=== PATIENT | female | born 1945 | race Caucasian/White ===

== ENCOUNTER 2018-03-07 17:43 | Inpatient (IN) | payer MEDICARE, SELFPAY ==
[2018-03-07] VITALS (7 sets, daily range): BP systolic 126–151; BP diastolic 64–87; PULSE 74–91; RESP 16–18; TEMP 36.8; O2SAT 100; BMI 31.6; BMI 31.7
--- NOTE | 2018-03-07 18:02 | CT_ITS ---
STUDY: CT ABDOMEN AND PELVIS WITHOUT CONTRAST REASON FOR EXAM: Female, 72 years old. Hematuria. RADIATION DOSAGE (If Supplied By Facility): CTDIvol = ( 19.03 ) mGy, DLP = ( 960.47 ) mGycm TECHNIQUE: Transaxial images were obtained from the dome of the diaphragm to the symphysis pubis without oral contrast, and without intravenous contrast. Sagittal and coronal images were reconstructed. Individualized dose optimization techniques were used for this CT. COMPARISON: None. FINDINGS: The exam is limited by patient motion. The visualized lung bases are unremarkable. The visualized portions of the heart are within normal limits. Normal liver. There are multiple gallstones. Normal spleen. Normal pancreas. Normal bilateral adrenal glands. Right kidney has 2 or 3 mm nonobstructing stone of the upper pole. There is a 5.2 cm and posterior renal cyst. No hydronephrosis. Left kidney is within normal limits. No stones. No hydronephrosis. Evaluation of the GI tract is limited by absence of oral contrast. Cannot exclude stomach wall thickening. No dilated loops of bowel or evidence for obstruction. Cannot exclude segmental thickening of the hirsch of the small or large bowel. Cannot exclude enteritis or colitis. Moderate diffuse fecal retention. Diverticulosis without definite diverticulitis. Appendix is not definitely seen. There is diffuse atherosclerotic calcification of the abdominal aorta, without a demonstrated aneurysm. Normal inferior vena cava. Normal retroperitoneum. Normal urinary bladder. Lobular enlarged uterus with numerous calcifications consistent with marked fibrotic changes. Normal abdominal wall. There are diffuse degenerative changes of the visualized lumbar spine. CT/Abdomen/Pelvis without Cont IMPRESSION: Limited by patient motion. Cholelithiasis. Marked fibroid involvement of the uterus. No acute renal abnormalities. Tiny nonobstructing right renal stone. Electronically Signed: Joseph Hugo MD at 19:24 EDT , Service support ,
--- NOTE | 2018-03-07 18:09 | ED.VISSUMM ---
- ER Visit Summary Date of Service: 03/07/18 Chief Complaint: Blood in urine History of Present Illness: The patient is a 72 F who takes Eliquis for A. fib and history of embolic stroke. She presents today with hematuria. She says this is a new issue. She is denying any pain or history of kidney stones. Denies any recent instrumentation. Denies fevers or infectious symptoms. Physical Examination: Afebrile and vital signs unremarkable. Patient is sitting in no apparent distress. Heart regular. Lungs clear. Abdomen soft and nontender. Test Results: Blood work, urinalysis, culture, coags, and imaging pending. Emergency Department Course and Treatment: Patient was treated with IV fluids. Christy catheter was placed with a three-way stopcock. Bladder was irrigated. She was discussed with Dr. Kiran. He said he is available this weekend if the patient would need an inpatient consult. Workup showed a hemoglobin of 15.3, glucose 143, BUN 20, INR 1.7, total bilirubin 1.3. Urinalysis showed signs of blood and infection. Culture is pending. CT showed uterine fibroids and a tiny right renal stone as well as other incidental findings. Patient was reassessed. She does have pink tinged urine after irrigation. She was started on Rocephin. Patient has a lot of chronic medical issues and weakness after a remote stroke. She has difficulty caring for herself with a catheter. She is concerned about recurrent bleeding. I will speak to the hospitalist about admission. Treatment Plan: As above Disposition: Admission Impression: 1. UTI 2. Hematuria This note was generated with [employer] dictation software. It may contain incorrect words, spelling, and punctuation that were not noted in review of the chart prior to signing ED Disposition - Plan for ED Patient: Chief Complaint: Complaint Referrals: Care Physician,No Primary [Primary Care Provider] -
[2018-03-07] MEDS: 0.9% Normal Saline 1,000 ML 999 ML IV (18:18)
[2018-03-07 18:27] LABS: Mucous, Urine 0 SEEN /hpf (<or=2+); Squamous Epithelial Cells - UA 0 SEEN /hpf (5-10)
[2018-03-07 18:28] LABS: Absolute Lymphocyte Count 2.09 X10^3/ul (0.83-4.51); Absolute Neutrophil Count 5.6 X10^3/uL (2.0-7.7); Basophil# 0.04 X10^3/uL; Basophil% 0.5 % (0-1); Eosinophils% 4.7 % (0-5); Hemoglobin 15.1 g/dl (12.0-15.0); Lymphocyte # 2.09 X10^3/ul (4.0); Lymphocyte % 24.3 % (19-41); Mean Corp Hgb Conc 33.6 g/gl (32-36); Mean Corpuscular Hgb 31.2 pg (27.0-32.0); Mean Platelet Vol. 11.4 fl (6.2-12.0); Monocyte# 0.48 X10^3/uL; Monocyte% 5.6 % (0-10); Neutrophil # 5.58 X10^3/uL (2.7-7.7); Neutrophil % 64.8 % (47-70); Platelet Count 222 K/mm3 (150-450); RBC Distribution Width CV 13.1 % (11.6-14.6); RBC Distribution Width SD 44.7 fl (35.1-43.9); Red Blood Count 4.84 M/mm3 (4.2-5.4); White Blood Count 8.6 K/mm3 (4.4-11.0)
[2018-03-07 18:31] LABS: Color, Urine Brown (Yellow); Glucose, Dipstick Normal (Normal); Ketone-Dipstick 15 mg/dl (Negative); Leukocyte Esterase-Dipstick 500 /ul (Negative); Nitrite-Dipstick Positive (Negative); Occult Blood-Urine 250 /ul (Negative); Protein-Dipstick 500 mg/dl (Negative); Urine Clarity Turbid (Clear); Urine Urobilinogen 1 mg/dl (Normal); Urine pH 6.5 (5.0 - 8.0)
[2018-03-07 18:32] LABS: POSITIVE COUNT NO; POSITIVE DIFFERENTIAL NO; POSITIVE MORPHOLOGY NO
[2018-03-07 18:38] LABS: International Normalized Ratio 1.7; Prothrombin Time (Protime)PT. 19.9 SECONDS (11.7-14.9)
[2018-03-07 18:39] LABS: Partial Thromboplast Time 32.6 Seconds (24.1-36.2)
[2018-03-07 18:44] LABS: Urine Bilirubin Dipstick 1 mg/dL (Negative)
[2018-03-07 18:50] LABS: AST(SGOT) 19 U/L (15-37); Alanine Aminotransfer ALT/SGPT 18 U/L (13-56); Albumin, Serum 3.8 g/dL (3.2-5.0); Alkaline Phosphatase 79 U/L (45-117); Anion Gap 9 (5-15); BUN 20 mg/dL (7-18); BUN/Creat Ratio 24.9 RATIO (10-20); Calcium,Total 9.3 mg/dL (8.5-10.1); Chloride 106 mmol/L (98-107); EST Glomerular Filtration Rate 75 mL/min (>60); Est Glom Filt Rate - Afr Amer 90 mL/min (>60); Estimated Creatinine Clearance 45.66 ml/min; Globulin 3.9 g/dL (2.2-4.2); Glucose 143 mg/dL (74-106); Potassium 4.2 mmol/L (3.5-5.1); Protein, Total 7.7 g/dL (6.4-8.2); Sodium Level 141 mmol/L (136-145)
[2018-03-07 18:52] LABS: Bacteria 4+ /hpf (None Seen)
[2018-03-07 18:53] LABS: Red Blood Cells-Urine > 100 SEEN /hpf (0-5); White Blood Cells >100 SEEN /hpf (0-5)
[2018-03-07] MEDS: Ceftriaxone 1 GM/50 ML BAG IV (20:33)
--- NOTE | 2018-03-07 23:25 | HP.PCM_ITS ---
Problem List (1) Hematuria Status: Acute (2) Embolic cerebral infarction Status: Acute Comment: multiple embolic ischemic strokes involving both sides of the brain (3) Hypomagnesemia Status: Acute (4) UTI (lower urinary tract infection) Status: Acute (5) Acute ischemic right MCA stroke Status: Chronic Comment: Thromboembolic, related to atrial fibrillation With a dense right-sided hemiplegia (6) Afib Status: Chronic History of Present Illness Date of Admission: 03/07/18 Chief Complaint: Hematuria The patient is a 72 year old female w/ h/o MCA stroke, HTN, afib, lipidemia, and RA admitted for gross hematuria. She has a new episode of hematuria. She never had similar symptoms. Hematuria was gross. No pain. Nothing appeared to make the hematuria better or worse. Hematuria was not associated with any other symptoms. She went to the ED for further workup. 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 Psychiatric History: No pertinent psych hx [employer] History: No pertinent [employer] history Lives: With Family Smoking Status: Never smoker Tobacco Use: Non-smoker Alcohol: None Drugs: None - *Family History Maternal History Items: Unknown, No pertinent history Paternal History Items: Unknown, No pertinent history Review of Systems Constitutional: Denies: Chills, Fever, Weight Change HEENT: Denies: Head Aches, Sinus Congestion, Sinus Drainage Cardiovascular: Denies: Chest Pain, Palpitations Respiratory: Denies: Cough, Shortness of breath at rest, Sputum production Gastrointestinal: Denies: Abdominal Pain, Nausea, Vomiting Genitourinary: Reports: Hematuria. Denies: Dysuria Musculoskeletal: Denies: Joint Pain, Joint Tenderness Skin: Denies: Rash, Wounds Neurological: Denies: Numbness, Tingling, Focal weakness Psychiatric: Denies: Anxiety, Depression, Homicidal Ideations, Suicidal Ideations Hematologic/ Lymphatic: Denies: Easy Bruising, Easy Bleeding VTE Information - Inpt Only VTE Present on Admission: No VTE Mechan Device Prophylaxis: SCD's VTE Pharm Prophylaxis ordered?: Yes Patient Problems: Active and Suspected Problems Hematuria (Acute) - Physical Exam General: Alert, Oriented x3, Cooperative HEENT: Atraumatic, PERRLA, EOMI, Normocephalic Neck: Supple, No JVD, Negative Carotid Bruits Lungs: Clear to auscultation, Normal air movement Cardiovascular: Regular rate, No murmurs Abdomen: Bowel Sounds Present, Soft, Non Tender Extremities: No edema, Capillary Refill Less than 3 Seconds Skin: No rashes, No breakdown Musculoskeletal: No Tenderness to Palpation of Joints or Extremities Neurological: Cranial nerves II-XII grossly intact Psych/Mental Status: Normal Affect, Appropriate Vital Signs Temp Pulse Resp BP Pulse Ox 98.3 F 82 16 150/82 H 100 03/07/18 20:38 03/07/18 22:09 03/07/18 22:09 03/07/18 22:09 03/07/18 22:09 Assessment/Plan Active and Suspected Problems Hematuria (Acute) 72 year old female w/ h/o MCA stroke, HTN, afib, lipidemia, and RA admitted for gross hematuria. 1) Hematuria: Probably secondary to anticoagulation vs UTI. No e/o bladder mass on CT. Doubt this is GN given normal renal function. C/w bladder irrigation. 2) UTI: C/w ceftriaxone. Cultures pending. 3) Afib: Rate controlled. C/w anticoagulation. 4) Chronic issues: MCA stroke, HTN, lipidemia, and RA: Resume home meds. Supportive care.
[2018-03-07] MEDS: 0.9% Normal Saline 1,000 ML 100 ML IV (23:30)
[2018-03-08 00:55] VITALS: PULSE 85
[2018-03-08 05:04] VITALS: BP 113/46; PULSE 86; RESP 16; TEMP 36.7; O2SAT 100
[2018-03-08 07:17] LABS: Absolute Lymphocyte Count 1.64 X10^3/ul (0.83-4.51); Absolute Neutrophil Count 5.8 X10^3/uL (2.0-7.7); Basophil# 0.03 X10^3/uL; Basophil% 0.4 % (0-1); Eosinophil# 0.38 X10^3/uL; Eosinophils% 4.6 % (0-5); Hematocrit 38.1 % (37-47); Lymphocyte # 1.64 X10^3/ul (4.0); Lymphocyte % 19.7 % (19-41); Mean Corp Hgb Conc 34.1 g/gl (32-36); Mean Corpuscular Hgb 31.9 pg (27.0-32.0); Mean Corpuscular Volume 93.6 fL (81-99); Mean Platelet Vol. 11.8 fl (6.2-12.0); Monocyte# 0.49 X10^3/uL; Monocyte% 5.9 % (0-10); Neutrophil # 5.78 X10^3/uL (2.7-7.7); Neutrophil % 69.2 % (47-70); Platelet Count 185 K/mm3 (150-450); RBC Distribution Width CV 13.1 % (11.6-14.6); RBC Distribution Width SD 43.7 fl (35.1-43.9); Red Blood Count 4.07 M/mm3 (4.2-5.4); White Blood Count 8.3 K/mm3 (4.4-11.0)
[2018-03-08 07:22] LABS: POSITIVE COUNT NO; POSITIVE DIFFERENTIAL NO; POSITIVE MORPHOLOGY NO
[2018-03-08 07:58] VITALS: PULSE 77
[2018-03-08 09:12] LABS: Anion Gap 6 (5-15); BUN 13 mg/dL (7-18); BUN/Creat Ratio 25.6 RATIO (10-20); Calcium,Total 7.7 mg/dL (8.5-10.1); Chloride 116 mmol/L (98-107); Creatinine, Serum 0.51 mg/dL (0.55-1.02); EST Glomerular Filtration Rate 126 mL/min (>60); Est Glom Filt Rate - Afr Amer 153 mL/min (>60); Estimated Creatinine Clearance 36.53 ml/min; Glucose 105 mg/dL (74-106); Potassium 3.8 mmol/L (3.5-5.1); Sodium Level 143 mmol/L (136-145)
[2018-03-08 10:21] VITALS: BP 117/67; PULSE 70; RESP 16; TEMP 36.9; O2SAT 94
[2018-03-08] MEDS: Ceftriaxone 1 GM/50 ML BAG IV (10:24)
[2018-03-08] MEDS: APIXABAN 5 MG TABLET GT (10:25)
[2018-03-08] MEDS: Sertraline 50 MG Tablet 25 MG PO (10:26)
[2018-03-08] MEDS: Nystatin Powder 15gm Bottle 1 APPLIC TOPICAL ×2 (13:20→21:32)
--- NOTE | 2018-03-08 14:18 | CASEMGMT ---
RN MALISSA Face to Face with patient for initial transition planning/care coordination assessment. RN CM introduced self and role at [facility]. Patient lying in bed, alert and oriented, daughter at bedside. Patient willing to participate in assessment and is able to answer all questions appropriately. Care providers, pharmacy, and demographics verified. See link attached. Patient wishes to discharge home with resumption of Passport services. Patient has aide services through [facility], 8 hours per day, 5 days per week. Patient states she has no further needs or concerns at this time. CM to follow for discharge planning needs that may arise. Disposition Plan: Patient to discharge home with Passport services, family support, and follow-up plans in place.
--- NOTE | 2018-03-08 14:44 | PCM.PROGNOTE ---
Patient Problems: Active and Suspected Problems Hematuria (Acute) Subjective: Patient was seen and examined today, urine in her Christy does not appear to be bloody this morning, urine culture is positive for presumptive E. coli. I talked with the patient's daughter by phone today, I told her the plan would be to remove the catheter in the morning and if the patient had no further bleeding she would probably be discharged tomorrow on antibiotics with follow-up to a urologist. - Physical Exam General: Alert, Oriented x3, Cooperative, No apparent distress, Well developed, Well nourished HEENT: Atraumatic, PERRLA, EOMI, Normocephalic Oral: Moist Mucosa Neck: Supple, No JVD, No Nuchal Rigidity, Trachea Midline, Thyroid Normal Size and Texture Lungs: Clear to auscultation, Normal air movement, No rhonchi, No wheeze, No rales Cardiovascular: No murmurs, PMI Normal, Irregular Rate, No rub noted Abdomen: Bowel Sounds Present, Soft, Non Tender, Non-Distended Extremities: No clubbing, No cyanosis, No edema, Capillary Refill Less than 3 Seconds Skin: No rashes, No breakdown Musculoskeletal: No Tenderness to Palpation of Joints or Extremities Neurological: Cranial nerves II-XII grossly intact, Neuro grossly intact, Sensory exam intact to light touch and pain Psych/Mental Status: Normal Affect, Appropriate, Alert and oriented to time, place, person, mood and affect Vital Signs Temp Pulse Resp BP Pulse Ox 98.4 F 70 16 117/67 94 03/08/18 10:21 03/08/18 10:21 03/08/18 10:21 03/08/18 10:21 03/08/18 10:21 Oxygen Delivery Method Room Air Weight: 73.6 kg Body Mass Index (BMI) 31.6 Intake and Output for Last 24 Hours 03/06/18 03/07/18 03/08/18 23:59 23:59 23:59 Intake Total 1581 / 1581 Output Total 1350 / 1350 Balance 231 / 231 Laboratory Tests Past 24 Hrs 03/08/18 03/08/18 06:55 06:55 WBC 8.3 RBC 4.07 L Hgb 13.0 Hct 38.1 MCV 93.6 MCH 31.9 MCHC 34.1 RDW 13.1 RDW Differential 43.7 Plt Count 185 MPV 11.8 Immature Gran % (Auto) 0.200 Neut % (Auto) 69.2 Lymph % (Auto) 19.7 [place] % (Auto) 5.9 Eos % (Auto) 4.6 Baso % (Auto) 0.4 Absolute Neuts (auto) 5.8 Absolute Lymphs (auto) 1.64 Total Counted Not Reportable Sodium 143 Potassium 3.8 Chloride 116 H Carbon Dioxide 21.0 Anion Gap 6 BUN 13 Creatinine 0.51 L Estim Creat Clear Calc 36.53 Est GFR (MDRD) Af Amer 153 Est GFR (MDRD) Non-Af 126 BUN/Creatinine Ratio 25.6 H Glucose 105 Calcium 7.7 L Medical Necessity - Tobacco Use Smoking Status: Never smoker Tobacco Use: Non-smoker Assessment/Plan Active and Suspected Problems Hematuria (Acute) #1 acute hematuria-secondary to cystitis, continue to monitor urine output and watch for signs of recurrent hematuria, repeat H&H in the morning #2 acute cystitis-secondary to E. coli, continue IV Rocephin day #2 #3 hyperlipidemia #4 permanent atrial fibrillation #5 long-term anticoagulation secondary to atrial fibrillation #6 cerebrovascular disease with old stroke secondary to emboli #7 hypertension Code Visit Inpatient E&M: 52470 Subs Hosp L2
[2018-03-08 15:34] VITALS: BP 113/82; PULSE 71; RESP 16; TEMP 36.7; O2SAT 95
[2018-03-08] MEDS: 0.9% Normal Saline 1,000 ML 100 ML IV (18:12)
[2018-03-08 20:00] VITALS: BP 119/58; PULSE 73; RESP 16; TEMP 36.9; O2SAT 98
[2018-03-08] MEDS: Atorvastatin Calcium 20 MG Tablet PO (21:32)
[2018-03-08] MEDS: APIXABAN 5 MG TABLET PO (21:32)
[2018-03-09 02:00] VITALS: BP 131/67; PULSE 78; RESP 16; TEMP 36.6; O2SAT 99
[2018-03-09] MEDS: 0.9% Normal Saline 1,000 ML 100 ML IV (03:13)
[2018-03-09] MEDS: Nystatin Powder 15gm Bottle 1 APPLIC TOPICAL (06:04)
[2018-03-09 09:10] VITALS: BP 130/72; PULSE 78; RESP 18; TEMP 36.7; O2SAT 94
--- NOTE | 2018-03-09 10:06 | PCM.DC ---
- Discharge Diagnoses Current Active Problems: Current Active and Chronic Problems Hematuria (Acute) You will use the following diet at home:: No restrictions Your food should be the consistency of: Regular Your liquids should be the consistency of: Regular/Thin Discharge Activity: Return to Normal Activity Weight Bearing Status: - - resume previous activity level Allergies/Adverse Reactions: Allergies No Known Allergies Allergy (Verified 06/16/16 11:16) Medications to take at Discharge Sertraline HCl [Zoloft] 25 mg PO DAILY 03/07/18 Simvastatin [Zocor] 40 mg PO QHS 03/07/18 Apixaban [Eliquis] 5 mg PO BID 03/09/18 Cephalexin [Keflex] 500 mg PO TID #21 cap 03/09/18 Nystatin Powder [Mycostatin Powder] 1 applic TOPICAL TID bottle 03/09/18 The following prescriptions were given: Cephalexin [Keflex] 500 mg PO TID #21 cap Primary Care Physician: Care Physician,No Primary [Primary Care Provider] - Please follow up with your Primary Care Physician in: in 7-10 days, you will need a repeat urinalysis to check for blood
[2018-03-09 10:09] LABS: Hematocrit 38.2 % (37-47); Hemoglobin 12.6 g/dl (12.0-15.0)
[2018-03-09] MEDS: APIXABAN 5 MG TABLET PO (11:33)
[2018-03-09] MEDS: Sertraline 50 MG Tablet 25 MG PO (11:33)
--- NOTE | 2018-03-09 17:32 | PCM.DC.SUM ---
Discharge Date and Diagnosis Date of Admission: 03/07/18 Date of Discharge: 03/09/18 - Primary Discharge Diagnosis #1 hematuria-secondary to acute cystitis from E. coli #2 acute cystitis secondary to E. 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 The blood was gross, she denied any clots. Patient lives with her daughter and is nonambulatory due to a past history of the left cerebral stroke. Workup in the emergency room included labs which showed a hemoglobin of 15.3, bilirubin was 1.3, BUN was 20, CT of the abdomen and pelvis showed a uterine fibroid plus a tiny right renal stone. Urinalysis showed over 100 red blood cells and over 100 white cells with 4+ bacteria, nitrite was positive. Catheter was inserted in the emergency room and was used for bladder irrigation, patient continued to have pink tinged urine after bladder irrigation, patient was admitted to [place] [address], IV Rocephin was administered in the emergency room and this was continued on the floor during her hospitalization. Patient had bladder irrigation for short period of time while on the floor, her urine cleared rapidly of visible blood, urine culture came back positive for E. coli which was sensitive to wide variety of antibiotics. Patient's blood count dropped slightly during her hospitalization, she did not require blood transfusion. On 03/09/18, patient was seen and examined felt to be in stable condition for discharge home, it was recommended that the patient's urine be rechecked in 7-10 days to see if her hematuria had cleared. Discharge Activity: Return to Normal Activity Weight Bearing Status: - - resume previous activity level Home Medications: Medications to take at Discharge Sertraline HCl [Zoloft] 25 mg PO DAILY 03/07/18 Simvastatin [Zocor] 40 mg PO QHS 03/07/18 Apixaban [Eliquis] 5 mg PO BID 03/09/18 Cephalexin [Keflex] 500 mg PO TID #21 cap 03/09/18 Nystatin Powder [Mycostatin Powder] 1 applic TOPICAL TID bottle 03/09/18 Following Prescrptions Were Given to Patient: Cephalexin [Keflex] 500 mg PO TID #21 cap Primary Care Physician: Care Physician,No Primary [Primary Care Provider] - Please follow up with your Primary Care Physician in: in 7-10 days, you will need a repeat urinalysis to check for blood Disposition: Home Minutes spent on discharge:: 31 Patient Condition:: Stable Medical Necessity - Tobacco Use Smoking Status: Never smoker Tobacco Use: Non-smoker Meaningful Use Info Meaningful Use Diagnoses (Choose all that apply): None applicable Code Visit Inpatient E&M: 81918 Disch Hosp
--- NOTE | 2018-03-09 17:38 | DS.PCM_ITS ---
Discharge Date and Diagnosis Date of Admission: 03/07/18 Date of Discharge: 03/09/18 - Primary Discharge Diagnosis #1 hematuria-secondary to acute cystitis from E. coli #2 acute cystitis secondary to E. 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 The blood was gross, she denied any clots. Patient lives with her daughter and is nonambulatory due to a past history of the left cerebral stroke. Workup in the emergency room included labs which showed a hemoglobin of 15.3, bilirubin was 1.3, BUN was 20, CT of the abdomen and pelvis showed a uterine fibroid plus a tiny right renal stone. Urinalysis showed over 100 red blood cells and over 100 white cells with 4+ bacteria, nitrite was positive. Catheter was inserted in the emergency room and was used for bladder irrigation, patient continued to have pink tinged urine after bladder irrigation, patient was admitted to [place] [address], IV Rocephin was administered in the emergency room and this was continued on the floor during her hospitalization. Patient had bladder irrigation for short period of time while on the floor, her urine cleared rapidly of visible blood, urine culture came back positive for E. coli which was sensitive to wide variety of antibiotics. Patient's blood count dropped slightly during her hospitalization , she did not require blood transfusion. On 03/09/18, patient was seen and examined felt to be in stable condition for discharge home, it was recommended that the patient's urine be rechecked in 7-10 days to see if her hematuria had cleared. Discharge Activity: Return to Normal Activity Weight Bearing Status: - - resume previous activity level Home Medications: Medications to take at Discharge Sertraline HCl [Zoloft] 25 mg PO DAILY 03/07/18 Simvastatin [Zocor] 40 mg PO QHS 03/07/18 Apixaban [Eliquis] 5 mg PO BID 03/09/18 Cephalexin [Keflex] 500 mg PO TID #21 cap 03/09/18 Nystatin Powder [Mycostatin Powder] 1 applic TOPICAL TID bottle 03/09/18 Following Prescrptions Were Given to Patient: Cephalexin [Keflex] 500 mg PO TID #21 cap Primary Care Physician: Care Physician,No Primary [Primary Care Provider] - Please follow up with your Primary Care Physician in: in 7-10 days, you will need a repeat urinalysis to check for blood Disposition: Home Minutes spent on discharge:: 31 Patient Condition:: Stable Medical Necessity - Tobacco Use Smoking Status: Never smoker Tobacco Use: Non-smoker Meaningful Use Info Meaningful Use Diagnoses (Choose all that apply): None applicable Code Visit Inpatient E&M: 21998 Disch Hosp
--- NOTE | 2018-03-10 16:04 | CASEMGMT ---
MARLEN LEONARDO Discharge Follow-up Phone Call: LUANN: Tammie Strata: 3 Call Date: 03/10/18 Discharge Date: 03/09/18 Time of Call: 1600 Duration: 5 min Admitting Diagnosis: Hematuria MARLEN LEONARDO spoke with patient's daughter regarding how patient is doing since discharge from hospital. Daughter states that patient is doing well. They had no trouble filling prescription. NO questions regarding discharge instructions. Daughter to call visiting physician to schedule appt.
== END 2018-03-09 13:28 | disposition home or self-care (01) | DRG 690 ==
LOC: ED 18:45 → MS3 22:47
PROVIDERS: Admitting Provider Internal Medicine; Emergency Provider Emergency Medicine; Visit Provider Internal Medicine
DX: N30.00 Acute cystitis without hematuria (principal); D62 Acute posthemorrhagic anemia; I69.351 Hemiplegia and hemiparesis following cerebral infarction affecting right dominant side; B96.20 Unspecified Escherichia coli [E. coli] as the cause of diseases classified elsewhere; R31.9 Hematuria, unspecified; I10 Essential (primary) hypertension; M06.9 Rheumatoid arthritis, unspecified; I69.398 Other sequelae of cerebral infarction; G93.89 Other specified disorders of brain; I69.391 Dysphagia following cerebral infarction; R13.10 Dysphagia, unspecified; Z66 Do not resuscitate; E78.5 Hyperlipidemia, unspecified; I48.2 Chronic atrial fibrillation
CPT/HCPCS: 36415; 51702; 74176; 80048; 80053; 81001; 85014; 85018; 85025; 85610; 85730; 87040; 87086; 87088; 87186; 99285; J7030; A4216

== ENCOUNTER 2020-04-01 05:55 | Inpatient (IN) | payer MEDICARE, MEDICAID, SELFPAY ==
[2020-04-01] VITALS (10 sets, daily range): BP systolic 120–151; BP diastolic 40–99; PULSE 82–120; RESP 16–28; TEMP 36.9–37.2; O2SAT 95–98; BMI 35.3; BMI 32.0
--- NOTE | 2020-04-01 06:09 | RAD_ITS ---
STUDY: X-RAY CHEST REASON FOR EXAM: Female, 74 years old. COUGH, ABD PAIN TECHNIQUE: Single frontal view of the chest. COMPARISON: 02/01/2015 FINDINGS: The lungs are clear and expanded. There is no demonstrated pleural abnormality. Normal size heart. Normal mediastinum and marisol. Normal visualized pulmonary arteries. Normal visualized aortic arch and descending thoracic aorta. Normal visualized thoracic spine. Normal visualized ribs, clavicles, and shoulders. There is no demonstrated abnormality of the visualized soft tissue structures of the upper abdomen. RAD/Chest 1 View (Portable) IMPRESSION: Normal x-ray examination of the chest. Electronically Signed: Matthew Rivera MD at 7:34 EDT , Service support ,
--- NOTE | 2020-04-01 06:10 | ED.VIS.GEN ---
History of Present Illness Chief Complaint: Abd Pain Informant: Patient Narrative: Stated she had a mild dry cough yesterday. She had 6 episodes of emesis today. Denies any abdominal pain. History of G-tube in the past secondary to stroke. This was removed multiple years ago. No other abdominal surgeries. Her daughter stated that she felt warm but did not take her temperature. No coronavirus exposure. Patient denies any shortness of breath or chest pain. Denies any urinary symptoms. 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 She is on Eliquis for history of atrial fibrillation. No bowel movements. 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 Comment: Thromboembolic, related to atrial fibrillation With a dense right-sided hemiplegia (7) Afib Status: Chronic (8) DNR no code (do not resuscitate) Status: Chronic (9) Dyslipidemia Status: Chronic (10) Dysphagia as late effect of stroke Status: Chronic (11) Encephalomalacia with cerebral infarction Status: Chronic Comment: most of the Left brain due to a large L MCA ischemic infarct in March of 2014 (12) HTN (hypertension) Status: Chronic (13) Rheumatoid arthritis Status: Chronic Past Medical History - Allergies and Home Meds Allergies/Adverse Reactions: Allergies No Known Allergies Allergy (Verified 04/01/20 06:05) Primary Care Physician: Care Physician,No Primary [Primary Care Provider] - Prior records reviewed: Yes Past Medical History: - - See problem list Surgical History: - - PEG tube placement. Lives: With Family Smoking Status: Never smoker Alcohol: None Drugs: None - Family History Maternal Family History: Reports: Unknown, No pertinent history Paternal Family History: Reports: Unknown, No pertinent history Review of Systems General: Denies: Chills, Fever, Sweats Eyes: Denies: Visual changes - bilaterally, Diplopia ENT: Denies: Rhinorrhea, Sore throat Cardiovascular: Denies: Chest pain, Palpitations Respiratory: Reports: Cough. Denies: Dyspnea, Dyspnea on exertion Gastrointestinal: Reports: Nausea, Vomiting. Denies: Abdominal pain, Diarrhea, Melena, Hematochezia Genitourinary: Denies: Dysuria, Hematuria, Frequency Musculoskeletal: Denies: Back pain, Extremity Pain Skin: Denies: Rash, Wounds Neurological: Denies: Headache, Weakness, Numbness Physical Exam Vital Signs/Narrative: Vital Signs Temp Pulse Resp BP Pulse Ox 04/01/20 06:07 98.9 F 120 H 25 H 151/85 H 98 04/01/20 05:56 98.9 F 120 H 25 H 151/85 H 98 General: Well nourished, Well developed, No Acute Distress Head: Normocephalic, Atraumatic Eyes: Perrl, EOMI ENT: Moist mucous membranes, No rhinorrhea Neck: Supple, Nontender Cardiovascular: Regular rate, No murmurs, Irregular, Tachycardia Respiratory: No distress, Chest nontender, Rales Abdomen: Soft, Nontender, Nondistended, Normal bowel sounds Back: Nontender, Normal Inspection Extremities: Nontender, No edema Skin: Normal color, No rash Neurological: Alert, Oriented x3, Cranial nerves II-XII grossly intact, Normal Sensation, - - Spastic weakness right-sided with contracture Psychological: Normal affect, Normal Mood Diagnostic/Tx/Re-eval - Medical Decision Making IV established patient given IV fluids and Zofran. Lab work and chest x-ray obtained. Work shows a leukocytosis greater than 20,000 with left shift. Urinalysis shows positive leukocytes and nitrites consistent with UTI urine culture pending. Blood cultures pending. Patient given Unasyn which should cover aspiration pneumonitis and a urine infection. Chest x-ray shows no focal infiltrates however I feel she would likely blossom into a pneumonitis pneumonia from her aspiration. Patient has elevated BUN likely secondary to prerenal duration. Creatinine is normal. Patient discussed the hospitalist will be admitted - Critical Care Time Critical care time (excluding procedures): 30-74 minutes ED Disposition - Plan for ED Patient: Disposition: Acute Care Hospital [facility] Diagnosis: Aspiration pneumonitis, Nausea and vomiting, Chronic atrial fibrillation, Urinary tract infection
[2020-04-01 06:27] LABS: Absolute Lymphocyte Count 2.35 X10^3/uL (0.83-4.51); Absolute Neutrophil Count 18.5 X10^3/uL (2.0-7.7); Basophil# 0.09 X10^3/uL; Basophil% 0.4 % (0-1); Eosinophil# 0.37 X10^3/uL; Eosinophils% 1.6 % (0-5); Hematocrit 38.5 % (37-47); Hemoglobin 12.8 g/dL (12.0-15.0); Lymphocyte # 2.35 X10^3/ul (4.0); Lymphocyte % 10.4 % (19-41); Mean Corp Hgb Conc 33.2 g/dL (32-36); Mean Corpuscular Hgb 31.7 pg (27.0-32.0); Mean Corpuscular Volume 95.3 fL (81-99); Mean Platelet Vol. 12.6 fl (6.2-12.0); Monocyte% 5.3 % (0-10); NRBC Flagged by Analyzer 0 % (0-5); Neutrophil # 18.52 X10^3/uL (2.7-7.7); Neutrophil % 81.8 % (47-70); Platelet Count 273 K/mm3 (150-450); RBC Distribution Width CV 13.2 % (11.6-14.6); RBC Distribution Width SD 46.1 fl (35.1-43.9); Red Blood Count 4.04 M/mm3 (4.2-5.4); White Blood Count 22.7 K/mm3 (4.4-11.0)
[2020-04-01] MEDS: Ondansetron 4 MG/2 ML Vial IV (06:43)
[2020-04-01] MEDS: 0.9% Normal Saline 1,000 ML 1000 ML IV (06:43)
[2020-04-01 06:44] LABS: ALB/GLOB Ratio 0.9 RATIO (0.9-2.4); AST(SGOT) 13 U/L (15-37); Alanine Aminotransfer ALT/SGPT 13 U/L (13-56); Albumin, Serum 3.3 g/dL (3.2-5.0); Alkaline Phosphatase 59 U/L (45-117); Anion Gap 8 (5-15); BUN 38 mg/dL (7-18); BUN/Creat Ratio 54.9 RATIO (10-20); Calcium,Total 9.5 mg/dL (8.5-10.1); Chloride 111 mmol/L (98-107); Creatinine, Serum 0.69 mg/dL (0.55-1.02); EST Glomerular Filtration Rate 88 mL/min (>60); Est Glom Filt Rate - Afr Amer 107 mL/min (>60); Estimated Creatinine Clearance 39.04 ml/min; Globulin 3.7 g/dL (2.2-4.2); Glucose 168 mg/dL (74-106); Lipase 42 U/L (73-393); Potassium 4.3 mmol/L (3.5-5.1); Sodium Level 141 mmol/L (136-145)
[2020-04-01 06:46] LABS: Mucous, Urine 0 SEEN /hpf (<or=2+)
[2020-04-01 06:47] LABS: Color, Urine Yellow (Yellow); Glucose, Dipstick Normal (Normal); Ketone-Dipstick Negative (Negative); Leukocyte Esterase-Dipstick 100 /ul (Negative); Nitrite-Dipstick Positive (Negative); Occult Blood-Urine 10 /ul (Negative); Protein-Dipstick 15 mg/dl (Negative); Urine Bilirubin Dipstick Negative (Negative); Urine Clarity Clear (Clear); Urine Urobilinogen 1 mg/dl (Normal)
--- NOTE | 2020-04-01 07:14 | HP.PCM_ITS ---
Problem List (1) Aspiration pneumonitis Status: Acute (2) Nausea and vomiting Status: Acute Qualifiers: Vomiting type: unspecified Vomiting Intractability: unspecified Qualified Code(s): R11.2 - Nausea with vomiting, unspecified (3) Chronic atrial fibrillation Status: Chronic (4) Dysphagia as late effect of stroke Status: Chronic (5) HTN (hypertension) Status: Chronic Qualifiers: Hypertension type: essential hypertension Qualified Code(s): I10 - Essential (primary) hypertension (6) Afib Status: Chronic Qualifiers: Atrial fibrillation type: unspecified Qualified Code(s): I48.91 - Unspecified atrial fibrillation History of Present Illness Date of Admission: 04/01/20 Chief Complaint: Vomiting, aspiration - 1 day The patient is a 74 year old F with Pmhx of CVAs, with residual right hemiplegia, (ambulates with wheelchair), Hypertension who comes in with nausea, vomiting and aspiration noted today. Patient was said to be not feeling well, ate and drank a little yesterday. This morning after vomiting, she felt warm, and diaphoretic. Her daughter called the EMS. Vitals in the ED showed temperature 98.9 F, heart rate of 120, blood pressure 151/85, respiratory rate was 25, SPO2 was 98% on room air. BC count of 22.7, hemoglobin 12.8, platelet count 273, sodium 141, potassium 4.2, chloride 101, bicarbonate 22, BUN 38, creatinine 0.69, glucose 168, lactic acid 2.0, repeat lactic acid 2.1. UA was yellow, Nitrite is positive, Leucocyte esterase 100, WBC 10-25, Bacteria 2+ Chest x-ray was unremarkable. Past Medical History Past Medical History (Chronic Problems): Chronic Problems Chronic atrial fibrillation (Chronic) Dysphagia as late effect of stroke (Chronic) DNR no code (do not resuscitate) (Chronic) Acute ischemic right MCA stroke (Chronic) Thromboembolic, related to atrial fibrillation With a dense right-sided hemiplegia HTN (hypertension) (Chronic) Afib (Chronic) Encephalomalacia with cerebral infarction (Chronic) most of the Left brain due to a large L MCA ischemic infarct in March of 2014 Dyslipidemia (Chronic) Rheumatoid arthritis (Chronic) Allergies No Known Allergies Allergy (Verified 04/01/20 06:05) Home Medications: Ambulatory Orders Medication Instructions Recorded Sertraline HCl [Zoloft] 25 mg PO DAILY 03/07/18 Simvastatin [Zocor] 40 mg PO QHS 03/07/18 Apixaban [Eliquis] 5 mg PO BID 03/09/18 Meloxicam 7.5 mg PO DAILY 04/01/20 Surgical History: - - PEG tube placement, s/p removal Psychiatric History: No pertinent psych hx 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 Lives: With Family Smoking Status: Never smoker Alcohol: None Drugs: None - *Family History Maternal History Items: Unknown Paternal History Items: Unknown Review of Systems Unable to obtain accurate/complete ROS d/t: unable to get ROS unable to get dysarthria VTE Information - Inpt Only VTE Present on Admission: No VTE Pharm Prophylaxis ordered?: Yes Patient Problems: Active and Suspected Problems Aspiration pneumonitis (Acute) Nausea and vomiting (Acute) Urinary tract infection (Acute) - Physical Exam Vitals/I&O's: Vital Signs Temp Pulse Resp BP Pulse Ox 98.9 F 120 H 25 H 151/85 H 98 04/01/20 06:07 04/01/20 06:07 04/01/20 06:07 04/01/20 06:07 04/01/20 06:07 Oxygen Delivery Method Room Air Weight: 87.6 kg Body Mass Index (BMI) 35.3 Finger Stick Blood Glucose 99 General: Alert, Oriented x3, Cooperative, No apparent distress HEENT: Atraumatic, PERRLA, EOMI, Normocephalic Oral: Dry Mucosa Neck: Supple Lungs: Clear to auscultation, Normal air movement Cardiovascular: Regular rate, Regular Rhythm, Normal S1, Normal S2, No murmurs Abdomen: Bowel Sounds Present, Soft, Non Tender, Non-Distended, No Hepato- splenomegaly Extremities: No edema Skin: No rashes Musculoskeletal: No Tenderness to Palpation of Joints or Extremities Lymphatic: No Cervical, Supraclavicular, or Inguinal Adenopathy Neurological: Cranial nerves II-XII grossly intact, Neuro grossly intact Psych/Mental Status: Normal Affect, Appropriate Laboratory Results 04/01/20 06:16: WBC 22.7 H, RBC 4.04 L, Hgb 12.8, Hct 38.5, MCV 95.3, MCH 31.7, MCHC 33.2, RDW Std Deviation 46.1 H, RDW Coeff of [place] 13.2, Plt Count 273, MPV 12.6 H, Immature Gran % (Auto) 0.500, Neut % (Auto) 81.8 H, Lymph % (Auto) 10.4 L, [place] % (Auto) 5.3, Eos % (Auto) 1.6, Baso % (Auto) 0.4, Absolute Neuts (auto) 18.5 H, Absolute Lymphs (auto) 2.35, Nucleated RBC % 0 04/01/20 06:16: Sodium 141, Potassium 4.3, Chloride 111 H, Carbon Dioxide 22.0, Anion Gap 8, BUN 38 H, Creatinine 0.69, Estim Creat Clear Calc 39.04, Est GFR (MDRD) Af Amer 107, Est GFR (MDRD) Non-Af 88, BUN/Creatinine Ratio 54.9 H, Glucose 168 H, Calcium 9.5, Total Bilirubin 1.50 H, AST 13 L, ALT 13, Alkaline Phosphatase 59, Total Protein 7.0, Albumin 3.3, Globulin 3.7, Albumin/Globulin Ratio 0.9, Lipase 42 L 04/01/20 06:25: COVID-19 ([place]) Pending 04/01/20 06:35: Urine Color Yellow, Urine Clarity Clear, Urine pH 5.0, Ur Specific [place] 1.020, Urine Protein 15 H, Urine Glucose (UA) Normal, Urine Ketones Negative, Urine Occult Blood 10 H, Urine Nitrite Positive H, Urine Bilirubin Negative, Urine Urobilinogen 1 H, Ur Leukocyte Esterase 100 H, Urine RBC Pending, Urine WBC Pending, Ur Squamous Epith Cells Pending, Urine Bacteria Pending, Urine Mucus Pending Current Medications Ampicillin Sodium/Sulbactam (Sodium 3 gm/ Sodium Chloride) 112 mls @ 150 mls/hr IV X1 ONE Stop: 04/01/20 07:34 Assessment/Plan All Active Problems Hematuria (Acute) Aspiration pneumonitis (Acute) Nausea and vomiting (Acute) Urinary tract infection (Acute) UTI (lower urinary tract infection) (Acute) Embolic cerebral infarction (Acute) Dehydration (Acute) Hypomagnesemia (Acute) 1. Acute onset of nausea and vomiting likely secondary to UTI/constipation Abdominal KUB suggestive of constipation UA suggestive of UTI Started on IV Unasyn, continue same, Continue IV fluids, Dulcolax suppository, enema 2. Possible aspiration pneumonitis/pneumonia, started on Unasyn, continue same 3. Sepsis secondary to acute UTI, urine and blood cultures pending Continue on IV Unasyn, support with IV fluids 4. History of CVA residual right hemiplegia Continue on apixaban, atorvastatin 5. Depression, on Zoloft 6. DVT PPx- On apixaban Inpatient E&M: [id number] Init Hosp L3
[2020-04-01 07:40] LABS: Bacteria 2+ /hpf (None Seen); Red Blood Cells-Urine 0-5 SEEN /hpf (0-5); Squamous Epithelial Cells - UA 0-5 SEEN /hpf (5-10); White Blood Cells 10-25 SEEN /hpf (0-5)
--- NOTE | 2020-04-01 08:54 | ED.RN ---
fishing accessories maker called and will be here between 130 and 230
[2020-04-01] MEDS: 0.9% Normal Saline 1,000 ML 100 ML IV ×2 (10:18→22:16)
--- NOTE | 2020-04-01 12:46 | RAD_ITS ---
STUDY: X-RAY - ABDOMEN/PELVIS REASON FOR EXAM: Female, 74 years old. Emesis, UTI TECHNIQUE: 2 views, supine and left decubitus. COMPARISON: Prior abdomen and pelvic CT exam of March 07, 2018 FINDINGS: Normal visualized lung bases. Obese abdomen with nondistended stomach, small bowel and colon. Average amount of identified stool. There is no demonstrated free abdominal air. Negative for gross organomegaly. Fibroid calcification of the pelvis. Cholelithiasis. Normal soft tissue structures. Degenerative changes of the spine and hips. Demineralized osseous structures. RAD/Abd Decub and/or Erect(Portabl IMPRESSION: Obese abdomen without evidence of bowel obstruction or perforation. Nondistended stomach and small bowel. Average amount of stool. Fibroid calcification of the pelvis. Cholelithiasis. Electronically Signed: Rachael Andrade MD at 18:27 EDT , Service support ,
[2020-04-01 12:54] LABS: Reflex Lactate? Y
[2020-04-01] MEDS: Sertraline 50 MG Tablet 25 MG PO (13:04)
[2020-04-01] MEDS: APIXABAN 5 MG TABLET PO ×2 (13:04→22:08)
[2020-04-01 15:48] LABS: Lactic Acid 2.1 mmol/L (0.4-1.9)
--- NOTE | 2020-04-01 16:49 | NURSING ---
Soap suds enema administered. Pt tolerated well. She did not retain much of the fluid and very little stool was expelled during procedure.
[2020-04-01] MEDS: Menthol/Lanolin/Calamine/Znox 113 GM Tube 1 APPLIC TOPICAL (22:08)
[2020-04-01] MEDS: Atorvastatin Calcium 20 MG Tablet PO (22:08)
[2020-04-01] MEDS: Nystatin Ointment 1 APPLIC TOPICAL (22:09)
[2020-04-01] MEDS: Acetaminophen 325 MG Tablet 650 MG PO (23:12)
[2020-04-01] MEDS: 0.9% Saline Lock 10 ML Syringe IV (23:13)
[2020-04-02 03:00] VITALS: PULSE 76
[2020-04-02 03:35] VITALS: BP 107/59; PULSE 76; RESP 18; TEMP 36.7; O2SAT 95
[2020-04-02 06:49] VITALS: PULSE 82
[2020-04-02 08:08] LABS: Absolute Lymphocyte Count 2.14 X10^3/uL (0.83-4.51); Absolute Neutrophil Count 6.6 X10^3/uL (2.0-7.7); Basophil# 0.05 X10^3/uL; Basophil% 0.5 % (0-1); Eosinophil# 0.59 X10^3/uL; Eosinophils% 5.9 % (0-5); Hemoglobin 8.4 g/dL (12.0-15.0); Lymphocyte # 2.14 X10^3/ul (4.0); Lymphocyte % 21.3 % (19-41); Mean Corp Hgb Conc 32.3 g/dL (32-36); Mean Corpuscular Hgb 31.8 pg (27.0-32.0); Mean Corpuscular Volume 98.5 fL (81-99); Mean Platelet Vol. 11.9 fl (6.2-12.0); Monocyte# 0.58 X10^3/uL; Monocyte% 5.8 % (0-10); NRBC Flagged by Analyzer 0 % (0-5); Neutrophil # 6.64 X10^3/uL (2.7-7.7); Neutrophil % 66.2 % (47-70); Platelet Count 162 K/mm3 (150-450); RBC Distribution Width CV 13.6 % (11.6-14.6); RBC Distribution Width SD 48.9 fl (35.1-43.9); Red Blood Count 2.64 M/mm3 (4.2-5.4)
[2020-04-02 08:26] LABS: ALB/GLOB Ratio 0.8 RATIO (0.9-2.4); AST(SGOT) 8 U/L (15-37); Alanine Aminotransfer ALT/SGPT 10 U/L (13-56); Albumin, Serum 2.4 g/dL (3.2-5.0); Alkaline Phosphatase 40 U/L (45-117); Anion Gap 3 (5-15); BUN 21 mg/dL (7-18); BUN/Creat Ratio 35.1 RATIO (10-20); Calcium,Total 7.7 mg/dL (8.5-10.1); Chloride 117 mmol/L (98-107); EST Glomerular Filtration Rate 104 mL/min (>60); Est Glom Filt Rate - Afr Amer 126 mL/min (>60); Estimated Creatinine Clearance 39.04 ml/min; Glucose 125 mg/dL (74-106); Protein, Total 5.4 g/dL (6.4-8.2); Sodium Level 145 mmol/L (136-145)
[2020-04-02 09:14] VITALS: BP 100/52; PULSE 76; RESP 18; TEMP 37.1; O2SAT 95
[2020-04-02] MEDS: Bisacodyl 10 MG Suppository RECTAL (09:20)
[2020-04-02] MEDS: Menthol/Lanolin/Calamine/Znox 113 GM Tube 1 APPLIC TOPICAL (09:32)
[2020-04-02] MEDS: APIXABAN 5 MG TABLET PO (09:32)
[2020-04-02] MEDS: Sertraline 50 MG Tablet 25 MG PO (09:32)
[2020-04-02] MEDS: Nystatin Ointment 1 APPLIC TOPICAL (09:33)
--- NOTE | 2020-04-02 10:09 | NURSING ---
This RN updated pt's daughter over the phone.
[2020-04-02 10:50] VITALS: PULSE 77
--- NOTE | 2020-04-02 11:00 | CASEMGMT ---
MARLEN LEONARDO Face to Face with patient for initial transition planning/care coordination assessment. RN MALISSA introduced self and role at [facility]. Patient lying in bed, alert and oriented. Patient willing to participate in assessment and is able to answer some questions appropriately. Patient gave permission to called daughter to complete assessment. RN CM called daughter Delphine and completed assessment. Care providers, pharmacy, and demographics verified. Daughter wishes for patient to discharge home, denies need for home health at this time. Daughter states she has no further needs or concerns at this time. CM to follow for discharge planning needs that may arise. PCP: Denise Fisher, visiting physician Specialists: none [facility]erred [facility]acy[facility] Prescription Benefit: yes Living Will/HPOA: yes daughter Delphine Guadalupe LNOK: daughter, granddaughter Living Arrangements: Patient lives with daughter and granddaughter in single story home with ramp to enter the home. Patient goes to [place] when daughter works. Transportation: [place] DME/HHC: Patient has hospital bed, wheel chair, and thor at home. Daughter denies HHC. Patient is active with [facility] with MALISSA Cedeño Disposition Plan: Patient to discharge home with family support and follow-up plans in place. Jennifer COURTNEY, RN, CM
--- NOTE | 2020-04-02 11:15 | DCINST_ITS ---
- Discharge Diagnoses Current Active Problems: Current Active and Chronic Problems Aspiration pneumonitis (Acute) Nausea and vomiting (Acute) Chronic atrial fibrillation (Chronic) Urinary tract infection (Acute) You will use the following diet at home:: Cardiac Your food should be the consistency of: Puree Your liquids should be the consistency of: [place] Thick Discharge Activity: Return to Normal Activity Additional Instructions: You will need ongoing speech therapy as an outpatient. Allergies/Adverse Reactions: Allergies No Known Allergies Allergy (Verified 04/01/20 06:05) Medications to take at Discharge Sertraline HCl [Zoloft] 25 mg PO DAILY 03/07/18 Simvastatin [Zocor] 40 mg PO QHS 03/07/18 Apixaban [Eliquis] 5 mg PO BID 03/09/18 Acetaminophen [Tylenol Tablet] 650 mg PO Q6H PRN PRN tablet 04/02/20 Amoxicillin/Potassium Clav [Augmentin 875-125 Tablet] 1 ea PO BID #12 tab 04/02/20 The following prescriptions were given: Amoxicillin/Potassium Clav [Augmentin 875-125 Tablet] 1 ea PO BID #12 tab Transmission Status: Pending to [id number] Primary Care Physician: Care Physician,No Primary [Primary Care Provider] - Please follow up with your Primary Care Physician in: 1-2 weeks Test Results: Test results from this visit will be discussed in further detail at your follow- up appointment, if applicable. Proposed Discharge Date: 04/02/20
--- NOTE | 2020-04-02 12:47 | NURSING ---
This RN called and went over discharge instructions with pt's daughter, Delphine.
--- NOTE | 2020-04-02 13:01 | DS.PCM_ITS ---
<Karlos Paulson - Last Filed: 04/02/20 13:01> Discharge Date and Diagnosis - Problem List Patient Problems: Active and Suspected Problems Aspiration pneumonitis (Acute) Nausea and vomiting (Acute) Urinary tract infection (Acute) Date of Admission: 04/01/20 Date of Discharge: 04/02/20 - Primary Discharge Diagnosis Acute Problems: Active Problems Urinary tract infection (Acute) Aspiration pneumonitis 2/2 Nausea and vomiting Acute metabolic encephalopathy 2/2 UTI Dysphagia Hx CVAs with chronic R hemiplegia chronic afib HTN - Secondary Discharge Diagnosis Chronic Problems: Chronic Problems Chronic atrial fibrillation (Chronic) Dysphagia as late effect of stroke (Chronic) DNR no code (do not resuscitate) (Chronic) Acute ischemic right MCA stroke (Chronic) Thromboembolic, related to atrial fibrillation With a dense right-sided hemiplegia HTN (hypertension) (Chronic) Afib (Chronic) 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 RAD/Abd Decub and/or Erect(Portabl IMPRESSION: Obese abdomen without evidence of bowel obstruction or perforation. Nondistended stomach and small bowel. Average amount of stool. Fibroid calcification of the pelvis. Cholelithiasis. Operations: None Procedures: None Summary of Care Provided: Hospital Course: The patient is a 74 year old F with pmhx as above who presented to the ER after having nausea/vomiting at home with subsequent diaphoresis and evidence of aspiration. EMS was called. In the ER she had a + UA and no evidence of pna on CXR, confusion, and significant leukocytosis of 22k. Covid neg. The patient was placed on unasyn for UTI, which would also cover for aspiration tho she was felt to have pneumonitis as CXR did not show infiltrate and she was not hypoxic on room air. She did well overnight with good improvement of her symptoms. Speech therapy worked with her and did demonstrate significant dysphagia. I advised on going outpatient speech therapy however her family declined, altho they did agree to continue providing the modified diet - nectar thick liquids and pureed textures. She was transitioned to augmentin and will complete 7 day course. She is under total care at baseline with her daughter providing all her care at home. PTOT did not feel she was significantly different from baseline to warrant ongoing PTOT. She was discharged home in stable condition. She will need follow up with her PCP in 1-2 weeks. This patient was seen by Karlos Paulson PA-C under the supervision of Dr. Contreras. [] Patient Problems: Active and Suspected Problems Aspiration pneumonitis (Acute) Nausea and vomiting (Acute) Urinary tract infection (Acute) - Physical Exam Vitals/I&O's: Vital Signs Temp Pulse Resp BP Pulse Ox 98.7 F 77 18 100/52 L 95 04/02/20 09:14 04/02/20 10:50 04/02/20 09:14 04/02/20 09:14 04/02/20 09:14 Oxygen Delivery Method Room Air Weight: 181 lb 7.047 oz Body Mass Index (BMI) 32.0 Finger Stick Blood Glucose 99 Intake and Output for Last 24 Hours 03/31/20 04/01/20 04/02/20 23:59 23:59 23:59 Intake Total 2617.67 / 2857.67 917 / 917 Output Total 0 / 0 400 / 400 Balance 2617.67 / 2857.67 517 / 517 General: Alert, Oriented x3, Cooperative HEENT: Atraumatic, PERRLA, EOMI, Normocephalic Neck: Supple, No JVD, Negative Carotid Bruits Lungs: Clear to auscultation, Normal air movement Cardiovascular: Regular rate, No murmurs Abdomen: Bowel Sounds Present, Soft, Non Tender Extremities: No edema, Capillary Refill Less than 3 Seconds Skin: No rashes, No breakdown Musculoskeletal: No Tenderness to Palpation of Joints or Extremities Neurological: Cranial nerves II-XII grossly intact Psych/Mental Status: Normal Affect, Appropriate Microbiology Past 72 Hours 04/01/20 06:35 Urine, Clean Catch Urine Culture - Preliminary Presumptive E. coli Laboratory Results 04/01/20 14:55: Lactic Acid 2.1 H* 04/02/20 05:15: WBC Cancelled, Corrected WBC Cancelled, RBC Cancelled, Hgb Cancelled, Hct Cancelled, MCV Cancelled, MCH Cancelled, MCHC Cancelled, RDW Std Deviation Cancelled, RDW Coeff of Pelon Cancelled, Plt Count Cancelled, MPV Cancelled, Immature Gran % (Auto) Cancelled, Neut % (Auto) Cancelled, Lymph % (Auto) Cancelled, [place] % (Auto) Cancelled, Eos % (Auto) Cancelled, Baso % (Auto) Cancelled, Absolute Neuts (auto) Cancelled, Absolute Lymphs (auto) Cancelled, Total Counted Cancelled, Neutrophils % (Manual) Cancelled, Band Neutrophils % Cancelled, Lymphocytes % (Manual) Cancelled, Monocytes % (Manual) Cancelled, Eosinophils % (Manual) Cancelled, Basophils % (Manual) Cancelled, Metamyelocytes % Cancelled, Myelocytes % Cancelled, Promyelocytes % Cancelled, Blast Cells % Cancelled, Plasma Cell % (Manual) Cancelled, Other Cells % Cancelled, Nucleated RBC % Cancelled, Nucleated RBCs/100 WBC Cancelled, Differential Comment Cancelled, Diff Path Review Cancelled, Hypersegmented Neuts Cancelled, Atypical Lymphocytes Cancelled, Reactive Lymphocytes Cancelled, Smudge Cells Cancelled, Toxic Granulation Cancelled, Toxic Vacuolation Cancelled, Dohle Bodies Cancelled, Palma Rods Cancelled, Platelet Estimate Cancelled, Plt Morphology Comment Cancelled, RBC Morphology Cancelled, Polychromasia Cancelled, Hypochromasia Cancelled, Poikilocytosis Cancelled, Basophilic Stippling Cancelled, Anisocytosis Cancelled, Microcytosis Cancelled, Macrocytosis Cancelled, Spherocytes Cancelled, Sickle Cells Cancelled, Target Cells Cancelled, Tear Drop Cells Cancelled, Ovalocytes Cancelled, Stomatocytes Cancelled, Pack-Oliver Bodies Cancelled, Radha Cells Cancelled, Bite Cells Cancelled, Crenated Cell Cancelled, Acanthocytes (Spur) Cancelled, Rouleaux Cancelled, Schistocytes Cancelled 04/02/20 05:15: Sodium Cancelled, Potassium Cancelled, Chloride Cancelled, Carbon Dioxide Cancelled, Anion Gap Cancelled, BUN Cancelled, Creatinine Cancelled, Estim Creat Clear Calc Cancelled, Est GFR (MDRD) Af Amer Cancelled, Est GFR (MDRD) Non-Af Cancelled, BUN/Creatinine Ratio Cancelled, Glucose Cancelled, Calcium Cancelled, Total Bilirubin Cancelled, AST Cancelled, ALT Cancelled, Alkaline Phosphatase Cancelled, Total Protein Cancelled, Albumin Cancelled, Globulin Cancelled, Albumin/Globulin Ratio Cancelled 04/02/20 07:48: WBC 10.0, RBC 2.64 L, Hgb 8.4 L, Hct 26.0 L, MCV 98.5, MCH 31.8, MCHC 32.3, RDW Std Deviation 48.9 H, RDW Coeff of [place]on 13.6, Plt Count 162, MPV 11.9, Immature Gran % (Auto) 0.300, Neut % (Auto) 66.2, Lymph % (Auto) 21.3, [place] % (Auto) 5.8, Eos % (Auto) 5.9 H, Baso % (Auto) 0.5, Absolute Neuts (auto) 6.6, Absolute Lymphs (auto) 2.14, Nucleated RBC % 0 04/02/20 07:48: Sodium 145, Potassium 4.0, Chloride 117 H, Carbon Dioxide 25.0, Anion Gap 3 L, BUN 21 H, Creatinine 0.60, Estim Creat Clear Calc 39.04, Est GFR (MDRD) Af Amer 126, Est GFR (MDRD) Non-Af 104, BUN/Creatinine Ratio 35.1 H, Glucose 125 H, Calcium 7.7 L, Total Bilirubin 1.10 H, AST 8 L, ALT 10 L, Alkaline Phosphatase 40 L, Total Protein 5.4 L, Albumin 2.4 L, Globulin 3.0, Albumin/Globulin Ratio 0.8 L Current Medications Acetaminophen (Tylenol) 650 mg PO Q6H PRN PRN PRN Reason: Pain Score 1-10/Temp > 100.7 F Last Admin: 04/01/20 23:12 Dose: 650 mg Documented by: Apixaban (Eliquis) 5 mg PO BID [facility] Last Admin: 04/02/20 09:32 Dose: 5 mg Documented by: Atorvastatin Calcium (Lipitor) 20 mg PO QHS [facility] Last Admin: 04/01/20 22:08 Dose: 20 mg Documented by: Bisacodyl (Dulcolax) 10 mg RECTAL DAILY [facility] Last Admin: 04/02/20 09:20 Dose: 10 mg Documented by: Calamine/Phenol (Calmoseptine Ointment) 1 applic TOPICAL BID [facility]; Protocol Last Admin: 04/02/20 09:32 Dose: 1 applicatio Documented by: Ampicillin Sodium/Sulbactam (Sodium 3 gm/ Sodium Chloride) 112 mls @ 150 mls/hr IV Q8 [facility] Last Infusion: 04/02/20 06:25 Dose: Infused Documented by: Sodium Chloride () 250 mls @ 15 mls/hr IV .[id number] PRN PRN Reason: Saline Flush Sodium Chloride () 250 mls @ 15 mls/hr IV .[id number] PRN PRN Reason: Additional IVPB Infusion Nystatin (Mycostatin) 1 applic TOPICAL BID [facility]; Protocol Last Admin: 04/02/20 09:33 Dose: 1 applicatio Documented by: Ondansetron HCl (Zofran) 4 mg IV Q8H PRN PRN PRN Reason: NAUSEA/VOMITING Sertraline HCl (Zoloft) 25 mg PO DAILY [facility] Last Admin: 04/02/20 09:32 Dose: 25 mg Documented by: Sodium Chloride () 10 - 40 ml IV UD PRN PRN Reason: SALINE FLUSH Last Admin: 04/01/20 23:13 Dose: 10 ml Documented by: Discharge Diet: Low fat/ Low Cholesterol, 2000 mg Sodium Diet, - - pureed textures with nectar thickened liquids Discharge Activity: Return to Normal Activity Home Medications: Medications to take at Discharge Sertraline HCl [Zoloft] 25 mg PO DAILY 03/07/18 Simvastatin [Zocor] 40 mg PO QHS 03/07/18 Apixaban [Eliquis] 5 mg PO BID 03/09/18 Acetaminophen [Tylenol Tablet] 650 mg PO Q6H PRN PRN tab 04/02/20 Amoxicillin/Potassium Clav [Augmentin 875-125 Tablet] 1 ea PO BID #12 tab 04/02/20 Following Prescrptions Were Given to Patient: Amoxicillin/Potassium Clav [Augmentin 875-125 Tablet] 1 ea PO BID #12 tab Transmission Status: Received by [id number] Primary Care Physician: Care Physician,No Primary [Primary Care Provider] - Please follow up with your Primary Care Physician in: 1-2 weeks Disposition: Home Minutes spent on discharge:: 35 Patient Condition:: Stable Medical Necessity - Tobacco Use Smoking Status: Never smoker Meaningful Use Info Meaningful Use Diagnoses (Choose all that apply): None applicable <[place] - Last Filed: 04/02/20 13:46> Discharge Date and Diagnosis - Primary Discharge Diagnosis Acute Problems: Active Problems Aspiration pneumonitis (Acute) Nausea and vomiting (Acute) Urinary tract infection (Acute) - Secondary Discharge Diagnosis Chronic Problems: Chronic Problems Chronic atrial fibrillation (Chronic) Dysphagia as late effect of stroke (Chronic) DNR no code (do not resuscitate) (Chronic) Acute ischemic right MCA stroke (Chronic) Thromboembolic, related to atrial fibrillation With a dense right-sided hemiplegia HTN (hypertension) (Chronic) Afib (Chronic) 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 I have independently interviewed and examined the patient and reviewed pertinent historical, laboratory, and other data. Please refer to MORE Irving note for his patient's presentation, findings, and recommendations. I have reviewed and his note and concur with his documentation 74-year-old with past medical history of CVA, with residual right hemiplegia, chronic contractures, who comes in with complaints of nausea and vomiting as well as aspiration. Patient was found to have UTI. Chest x-ray was negative for infiltrates. She was also managed as aspiration pneumonitis. Started on IV Unasyn. Patient had an abdominal KUB that showed moderate amount of stool. Had a stool enema with some improvement in her bowel movement. Patient was able to tolerate a diet. She was discharged to complete 1 week of antibiotics. She was also seen by speech therapy and outpatient therapy was recommended by family refused. Patient was discharged on a modified diet with nectar thick liquids and pur?ed textures. Patient appeared to have improved much faster than anticipated. She was discharged after 1 day in the hospital. On the day of discharge, patient was seen and examined. Denied any new complaint. Physical Exam: General: Alert, Oriented x3, Cooperative, No apparent distress HEENT: Atraumatic, PERRLA, EOMI, Normocephalic Oral: Dry Mucosa Neck: Supple Lungs: Clear to auscultation, Normal air movement Cardiovascular: Regular rate, Regular Rhythm, Normal S1, Normal S2, No murmurs Abdomen: Bowel Sounds Present, Soft, Non Tender, Non-Distended, No Hepato- splenomegaly Extremities: No edema Skin: No rashes Musculoskeletal: No Tenderness to Palpation of Joints or Extremities Lymphatic: No Cervical, Supraclavicular, or Inguinal Adenopathy Neurological: Chronic contractures of extremities, atrophy of extremities, dysarthria, slight flattening of nasolabial fold on the right Psych/Mental Status: Normal Affect, Appropriate - Physical Exam Vitals/I&O's: Vital Signs Temp Pulse Resp BP Pulse Ox 98.7 F 77 18 100/52 L 95 04/02/20 09:14 04/02/20 10:50 04/02/20 09:14 04/02/20 09:14 04/02/20 09:14 Oxygen Delivery Method Room Air Weight: 82.3 kg Body Mass Index (BMI) 32.0 Finger Stick Blood Glucose 99 Intake and Output for Last 24 Hours 03/31/20 04/01/20 04/02/20 23:59 23:59 23:59 Intake Total 2617.67 / 2857.67 917 / 917 Output Total 0 / 0 400 / 400 Balance 2617.67 / 2857.67 517 / 517 Microbiology Past 72 Hours 04/01/20 08:45 Blood Culture (Wb) - Other Blood Culture - Preliminary 04/01/20 06:35 Urine, Clean Catch Urine Culture - Preliminary Presumptive E. coli Laboratory Results 04/01/20 14:55: Lactic Acid 2.1 H* 04/02/20 05:15: WBC Cancelled, Corrected WBC Cancelled, RBC Cancelled, Hgb Cancelled, Hct Cancelled, MCV Cancelled, MCH Cancelled, MCHC Cancelled, RDW Std Deviation Cancelled, RDW Coeff of Pelon Cancelled, Plt Count Cancelled, MPV Cancelled, Immature Gran % (Auto) Cancelled, Neut % (Auto) Cancelled, Lymph % (Auto) Cancelled, [place] % (Auto) Cancelled, Eos % (Auto) Cancelled, Baso % (Auto) Cancelled, Absolute Neuts (auto) Cancelled, Absolute Lymphs (auto) Cancelled, Total Counted Cancelled, Neutrophils % (Manual) Cancelled, Band Neutrophils % Cancelled, Lymphocytes % (Manual) Cancelled, Monocytes % (Manual) Cancelled, Eosinophils % (Manual) Cancelled, Basophils % (Manual) Cancelled, Metamyelocytes % Cancelled, Myelocytes % Cancelled, Promyelocytes % Cancelled, Blast Cells % Cancelled, Plasma Cell % (Manual) Cancelled, Other Cells % Cancelled, Nucleated RBC % Cancelled, Nucleated RBCs/100 WBC Cancelled, Differential Comment Cancelled, Diff Path Review Cancelled, Hypersegmented Neuts Cancelled, Atypical Lymphocytes Cancelled, Reactive Lymphocytes Cancelled, Smudge Cells Cancelled, Toxic Granulation Cancelled, Toxic Vacuolation Cancelled, Dohle Bodies Cancelled, Palma Rods Cancelled, Platelet Estimate Cancelled, Plt Morphology Comment Cancelled, RBC Morphology Cancelled, Polychromasia Cancelled, Hypochromasia Cancelled, Poikilocytosis Cancelled, Basophilic Stippling Cancelled, Anisocytosis Cancelled, Microcytosis Cancelled, Macrocytosis Cancelled, Spherocytes Cancelled, Sickle Cells Cancelled, Target Cells Cancelled, Tear Drop Cells Cancelled, Ovalocytes Cancelled, Stomatocytes Cancelled, Pack-Oliver Bodies Cancelled, Radha Cells Cancelled, Bite Cells Cancelled, Crenated Cell Cancelled, Acanthocytes (Spur) Cancelled, Rouleaux Cancelled, Schistocytes Cancelled 04/02/20 05:15: Sodium Cancelled, Potassium Cancelled, Chloride Cancelled, Carbon Dioxide Cancelled, Anion Gap Cancelled, BUN Cancelled, Creatinine Cancelled, Estim Creat Clear Calc Cancelled, Est GFR (MDRD) Af Amer Cancelled, Est GFR (MDRD) Non-Af Cancelled, BUN/Creatinine Ratio Cancelled, Glucose Cancelled, Calcium Cancelled, Total Bilirubin Cancelled, AST Cancelled, ALT Cancelled, Alkaline Phosphatase Cancelled, Total Protein Cancelled, Albumin Cancelled, Globulin Cancelled, Albumin/Globulin Ratio Cancelled 04/02/20 07:48: WBC 10.0, RBC 2.64 L, Hgb 8.4 L, Hct 26.0 L, MCV 98.5, MCH 31.8, MCHC 32.3, RDW Std Deviation 48.9 H, RDW Coeff of [place] 13.6, Plt Count 162, MPV 11.9, Immature Gran % (Auto) 0.300, Neut % (Auto) 66.2, Lymph % (Auto) 21.3, [place] % (Auto) 5.8, Eos % (Auto) 5.9 H, Baso % (Auto) 0.5, Absolute Neuts (auto) 6.6, Absolute Lymphs (auto) 2.14, Nucleated RBC % 0 04/02/20 07:48: Sodium 145, Potassium 4.0, Chloride 117 H, Carbon Dioxide 25.0, Anion Gap 3 L, BUN 21 H, Creatinine 0.60, Estim Creat Clear Calc 39.04, Est GFR (MDRD) Af Amer 126, Est GFR (MDRD) Non-Af 104, BUN/Creatinine Ratio 35.1 H, Glucose 125 H, Calcium 7.7 L, Total Bilirubin 1.10 H, AST 8 L, ALT 10 L, Alkaline Phosphatase 40 L, Total Protein 5.4 L, Albumin 2.4 L, Globulin 3.0, Albumin/Globulin Ratio 0.8 L Current Medications Acetaminophen (Tylenol) 650 mg PO Q6H PRN PRN PRN Reason: Pain Score 1-10/Temp > 100.7 F Last Admin: 04/01/20 23:12 Dose: 650 mg Documented by: Apixaban (Eliquis) 5 mg PO BID [facility] Last Admin: 04/02/20 09:32 Dose: 5 mg Documented by: Atorvastatin Calcium (Lipitor) 20 mg PO QHS [facility] Last Admin: 04/01/20 22:08 Dose: 20 mg Documented by: Bisacodyl (Dulcolax) 10 mg RECTAL DAILY [facility] Last Admin: 04/02/20 09:20 Dose: 10 mg Documented by: Calamine/Phenol (Calmoseptine Ointment) 1 applic TOPICAL BID [facility]; Protocol Last Admin: 04/02/20 09:32 Dose: 1 applicatio Documented by: Ampicillin Sodium/Sulbactam (Sodium 3 gm/ Sodium Chloride) 112 mls @ 150 mls/hr IV Q8 [facility] Last Infusion: 04/02/20 06:25 Dose: Infused Documented by: Sodium Chloride () 250 mls @ 15 mls/hr IV .[id number] PRN PRN Reason: Saline Flush Sodium Chloride () 250 mls @ 15 mls/hr IV .[id number] PRN PRN Reason: Additional IVPB Infusion Nystatin (Mycostatin) 1 applic TOPICAL BID [facility]; Protocol Last Admin: 04/02/20 09:33 Dose: 1 applicatio Documented by: Ondansetron HCl (Zofran) 4 mg IV Q8H PRN PRN PRN Reason: NAUSEA/VOMITING Sertraline HCl (Zoloft) 25 mg PO DAILY [facility] Last Admin: 04/02/20 09:32 Dose: 25 mg Documented by: Sodium Chloride () 10 - 40 ml IV UD PRN PRN Reason: SALINE FLUSH Last Admin: 04/01/20 23:13 Dose: 10 ml Documented by: Inpatient E&M: [id number] Disch Hosp
[2020-04-02] MEDS: 0.9% Saline Lock 10 ML Syringe IV (13:39)
--- NOTE | 2020-04-02 13:42 | CASEMGMT ---
MARLEN LEONARDO updated by MORE Paulson that patient will need ST at home. MARLEN LEONARDO called and updated daughter Delphine. Daughter is declining ST and HHC. MARLEN LEONARDO informed daughter that should she reconsider, to follow-up with PCP. MARLEN LEONARDO updated MORE Paulson.
[2020-04-02 14:36] VITALS: BP 105/55; PULSE 82; RESP 18; TEMP 37.1; O2SAT 95
== END 2020-04-02 15:23 | disposition home or self-care (01) | DRG 689 ==
LOC: ED 07:28 → PCU 08:06
PROVIDERS: Admitting Provider Internal Medicine; Emergency Provider Emergency Medicine; Visit Provider Internal Medicine
DX: N39.0 Urinary tract infection, site not specified (principal); J69.0 Pneumonitis due to inhalation of food and vomit; I48.20 Chronic atrial fibrillation, unspecified; I69.351 Hemiplegia and hemiparesis following cerebral infarction affecting right dominant side; R78.81 Bacteremia; E86.0 Dehydration; E83.42 Hypomagnesemia; R31.9 Hematuria, unspecified; K59.00 Constipation, unspecified; I10 Essential (primary) hypertension; E78.5 Hyperlipidemia, unspecified; M06.9 Rheumatoid arthritis, unspecified; F32.9 Major depressive disorder, single episode, unspecified; I69.391 Dysphagia following cerebral infarction; Z99.3 Dependence on wheelchair; Z79.899 Other long term (current) drug therapy; Z79.01 Long term (current) use of anticoagulants; Z79.1 Long term (current) use of non-steroidal anti-inflammatories (NSAID)
CPT/HCPCS: 36415; 71045; 74019; 80053; 81001; 83605; 83690; 85025; 87040; 87077; 87086; 87088; 87186; 87635; 92526; 92610; 97110; 97162; 97166; 99285; G2023; J7030; P9612; A4216; J0295; J2405; U0003

== ENCOUNTER → 2020-04-05 11:22 | Outpatient (CLI) | payer MEDICARE, MEDICAID, SELFPAY ==
[2020-04-01 09:53] VITALS: BMI 32.0
== END ==
PROVIDERS: Referring Provider Internal Medicine Infectious Disease; Visit Provider Internal Medicine Infectious Disease
DX: Z00.00 Encounter for general adult medical examination without abnormal findings (principal)

== ENCOUNTER 2020-06-23 17:35 | Emergency (ER) | payer MEDICARE, MEDICAID, SELFPAY ==
[2020-04-01 09:53] VITALS: BMI 32.0
[2020-06-23 17:38] VITALS: BP 124/95; PULSE 109; RESP 24; TEMP 36.7; BMI 35.5
[2020-06-23 18:40] LABS: Absolute Lymphocyte Count 1.41 X10^3/uL (0.83-4.51); Absolute Neutrophil Count 9.6 X10^3/uL (2.0-7.7); Basophil# 0.06 X10^3/uL; Basophil% 0.5 % (0-1); Eosinophil# 0.06 X10^3/uL; Eosinophils% 0.5 % (0-5); Hematocrit 37.6 % (37-47); Hemoglobin 11.7 g/dL (12.0-15.0); Lymphocyte # 1.41 X10^3/ul (4.0); Lymphocyte % 11.9 % (19-41); Mean Corp Hgb Conc 31.1 g/dL (32-36); Mean Corpuscular Hgb 26.7 pg (27.0-32.0); Mean Corpuscular Volume 85.8 fL (81-99); Mean Platelet Vol. 12.7 fl (6.2-12.0); Monocyte# 0.63 X10^3/uL; Monocyte% 5.3 % (0-10); NRBC Flagged by Analyzer 0 % (0-5); Neutrophil # 9.61 X10^3/uL (2.7-7.7); Neutrophil % 81.2 % (47-70); Platelet Count 267 K/mm3 (150-450); RBC Distribution Width CV 15.8 % (11.6-14.6); RBC Distribution Width SD 49.2 fl (35.1-43.9); Red Blood Count 4.38 M/mm3 (4.2-5.4); White Blood Count 11.8 K/mm3 (4.4-11.0)
[2020-06-23 18:46] LABS: International Normalized Ratio 2.1; Prothrombin Time (Protime)PT. 23.3 SECONDS (11.7-14.9)
[2020-06-23 18:52] LABS: Anion Gap 7 (5-15); BUN 32 mg/dL (7-18); BUN/Creat Ratio 43.6 RATIO (10-20); Calcium,Total 8.4 mg/dL (8.5-10.1); Chloride 113 mmol/L (98-107); Creatinine, Serum 0.73 mg/dL (0.55-1.02); EST Glomerular Filtration Rate 82 mL/min (>60); Est Glom Filt Rate - Afr Amer 99 mL/min (>60); Estimated Creatinine Clearance 39.04 ml/min; Glucose 181 mg/dL (74-106); Sodium Level 141 mmol/L (136-145)
[2020-06-23] MEDS: Ondansetron 4 MG/2 ML Vial IV (18:58)
[2020-06-23 19:00] VITALS: BP 120/51; PULSE 102; PULSE 103; RESP 18; O2SAT 96; O2SAT 99
--- NOTE | 2020-06-23 19:55 | ED.DCSUM_ITS ---
- ER Visit Summary Date of Service: 06/23/20 Chief Complaint: Vomiting blood History of Present Illness: The patient is a 74 F history of prior anemia, stroke, prediabetes on Eliquis secondary to a prior stroke. Patient had nausea vomiting today and the third time she threw up she threw up bright red blood. She does 2-3 times. I believe she is had an upper GI bleed before secondary to an ulcer. No melena. Physical Examination: Older female vital signs stable heart rate 109 blood pressure 124/95. Daughter present at the bedside. HEENT exam unremarkable. Neck nontender. Lungs clear to auscultation. Heart regular rhythm rate about 100 no murmur. M soft nontender normal bowel sounds no peritoneal signs. No signs obstruction. She has a flaccid right arm with significant arthritic changes in both hands. The weakness in the right arm is from prior stroke. Weak also in the right leg. Neurologically she is awake and alert with the findings of the prior stroke on her right side. She is able to answer questions and follow commands. Test Results: CBC shows a white count 1.7. Hemoglobin of 11. Typically she runs between 8.4 and 12. 267,000 platelets. Electrolytes show normal gap of 7 BUN 32 creatinine 0.73 PT/INR are 23 and 2.1. Patient's been typed and crossed for blood but nothing is been transfused as of this time. Emergency Department Course and Treatment: Treated with IV Protonix for an upper GI bleed. Patient did have an episode of vomiting here where she vomited bright red blood with a clot. Proximally 100 cc. Currently at 1948 she has had no further vomiting of blood. Her vital signs are stable. Treatment Plan: Spoke to her general surgeon on-call he felt the patient be most appropriately cared for by a parts sales manager at a larger facility. Family is requesting transfer to [facility] I have them on page. I also spoke to the daughter again the patient has no living will and at this time is a full go. Disposition: Transfer for gastroenterology. Impression: Acute upper GI bleed Anticoagulated on Eliquis History of prior stroke with right-sided weakness History of anemia This note was generated with [employer] dictation software. It may contain incorrect words, spelling, and punctuation that were not noted in review of the chart prior to signing ED Disposition - Plan for ED Patient: Referrals: Care Physician,No Primary [Primary Care Provider] -
[2020-06-23 21:15] VITALS: BP 114/74; PULSE 96; RESP 16; O2SAT 99
== END 2020-06-23 23:07 | disposition short-term general hospital (02) ==
LOC: ED 18:43
PROVIDERS: Emergency Provider Emergency Medicine
DX: K92.0 Hematemesis (principal); I69.351 Hemiplegia and hemiparesis following cerebral infarction affecting right dominant side; D64.9 Anemia, unspecified; R73.03 Prediabetes; Z87.19 Personal history of other diseases of the digestive system; Z79.01 Long term (current) use of anticoagulants; Z79.899 Other long term (current) drug therapy
CPT/HCPCS: 80048; 85025; 85610; 86850; 86900; 86901; 96365; 96375; 99285; A4216; J2405; J3490

== ENCOUNTER → 2021-02-13 09:44 | Outpatient (CLI) | payer MEDICARE, MEDICAID, SELFPAY ==
--- NOTE | 2021-02-13 09:50 | RAD_ITS ---
STUDY: X-RAY - ESOPHAGUS (BARIUM SWALLOW) WITH FLUOROSCOPY REASON FOR EXAM: Female, 75 years old. DYSPHAGIA/WEIGHT LOSS TECHNIQUE: 20 view(s) of the esophagus were obtained following swallowing of barium. Examination is limited due to the patient''s condition. FLUOROSCOPY TIME (if supplied): (36 seconds) minutes/seconds COMPARISON: None. FINDINGS: There is no demonstrated esophageal foreign body. Small hiatal hernia. Circumferential narrowing of the distal esophagus at the level of the hiatal hernia. The patient was unable to ingest a 12 mm tablet of barium. There is atherosclerotic calcification of the aortic arch with tortuosity of the descending aorta. Normal visualized pulmonary parenchyma. There are diffuse degenerative changes of the visualized thoracic spine. RAD/Esophagus Single Contrast IMPRESSION: Small hiatal hernia with narrowing at the gastroesophageal junction. Endoscopy is recommended for further evaluation. Electronically Signed: Giuseppe Young MD at 10:44 EDT , Service support ,
== END ==
PROVIDERS: Referring Provider Internal Medicine Gastroenterology; Visit Provider Internal Medicine Gastroenterology
DX: R13.10 Dysphagia, unspecified (principal); R63.4 Abnormal weight loss
CPT/HCPCS: 74220

== ENCOUNTER 2023-01-03 11:18 | Observation (INO) | payer MEDICARE, MEDICAID, SELFPAY ==
[2023-01-03] VITALS (8 sets, daily range): BP systolic 115–141; BP diastolic 52–83; PULSE 53–82; RESP 16–18; TEMP 36.4–36.9; O2SAT 94–98; BMI 22.4; BMI 26.6
--- NOTE | 2023-01-03 11:49 | EKG12_ITS ---
Test Reason : N/V Blood Pressure : / mmHG Vent. Rate : 102 BPM Atrial Rate : 000 BPM P-R Int : 000 ms QRS Dur : 090 ms QT Int : 384 ms P-R-T Axes : 000 039 014 degrees QTc Int : 500 ms Atrial fibrillation with rapid ventricular response with premature ventricular or aberrantly conducte d complexes Nonspecific T wave abnormality Abnormal ECG Confirmed by MALA ABREU, ALEX ([id number]), acquisitions editor CARA MOREL ([id number]) on 01/07/2023 12:16:05 P M Referred By: Confirmed By:KIRAN MEDEIROS MD
--- NOTE | 2023-01-03 11:50 | CT_ITS ---
EXAM: CT ABDOMEN AND PELVIS WITH INTRAVENOUS CONTRAST CLINICAL INDICATION: vomiting TECHNIQUE: Helically acquired images were obtained of the abdomen and pelvis with intravenous contrast. This CT exam was performed using one or more of the following dose reduction techniques: automated exposure control, adjustment of the mA and/or kV according to patient size, and/or use of iterative reconstruction technique. This report was created using [employer] report generation technology. CONTRAST: IV 100mL Isovue-370 COMPARISON: CT Abdomen Pelvis dated 03/07/2018 FINDINGS: LOWER THORAX: Normal. Lung bases are clear. No cardiomegaly. No pericardial effusion. ABDOMEN: LIVER: Normal. Homogeneous. No focal mass. GALLBLADDER AND BILE DUCTS: Increasing number of calcified stones within the gallbladder. No gallbladder distention or wall edema. No intra- or extrahepatic biliary ductal dilation. PANCREAS: Normal. No focal cystic or solid mass. SPLEEN: Normal. Normal size without focal cystic or solid mass. ADRENALS: Normal. No nodules. KIDNEYS AND URETERS: 3 cm right renal cyst. Bilateral renal cortical scarring again noted. No hydronephrosis. STOMACH AND BOWEL: Diverticulosis of the colon noted without evidence of acute diverticulitis. Wall thickening of the sigmoid colon and rectum suggestive of a proctocolitis. PELVIS: APPENDIX: Appendix is visualized and normal in appearance. BLADDER: Normal. REPRODUCTIVE: 2.8 and 1.2 cm left ovarian cystic lesions are seen. ACR White Paper guidelines (Gideon, et. al. JACR 2020;17(2):248-254) suggest no follow-up is necessary. 8.4 cm partially calcified pelvic mass suggestive of an exophytic uterine fibroid. ABDOMEN and PELVIS: INTRAPERITONEAL SPACE: Normal. No ascites or other fluid collection. No free air. BONES/JOINTS: No suspicious lytic or blastic abnormality. SOFT TISSUES: Normal. No discrete abdominal or pelvic wall hernia. VASCULATURE: Normal. Abdominal aorta is non-dilated. LYMPH NODES: Normal. No enlarged lymph nodes. CT/Abdomen/Pelvis W IV Cont ONLY IMPRESSION: 1. Proctocolitis. 2. Diverticulosis coli. 3. Cholelithiasis. 4. 8.4 cm partially calcified uterine fibroid. Electronically Signed: Javed Gray MD at 13:59 EDT ,
--- NOTE | 2023-01-03 11:52 | EX.ED.DYSGE1 ---
HPI History of Present Illness Chief Complaint: Nausea/Vomiting Informant: patient Narrative Narrative: Patient was sent in for nausea and vomiting. She states she has been getting vomiting mostly in the mornings. She states she gets some diarrhea mostly in the mornings. But she is not having any abdominal pain. She denies any blood seen. But the patient is not a good informant. She states she takes 1 medicine for an unknown problem. But I have at least 3 routine meds listed. She denies prior abdominal surgeries that she knows of. She has had prior strokes and atrial fibrillation. Other than the nausea and diarrhea, her review of systems is completely negative but I do question the complete accuracy of this. [facility] Medical History A-fib CVA (cerebral vascular accident) CVA (cerebral vascular accident) Hemiplegia HLD (hyperlipidemia) HTN (hypertension) Home Medications sertraline 25 mg tablet (Zoloft) 25 mg PO DAILY mental health 03/07/18 [History Last Taken Unknown] simvastatin 40 mg tablet 40 mg PO QHS cholesterol 03/07/18 [History Last Taken Unknown] apixaban 5 mg tablet (Eliquis) 5 mg PO BID blood thinner 03/09/18 [History Last Taken Unknown] Allergy/AdvReac Type Severity Reaction Status Date / Time No Known Allergies Allergy Verified 01/03/23 11:18 Social History Smoking Status: Never smoker ROS ROS ED ROS Narrative Limited as the patient is not real familiar with her medical history. I question the accuracy of her memory. Constitutional Constitutional ED: Denies fever(s) Respiratory/Chest Respiratory/Chest: Denies cough Gastrointestinal Gastrointestinal: Reports diarrhea, nausea and vomiting; Denies abdominal pain Genitourinary Genitourinary ED: Denies hematuria Musculoskeletal Musculoskeletal: Denies myalgias Integumentary Reports rash and other Details: Patient has chronic excoriation and rash this is not new nor does it look new. Neurologic Neurologic: Denies headache(s) Endocrine Endocrinology: Reports other Details: Patient admits to being thirsty at this time. Hematologic/Lymphatic Hematologic/Lymphatic: Reports easy bleeding, easy bruising and other Details: Patient is is listed as being on Eliquis. But there is no report of recent bleeding. Allergic/Immunologic Allergic/Immunologic ED: Denies urticaria EXAM Physical Exam Narrative Exam Narrative: Patient is awake alert looks calm and comfortable sitting in bed. She is in no acute distress. HEENT does show some mildly dry mucous membranes but no sign of trauma Lungs are clear bilaterally. Saturations are 98% on room air showing no hypoxia. Heart is regular. Rate is about 70-75. I do not hear a murmur on her. She reportedly has atrial fibrillation but it does sound regular at this time listening to her. Abdomen is soft. Bowel sounds sound normal to slightly increased. But there is no tenderness. Extremities show diffuse excoriations but no edema. Skin shows excoriations but no sign of secondary infection. Const Vital Signs: 01/03/23 11:18 01/03/23 13:28 01/03/23 15:18 Temperature 98.4 F Temperature Source Oral Pulse Rate 68 82 Respiratory Rate 18 18 Blood Pressure 135/83 H 141/69 H 123/74 H Blood Pressure Mean 100 93 90 Pulse Ox 98 95 Oxygen Delivery Method Room Air Room Air Room Air MDM MDM MDM Narrative Medical decision making narrative: Patient's blood work showed a high white count at 23,300. The last time she had this it appears as though she had a pneumonia so she had a true infection with it. She does have a high hemoglobin at 17.7 which would make 1 think she may be dehydrated but her electrolytes do not show significant signs of dehydration. Overall electrolytes look good. Glucose is mildly up. Total bilirubin is slightly up but the rest of her liver test look normal and her lipase is normal. Urine is positive for UTI with cloudy urine, leukocyte esterase, positive nitrites, white cells and 4+ bacteria. My independent interpretation of her CT of the abdomen shows no sign of obstruction or ileus. There is some mild stranding near the rectosigmoid area but I do not see any fluid. Final diagnosis is final reading does show proctocolitis and diverticula but no sign of diverticulitis. I did discuss the case with our senior control systems engineer, Dr. Barlow. We will treat her with Rocephin which will also cover UTI. With her white count nausea vomiting diarrhea and the proctocolitis she will be admitted. I also discussed the case with the hospitalist. Lab Data Labs: Laboratory Results - last 24 hr 01/03/23 01/03/23 01/03/23 12:10 12:10 13:25 WBC 23.3 H RBC 5.50 H Hgb 17.7 H Hct 53.1 H MCV 96.5 MCH 32.2 H MCHC 33.3 RDW Std Deviation 48.2 H RDW Coeff of [place] 13.7 Plt Count 273 MPV 11.8 Immature Gran % (Auto) 0.400 Neut % (Auto) 90.4 H Lymph % (Auto) 3.5 L [place] % (Auto) 5.4 Eos % (Auto) 0.0 Baso % (Auto) 0.3 Absolute Neuts (auto) 21.1 H Absolute Lymphs (auto) 0.82 L Nucleated RBC % 0 Differential Comment COMMENT Sodium 141 Potassium 4.5 Chloride 109 H Carbon Dioxide 24.0 Anion Gap 8 BUN 9 Creatinine 0.81 Estim Creat Clear Calc 46.00 Est GFR (MDRD) Af Amer 88 Est GFR (MDRD) Non-Af 73 BUN/Creatinine Ratio 11.1 Glucose 189 H Calcium 10.0 Total Bilirubin 1.70 H AST 22 ALT 18 Alkaline Phosphatase 92 Total Protein 7.9 Albumin 3.6 Globulin 4.3 H Albumin/Globulin Ratio 0.8 L Lipase 56 L Urine Color Brown Urine Clarity Sl. Cloudy Urine pH 5.0 Ur Specific [place] 1.020 Urine Protein 30 H Urine Glucose (UA) Normal Urine Ketones 5 H Urine Occult Blood 10 H Urine Nitrite Positive H Urine Bilirubin 3 H Urine Urobilinogen 8 H Ur Leukocyte Esterase 500 H Urine RBC 0 SEEN Urine WBC 10-25 SEEN Ur Squamous Epith Cells 0-5 SEEN Urine Bacteria 4+ Urine Mucus 0 SEEN Radiography Diagnostic Testing: Clinical Impression(s) from Imaging Studies Abdomen/Pelvis CT 01/03/23 11:50 IMPRESSION: 1. Proctocolitis. 2. Diverticulosis coli. 3. Cholelithiasis. 4. 8.4 cm partially calcified uterine fibroid. Electronically Signed: Javed Gray MD at 13:59 EDT , Discharge Plan Dx/Rx/DC Orders Clinical Impression: Nausea vomiting and diarrhea, Urinary tract infection, Proctocolitis, Leukocytosis Disposition Disposition: Acute Care [facility]
[2023-01-03] MEDS: Ondansetron 4 MG/2 ML Vial IV (12:16)
[2023-01-03 12:29] LABS: Absolute Lymphocyte Count 0.82 X10^3/uL (0.83-4.51); Absolute Neutrophil Count 21.1 X10^3/uL (2.0-7.7); Basophil# 0.06 X10^3/uL; Basophil% 0.3 % (0-1); Eosinophil# 0.01 X10^3/uL; Hematocrit 53.1 % (37-47); Hemoglobin 17.7 g/dL (12.0-15.0); Lymphocyte # 0.82 X10^3/ul (0.83-4.51); Lymphocyte % 3.5 % (19-41); Mean Corp Hgb Conc 33.3 g/dL (32-36); Mean Corpuscular Hgb 32.2 pg (27.0-32.0); Mean Corpuscular Volume 96.5 fL (81-99); Mean Platelet Vol. 11.8 fl (6.2-12.0); Monocyte# 1.27 X10^3/uL; Monocyte% 5.4 % (0-10); NRBC Flagged by Analyzer 0 % (0-5); Neutrophil # 21.07 X10^3/uL (2.7-7.7); Neutrophil % 90.4 % (47-70); POSITIVE DIFFERENTIAL YES; Platelet Count 273 K/mm3 (150-450); RBC Distribution Width CV 13.7 % (11.6-14.6); RBC Distribution Width SD 48.2 fl (35.1-43.9); White Blood Count 23.3 K/mm3 (4.4-11.0)
[2023-01-03 12:30] LABS: Differential Indicated SCAN CRITERIA MET
[2023-01-03 12:36] LABS: ALB/GLOB Ratio 0.8 RATIO (0.9-2.4); AST(SGOT) 22 U/L (15-37); Alanine Aminotransfer ALT/SGPT 18 U/L (13-56); Albumin, Serum 3.6 g/dL (3.2-5.0); Alkaline Phosphatase 92 U/L (45-117); Anion Gap 8 (5-15); BUN 9 mg/dL (7-18); BUN/Creat Ratio 11.1 RATIO (10-20); Chloride 109 mmol/L (98-107); Creatinine, Serum 0.81 mg/dL (0.55-1.02); EST Glomerular Filtration Rate 73 mL/min (>60); Est Glom Filt Rate - Afr Amer 88 mL/min (>60); Globulin 4.3 g/dL (2.2-4.2); Glucose 189 mg/dL (74-106); Lipase 56 U/L (73-393); Potassium 4.5 mmol/L (3.5-5.1); Protein, Total 7.9 g/dL (6.4-8.2); Sodium Level 141 mmol/L (136-145)
[2023-01-03 13:32] LABS: Mucous, Urine 0 SEEN /hpf (<or=2+); Red Blood Cells-Urine 0 SEEN /hpf (0-5)
[2023-01-03 13:33] LABS: Color, Urine Brown (Yellow); Glucose, Dipstick Normal (Normal); Ketone-Dipstick 5 mg/dl (Negative); Leukocyte Esterase-Dipstick 500 /ul (Negative); Nitrite-Dipstick Positive (Negative); Occult Blood-Urine 10 /ul (Negative); Protein-Dipstick 30 mg/dl (Negative); Urine Clarity Sl. Cloudy (Clear); Urine Urobilinogen 8 mg/dl (Normal)
[2023-01-03 13:35] LABS: Urine Bilirubin Dipstick 3 mg/dL (Negative)
[2023-01-03 13:37] LABS: White Blood Cells 10-25 SEEN /hpf (0-5)
[2023-01-03 13:38] LABS: Bacteria 4+ /hpf (None Seen); Squamous Epithelial Cells - UA 0-5 SEEN /hpf (5-10)
[2023-01-03] MEDS: Ceftriaxone 1 GM/50 ML BAG IV (15:16)
[2023-01-03 16:11] LABS: Lactic Acid 2.7 mmol/L (0.4-1.9)
[2023-01-03] MEDS: 0.9% Normal Saline 1,000 ML 999 ML IV (16:28)
--- NOTE | 2023-01-03 17:27 | PCM.HP.STD ---
HPI - General General Date of Admission: 01/03/23 Date of Service: 01/03/23 Chief Complaint: n/v/d HPI Narrative OSEAS PATHAK, is a 77 F with a history of right MCA stroke and atrial fibrillation who presented to [facility] 01/03/2023 with 1 day of nausea, vomiting, diarrhea. In the ED blood pressure 135/83 with a heart rate of 68 and pulse ox 98% on room air, white blood cell count 23.3, hemoglobin 17.7, chloride 109 with a creatinine of 0.81 and BUN of 9. Lactic acid 2.7 and bilirubin 1.7 with hepatic panel otherwise unremarkable. Lipase 56, UA suggestive of UTI and CT was obtained which demonstrated proctocolitis, diverticulosis coli, cholelithiasis, 8.4 cm partially calcified uterine fibroid. Patient given fluids and Rocephin and hospitalist consulted for admission. She was evaluated at bedside with family member and they report that 1 day of nausea and vomiting and diarrhea with poor p.o. intake, daughter reports she has had suboptimal p.o. intake however longer than that. She has had some burning on urination as well as some urinary retention and daughter reports she will be drinking all day and while use the restroom within the following day will urinate a significant amount. Does have some abdominal pain primarily in the lower quadrants. Denied other complaints today. [facility] Medical History A-fib CVA (cerebral vascular accident) CVA (cerebral vascular accident) Hemiplegia HLD (hyperlipidemia) HTN (hypertension) Home Medications sertraline 25 mg tablet (Zoloft) 25 mg PO DAILY mental health 03/07/18 [History Last Taken Unknown] simvastatin 40 mg tablet 40 mg PO QHS cholesterol 03/07/18 [History Last Taken Unknown] apixaban 5 mg tablet (Eliquis) 5 mg PO BID blood thinner 03/09/18 [History Last Taken Unknown] Allergy/AdvReac Type Severity Reaction Status Date / Time No Known Allergies Allergy Verified 01/03/23 11:18 Social History Smoking Status: Never smoker ROS ROS Narrative General: Denies fever/chills HENT: Denies headache, denies stuffy nose, denies sore throat EYES: Denies changes in vision Resp: Denies cough, denies shortness of breath Cardiac: Denies chest pain GI: Diarrhea, nausea, vomiting, poor p.o. intake, lower abdominal pain, denies hematochezia : Burning on urination and sometimes concern for retention Extremity: Denies swelling MSK: Denies weakness Neuro: Denies any numbness/tingling Heme: Denies any bleeding or bruising Skin: Arm rashes and chest Psychiatric: No complaints voiced Vital Signs Vital Signs Vital Signs: 01/03/23 11:18 01/03/23 13:28 01/03/23 15:18 Temperature 98.4 F Temperature Source Oral Pulse Rate 68 82 Respiratory Rate 18 18 Blood Pressure 135/83 H 141/69 H 123/74 H Blood Pressure Mean 100 93 90 Pulse Ox 98 95 Oxygen Delivery Method Room Air Room Air Room Air 01/03/23 16:25 01/03/23 17:04 Temperature 97.9 F Temperature Source Temporal Pulse Rate 53 L 74 Respiratory Rate 18 18 Blood Pressure 118/63 123/58 H Blood Pressure Mean 81 79 Pulse Ox 94 95 Oxygen Delivery Method Room Air Room Air Weight Weight: 55.5 kg Body Mass Index (BMI) 22.4 Physical Exam Narrative General: Alert, oriented, no apparent distress HEENT: Atraumatic, normocephalic Eyes: Anicteric, normal conjunctiva, extraocular movements grossly intact Neck: Supple Respiratory: Clear to auscultation bilaterally, normal respiratory effort Cardiovascular: Regular rate and rhythm GI: Mild tender to palpation in both lower quadrants more so on the right, soft, nondistended, no rebound, guarding, rigidity Extremities: No edema Musculoskeletal: Moving all extremities Neuro: No overt focal neurological deficits Skin: Has scaly rash on both arms and chest Psych: Cooperative Results Lab / Micro Data Result Diagrams: 01/03/23 12:10 01/03/23 12:10 Labs: Laboratory Results - last 24 hr 01/03/23 12:10: WBC 23.3 H, RBC 5.50 H, Hgb 17.7 H, Hct 53.1 H, MCV 96.5, MCH 32.2 H, MCHC 33.3, RDW Std Deviation 48.2 H, RDW Coeff of [place] 13.7, Plt Count 273, MPV 11.8, Immature Gran % (Auto) 0.400, Neut % (Auto) 90.4 H, Lymph % (Auto) 3.5 L, [place] % (Auto) 5.4, Eos % (Auto) 0.0, Baso % (Auto) 0.3, Absolute Neuts (auto) 21.1 H, Absolute Lymphs (auto) 0.82 L, Nucleated RBC % 0, Differential Comment COMMENT 01/03/23 12:10: Sodium 141, Potassium 4.5, Chloride 109 H, Carbon Dioxide 24.0, Anion Gap 8, BUN 9, Creatinine 0.81, Estim Creat Clear Calc 46.00, Est GFR (MDRD) Af Amer 88, Est GFR (MDRD) Non-Af 73, BUN/Creatinine Ratio 11.1, Glucose 189 H, Calcium 10.0, Total Bilirubin 1.70 H, AST 22, ALT 18, Alkaline Phosphatase 92, Total Protein 7.9, Albumin 3.6, Globulin 4.3 H, Albumin/Globulin Ratio 0.8 L, Lipase 56 L 01/03/23 13:25: Urine Color Brown, Urine Clarity Sl. Cloudy, Urine pH 5.0, Ur Specific [place] 1.020, Urine Protein 30 H, Urine Glucose (UA) Normal, Urine Ketones 5 H, Urine Occult Blood 10 H, Urine Nitrite Positive H, Urine Bilirubin 3 H, Urine Urobilinogen 8 H, Ur Leukocyte Esterase 500 H, Urine RBC 0 SEEN, Urine WBC 10-25 SEEN, Ur Squamous Epith Cells 0-5 SEEN, Urine Bacteria 4+, Urine Mucus 0 SEEN 01/03/23 15:15: Lactic Acid 2.7 H* Radiology Impression Abdomen/Pelvis CT 01/03/23 11:50 IMPRESSION: 1. Proctocolitis. 2. Diverticulosis coli. 3. Cholelithiasis. 4. 8.4 cm partially calcified uterine fibroid. Electronically Signed: Javed Gray MD at 13:59 EDT , Assessment & Plan Assessment/Plan (1) UTI (lower urinary tract infection): (2) Proctocolitis: (3) Nausea vomiting and diarrhea: PLAN: Plan #Nausea/vomiting/diarrhea -CT abdomen pelvis reports proctocolitis the patient additionally has signs and symptoms and UA suggestive of UTI -ED physician spoke with GI and endorsed that Rocephin would be fine for coverage for both the UTI and proctocolitis -Patient received fluids -Blood and urine cultures pending -C. difficile, stool lactoferrin, ova parasites ordered in ED, will add on enteric pathogen panel -Monitor I's and O's -Zofran as needed, additionally start with full liquid diet prior to advancing due to her nausea and abdominal pain and advance as tolerated #Urinary tract infection -Urine and blood cultures pending, do not think patient is septic but does have complicated UTI -Continue Rocephin -Additionally will obtain postvoid residual due to concerns for retaining urine #Proctocolitis -Seen on CT -Stool studies ordered and pending -On Rocephin #Atrial fibrillation -EKG demonstrates A-fib, continue Eliquis #History of CVA, right MCA -Secondary to A-fib, continue Eliquis #DVT ppx: On Eliquis Carly Cuenca MD Time spent in the patient's overall evaluation,decision-making process, review of diagnostic data, adjustment of management, discussion with other providers, nursing nursing and ancillary staff involved in patient's care documentation, 60 minutes Charges/Coding Visit Charges Inpatient E&M: 51238 Init Hosp L2
--- NOTE | 2023-01-03 17:58 | EX.PCM.CON.G ---
HPI Consult Data Date of Consult: 01/03/23 HPI Narrative Reason for Consultation: Abnormal CT scan HPI Narrative: OSEAS PATHAK, is a 77 F who presents with nausea vomiting and diarrhea. She has a past medical history of CVAs, with residual right hemiplegia, (ambulates with wheelchair), Hypertension who comes in with nausea, vomiting with diarrhea over the last 3 days. Patient was said to be not feeling well, ate and drank a little yesterday. This morning after vomiting, she felt warm, and diaphoretic.? Biochemical work-up was impressive for increased white blood cell count of 23,000. ? CT was obtained which demonstrated proctocolitis, diverticulosis coli, cholelithiasis, 8.4 cm partially calcified uterine fibroid.? Patient given fluids and Rocephin. I was consulted and regarding the patient's proctocolitis that was seen on the CT scan. I requested that stool culture, enteric pathogens and C. difficile to be sent for analysis. Due to the patient having acute proctocolitis and a possible urinary tract infection she was started on Rocephin. [facility] Medical History A-fib CVA (cerebral vascular accident) CVA (cerebral vascular accident) Hemiplegia HLD (hyperlipidemia) HTN (hypertension) Home Medications sertraline 25 mg tablet (Zoloft) 25 mg PO DAILY mental health 03/07/18 [History Last Taken Unknown] simvastatin 40 mg tablet 40 mg PO QHS cholesterol 03/07/18 [History Last Taken Unknown] apixaban 5 mg tablet (Eliquis) 5 mg PO BID blood thinner 03/09/18 [History Last Taken Unknown] Allergy/AdvReac Type Severity Reaction Status Date / Time No Known Allergies Allergy Verified 01/03/23 11:18 Social History Smoking Status: Never smoker ROS ROS Narrative General: Denies fever/chills HENT: Denies headache, denies stuffy nose, denies sore throat EYES: Denies changes in vision Resp: Denies cough, denies shortness of breath Cardiac: Denies chest pain GI: Diarrhea, nausea, vomiting, poor p.o. intake, lower abdominal pain, denies hematochezia : Burning on urination and sometimes concern for retention Extremity: Denies swelling MSK: Denies weakness Neuro: Denies any numbness/tingling Heme: Denies any bleeding or bruising Skin: Arm rashes and chest Psychiatric: No complaints voiced Physical Exam Narrative General: Alert, oriented, no apparent distress HEENT: Atraumatic, normocephalic Eyes: Anicteric, normal conjunctiva, extraocular movements grossly intact Neck: Supple Respiratory: Clear to auscultation bilaterally, normal respiratory effort Cardiovascular: Regular rate and rhythm GI: Mild tender to palpation in both lower quadrants more so on the right, soft, nondistended, no rebound, guarding, rigidity Extremities: No edema Musculoskeletal: Moving all extremities Neuro: No overt focal neurological deficits Skin: Has scaly rash on both arms and chest Psych: Cooperative Lab / Micro Data Result Diagrams: 01/03/23 12:10 01/03/23 12:10 Labs: Laboratory Results - last 24 hr 01/03/23 12:10: WBC 23.3 H, RBC 5.50 H, Hgb 17.7 H, Hct 53.1 H, MCV 96.5, MCH 32.2 H, MCHC 33.3, RDW Std Deviation 48.2 H, RDW Coeff of [place] 13.7, Plt Count 273, MPV 11.8, Immature Gran % (Auto) 0.400, Neut % (Auto) 90.4 H, Lymph % (Auto) 3.5 L, [place] % (Auto) 5.4, Eos % (Auto) 0.0, Baso % (Auto) 0.3, Absolute Neuts (auto) 21.1 H, Absolute Lymphs (auto) 0.82 L, Nucleated RBC % 0, Differential Comment COMMENT 01/03/23 12:10: Sodium 141, Potassium 4.5, Chloride 109 H, Carbon Dioxide 24.0, Anion Gap 8, BUN 9, Creatinine 0.81, Estim Creat Clear Calc 46.00, Est GFR (MDRD) Af Amer 88, Est GFR (MDRD) Non-Af 73, BUN/Creatinine Ratio 11.1, Glucose 189 H, Calcium 10.0, Total Bilirubin 1.70 H, AST 22, ALT 18, Alkaline Phosphatase 92, Total Protein 7.9, Albumin 3.6, Globulin 4.3 H, Albumin/Globulin Ratio 0.8 L, Lipase 56 L 01/03/23 13:25: Urine Color Brown, Urine Clarity Sl. Cloudy, Urine pH 5.0, Ur Specific [place] 1.020, Urine Protein 30 H, Urine Glucose (UA) Normal, Urine Ketones 5 H, Urine Occult Blood 10 H, Urine Nitrite Positive H, Urine Bilirubin 3 H, Urine Urobilinogen 8 H, Ur Leukocyte Esterase 500 H, Urine RBC 0 SEEN, Urine WBC 10-25 SEEN, Ur Squamous Epith Cells 0-5 SEEN, Urine Bacteria 4+, Urine Mucus 0 SEEN 01/03/23 15:15: Lactic Acid 2.7 H* Radiology Impression Abdomen/Pelvis CT 01/03/23 11:50 IMPRESSION: 1. Proctocolitis. 2. Diverticulosis coli. 3. Cholelithiasis. 4. 8.4 cm partially calcified uterine fibroid. Electronically Signed: Javed Gray MD at 13:59 EDT , Assessment & Plan Assessment/Plan (1) Proctocolitis: PLAN: The differential diagnosis for proctocolitis in this patient does include infectious, ischemic, ulcerative proctocolitis. 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 Clinical presentation of patients with ischemic proctitis may be non-specific and often misleading, since they often present with lower abdominal pain, diarrhea and proctalgia, also commonly seen in other colorectal diseases. however this is not always a presentation in elderly. ?In this context clinical index of suspicion for this disease is extremely low. Although CT scan can suggest the diagnosis and identify other causes of clinical deterioration, the findings of CT scan are often nonspecific and misleading and cannot determine the severity of the condition. Colonoscopy remains the cornerstone for diagnosis and to determine the extension of the ischemic lesion and should be performed within 48h of presentation in suspected cases. however she has a lot of comorbidities and it would be easier for her if we do not have to perform any procedures at this time.?The histological examination can confirm the diagnosis. ?Given the presentation, initial evaluation with serology and stool studies, including, stool culture, stool examination for ova and parasites and?C. difficile?toxin assay, are recommended at this time. She may still need a flexible sigmoidoscopy in the near future. Charges/Coding Visit Charges Inpatient E&M: 73725 Init Hosp L3
[2023-01-03] MEDS: 0.9% Normal Saline 1,000 ML 75 ML IV (18:06)
[2023-01-03 19:18] LABS: Reflex Lactate? Y
[2023-01-03 20:43] LABS: Lactic Acid 3.1 mmol/L (0.4-1.9)
[2023-01-03] MEDS: Menthol/Lanolin/Calamine/Znox 113 GM Tube 1 APPLIC TOPICAL (21:12)
[2023-01-03] MEDS: APIXABAN 5 MG TABLET PO (21:13)
[2023-01-03] MEDS: Atorvastatin Calcium 20 MG Tablet PO (21:13)
[2023-01-04 03:45] VITALS: BP 116/59; PULSE 68; RESP 16; TEMP 37.1; O2SAT 99
[2023-01-04 04:06] VITALS: PULSE 62
[2023-01-04] MEDS: Menthol/Lanolin/Calamine/Znox 113 GM Tube 1 APPLIC TOPICAL (06:13)
--- NOTE | 2023-01-04 07:04 | PCM.PN.HOSP ---
Reason for Visit Reason for Visit: Nausea/vomiting/diarrhea Subjective Subjective Mrs. Guadalupe is a 77-year-old white female who presented to the emergency department [facility] on 01/03/2023 with 1 day of nausea, vomiting, and diarrhea. She had poor and take orally since this initiated her daughter indicated that overall her oral intake is subpar. She also complained of some burning with urination as well as urinary retention. Her abdominal pain was predominantly in the bilateral lower quadrants. Vital signs on presentation were unremarkable. She did have an elevated white count at 23.3 as well as an elevated lactic acid of 2.7. Her bilirubin was up at 1.7. Lipase was normal and her UA was suggestive of UTI. A CT of the abdomen pelvis was performed and suggested proctocolitis diverticulosis and cholelithiasis without cholecystitis and also commented on an 8.4 cm partially calcified uterine fibroid. She was given IV fluids and antibiotics in the emergency department and admitted to the medical floor. Blood and urine cultures were obtained prior to antibiotics being administered. Given her diarrhea C. difficile, stool lactoferrin and, ova and parasites as well as an enteric panel are pending. She was placed on ceftriaxone and GI was consulted. Objective Data Objective Data Vital Signs: Vital Signs Temp Pulse Resp BP Pulse Ox O2 Del Method 98.8 F 62 16 116/59 L 99 Room Air 01/04/23 03:45 01/04/23 04:06 01/04/23 03:45 01/04/23 03:45 01/04/23 03:45 01/04/23 03:45 Oxygen Delivery Method Room Air Weight: 66 kg Body Mass Index (BMI) 26.6 Intake & Output: Intake and Output for Last 24 Hours 01/02/23 01/03/23 01/04/23 23:59 23:59 23:59 Intake Total 1949 300 / 300 Balance 1949 300 / 300 Lab / Micro Data Result Diagrams: 01/04/23 06:55 01/04/23 06:55 Labs: Laboratory Results - last 24 hr 01/03/23 12:10: WBC 23.3 H, RBC 5.50 H, Hgb 17.7 H, Hct 53.1 H, MCV 96.5, MCH 32.2 H, MCHC 33.3, RDW Std Deviation 48.2 H, RDW Coeff of [place] 13.7, Plt Count 273, MPV 11.8, Immature Gran % (Auto) 0.400, Neut % (Auto) 90.4 H, Lymph % (Auto) 3.5 L, [place] % (Auto) 5.4, Eos % (Auto) 0.0, Baso % (Auto) 0.3, Absolute Neuts (auto) 21.1 H, Absolute Lymphs (auto) 0.82 L, Nucleated RBC % 0, Differential Comment COMMENT 01/03/23 12:10: Sodium 141, Potassium 4.5, Chloride 109 H, Carbon Dioxide 24.0, Anion Gap 8, BUN 9, Creatinine 0.81, Estim Creat Clear Calc 46.00, Est GFR (MDRD) Af Amer 88, Est GFR (MDRD) Non-Af 73, BUN/Creatinine Ratio 11.1, Glucose 189 H, Calcium 10.0, Total Bilirubin 1.70 H, AST 22, ALT 18, Alkaline Phosphatase 92, Total Protein 7.9, Albumin 3.6, Globulin 4.3 H, Albumin/Globulin Ratio 0.8 L, Lipase 56 L 01/03/23 13:25: Urine Color Brown, Urine Clarity Sl. Cloudy, Urine pH 5.0, Ur Specific [place] 1.020, Urine Protein 30 H, Urine Glucose (UA) Normal, Urine Ketones 5 H, Urine Occult Blood 10 H, Urine Nitrite Positive H, Urine Bilirubin 3 H, Urine Urobilinogen 8 H, Ur Leukocyte Esterase 500 H, Urine RBC 0 SEEN, Urine WBC 10-25 SEEN, Ur Squamous Epith Cells 0-5 SEEN, Urine Bacteria 4+, Urine Mucus 0 SEEN 01/03/23 15:15: Lactic Acid 2.7 H* 01/03/23 20:01: Lactic Acid 3.1 H* Radiography Diagnostic Testing: Radiology Impression Abdomen/Pelvis CT 01/03/23 11:50 IMPRESSION: 1. Proctocolitis. 2. Diverticulosis coli. 3. Cholelithiasis. 4. 8.4 cm partially calcified uterine fibroid. Electronically Signed: Javed Gray MD at 13:59 EDT , Assessment & Plan Assessment/Plan (1) Proctocolitis: (2) Severe malnutrition: (3) Lactic acidosis: (4) Leukocytosis: (5) Urinary tract infection: (6) Nausea vomiting and diarrhea: PLAN: Plan Intractable nausea vomiting and diarrhea -Likely related to UTI and proctocolitis. -Work-up is in progress stool lactoferrin, enteric panel, C. difficile, and ova and parasites all pending -Continue IV fluids -Continue liquid diet for now and assess for tolerance we should be able to advance as tolerated -As needed antiemetics Urinary tract infection -Urine and blood cultures are pending -Continue ceftriaxone -Await culture and sensitivities Severe malnutrition -Add Ensure clear -Dietitian consulted Lactic acidosis -Suspect is related to her colitis/UTI and dehydration from decreased p.o. intake Leukocytosis -A.m. labs pending -Anticipate downtrend with above treatment -Await CBC results Proctocolitis -GI has been consulted and above studies are pending -May need colonoscopy versus sigmoidoscopy in the near future -Await results of above studies and GI input Persistent atrial fibrillation -Patient is not on anything for rate control -Continue Eliquis 5 mg twice daily -Monitor heart rates Hyperlipidemia -Continue statin History of right MCA stroke -No lasting neurological deficits -Occurred as a result of her atrial fibrillation -Continue Eliquis -PT/OT consultation to assess for any acute debility Depression -Continue Zoloft DVT prophylaxis -Continue full dose Eliquis CODE STATUS -Full code Charges/Coding Visit Charges Inpatient E&M: 86151 [facility] Hosp L2
[2023-01-04 07:31] LABS: Absolute Neutrophil Count 6.3 X10^3/uL (2.0-7.7); Basophil# 0.06 X10^3/uL; Basophil% 0.6 % (0-1); Eosinophil# 0.27 X10^3/uL; Eosinophils% 2.8 % (0-5); Hematocrit 42.4 % (37-47); Hemoglobin 13.3 g/dL (12.0-15.0); Lymphocyte % 21.9 % (19-41); Mean Corp Hgb Conc 31.4 g/dL (32-36); Mean Corpuscular Hgb 31.2 pg (27.0-32.0); Mean Corpuscular Volume 99.5 fL (81-99); Mean Platelet Vol. 12.3 fl (6.2-12.0); Monocyte# 0.82 X10^3/uL; Monocyte% 8.5 % (0-10); NRBC Flagged by Analyzer 0 % (0-5); Neutrophil # 6.31 X10^3/uL (2.7-7.7); Neutrophil % 65.8 % (47-70); Platelet Count 203 K/mm3 (150-450); RBC Distribution Width CV 13.7 % (11.6-14.6); Red Blood Count 4.26 M/mm3 (4.2-5.4); White Blood Count 9.6 K/mm3 (4.4-11.0)
[2023-01-04] MEDS: 0.9% Normal Saline 1,000 ML 75 ML IV (07:38)
[2023-01-04 08:08] LABS: ALB/GLOB Ratio 0.8 RATIO (0.9-2.4); AST(SGOT) 16 U/L (15-37); Alanine Aminotransfer ALT/SGPT 15 U/L (13-56); Albumin, Serum 2.5 g/dL (3.2-5.0); Alkaline Phosphatase 58 U/L (45-117); Anion Gap 6 (5-15); BUN 6 mg/dL (7-18); Calcium,Total 8.2 mg/dL (8.5-10.1); Chloride 116 mmol/L (98-107); Creatinine, Serum 0.46 mg/dL (0.55-1.02); EST Glomerular Filtration Rate 140 mL/min (>60); Est Glom Filt Rate - Afr Amer 169 mL/min (>60); Estimated Creatinine Clearance 37.26 ml/min; Glucose 111 mg/dL (74-106); Potassium 3.9 mmol/L (3.5-5.1); Protein, Total 5.5 g/dL (6.4-8.2); Sodium Level 144 mmol/L (136-145)
[2023-01-04 09:03] VITALS: BP 117/58; PULSE 72; RESP 16; TEMP 36.6; O2SAT 100
--- NOTE | 2023-01-04 09:58 | CASEMGMT ---
MARLEN CM in to discuss CARLIN form with patient. RN CM explained CARLIN form, patient voiced understanding. Pt signed form and filed in chart. Pt provided with a copy of signed CARLIN form. Patient had no further questions or concerns at this time.
[2023-01-04 10:00] VITALS: PULSE 54
--- NOTE | 2023-01-04 10:10 | CASEMGMT ---
Addendum entered by Sharmila Myers 01/04/23 15:07: TC to dtr again, no answer. VM left with return call back info. Addendum entered by Sharmila Myers 01/04/23 10:18: Spoke with therapy who states pt is a thor and reported she has this at home. Pt reported going to [employer] as well. Pt is at baseline, per therapy. Original Note: MARLEN LEONARDO Assessment: Face to Face with pt for initial transition planning/care coordination assessment. MARLEN LEONARDO introduced self and role at [facility], pt voices understanding and consents to assessment. Pt is A/O x2 and answers all questions appropriately at this time, slow to answer. Care providers, pharmacy, and demographics verified/updated. Admitting Dx: UTI/Colitis PCP:Pt denies. Specialists:Pt denies Preferred Pharmacy:[facility] Insurance: My Care [facility], [facility] Community Plan Prescription Benefit: yes LNOK: Shey Guadalupe, granddtr; Delphine Guadalupe, dtr Living Arrangements: Pt lives with dtr in a single story home with a ramp to enter. Pt reports she is dependent on her dtr for ADL's and IADL's. Pt denies concerns at home. Transportation: Pt states her dtr provides transportation. DME/HHC/SNF: Pt states the only DME she has is a w/c. States she does walk sometimes but not much since her stroke 9 years ago. Pt denies hx of HHC or SNF stays. Pt states her dtr is with her most of the time. States she sometimes is alone an hour or so. States no one else assists with her care and that she has not homecare coming into the home. Pt agreeable to MARLEN LEONARDO calling her dtr to discuss dc plan. TC to dtr, left message requesting returned call. Pt states no further concerns/needs. CM to follow. Advised pt to ask CM if any further question/concerns/needs arise, voices understanding. Pt Goal: To be able to walk Plan: TBD, pending therapy and conversation with dtr
[2023-01-04] MEDS: Ceftriaxone 1 GM/50 ML BAG IV (10:44)
[2023-01-04] MEDS: Calcium Carbonate 500 MG Tablet PO (10:45)
[2023-01-04] MEDS: APIXABAN 5 MG TABLET PO ×2 (10:48→21:39)
[2023-01-04] MEDS: Sertraline 50 MG Tablet 25 MG PO (10:48)
--- NOTE | 2023-01-04 11:02 | PCM.PN.HOSP ---
Reason for Visit Reason for Visit: Nausea/vomiting/diarrhea Subjective Subjective Mrs. Guadalupe is a 77-year-old white female who presented to the emergency department [facility] on 01/03/2023 with 1 day of nausea, vomiting, and diarrhea.? She had poor and take orally since this initiated her daughter indicated that overall her oral intake is subpar.? She also complained of some burning with urination as well as urinary retention.? Her abdominal pain was predominantly in the bilateral lower quadrants.? Vital signs on presentation were unremarkable.? She did have an elevated white count at 23.3 as well as an elevated lactic acid of 2.7.? Her bilirubin was up at 1.7.? Lipase was normal and her UA was suggestive of UTI.? A CT of the abdomen pelvis was performed and suggested proctocolitis diverticulosis and cholelithiasis without cholecystitis and also commented on an 8.4 cm partially calcified uterine fibroid.? She was given IV fluids and antibiotics in the emergency department and admitted to the medical floor.? Blood and urine cultures were obtained prior to antibiotics being administered.? Given her diarrhea C. difficile, stool lactoferrin and, ova and parasites as well as an enteric panel are pending.? She was placed on ceftriaxone and GI was consulted. Patient states overall she is feeling better. Dysuria has improved. Nausea and vomiting has not resolved. She still having considerable stool production. Did well with full liquid diet and would like to try regular diet. States she lives with family and has quite a bit of help at home. Objective Data Objective Data Vital Signs: Vital Signs Temp Pulse Resp BP Pulse Ox O2 Del Method 97.9 F 72 16 117/58 L 100 Room Air 01/04/23 09:03 01/04/23 09:03 01/04/23 09:03 01/04/23 09:03 01/04/23 09:03 01/04/23 09:03 Oxygen Delivery Method Room Air Weight: 66 kg Body Mass Index (BMI) 26.6 Intake & Output: Intake and Output for Last 24 Hours 01/02/23 01/03/23 01/04/23 23:59 23:59 23:59 Intake Total 1949 1300 / 1300 Balance 1949 1300 / 1300 Lab / Micro Data Result Diagrams: 01/04/23 06:55 01/04/23 06:55 Labs: Laboratory Results - last 24 hr 01/03/23 12:10: WBC 23.3 H, RBC 5.50 H, Hgb 17.7 H, Hct 53.1 H, MCV 96.5, MCH 32.2 H, MCHC 33.3, RDW Std Deviation 48.2 H, RDW Coeff of [place] 13.7, Plt Count 273, MPV 11.8, Immature Gran % (Auto) 0.400, Neut % (Auto) 90.4 H, Lymph % (Auto) 3.5 L, [place] % (Auto) 5.4, Eos % (Auto) 0.0, Baso % (Auto) 0.3, Absolute Neuts (auto) 21.1 H, Absolute Lymphs (auto) 0.82 L, Nucleated RBC % 0, Differential Comment COMMENT 01/03/23 12:10: Sodium 141, Potassium 4.5, Chloride 109 H, Carbon Dioxide 24.0, Anion Gap 8, BUN 9, Creatinine 0.81, Estim Creat Clear Calc 46.00, Est GFR (MDRD) Af Amer 88, Est GFR (MDRD) Non-Af 73, BUN/Creatinine Ratio 11.1, Glucose 189 H, Calcium 10.0, Total Bilirubin 1.70 H, AST 22, ALT 18, Alkaline Phosphatase 92, Total Protein 7.9, Albumin 3.6, Globulin 4.3 H, Albumin/Globulin Ratio 0.8 L, Lipase 56 L 01/03/23 13:25: Urine Color Brown, Urine Clarity Sl. Cloudy, Urine pH 5.0, Ur Specific [place] 1.020, Urine Protein 30 H, Urine Glucose (UA) Normal, Urine Ketones 5 H, Urine Occult Blood 10 H, Urine Nitrite Positive H, Urine Bilirubin 3 H, Urine Urobilinogen 8 H, Ur Leukocyte Esterase 500 H, Urine RBC 0 SEEN, Urine WBC 10-25 SEEN, Ur Squamous Epith Cells 0-5 SEEN, Urine Bacteria 4+, Urine Mucus 0 SEEN 01/03/23 15:15: Lactic Acid 2.7 H* 01/03/23 20:01: Lactic Acid 3.1 H* 01/04/23 06:55: WBC 9.6, RBC 4.26, Hgb 13.3, Hct 42.4, MCV 99.5 H, MCH 31.2, MCHC 31.4 L D, RDW Std Deviation 50.0 H, RDW Coeff of [place] 13.7, Plt Count 203, MPV 12.3 H, Immature Gran % (Auto) 0.400, Neut % (Auto) 65.8, Lymph % (Auto) 21.9, [place] % (Auto) 8.5, Eos % (Auto) 2.8, Baso % (Auto) 0.6, Absolute Neuts (auto) 6.3, Absolute Lymphs (auto) 2.10, Nucleated RBC % 0 01/04/23 06:55: Sodium 144, Potassium 3.9, Chloride 116 H, Carbon Dioxide 22.0, Anion Gap 6, BUN 6 L, Creatinine 0.46 L, Estim Creat Clear Calc 37.26, Est GFR (MDRD) Af Amer 169, Est GFR (MDRD) Non-Af 140, BUN/Creatinine Ratio 13.0, Glucose 111 H, Calcium 8.2 L, Total Bilirubin 1.00, AST 16, ALT 15, Alkaline Phosphatase 58, Total Protein 5.5 L, Albumin 2.5 L, Globulin 3.0, Albumin/Globulin Ratio 0.8 L Micro: Microbiology 01/03/23 13:25 Urine, Clean Catch Urine Culture - Preliminary 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 Proctocolitis. 2. Diverticulosis coli. 3. Cholelithiasis. 4. 8.4 cm partially calcified uterine fibroid. Electronically Signed: Javed Gray MD at 13:59 EDT , Physical Exam Const alert, oriented x3 and no apparent distress Constitutional Narrative: Elderly white female lying in bed, appears comfortable and nontoxic, supervisor public health nursing at bedside HEENT head/scalp atraumatic and moist oral mucous membranes HEENT Narrative: Edentulous, Mallampati is 2, no thrush Head and Scalp: normocephalic Resp normal respiratory effort, no retractions, no use of accessory muscles and clear to auscultation bilaterally Auscultation: Negative for rales, rhonchi or wheezes Cardio regular rate, regular rhythm, S1 normal heart sound, S2 normal heart sound, no rub, no gallops and no clicks Cardio Narrative: 2 out of 6 systolic murmur loudest at left upper sternal border GI normal to inspection, nondistended, normoactive bowel sounds, soft to palpation and non-tender Extremity no clubbing, cyanosis or edema Extremity Narrative: Multiple excoriations noted on upper and lower extremities, decreased lean muscle mass, hands with significant deformity related to rheumatoid arthritis with chronic flexion contracture of digits and ulnar deviation Skin Skin Narrative: Multiple excoriations noted on upper and lower extremities as noted above-no significant drainage or acute bleeding, no signs of infection, Neuro oriented x3, moves all extremities and no focal motor deficits Speech: speech normal Psych affect normal Psych Narrative: Pleasant and appropriate Assessment & Plan Assessment/Plan (1) Proctocolitis: (2) Severe malnutrition: (3) Lactic acidosis: (4) Leukocytosis: (5) Urinary tract infection: (6) Nausea vomiting and diarrhea: PLAN: Plan Intractable nausea vomiting and diarrhea -Likely related to UTI and proctocolitis. -Work-up is in progress stool lactoferrin, enteric panel, C. difficile, and ova and parasites all pending -Continue IV fluids for 1 more liter then stop -Advance diet -As needed antiemetics Urinary tract infection -Urine and blood cultures are pending -Continue ceftriaxone -Await culture and sensitivities Severe malnutrition -Add Ensure -Dietitian consulted Lactic acidosis -Suspect is related to her colitis/UTI and dehydration from decreased p.o. intake Leukocytosis -Resolved Proctocolitis -GI has been consulted and above studies are pending -May need colonoscopy versus sigmoidoscopy in the near future -Await results of above studies and GI input Persistent atrial fibrillation -Patient is not on anything for rate control -Continue Eliquis 5 mg twice daily -Monitor heart rates Hyperlipidemia -Continue statin History of right MCA stroke -Patient is chronically debilitated and unable to ambulate since her stroke 9 years ago -Is Mala lift and wheelchair dependent for mobility at home -Occurred as a result of her atrial fibrillation -Continue Eliquis -PT/OT consultation to assess for any acute debility Depression -Continue Zoloft DVT prophylaxis -Continue full dose Eliquis CODE STATUS -Full code Disposition: -As long as patient continues to clinically do well anticipate discharge in the next 24 hours to home Charges/Coding Visit Charges Inpatient E&M: 27337 Subs Hosp L2
[2023-01-04 14:00] VITALS: BP 115/63; PULSE 65; RESP 16; TEMP 36.7; O2SAT 100
--- NOTE | 2023-01-04 15:46 | CASEMGMT ---
Social Work Phone call to [facility] and spoke with [employer] in coverage. Pt's school childcare attendant is Madeleine Hughes. Pt goes to [facility] 5x week. She is approved for 20 hours of aids per week but [facility] has not been able to find coverage at this time. RNCM maryuri. LUIS Campbell
--- NOTE | 2023-01-04 18:36 | PN_ITS ---
Subjective Subjective Patient does not have any abdominal pain. She is tolerating a diet. She is not having any more bleeding per rectum. She only had a couple episodes of dark stools. She has not had any bowel movements today. Objective Data Objective Data Vital Signs: Vital Signs Temp Pulse Resp BP Pulse Ox O2 Del Method 98.0 F 65 16 115/63 100 Room Air 01/04/23 14:00 01/04/23 14:00 01/04/23 14:00 01/04/23 14:00 01/04/23 14:00 01/04/23 14:00 Oxygen Delivery Method Room Air Weight: 145 lb 8.081 oz Body Mass Index (BMI) 26.6 Intake & Output: Intake and Output for Last 24 Hours 01/02/23 01/03/23 01/04/23 23:59 23:59 23:59 Intake Total 1949 1600 / 1600 Balance 1949 1600 / 1600 Medical Nutrition Assessment Dietitian: Malnutrition Criteria Met Start: 01/04/23 11:14 Freq: Status: Active Protocol: Document 01/04/23 11:14 (Rec: 01/04/23 11:14 [id number]) Nutrition Malnutrition Evidence of Malnutrition Exists Yes Malnutrition (moderate): Chronic Evidenced By Suboptimal Energy Intake ( Moderate),Physical Changes ( Moderate) Clinical Problem Chronic Disease or Condition Related Malnutrition Etiology moderate, chronic malnutrition related to decreased appetite Signs/Symptoms as evidenced by estimated PO intake meeting < 75% of estimated energy needs > 3 months; Moderate muscle wasting/fat loss evident per physical exam in clavicle, temporal, and orbital areas. Status Active Problem Recommendation Dietitian Recommendations/Changes recommend regular/no added salt diet given chronic malnutrition; will add ensure w/ meals for additional calories/nutrition if consumed . 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 Lab / Micro Data Result Diagrams: 01/04/23 06:55 01/04/23 06:55 Labs: Laboratory Results - last 24 hr 01/03/23 20:01: Lactic Acid 3.1 H* 01/04/23 06:55: WBC 9.6, RBC 4.26, Hgb 13.3, Hct 42.4, MCV 99.5 H, MCH 31.2, MCHC 31.4 L D, RDW Std Deviation 50.0 H, RDW Coeff of [place] 13.7, Plt Count 203, MPV 12.3 H, Immature Gran % (Auto) 0.400, Neut % (Auto) 65.8, Lymph % (Auto) 21.9, [place] % (Auto) 8.5, Eos % (Auto) 2.8, Baso % (Auto) 0.6, Absolute Neuts (auto) 6.3, Absolute Lymphs (auto) 2.10, Nucleated RBC % 0 01/04/23 06:55: Sodium 144, Potassium 3.9, Chloride 116 H, Carbon Dioxide 22.0, Anion Gap 6, BUN 6 L, Creatinine 0.46 L, Estim Creat Clear Calc 37.26, Est GFR (MDRD) Af Amer 169, Est GFR (MDRD) Non-Af 140, BUN/Creatinine Ratio 13.0, Glucose 111 H, Calcium 8.2 L, Total Bilirubin 1.00, AST 16, ALT 15, Alkaline Phosphatase 58, Total Protein 5.5 L, Albumin 2.5 L, Globulin 3.0, Albumin/Globulin Ratio 0.8 L Micro: Microbiology 01/04/23 01:10 Stool Stool Lactoferrin - Final 01/04/23 01:10 Stool C. 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 Gram negative ledy Physical Exam Const alert, oriented x3 and no apparent distress HEENT head/scalp atraumatic and moist oral mucous membranes HEENT Narrative: Edentulous, Mallampati is 2, no thrush Head and Scalp: normocephalic Resp normal respiratory effort, no retractions, no use of accessory muscles and clear to auscultation bilaterally Auscultation: Negative for rales, rhonchi or wheezes Cardio regular rate, regular rhythm, S1 normal heart sound, S2 normal heart sound, no rub, no gallops and no clicks Cardio Narrative: 2 out of 6 systolic murmur loudest at left upper sternal border GI normal to inspection, nondistended, normoactive bowel sounds, soft to palpation and non-tender Extremity no clubbing, cyanosis or edema Extremity Narrative: Multiple excoriations noted on upper and lower extremities, decreased lean muscle mass, hands with significant deformity related to rheumatoid arthritis with chronic flexion contracture of digits and ulnar deviation Skin Skin Narrative: Multiple excoriations noted on upper and lower extremities as noted above-no significant drainage or acute bleeding, no signs of infection, Neuro oriented x3, moves all extremities and no focal motor deficits Speech: speech normal Psych affect normal Psych Narrative: Pleasant and appropriate Assessment & Plan Assessment/Plan (1) Proctocolitis: PLAN: The differential diagnosis for proctocolitis in this patient does include infectious, ischemic, ulcerative proctocolitis. 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 Clinical presentation of patients with ischemic proctitis may be non-specific and often misleading, since they often present with lower abdominal pain, diarr hea and proctalgia, also commonly seen in other colorectal diseases. however this is not always a presentation in elderly. ?In this context clinical index of suspicion for this disease is extremely low. Although CT scan can suggest the diagnosis and identify other causes of clinical deterioration, the findings of CT scan are often nonspecific and misleading and cannot determine the severity of the condition. Colonoscopy remains the cornerstone for diagnosis and to determine the extension of the ischemic lesion and should be performed within 48h of presentation in suspected cases. however she has a lot of comorbidities and it would be easier for her if we do not have to perform any procedures at this time. ?The histological examination can confirm the diagnosis. ?Given the presentation, initial evaluation with serology and stool studies, including, stool culture, stool examination for ova and parasites and?C. difficile?toxin assay, are recommended at this time. 01/04-stool studies are negative for C. difficile, enteric pathogen's. Ova and parasites are pending. She does have white blood cells in her stool. That could be secondary to ischemic colitis, lymphocytic colitis, collagenous colitis or microscopic colitis. She is not having any diarrhea at this time. Her hemoglobin is lower but is still within normal range. Laboratory analysis was consistent with dehydration. No indication for flexible sigmoidoscopy or colonoscopy at this time. I will continue to follow her. Charges/Coding Visit Charges Inpatient E&M: 64751 Subs Hosp L3
[2023-01-04] MEDS: Nystatin Powder 15gm Bottle 1 APPLIC TOPICAL (21:35)
[2023-01-04] MEDS: Atorvastatin Calcium 20 MG Tablet PO (21:39)
[2023-01-04 21:43] VITALS: BP 133/57; PULSE 73; RESP 16; TEMP 37; O2SAT 95
[2023-01-05 03:43] VITALS: BP 157/75; PULSE 68; RESP 16; TEMP 37.1; O2SAT 98
[2023-01-05 08:40] LABS: Absolute Neutrophil Count 5.2 X10^3/uL (2.0-7.7); Basophil# 0.07 X10^3/uL; Basophil% 0.9 % (0-1); Eosinophil# 0.39 X10^3/uL; Hematocrit 39.3 % (37-47); Hemoglobin 12.8 g/dL (12.0-15.0); Lymphocyte % 19.3 % (19-41); Mean Corp Hgb Conc 32.6 g/dL (32-36); Mean Corpuscular Hgb 31.8 pg (27.0-32.0); Mean Corpuscular Volume 97.8 fL (81-99); Mean Platelet Vol. 12.8 fl (6.2-12.0); Monocyte# 0.57 X10^3/uL; Monocyte% 7.3 % (0-10); NRBC Flagged by Analyzer 0 % (0-5); Neutrophil # 5.21 X10^3/uL (2.7-7.7); Neutrophil % 67.2 % (47-70); Platelet Count 172 K/mm3 (150-450); RBC Distribution Width CV 13.8 % (11.6-14.6); RBC Distribution Width SD 49.9 fl (35.1-43.9); Red Blood Count 4.02 M/mm3 (4.2-5.4); White Blood Count 7.8 K/mm3 (4.4-11.0)
[2023-01-05 08:59] LABS: Anion Gap 10 (5-15); BUN 8 mg/dL (7-18); BUN/Creat Ratio 18.6 RATIO (10-20); Chloride 114 mmol/L (98-107); Creatinine, Serum 0.43 mg/dL (0.55-1.02); EST Glomerular Filtration Rate 151 mL/min (>60); Est Glom Filt Rate - Afr Amer 183 mL/min (>60); Estimated Creatinine Clearance 37.26 ml/min; Glucose 123 mg/dL (74-106); Potassium 3.8 mmol/L (3.5-5.1); Sodium Level 146 mmol/L (136-145)
[2023-01-05 09:43] VITALS: BP 119/69; PULSE 56; RESP 16; TEMP 36.2; O2SAT 97
[2023-01-05] MEDS: Nystatin Powder 15gm Bottle 1 APPLIC TOPICAL (09:49)
[2023-01-05] MEDS: APIXABAN 5 MG TABLET PO (09:49)
[2023-01-05] MEDS: Sertraline 50 MG Tablet 25 MG PO (09:49)
[2023-01-05] MEDS: Ceftriaxone 1 GM/50 ML BAG IV (09:51)
[2023-01-05] MEDS: 0.9% Saline Lock 10 ML Syringe IV (09:51)
--- NOTE | 2023-01-05 10:00 | PCM.PROGNOTE ---
Subjective Subjective She had a normal bowel movement without any signs or symptoms of bleeding. She is tolerating a diet. Objective Data Objective Data Vital Signs: Vital Signs Temp Pulse Resp BP Pulse Ox O2 Del Method 97.2 F L 56 L 16 119/69 97 Room Air 01/05/23 09:43 01/05/23 09:43 01/05/23 09:43 01/05/23 09:43 01/05/23 09:43 01/05/23 09:43 Oxygen Delivery Method Room Air Weight: 145 lb 8.081 oz Body Mass Index (BMI) 26.6 Intake & Output: Intake and Output for Last 24 Hours 01/03/23 01/04/23 01/05/23 23:59 23:59 23:59 Intake Total 1949 2900 / 2900 250 / 250 Balance 1949 2900 / 2900 250 / 250 Medical Nutrition Assessment Dietitian: Malnutrition Criteria Met Start: 01/04/23 11:14 Freq: Status: Active Protocol: Document 01/04/23 11:14 AG (Rec: 01/04/23 11:14 [id number]) Nutrition Malnutrition Evidence of Malnutrition Exists Yes Malnutrition (moderate): Chronic Evidenced By Suboptimal Energy Intake ( Moderate),Physical Changes ( Moderate) Clinical Problem Chronic Disease or Condition Related Malnutrition Etiology moderate, chronic malnutrition related to decreased appetite Signs/Symptoms as evidenced by estimated PO intake meeting < 75% of estimated energy needs > 3 months; Moderate muscle wasting/fat loss evident per physical exam in clavicle, temporal, and orbital areas. Status Active Problem Recommendation Dietitian Recommendations/Changes recommend regular/no added salt diet given chronic malnutrition; will add ensure w/ meals for additional calories/nutrition if consumed . Consider WINE SALES REPRESENTATIVE consult if issues w/ chewing swallowing persist. Lab / Micro Data Result Diagrams: 01/05/23 06:13 01/05/23 06:13 Labs: Laboratory Results - last 24 hr 01/05/23 06:13: WBC 7.8, RBC 4.02 L, Hgb 12.8, Hct 39.3, MCV 97.8, MCH 31.8, MCHC 32.6, RDW Std Deviation 49.9 H, RDW Coeff of [place] 13.8, Plt Count 172, MPV 12.8 H, Immature Gran % (Auto) 0.300, Neut % (Auto) 67.2, Lymph % (Auto) 19.3, [place] % (Auto) 7.3, Eos % (Auto) 5.0, Baso % (Auto) 0.9, Absolute Neuts (auto) 5.2, Absolute Lymphs (auto) 1.50, Nucleated RBC % 0 01/05/23 06:13: Sodium 146 H, Potassium 3.8, Chloride 114 H, Carbon Dioxide 22.0, Anion Gap 10, BUN 8, Creatinine 0.43 L, Estim Creat Clear Calc 37.26, Est GFR (MDRD) Af Amer 183, Est GFR (MDRD) Non-Af 151, BUN/Creatinine Ratio 18.6, Glucose 123 H, Calcium 8.0 L Micro: Microbiology 01/03/23 15:15 Blood Culture (Wb) - Anticubital Left Blood Culture - Preliminary No growth in 48 hours. 01/03/23 14:50 Blood Culture (Wb) - Anticubital Left Blood Culture - Preliminary No growth in 48 hours. 01/03/23 13:25 Urine, Clean Catch Urine Culture - Preliminary GNR lactose gas line repairer 01/04/23 01:10 Stool Stool Lactoferrin - Final 01/04/23 01:10 Stool C. difficile DNA Amplification - Final Physical Exam Const alert, oriented x3 and no apparent distress Constitutional Narrative: Elderly white female lying in bed General Appearance: cooperative, comfortable and well kempt Nutritional Appearance: overweight HEENT normocephalic, head/scalp atraumatic and moist oral mucous membranes HEENT Narrative: Mild to moderate hearing loss, edentulous, Mallampati 2, no thrush Eyes PERRL, EOMs intact bilaterally and conjunctivae normal Eyes Narrative: No scleral icterus Neck no lymphadenopathy, supple and no JVD Neck Narrative: Trachea midline, no thyroid enlargement Resp normal respiratory effort, no retractions, no use of accessory muscles and clear to auscultation bilaterally Auscultation: Negative for rales, rhonchi or wheezes Cardio regular rate, regular rhythm, S1 normal heart sound, S2 normal heart sound, no rub, no gallops and no clicks; Negative for no murmurs Cardio Narrative: 2 out of 6 systolic murmur loudest at left upper sternal border GI normal to inspection, nondistended, normoactive bowel sounds, soft to palpation and non-tender Extremity no clubbing, cyanosis or edema Extremity Narrative: Multiple excoriations noted on upper and lower extremities, decreased lean muscle mass, hands with significant deformity related to rheumatoid arthritis with chronic flexion contracture of digits and ulnar deviation Skin No no rashes or lesions noted, No no wounds, skin turgor normal and no jaundice Skin Narrative: Multiple excoriations noted on upper and lower extremities as noted above-no significant drainage or acute bleeding, no signs of infection, Neuro oriented x3, CN's II-XII intact bilaterally and no focal motor deficits Neuro Narrative: Patient with significant contractures in hands and feet due to severe rheumatoid arthritis but able to move arms symmetrically, no significant movement in hands, lower extremities with marked contractures in the feet and some noted at the knees and ankles Speech: speech normal Psych affect normal Psych Narrative: Pleasant and appropriate Assessment & Plan Assessment/Plan (1) Proctocolitis: PLAN: The differential diagnosis for proctocolitis in this patient does include infectious, ischemic, ulcerative proctocolitis. 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 Clinical presentation of patients with ischemic proctitis may be non-specific and often misleading, since they often present with lower abdominal pain, diarrhea and proctalgia, also commonly seen in other colorectal diseases. however this is not always a presentation in elderly. ?In this context clinical index of suspicion for this disease is extremely low. Although CT scan can suggest the diagnosis and identify other causes of clinical deterioration, the findings of CT scan are often nonspecific and misleading and cannot determine the severity of the condition. Colonoscopy remains the cornerstone for diagnosis and to determine the extension of the ischemic lesion and should be performed within 48h of presentation in suspected cases. however she has a lot of comorbidities and it would be easier for her if we do not have to perform any procedures at this time.?The histological examination can confirm the diagnosis. ?Given the presentation, initial evaluation with serology and stool studies, including, stool culture, stool examination for ova and parasites and?C. difficile?toxin assay, are recommended at this time. 01/04-stool studies are negative for C. difficile, enteric pathogen's. Ova and parasites are pending. She does have white blood cells in her stool. That could be secondary to ischemic colitis, lymphocytic colitis, collagenous colitis or microscopic colitis. She is not having any diarrhea at this time. Her hemoglobin is lower but is still within normal range. Laboratory analysis was consistent with dehydration. No indication for flexible sigmoidoscopy or colonoscopy at this time. I will continue to follow her. 01/05-patient's hemoglobin continues to be the same. Her stool studies do not show any sign of infection. I do not think she needs to continue antibiotics as it puts her at increased risk of C. difficile. I am okay with her being discharged back on anticoagulation. Follow-up in the clinic as needed. Charges/Coding Visit Charges Inpatient E&M: 69145 Subs Hosp L3
--- NOTE | 2023-01-05 12:06 | PCM.DC.SUM ---
Providers Date of Admission: 01/03/23 Date of Discharge: 01/05/23 Primary Care Physician: No Primary Care Phys Reason For Visit: UTI +/- COLITIS Diagnosis Discharge Diagnosis (1) Proctocolitis: Status: Acute Code(s): K52.9 - Noninfective gastroenteritis and colitis, unspecified Medications at Discharge Home Medications sertraline 25 mg tablet (Zoloft) 25 mg PO DAILY mental health 03/07/18 simvastatin 40 mg tablet 40 mg PO QHS cholesterol 03/07/18 apixaban 5 mg tablet (Eliquis) 5 mg PO BID blood thinner 03/09/18 cephalexin 500 mg capsule 500 mg PO .4x per day #16 caps 01/05/23 Hospital Course Procedures - (CT of the abdomen and pelvis) Summary of Care Provided Minutes Spent on Discharge: 37 Hospital Course: Mrs. Guadalupe is a 77-year-old white female who presented to the emergency department [facility] on 01/03/2023 with 1 day of nausea, vomiting, and diarrhea.? She had poor and take orally since this initiated and her daughter indicated that overall her oral intake is subpar.? She also complained of some burning with urination as well as urinary retention.? Her abdominal pain was predominantly in the bilateral lower quadrants.? Vital signs on presentation were unremarkable.? She did have an elevated white count at 23.3 as well as an elevated lactic acid of 2.7.? Her bilirubin was up at 1.7.? Lipase was normal and her UA was suggestive of UTI.? A CT of the abdomen pelvis was performed and suggested proctocolitis diverticulosis and cholelithiasis without cholecystitis and also commented on an 8.4 cm partially calcified uterine fibroid.? She was given IV fluids and antibiotics in the emergency department and admitted to the medical floor.? Blood and urine cultures were obtained prior to antibiotics being administered.? With her diarrhea, enteric panel, C. difficile, and fecal WBC lactoferrin was obtained. Enteric panel and C. difficile were negative however lactoferrin was positive. 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 She was maintained on IV antibiotics with ceftriaxone throughout her hospital course. GI did evaluate the patient and felt most likely this was related to ischemic colitis secondary to dehydration with the nausea, vomiting, and diarrhea that she presented with. Her diarrhea did improve and she was able to eat a regular diet without any difficulty. No direct imaging of the colon was required at this time per discussion with GI. Recommendations were to maintain hydration as much as possible and treat her urinary tract infection. She was at her baseline functionally and no further therapy services were recommended. For urinary tract infection she did well with ceftriaxone and was discharged to complete a total of 7-day course of antibiotics with Keflex for 4 more days. Prescription was sent to her local pharmacy and she was discharged home in stable condition on 01/05/2023. No other medication changes were made. We have asked her to establish with a primary care physician and follow-up within the next 2 weeks if possible. Discharge diagnoses: Intractable nausea, vomiting, diarrhea-resolved Proctocolitis secondary to dehydration Leukocytosis-resolved Lactic acidosis-resolved UTI Severe malnutrition Persistent atrial fibrillation Hyperlipidemia History of right MCA stroke Depression Physical Exam Const alert, oriented x3 and no apparent distress Constitutional Narrative: Elderly white female lying in bed, appears comfortable and nontoxic, sleeping at the time my arrival but appears comfortable General Appearance: cooperative, comfortable and well kempt Nutritional Appearance: overweight HEENT normocephalic, head/scalp atraumatic and moist oral mucous membranes HEENT Narrative: Mild to moderate hearing loss, edentulous, Mallampati 2, no thrush Eyes PERRL, EOMs intact bilaterally and conjunctivae normal Eyes Narrative: No scleral icterus Neck no lymphadenopathy, supple and no JVD Neck Narrative: Trachea midline, no thyroid enlargement Resp normal respiratory effort, no retractions, no use of accessory muscles and clear to auscultation bilaterally Auscultation: Negative for rales, rhonchi or wheezes Cardio regular rate, regular rhythm, S1 normal heart sound, S2 normal heart sound, no rub, no gallops and no clicks; Negative for no murmurs Cardio Narrative: 2 out of 6 systolic murmur loudest at left upper sternal border GI normal to inspection, nondistended, normoactive bowel sounds, soft to palpation and non-tender Extremity no clubbing, cyanosis or edema Extremity Narrative: Multiple excoriations noted on upper and lower extremities, decreased lean muscle mass, hands with significant deformity related to rheumatoid arthritis with chronic flexion contracture of digits and ulnar deviation Skin No no rashes or lesions noted, No no wounds, skin turgor normal and no jaundice Skin Narrative: Multiple excoriations noted on upper and lower extremities as noted above-no significant drainage or acute bleeding, no signs of infection, Neuro oriented x3, CN's II-XII intact bilaterally and no focal motor deficits Neuro Narrative: Patient with significant contractures in hands and feet due to severe rheumatoid arthritis but able to move arms symmetrically, no significant movement in hands, lower extremities with marked contractures in the feet and some noted at the knees and ankles Speech: speech normal Psych affect normal Psych Narrative: Pleasant and appropriate Medical Records Data Medical Nutrition Assessment Dietitian: Malnutrition Criteria Met Start: 01/04/23 11:14 Freq: Status: Active Protocol: Document 01/04/23 11:14 AG (Rec: 01/04/23 11:14 AG [id number]) Nutrition Malnutrition Evidence of Malnutrition Exists Yes Malnutrition (moderate): Chronic Evidenced By Suboptimal Energy Intake ( Moderate),Physical Changes ( Moderate) Clinical Problem Chronic Disease or Condition Related Malnutrition Etiology moderate, chronic malnutrition related to decreased appetite Signs/Symptoms as evidenced by estimated PO intake meeting < 75% of estimated energy needs > 3 months; Moderate muscle wasting/fat loss evident per physical exam in clavicle, temporal, and orbital areas. Status Active Problem Recommendation Dietitian Recommendations/Changes recommend regular/no added salt diet given chronic malnutrition; will add ensure w/ meals for additional calories/nutrition if consumed . Consider EXPERIMENTAL MECHANIC ELECTRICAL consult if issues w/ chewing swallowing persist. Weight / BMI Weight Weight: 66 kg Body Mass Index (BMI) 26.6 ABG / Lab / Microbiology Data Result Diagrams: 01/05/23 06:13 01/05/23 06:13 Laboratory: Laboratory Results - last 24 hr 01/05/23 06:13: WBC 7.8, RBC 4.02 L, Hgb 12.8, Hct 39.3, MCV 97.8, MCH 31.8, MCHC 32.6, RDW Std Deviation 49.9 H, RDW Coeff of [place] 13.8, Plt Count 172, MPV 12.8 H, Immature Gran % (Auto) 0.300, Neut % (Auto) 67.2, Lymph % (Auto) 19.3, [place] % (Auto) 7.3, Eos % (Auto) 5.0, Baso % (Auto) 0.9, Absolute Neuts (auto) 5.2, Absolute Lymphs (auto) 1.50, Nucleated RBC % 0 01/05/23 06:13: Sodium 146 H, Potassium 3.8, Chloride 114 H, Carbon Dioxide 22.0, Anion Gap 10, BUN 8, Creatinine 0.43 L, Estim Creat Clear Calc 37.26, Est GFR (MDRD) Af Amer 183, Est GFR (MDRD) Non-Af 151, BUN/Creatinine Ratio 18.6, Glucose 123 H, Calcium 8.0 L Microbiology: Microbiology 01/03/23 15:15 Blood Culture (Wb) - Anticubital Left Blood Culture - Preliminary No growth in 48 hours. 01/03/23 14:50 Blood Culture (Wb) - Anticubital Left Blood Culture - Preliminary No growth in 48 hours. 01/03/23 13:25 Urine, Clean Catch Urine Culture - Preliminary GNR lactose industrial property appraiser 01/04/23 01:10 Stool Stool Lactoferrin - Final 01/04/23 01:10 Stool C. difficile DNA Amplification - Final D/C Instructions Discharge Diet: Low fat / Low cholesterol Discharge Activity: Return to Normal Activity Meaningful Use Info Meaningful Use Diagnoses (Choose all that apply): None applicable Discharge Plan Admission Admit Date/Time: 01/03/23 17:04 Primary Reason for Your Visit: Nausea/vomiting/diarrhea Attending Provider: Sona Olivier Primary Care Provider: Care Physician,April Primary Consulting Providers: Carly Cuenca Instructions Additional Instructions / Restrictions: 1. Please try to find to find primary care physician and follow-up within the next 2 weeks Discharge Orders/Prescriptions Prescriptions: New cephalexin 500 mg capsule 500 mg PO .4x per day Qty: 16 0RF Continued simvastatin 40 MG tablet 40 mg PO QHS Label Comments: sertraline [Zoloft] 25 MG tablet 25 mg PO DAILY Eliquis 5 MG tablet 5 mg PO BID Referrals / Follow Up: Care Physician,No Primary [Primary Care Provider] - Disposition Disposition (needs filled in before D/C Order can be placed): Home Health Service Charges/Coding Visit Charges Inpatient E&M: 44197 Disch Hosp >30min
--- NOTE | 2023-01-05 15:01 | NURSING ---
01/05/23@ 1500. TRIED TO CALL PT DAUGHTER LUIS ANTONIO X2 AND BOTH TIMES A WOMAN NAMED LISSETH ANSWERED AND STATED I HAD THE WRONG NUMBER. THIS RN CHECKED THE DAUGHTERS NUMBER WITH THE NUMBER ON THE EMR AND PAPER CHART. THEN THE GRANDDAUGHTER CYNTHIA WAS CALLED AND A MESSAGE WAS LEFT FOR HER TO CALL [facility] AT #[phone].
[2023-01-05 15:43] VITALS: BP 150/45; PULSE 67; RESP 16; RESP 18; TEMP 36.9; O2SAT 98
--- NOTE | 2023-01-05 19:33 | NURSING ---
[facility]ician[facility] ambulance called this RN stating that they are running on a 3 hour delay. Delphine, pt's daughter called with update and voiced understanding. Will update Delphine when pt leaves.
[2023-01-05 20:55] VITALS: BP 152/81; PULSE 82; RESP 16; TEMP 35.9; O2SAT 100
== END 2023-01-05 21:00 | disposition home health service (06) ==
LOC: ED 15:48 → MS3 01-04 06:57
PROVIDERS: Admitting Provider Internal Medicine; Emergency Provider Emergency Medicine; Visit Provider Internal Medicine
DX: K52.9 Noninfective gastroenteritis and colitis, unspecified (principal); E43 Unspecified severe protein-calorie malnutrition; I69.351 Hemiplegia and hemiparesis following cerebral infarction affecting right dominant side; I48.19 Other persistent atrial fibrillation; N39.0 Urinary tract infection, site not specified; R33.9 Retention of urine, unspecified; E78.5 Hyperlipidemia, unspecified; E86.0 Dehydration; I10 Essential (primary) hypertension; D72.829 Elevated white blood cell count, unspecified; Z79.899 Other long term (current) drug therapy; Z79.01 Long term (current) use of anticoagulants; Z68.26 Body mass index [BMI] 26.0-26.9, adult; F32.A Depression, unspecified
CPT/HCPCS: 99285; 36415; 74177; 80048; 80053; 81001; 83605; 83630; 83690; 85025; 87040; 87077; 87086; 87088; 87177; 87186; 87209; 87493; 87506; 93005; 96361; 96365; 96366; 96375; 97161; 97165; 97802; 99221; 99252; J7030; J7040; Q9967; A4216; G0378; G0463; J2405

== ENCOUNTER → 2023-01-09 | Outpatient (REF) | payer MEDICARE, MEDICAID, SELFPAY ==
[2023-01-09 09:00] LABS: Hematocrit 42.2 % (37-47); Hemoglobin 13.7 g/dL (12.0-15.0); Mean Corp Hgb Conc 32.5 g/dL (32-36); Mean Corpuscular Hgb 31.3 pg (27.0-32.0); Mean Corpuscular Volume 96.3 fL (81-99); Mean Platelet Vol. 12.5 fl (6.2-12.0); Platelet Count 220 K/mm3 (150-450); RBC Distribution Width CV 13.7 % (11.6-14.6); RBC Distribution Width SD 48.2 fl (35.1-43.9); Red Blood Count 4.38 M/mm3 (4.2-5.4); White Blood Count 7.6 K/mm3 (4.4-11.0)
[2023-01-09 09:25] LABS: Hemoglobin A1c 6.3 % (3.8-5.6)
[2023-01-09 09:39] LABS: Vitamin B12 260 pg/mL (211-911); Vitamin D,25 Hydroxy 17.4 ng/mL
[2023-01-09 09:46] LABS: Anion Gap 6 (5-15); BUN 6 mg/dL (7-18); BUN/Creat Ratio 11.9 RATIO (10-20); Calcium,Total 8.6 mg/dL (8.5-10.1); Chloride 113 mmol/L (98-107); Cholesterol 89 mg/dL (200); EST Glomerular Filtration Rate 126 mL/min (>60); Est Glom Filt Rate - Afr Amer 152 mL/min (>60); Glucose 123 mg/dL (74-106); High Density Lipoprotein 29 mg/dL; Potassium 3.9 mmol/L (3.5-5.1); Sodium Level 144 mmol/L (136-145); Thyroid Stim Hormone (TSH) 0.93 uIU/mL (0.358-3.74); Triglycerides 105 mg/dL; Very Low Density Lipoprotein 21 mg/dL (5-40)
== END ==
LOC: OLS.SW 06:35
PROVIDERS: Visit Provider Internal Medicine
DX: I10 Essential (primary) hypertension (principal); E55.9 Vitamin D deficiency, unspecified; Z79.899 Other long term (current) drug therapy
CPT/HCPCS: 36415; 80048; 80061; 82306; 82607; 83036; 84443; 85027; 86140

== ENCOUNTER → 2023-01-15 | Outpatient (REF) | payer MEDICARE, MEDICAID, SELFPAY ==
[2023-01-15 08:38] LABS: Absolute Lymphocyte Count 1.46 X10^3/uL (0.83-4.51); Absolute Neutrophil Count 4.4 X10^3/uL (2.0-7.7); Basophil# 0.07 X10^3/uL; Eosinophil# 0.48 X10^3/uL; Eosinophils% 6.9 % (0-5); Hematocrit 41.9 % (37-47); Hemoglobin 13.3 g/dL (12.0-15.0); Lymphocyte # 1.46 X10^3/ul (0.83-4.51); Mean Corp Hgb Conc 31.7 g/dL (32-36); Mean Corpuscular Hgb 30.6 pg (27.0-32.0); Mean Corpuscular Volume 96.5 fL (81-99); Mean Platelet Vol. 12.7 fl (6.2-12.0); Monocyte# 0.52 X10^3/uL; Monocyte% 7.5 % (0-10); NRBC Flagged by Analyzer 0 % (0-5); Neutrophil % 63.3 % (47-70); Platelet Count 226 K/mm3 (150-450); RBC Distribution Width CV 13.7 % (11.6-14.6); RBC Distribution Width SD 48.5 fl (35.1-43.9); Red Blood Count 4.34 M/mm3 (4.2-5.4)
[2023-01-15 08:59] LABS: Anion Gap 7 (5-15); BUN 9 mg/dL (7-18); BUN/Creat Ratio 17.7 RATIO (10-20); Calcium,Total 8.2 mg/dL (8.5-10.1); Chloride 114 mmol/L (98-107); Creatinine, Serum 0.51 mg/dL (0.55-1.02); EST Glomerular Filtration Rate 125 mL/min (>60); Est Glom Filt Rate - Afr Amer 151 mL/min (>60); Glucose 114 mg/dL (74-106); Potassium 4.1 mmol/L (3.5-5.1); Sodium Level 144 mmol/L (136-145)
== END ==
LOC: OLS.SW 05:00
PROVIDERS: Visit Provider Internal Medicine
DX: E78.5 Hyperlipidemia, unspecified (principal); M62.81 Muscle weakness (generalized); M05.70 Rheumatoid arthritis with rheumatoid factor of unspecified site without organ or systems involvement
CPT/HCPCS: 36415; 80048; 85025

== ENCOUNTER → 2023-01-22 | Outpatient (REF) | payer MEDICARE, MEDICAID, SELFPAY ==
[2023-01-22 08:31] LABS: Absolute Lymphocyte Count 1.65 X10^3/uL (0.83-4.51); Absolute Neutrophil Count 3.6 X10^3/uL (2.0-7.7); Basophil# 0.05 X10^3/uL; Basophil% 0.8 % (0-1); Eosinophil# 0.51 X10^3/uL; Eosinophils% 8.1 % (0-5); Hemoglobin 13.4 g/dL (12.0-15.0); Lymphocyte # 1.65 X10^3/ul (0.83-4.51); Lymphocyte % 26.3 % (19-41); Mean Corp Hgb Conc 31.9 g/dL (32-36); Mean Corpuscular Hgb 31.2 pg (27.0-32.0); Mean Corpuscular Volume 97.7 fL (81-99); Mean Platelet Vol. 12.3 fl (6.2-12.0); Monocyte# 0.44 X10^3/uL; NRBC Flagged by Analyzer 0 % (0-5); Neutrophil # 3.59 X10^3/uL (2.7-7.7); Neutrophil % 57.3 % (47-70); Platelet Count 232 K/mm3 (150-450); RBC Distribution Width CV 13.7 % (11.6-14.6); RBC Distribution Width SD 49.3 fl (35.1-43.9); White Blood Count 6.3 K/mm3 (4.4-11.0)
[2023-01-22 08:36] LABS: Anion Gap 4 (5-15); BUN 12 mg/dL (7-18); BUN/Creat Ratio 21.5 RATIO (10-20); Calcium,Total 8.7 mg/dL (8.5-10.1); Chloride 111 mmol/L (98-107); Creatinine, Serum 0.56 mg/dL (0.55-1.02); EST Glomerular Filtration Rate 112 mL/min (>60); Est Glom Filt Rate - Afr Amer 135 mL/min (>60); Glucose 121 mg/dL (74-106); Potassium 4.1 mmol/L (3.5-5.1); Sodium Level 140 mmol/L (136-145)
== END ==
LOC: OLS.SW 05:00
PROVIDERS: Visit Provider Internal Medicine
DX: E11.9 Type 2 diabetes mellitus without complications (principal); I69.351 Hemiplegia and hemiparesis following cerebral infarction affecting right dominant side; E46 Unspecified protein-calorie malnutrition; I10 Essential (primary) hypertension
CPT/HCPCS: 36415; 80048; 85025

== ENCOUNTER → 2023-01-31 | Outpatient (REF) | payer MEDICARE, MEDICAID, SELFPAY ==
[2023-01-31 08:23] LABS: Absolute Lymphocyte Count 1.52 X10^3/uL (0.83-4.51); Absolute Neutrophil Count 3.5 X10^3/uL (2.0-7.7); Basophil# 0.05 X10^3/uL; Basophil% 0.8 % (0-1); Eosinophil# 0.55 X10^3/uL; Hematocrit 41.1 % (37-47); Hemoglobin 12.9 g/dL (12.0-15.0); Lymphocyte # 1.52 X10^3/ul (0.83-4.51); Mean Corp Hgb Conc 31.4 g/dL (32-36); Mean Corpuscular Hgb 31.2 pg (27.0-32.0); Mean Corpuscular Volume 99.5 fL (81-99); Mean Platelet Vol. 12.6 fl (6.2-12.0); Monocyte# 0.45 X10^3/uL; Monocyte% 7.4 % (0-10); NRBC Flagged by Analyzer 0 % (0-5); Neutrophil # 3.49 X10^3/uL (2.7-7.7); Neutrophil % 57.5 % (47-70); Platelet Count 193 K/mm3 (150-450); RBC Distribution Width CV 14.4 % (11.6-14.6); Red Blood Count 4.13 M/mm3 (4.2-5.4); White Blood Count 6.1 K/mm3 (4.4-11.0)
[2023-01-31 08:35] LABS: Anion Gap 4 (5-15); BUN 11 mg/dL (7-18); BUN/Creat Ratio 20.9 RATIO (10-20); Calcium,Total 8.9 mg/dL (8.5-10.1); Chloride 109 mmol/L (98-107); Creatinine, Serum 0.53 mg/dL (0.55-1.02); EST Glomerular Filtration Rate 120 mL/min (>60); Est Glom Filt Rate - Afr Amer 145 mL/min (>60); Glucose 113 mg/dL (74-106); Potassium 4.4 mmol/L (3.5-5.1); Sodium Level 138 mmol/L (136-145)
== END ==
LOC: OLS.SW 06:05
PROVIDERS: Visit Provider Internal Medicine
DX: I10 Essential (primary) hypertension (principal)
CPT/HCPCS: 36415; 80048; 85025

== ENCOUNTER 2023-03-10 14:59 | Observation (INO) | payer MEDICARE, MEDICAID, SELFPAY ==
[2023-03-10 15:00] VITALS: BP 144/116; PULSE 89; RESP 18; TEMP 36.9; O2SAT 100; BMI 27.8
--- NOTE | 2023-03-10 15:17 | EX.ED.DYSGE1 ---
HPI History of Present Illness Chief Complaint: Lower Extremity Injury Informant: patient and SNF Narrative Narrative: Patient sent in from [facility] [place] for evaluation. Reported fall out of her wheelchair 6 days ago still has pain. Patient has pain on the right side. Right lower extremity. Wheelchair-bound due to stroke in the past. Because history of chronic A-fib on Eliquis. She had images done as an outpatient with report sent in from the 15th and 6 days ago, for right knee x-ray 4 views along with the rest of noted bilateral hip with pelvis that was negative. There was osteoarthritic findings. From paperwork she was started on [place]. There is been no new injuries. [facility] Medical History A-fib Anxiety disorder, unspecified CVA (cerebral vascular accident) CVA (cerebral vascular accident) Hemiplegia HLD (hyperlipidemia) HTN (hypertension) Major depressive disorder, recurrent, mild Sarcopenia Home Medications sertraline 25 mg tablet (Zoloft) 25 mg PO DAILY mental health 03/07/18 [History Last Taken Unknown] simvastatin 40 mg tablet 40 mg PO QHS cholesterol 03/07/18 [History Last Taken Unknown] apixaban 5 mg tablet (Eliquis) 5 mg PO BID blood thinner 03/09/18 [History Last Taken Unknown] acetaminophen 650 mg tablet 650 mg PO Q4H PRN Pain 03/10/23 [History Last Taken Unknown] cholecalciferol (vitamin D3) 1,250 mcg (50,000 unit) capsule 1,250 mcg PO QWEEK 03/10/23 [History Last Taken Unknown] clobetasol 0.05 % topical cream 1 applic topical QHS PRN PRN Itching 03/10/23 [History Last Taken Unknown] cyanocobalamin (vitamin B-12) 500 mcg tablet 500 mcg PO DAILY 03/10/23 [History Last Taken Unknown] donepezil 5 mg tablet 2.5 mg PO QHS 03/10/23 [History Last Taken Unknown] guaifenesin 100 mg/5 mL oral liquid 200 mg PO Q4H PRN Cough 03/10/23 [History Last Taken Unknown] hydrocodone-acetaminophen 5-325mg 5mg-325mg 1 tab PO Q8H PRN PRN Pain 03/10/23 [History Last Taken Unknown] mirtazapine 7.5 mg tablet 7.5 mg PO QHS 03/10/23 [History Last Taken Unknown] nystatin 1 billion unit oral powder 1 unit PO TID 03/10/23 [History Last Taken Unknown] pantoprazole 20 mg tablet,delayed release 20 mg PO DAILY 03/10/23 [History Last Taken Unknown] polyethylene glycol 3350 17 gram oral powder packet 17 g PO BID PRN Constipation 03/10/23 [History Last Taken Unknown] sucralfate 1 gram tablet 1 g PO ACHS 03/10/23 [History Last Taken Unknown] Allergy/AdvReac Type Severity Reaction Status Date / Time No Known Allergies Allergy Verified 01/03/23 11:18 Social History Smoking Status: Never smoker ROS ROS ED Constitutional Constitutional ED: Denies chills, fever(s) or sweats Eyes Eyes: Denies change in vision ENT ENT ED: Denies dysphagia or sore throat Cardiovascular Cardiovascular: Denies chest pain, leg edema, palpitations or racing heartbeat Respiratory/Chest Respiratory/Chest: Denies cough, dyspnea or dyspnea on exertion Gastrointestinal Gastrointestinal: Denies abdominal pain, diarrhea, nausea or vomiting Genitourinary Genitourinary ED: Denies dysuria, hematuria or urinary frequency Musculoskeletal Musculoskeletal: Reports extremity pain; Denies back pain or neck pain Integumentary Denies rash or wounds Neurologic Neurologic: Denies headache(s), paresthesias or weakness EXAM Physical Exam Const Vital Signs: 03/10/23 15:00 03/10/23 17:05 Temperature 98.4 F 97.1 F L Temperature Source Temporal Temporal Pulse Rate 89 79 Respiratory Rate 18 16 Blood Pressure 144/116 H 104/77 Blood Pressure Mean 125 86 Pulse Ox 100 94 Oxygen Delivery Method Room Air Room Air Constitutional Narrative: Able to answer questions. General Appearance ED: NAD HEENT HEENT Narrative: Mild dry mucosal membranes normocephalic and atraumatic Eyes PERRL, EOMs intact bilaterally and conjunctivae normal General Eye ED: Yes normal appearance of both eyes Neck no lymphadenopathy and supple General: Negative for tenderness Chest Wall Chest: Negative for tenderness Resp normal respiratory effort and normal air movement Effort and Inspection: symmetric chest movement; Negative for respiratory distress Cardio regular rate and no murmurs Rhythm: abnormal rhythm Peripheral Pulses: pulses 2+ throughout GI normal to inspection, nondistended, normoactive bowel sounds and non-tender Palpation: Negative for guarding or rebound tenderness present Back/Spine no CVA tenderness and no thoracic nor lumbar tenderness Extremity Extremity Narrative: Right lower extremity, pain with movement, knee in a slight bent position difficult to evaluate shortening or rotation. Tender along the femur. There was improving bruising medial aspect the knee that is now yellow in color, anterior tib-fib had ecchymosis with blistering on the mid leg that is clear. No indurations no drainage. Neuro vas intact distally. General Extremety ED: Negative for edema or tenderness General Extremity: Negative for edema Neuro oriented x3 Neuro Narrative: Contracture right upper extremity, decreased movement bilateral lower extremities. Sensorium / Orientation: awake and alert Skin Skin Narrative: See above MDM MDM MDM Narrative Medical decision making narrative: Interventions / MDM: Differential diagnosis: Fractures, contusion Diagnosis considered but do not suspect: N/A My EKG interpretation: N/A Imaging independently reviewed and interpreted by myself: 1 view pelvis, 2 views femur, 2 views tib-fib: Pelvis x-ray negative, 2 view femurs negative, 2 views tib-fib has a concerning proximal tibia fracture nondisplaced. Right shoulder 2 views, nondisplaced proximal humerus fracture. External documents reviewed: N/A Test considered but not ordered:N/A ED course: Patient declines medications, due to pain down her right leg with bruising, we imagings of her right pelvis femur and tib-fib was obtained. 1545: Review images has concerning proximal tibia fracture, pending final read. Will order for knee immobilizer as she does not walk. 1550: Daughter Delphine present bedside updated on her findings and concerns with currently knee immobilizer to be ordered. She reports she seems to have more shoulder pain since the fall on the right side she did have pain in that area confirms her contracture from stroke 9 years ago. We will add a shoulder x-ray for further evaluation. 1650: Shoulder x-ray positive for nondisplaced proximal humerus fracture. Sling and swath was placed. Radiology does confirm these 2 fractures with me. I reached out and spoke with Dr. Juan Oro, with her nonweightbearing agrees this is a nonsurgical fracture healing. Agrees with the knee immobilizer sling and swath. Also with discussing with daughter, she does not want her back at [facility] [place] due to the patient falling 6 days ago she has been there since December for respite care. She would like her placed to a different nursing facility. Today is Saturday there is no social work available to assist with this. Therefore I will speak with hospitalist service for admission to help with placement tomorrow. Per Dr. Oro he does not need to be consulted, he states she can follow-up as an outpatient. I spoke with hospitalist, updated on findings and discussion with Dr. Oro and family requests. Patient admitted to medical floor for further management. Re-evaluation: stable Disposition discussed with patient/family/significant other: Patient and daughter Case discussed with consulting clinician: Radiologist Dr. Ravi Butts, orthopedist Dr. Juan Oro, hospitalist, Dr. Mcneal Radiography Diagnostic Testing: Clinical Impression(s) from Imaging Studies Femur X-Ray 03/10/23 15:25 IMPRESSION: No acute abnormality. Electronically Signed: Ravi Butts MD at 16:07 EDT Reading Location ID and State: [email or web address] Tel , Service support , Pelvis X-Ray 03/10/23 15:25 IMPRESSION: 1. Coarse calcifications in the pelvis likely calcified leiomyomas. 2. Bilateral hip joint space narrowing. 3. No acute abnormality. Electronically Signed: Ravi Butts MD at 16:05 EDT Reading Location ID and State: [id number] / [email or web address] Tel , Service support , Tibia/Fibula X-Ray 03/10/23 15:25 IMPRESSION: 1. Moderate medial and lateral compartment knee joint space narrowing. 2. Extensive dermal calcifications likely due to venous stasis disease. 3. No acute abnormality. Electronically Signed: Ravi Butts MD at 16:18 EDT Reading Location ID and State: [id number] / [id number] Tel , Service support , ADDENDUM: 03/10/23 1639 IMPRESSION: undefined Shoulder X-Ray 05/21/23 16:00 IMPRESSION: Comminuted right humeral head fracture without significant displacement or angulation of the fragments. Electronically Signed: Ravi Butts MD at 16:35 EDT , Discharge Plan Dx/Rx/DC Orders Clinical Impression: Atrial fibrillation, chronic, Closed fracture of right lower extremity, Fall, Closed fracture of right proximal humerus Disposition Disposition: Acute Care Hospital [facility] Discharge Date/Time: 03/10/23 18:05
--- NOTE | 2023-03-10 15:25 | RAD_ITS ---
EXAM: XR RIGHT FEMUR, 2 VIEWS CLINICAL INDICATION: injury TECHNIQUE: Frontal and lateral views of the right femur. COMPARISON: No relevant prior studies available. FINDINGS: BONES/JOINTS: Right hip joint space narrowing. No acute fracture. No subluxation. Normal alignment. No sclerotic or destructive changes observed. SOFT TISSUES: Unremarkable. No soft tissue swelling or gas. No radiopaque foreign body. RAD/Femur Min 2 Views IMPRESSION: No acute abnormality. Electronically Signed: Ravi Butts MD at 16:07 EDT ,
--- NOTE | 2023-03-10 15:25 | RAD_ITS ---
EXAM: XR PELVIS, 1 OR 2 VIEWS CLINICAL INDICATION: injury TECHNIQUE: Frontal view of the pelvis. COMPARISON: No relevant prior studies available. FINDINGS: BONES/JOINTS: Coarse calcifications in the pelvis likely calcified leiomyomas. Bilateral hip joint space narrowing. No displaced fracture. No destructive or sclerotic lesions. Note that overlapping bowel shadows may however obscure fine detail. Sacroiliac joints are unremarkable. No widening of the pubic symphysis. SOFT TISSUES: Unremarkable. No soft tissue swelling or gas. RAD/Pelvis 1 or 2 Views IMPRESSION: 1. Coarse calcifications in the pelvis likely calcified leiomyomas. 2. Bilateral hip joint space narrowing. 3. No acute abnormality. Electronically Signed: Ravi Butts MD at 16:05 EDT ,
--- NOTE | 2023-03-10 15:25 | RAD_ITS ---
EXAM: XR RIGHT TIBIA AND FIBULA, 2 VIEWS CLINICAL INDICATION: injury TECHNIQUE: Frontal and lateral views of the right tibia and fibula. COMPARISON: No relevant prior studies available. FINDINGS: BONES/JOINTS: Moderate medial and lateral compartment knee joint space narrowing. No acute fracture. No subluxation. Normal alignment. No sclerotic or destructive changes observed. SOFT TISSUES: Extensive dermal calcifications likely due to venous stasis disease. No soft tissue swelling or gas. No radiopaque foreign body. RAD/Tibia & Fibula 2 Views IMPRESSION: 1. Moderate medial and lateral compartment knee joint space narrowing. 2. Extensive dermal calcifications likely due to venous stasis disease. 3. No acute abnormality. Electronically Signed: Ravi Butts MD at 16:18 EDT ,
--- NOTE | 2023-03-10 16:00 | RAD_ITS ---
EXAM: XR RIGHT SHOULDER COMPLETE, 2 OR MORE VIEWS CLINICAL INDICATION: injury TECHNIQUE: Two or more views of the right shoulder. COMPARISON: No relevant prior studies available. FINDINGS: BONES/JOINTS: Comminuted right humeral head fracture without significant displacement or angulation of the fragments. The bones are diffusely osteopenic. Preservation of the joint space. No sclerotic or destructive changes observed. SOFT TISSUES: Unremarkable. No soft tissue swelling or gas. No radiopaque foreign body. RAD/Shoulder min 2 Views IMPRESSION: Comminuted right humeral head fracture without significant displacement or angulation of the fragments. Electronically Signed: Ravi Butts MD at 16:35 EDT ,
[2023-03-10 17:05] VITALS: BP 104/77; PULSE 79; RESP 16; TEMP 36.2; O2SAT 94
--- NOTE | 2023-03-10 17:27 | ED.RN ---
SWCC UPDATED ON ADMISSION TO HOSPITAL.
[2023-03-10 18:27] VITALS: BMI 26.6
[2023-03-10 18:30] VITALS: BP 92/78; PULSE 80; RESP 18; TEMP 37.2; O2SAT 100
--- NOTE | 2023-03-10 18:51 | PCM.HP.STD ---
HPI - General General Date of Admission: 03/10/23 Date of Service: 03/10/23 Chief Complaint: Right lower leg pain HPI Narrative OSEAS PATHAK, is a 77 F who presents to the emergency room at [facility] after being brought in by squad from a local [facility] care facility at which the patient was receiving respite care, her chief complaint was right lower leg pain, she did not have any complaints of right shoulder pain however. Patient sustained a fall out of her wheelchair on March 04 according to the [place] [facility], she had some x-rays performed at that time which did not show any evidence of fracture, today the patient was going to be placed in a [place] lift to move her from her bed to a chair when she had severe right leg pain and the patient's daughter requested that she be brought into the ER here for evaluation. Past medical history is positive for a CVA approximately 9 years ago, she also has a history of chronic A-fib and is on Eliquis chronically. Work-up in the emergency room included x-rays of her right tib-fib areas, there was noted to be a fracture of the proximal metadiaphysis of the tibia and a probable nondisplaced fibular neck fracture. Patient also had an x-ray of her right shoulder which showed a comminuted right humeral head fracture without significant displacement or angulation of the fragments. According to the patient's daughter who I talked with at the time of my examination today in her room, patient has never had a history of a right shoulder fracture. Orthopedic surgery was contacted initially and they reviewed the films and felt that the patient did not need any surgery, I have decided at this time not to write for a orthopedic consultation, patient is nonambulatory at the [place] [facility]. Patient's daughter requested the patient be admitted here and the patient go to another facility rather than to return to [facility] where she was staying for respite care. Patient will be admitted to [place] [address], she will be seen by PT and OT, discharge planning will have to work on another facility for the patient to be admitted to for continuing respite care. [facility] Medical History A-fib Anxiety disorder, unspecified CVA (cerebral vascular accident) CVA (cerebral vascular accident) Hemiplegia HLD (hyperlipidemia) HTN (hypertension) Major depressive disorder, recurrent, mild Sarcopenia Home Medications sertraline 25 mg tablet (Zoloft) 25 mg PO DAILY mental health 03/07/18 [History Last Taken Unknown] simvastatin 40 mg tablet 40 mg PO QHS cholesterol 03/07/18 [History Last Taken Unknown] apixaban 5 mg tablet (Eliquis) 5 mg PO BID blood thinner 03/09/18 [History Last Taken Unknown] acetaminophen 650 mg tablet 650 mg PO Q4H PRN Pain 03/10/23 [History Last Taken Unknown] cholecalciferol (vitamin D3) 1,250 mcg (50,000 unit) capsule 1,250 mcg PO QWEEK 03/10/23 [History Last Taken Unknown] clobetasol 0.05 % topical cream 1 applic topical QHS PRN PRN Itching 03/10/23 [History Last Taken Unknown] cyanocobalamin (vitamin B-12) 500 mcg tablet 500 mcg PO DAILY 03/10/23 [History Last Taken Unknown] donepezil 5 mg tablet 2.5 mg PO QHS 03/10/23 [History Last Taken Unknown] guaifenesin 100 mg/5 mL oral liquid 200 mg PO Q4H PRN Cough 03/10/23 [History Last Taken Unknown] hydrocodone-acetaminophen 5-325mg 5mg-325mg 1 tab PO Q8H PRN PRN Pain 03/10/23 [History Last Taken Unknown] mirtazapine 7.5 mg tablet 7.5 mg PO QHS 03/10/23 [History Last Taken Unknown] nystatin 1 billion unit oral powder 1 unit PO TID 03/10/23 [History Last Taken Unknown] pantoprazole 20 mg tablet,delayed release 20 mg PO DAILY 03/10/23 [History Last Taken Unknown] polyethylene glycol 3350 17 gram oral powder packet 17 g PO BID PRN Constipation 03/10/23 [History Last Taken Unknown] sucralfate 1 gram tablet 1 g PO ACHS 03/10/23 [History Last Taken Unknown] Allergy/AdvReac Type Severity Reaction Status Date / Time No Known Allergies Allergy Verified 01/03/23 11:18 Social History Smoking Status: Never smoker ROS Constitutional Constitutional: Denies anorexia, change in weight, chills, fatigue, fever(s), malaise, night sweats or weakness Eyes Eyes: Denies blurry vision, change in vision, discharge from eye(s) or eye pain Cardiovascular Cardiovascular: Denies chest pain, claudication, dyspnea on exertion or edema Respiratory/Chest Respiratory/Chest: Denies cough, dyspnea, hemoptysis, productive cough, shortness of breath at rest or shortness of breath with exertion Gastrointestinal Gastrointestinal: Denies abdominal pain, constipation, diarrhea, hematemesis, hematochezia, melena, nausea or vomiting Genitourinary Genitourinary: Denies dysuria, hematuria, urinary frequency, urinary hesitancy, urinary incontinence or urinary urgency Musculoskeletal Musculoskeletal: Reports arthralgias, joint pain and other Details: Right lower leg pain, generalized arthritic pain due to rheumatoid arthritis ; Denies back pain, joint stiffness, joint swelling, myalgias or neck pain Neurologic Neurologic: Reports focal weakness and other Details: Patient is unable to ambulate due to her prior stroke, she is a transfer via [place] lift from bed to chair ; Denies abnormal gait, abnormal speech, dizziness, headache(s), loss of vision, numbness, other visual disturbances, paresthesias, syncope or tingling Psychiatric Psychiatric: Denies anxiety, cognitive impairment, depression, irritability, mood swings or suicidal ideation Endocrine Endocrinology: Denies change in body appearance, cold intolerance, excessive sweating, heat intolerance, polydipsia or polyuria Hematologic/Lymphatic Hematologic/Lymphatic: Denies none, anemia, easy bleeding, easy bruising or lymphadenopathy Allergic/Immunologic Allergic/Immunologic: Denies rhinitis, urticaria, eczemia or asthma Vital Signs Vital Signs Vital Signs: 03/10/23 15:00 03/10/23 17:05 03/10/23 18:30 Temperature 98.4 F 97.1 F L 98.9 F Temperature Source Temporal Temporal Temporal Pulse Rate 89 79 80 Respiratory Rate 18 16 18 Blood Pressure 144/116 H 104/77 92/78 Blood Pressure Mean 125 86 82 Blood Pressure Source Monitor Blood Pressure Position Semi-Fowlers Blood Pressure Location Left Arm Pulse Ox 100 94 100 Oxygen Delivery Method Room Air Room Air Room Air Weight Weight: 63.9 kg Body Mass Index (BMI) 26.6 Physical Exam Const alert and no apparent distress Constitutional Narrative: Patient appears older than her stated age, she answers simple questions appropriately General Appearance: cooperative and well developed Orientation / Consciousness: awake, oriented to person and oriented to place HEENT normocephalic, head/scalp atraumatic, hearing grossly normal bilaterally and moist oral mucous membranes Eyes PERRL, EOMs intact bilaterally and conjunctivae normal Neck supple, no JVD, thyroid normal and no carotid bruits General: trachea midline Resp normal respiratory effort, no retractions, no use of accessory muscles and clear to auscultation bilaterally Auscultation: Negative for rales, rhonchi or wheezes Cardio S1 normal heart sound, S2 normal heart sound, no murmurs, no rub and no gallops Cardio Narrative: Heart rate and rhythm is irregular GI normal to inspection, nondistended, normoactive bowel sounds, soft to palpation, non-tender and non-distended Extremity Extremity Narrative: Patient has generalized pain in her right lower leg, no obvious deformity is noted over the right lower leg, patient has deformities of her fingers and hands in keeping with rheumatoid arthritis Skin no rashes or lesions noted General Skin Exam: no breakdown Neuro CN's II-XII intact bilaterally and no sensory deficits noted Neuro Narrative: Patient has weakness on her right side Sensorium / Orientation: awake, alert, oriented to person and oriented to place Speech: speech normal Psych affect normal Results Radiology Impression Femur X-Ray 03/10/23 15:25 IMPRESSION: No acute abnormality. Electronically Signed: Ravi Butts MD at 16:07 EDT Reading Location ID and State: [id number] Tel , Service support , Pelvis X-Ray 03/10/23 15:25 IMPRESSION: 1. Coarse calcifications in the pelvis likely calcified leiomyomas. 2. Bilateral hip joint space narrowing. 3. No acute abnormality. Electronically Signed: Ravi Butts MD at 16:05 EDT , Tibia/Fibula X-Ray 03/10/23 15:25 IMPRESSION: 1. Moderate medial and lateral compartment knee joint space narrowing. 2. Extensive dermal calcifications likely due to venous stasis disease. 3. No acute abnormality. Electronically Signed: Ravi Butts MD at 16:18 EDT , ADDENDUM: 03/10/23 1639 IMPRESSION: undefined Shoulder X-Ray 03/10/23 16:00 IMPRESSION: Comminuted right humeral head fracture without significant displacement or angulation of the fragments. Electronically Signed: Ravi Butts MD at 16:35 EDT , Assessment & Plan Assessment/Plan (1) Rheumatoid arthritis: PLAN: Plan 1. Acute fracture of the right tibia and fibula-patient will be admitted to [place] [address], she will be seen by PT and OT, a knee immobilizer was placed on the patient, there is going to be no surgical intervention at this time. #2 acute fracture of the right humeral head-sling and swath will be used for comfort measure, there is no surgery planned for this fracture either #3 chronic atrial fibrillation-patient is on rate control medications and Eliquis #4 hypercoagulable state secondary to #3-patient is on Eliquis #5 cerebrovascular disease with remote stroke approximately 9 years ago with residual right-sided weakness-PT and OT will be seeing the patient, complicates care, medical course, recovery, and prognosis #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 Her daughter does not know why the patient is taking these medications. Total clinical time spent by myself addressing the patient's medical issues, reviewing all of her data, and collaborating with patient's care team: 75 minutes Charges/Coding Visit Charges Inpatient E&M: 58928 Init Hosp L3
[2023-03-10 19:51] VITALS: BP 144/66; PULSE 89; RESP 18; TEMP 36.7; O2SAT 99
[2023-03-10] MEDS: Ergocalciferol 1.25 MG (50, 000 UNIT) Capsule PO (21:20)
[2023-03-10] MEDS: APIXABAN 5 MG TABLET PO (21:21)
[2023-03-10] MEDS: Mirtazapine 15 MG Tablet 7.5 MG PO (21:22)
[2023-03-10] MEDS: Atorvastatin Calcium 20 MG Tablet PO (21:22)
[2023-03-10] MEDS: HYDROcodone Bitartrate/Apap 5/325 Tablet PO (21:26)
[2023-03-11 02:51] LABS: Mucous, Urine 0 SEEN /hpf (<or=2+); Red Blood Cells-Urine 0 SEEN /hpf (0-5)
[2023-03-11 03:03] LABS: Color, Urine Yellow (Yellow); Glucose, Dipstick Normal (Normal); Ketone-Dipstick Negative (Negative); Leukocyte Esterase-Dipstick 100 /ul (Negative); Nitrite-Dipstick Positive (Negative); Occult Blood-Urine 10 /ul (Negative); Protein-Dipstick 15 mg/dl (Negative); Urine Clarity Sl. Cloudy (Clear); Urine Urobilinogen 4 mg/dl (Normal)
[2023-03-11 03:23] VITALS: BP 107/62; PULSE 76; RESP 18; TEMP 36.6; O2SAT 97
[2023-03-11 03:23] LABS: Urine Bilirubin Dipstick 1 mg/dL (Negative)
[2023-03-11 03:25] LABS: Squamous Epithelial Cells - UA 10-25 SEEN /hpf (5-10); White Blood Cells 0-5 SEEN /hpf (0-5)
[2023-03-11 03:26] LABS: Bacteria 4+ /hpf (None Seen); Calcium Oxalate Crystals Ur 1+ /hpf (<or=2+)
[2023-03-11] MEDS: HYDROcodone Bitartrate/Apap 5/325 Tablet PO ×2 (06:10→18:10)
--- NOTE | 2023-03-11 06:27 | PCM.HOSP.N ---
Hospitalist Note Staff noted turbid foul appearing urine. UA and UCx sent. UA notable. IV Rocephin initiated.
[2023-03-11] MEDS: APIXABAN 5 MG TABLET PO ×2 (08:43→21:45)
[2023-03-11] MEDS: Sertraline 50 MG Tablet 25 MG PO (08:43)
[2023-03-11] MEDS: Pantoprazole Sodium 20 MG Tablet PO (08:43)
[2023-03-11] MEDS: Cyanocobalamin 500 MCG Tablet PO (08:43)
[2023-03-11 08:59] VITALS: BP 118/68; PULSE 84; RESP 16; TEMP 36.8; O2SAT 98
--- NOTE | 2023-03-11 09:38 | CASEMGMT ---
Sw met with patient at bedside, introduced self and explained sw role. Therapy recommending SNF when ready for discharge. Sw provided patient with a list of SNF providers, including quality and resources use data and consistent with the patient's preferred geographical region, medical needs and insurance network from the [facility] Guide. Patient reviewed list and asked sw to talk to pt daughter, Delphine. Sw attempted to reach pt daughterDelphine, at number provided. Sw left brief vm requesting returned phone call. Pt states daughter will be in to visit this afternoon. Ping Shepard, BODY AND FRAME TECHNICIAN, PROFESSIONAL [employer]
[2023-03-11] MEDS: Ceftriaxone 1 GM/50 ML BAG IV (09:50)
--- NOTE | 2023-03-11 11:27 | CASEMGMT ---
Sw met with patient and patient daughter, Delphine, at bedside. Patient is admitted from [facility]- was paying via Medicaid. Patient does not wish to return to [facility] at this time. Patient and Delphine report they looked at SNF list sw provided, and they would like sw to make referral to [facility] as first choice and [facility] as second choice. Sw sent referral to [facility] via [facility]. Awaiting response as to whether they are able to accept patient when she is medically ready for discharge.
--- NOTE | 2023-03-11 13:53 | CASEMGMT ---
RN CM in to discuss CARLIN form with patient and daughter. RN CM explained CARLIN form, patient voiced understanding. Pt dtr signed form and filed in chart. Pt provided with a copy of signed CARLIN form. Patient/ daughter had no further questions or concerns at this time.
[2023-03-11 14:36] VITALS: BP 120/63; PULSE 80; RESP 16; TEMP 36.5; O2SAT 96
--- NOTE | 2023-03-11 15:24 | CASEMGMT ---
[facility] able to accept patient. Basil met with patient at bedside and informed her that [facility] has accepted her. [facility] reports they will send authorization to insurance before end of day. Ping Shepard, [employer] ADMINISTRATOR, MS SQL DBA
--- NOTE | 2023-03-11 19:04 | PCM.PN.HOSP ---
Reason for Visit Reason for Visit: Diagnoses Rheumatoid arthritis, unspecified (03/10/23) Subjective Subjective Patient was seen and examined today, she does not complain of any right shoulder pain, she does not complain of any fevers or chills. We are currently awaiting a decision on which senior care the patient will go to for for respite care. Objective Data Objective Data Vital Signs: Vital Signs Temp Pulse Resp BP Pulse Ox O2 Del Method 97.7 F L 80 16 120/63 96 Room Air 03/11/23 14:36 03/11/23 14:36 03/11/23 14:36 03/11/23 14:36 03/11/23 14:36 03/11/23 14:38 Oxygen Delivery Method Room Air Weight: 63.9 kg Body Mass Index (BMI) 26.6 Intake & Output: Intake and Output for Last 24 Hours 03/09/23 03/10/23 03/11/23 23:59 23:59 23:59 Intake Total 975 / 975 Output Total 650 / 650 Balance 325 / 325 Lab / Micro Data Labs: Laboratory Results - last 24 hr 03/11/23 02:30: Urine Color Yellow, Urine Clarity Sl. Cloudy, Urine pH 5.0, Ur Specific [place] 1.020, Urine Protein 15 H, Urine Glucose (UA) Normal, Urine Ketones Negative, Urine Occult Blood 10 H, Urine Nitrite Positive H, Urine Bilirubin 1 H, Urine Urobilinogen 4 H, Ur Leukocyte Esterase 100 H, Urine RBC 0 SEEN, Urine WBC 0-5 SEEN, Ur Squamous Epith Cells 10-25 SEEN, Calcium Oxalate Crystal 1+, Urine Bacteria 4+, Urine Mucus 0 SEEN Physical Exam Narrative alert and no apparent distress Constitutional Narrative: Patient appears older than her stated age, she answers simple questions appropriately General Appearance: cooperative and well developed Orientation / Consciousness: awake, oriented to person and oriented to place HEENT normocephalic, head/scalp atraumatic, hearing grossly normal bilaterally and moist oral mucous membranes Eyes PERRL, EOMs intact bilaterally and conjunctivae normal Neck supple, no JVD, thyroid normal and no carotid bruits General: trachea midline Resp normal respiratory effort, no retractions, no use of accessory muscles and clear to auscultation bilaterally Auscultation: Negative for rales, rhonchi or wheezes Cardio S1 normal heart sound, S2 normal heart sound, no murmurs, no rub and no gallops Cardio Narrative: Heart rate and rhythm is irregular GI normal to inspection, nondistended, normoactive bowel sounds, soft to palpation, non-tender and non-distended Extremity Extremity Narrative: Patient has generalized pain in her right lower leg, no obvious deformity is noted over the right lower leg, patient has deformities of her fingers and hands in keeping with rheumatoid arthritis Skin no rashes or lesions noted General Skin Exam: no breakdown Neuro CN's II-XII intact bilaterally and no sensory deficits noted Neuro Narrative: Patient has weakness on her right side Sensorium / Orientation: awake, alert, oriented to person and oriented to place Speech: speech normal Psych affect normal Assessment & Plan Assessment/Plan (1) Rheumatoid arthritis: PLAN: Plan 1. 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 Her daughter does not know why the patient is taking these medications. Total clinical time spent by myself addressing the patient's medical issues, reviewing all of her data, and collaborating with patient's care team: 35 minutes Charges/Coding Visit Charges Inpatient E&M: 60929 Subs Hosp L2
[2023-03-11 20:00] VITALS: BP 126/64; PULSE 78; RESP 15; TEMP 36.7; O2SAT 95
[2023-03-11] MEDS: Acetaminophen 325 MG Tablet 650 MG PO (20:04)
[2023-03-11] MEDS: Atorvastatin Calcium 20 MG Tablet PO (21:45)
[2023-03-11] MEDS: Mirtazapine 15 MG Tablet 7.5 MG PO (21:45)
[2023-03-12 05:00] VITALS: BP 170/74; PULSE 70; RESP 14; TEMP 36.7; O2SAT 99
--- NOTE | 2023-03-12 08:15 | CASEMGMT ---
Discharge Planning Updates sent [facility] via [facility]. Gemma Mas
[2023-03-12] MEDS: Cyanocobalamin 500 MCG Tablet PO (08:54)
[2023-03-12] MEDS: APIXABAN 5 MG TABLET PO (08:54)
[2023-03-12] MEDS: Pantoprazole Sodium 20 MG Tablet PO (08:54)
[2023-03-12] MEDS: Sertraline 50 MG Tablet 25 MG PO (08:54)
[2023-03-12 09:23] VITALS: BP 144/86; PULSE 71; RESP 16; TEMP 37; O2SAT 96
[2023-03-12] MEDS: Ceftriaxone 1 GM/50 ML BAG IV (10:33)
--- NOTE | 2023-03-12 13:40 | CASEMGMT ---
Discharge Planning [facility] received auth. [facility] notified. Gemma Mas
--- NOTE | 2023-03-12 14:08 | PCM.TXEXTCAR ---
Diet Diet Order/Speech Therapy: 03/10/23 18:27 Diet: Regular - General Food consistency:: Regular Liquid Consistency:: Regular/Thin Routine Orders/Code Status Code Status: Full Code Wound(s) R. proximal knee: Wound Type: Blisters R. distal knee: Wound Type: Abrasion Problem/Diagnosis (1) Rheumatoid arthritis: Status: Chronic Code(s): M06.9 - Rheumatoid arthritis, unspecified Plan 1. 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 Her daughter does not know why the patient is taking these medications. Total clinical time spent by myself addressing the patient's medical issues, reviewing all of her data, and collaborating with patient's care team: 35 minutes Allergies/Procedures Done in Hospital Allergies No Known Allergies Allergy (Verified 01/03/23 11:18) Discharge Plan Admission Admit Date/Time: 03/10/23 17:17 Attending Provider: Ishan Mcneal Primary Care Provider: Chelsi Marks Discharge Orders/Prescriptions Prescriptions: No Action simvastatin 40 MG tablet 40 mg PO QHS Label Comments: sertraline [Zoloft] 25 MG tablet 25 mg PO DAILY Eliquis 5 MG tablet 5 mg PO BID donepezil 5 mg tablet 2.5 mg PO QHS hydrocodone-acetaminophen 5-325 mg tablet 1 tab PO Q8H PRN PRN (Reason: Pain) sucralfate 1 gram tablet 1 g PO ACHS pantoprazole 20 mg tablet,delayed release (DR/EC) 20 mg PO DAILY cyanocobalamin (vitamin B-12) 500 mcg Tablet 500 mcg PO DAILY nystatin 1 billion unit Powder 1 unit PO TID mirtazapine 7.5 mg tablet 7.5 mg PO QHS cholecalciferol (vitamin D3) 1,250 mcg (50,000 unit) Capsule 1,250 mcg PO QWEEK Rx Instructions: Saturday polyethylene glycol 3350 17 gram Powder In Packet 17 g PO BID PRN (Reason: Constipation) clobetasol 0.05 % cream 1 applic TOPICAL QHS PRN PRN (Reason: Itching) acetaminophen 650 mg Tablet 650 mg PO Q4H PRN (Reason: Pain) guaifenesin 100 mg/5 mL Liquid 200 mg PO Q4H PRN (Reason: Cough) Referrals / Follow Up: Care Physician,No Primary [Non-Staff] - Chelsi Marks MD [Primary Care Provider] -
[2023-03-12 14:17] VITALS: BP 134/86; PULSE 73; RESP 16; TEMP 36.7; O2SAT 97
--- NOTE | 2023-03-12 14:38 | PCM.TXEXTCAR ---
Diet Diet Order/Speech Therapy: 03/10/23 18:27 Diet: Regular - General Food consistency:: Regular Liquid Consistency:: Regular/Thin Routine Orders/Code Status Code Status: Full Code Wound(s) R. proximal knee: Wound Type: Blisters R. distal knee: Wound Type: Abrasion Therapies Weight Bearing: Non weight bearing (Nonweightbearing right lower extremity, patient is normally nonambulatory) Extremity Affected:: Right Lower (tib fib fracture) Physical Therapy: Eval and Treat Occupational Therapy: Eval and Treat Problem/Diagnosis (1) Rheumatoid arthritis: Status: Chronic Code(s): M06.9 - Rheumatoid arthritis, unspecified Plan 1. 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 Her daughter does not know why the patient is taking these medications. Total clinical time spent by myself addressing the patient's medical issues, reviewing all of her data, and collaborating with patient's care team: 35 minutes Allergies/Procedures Done in Hospital Allergies No Known Allergies Allergy (Verified 01/03/23 11:18) Procedures: None Type of Care/Length of Stay Estimated LOS: More Than 30 Days Type of Care Needed: Skilled Rehab Potential: Fair Prognosis: Fair Additional Orders/Day of Discharge H&P will serve as current which was dated: 03/10/23 Day of Discharge: 03/12/23 Discharge Plan Admission Admit Date/Time: 03/10/23 17:17 Primary Reason for Your Visit: Right humerus fracture, right tib-fib fracture Attending Provider: Ishan Mcneal Primary Care Provider: Chelsi Marks Instructions Additional Instructions / Restrictions: Patient is to wear a right knee immobilizer for 6 to 12 weeks, it can be removed daily for skin check, patient is to wear right shoulder sling/swath as needed for comfort Discharge Orders/Prescriptions Prescriptions: New hydrocodone-acetaminophen 5-325 mg Tablet 1 tab PO Q6H PRN PRN (Reason: Pain Score 1-10) 5 Days Qty: 20 0RF cephalexin 500 mg capsule 500 mg PO BID Qty: 10 0RF Rx Instructions: one twice daily for ten doses-start 03/13/23 Continued simvastatin 40 MG tablet 40 mg PO QHS Label Comments: sertraline [Zoloft] 25 MG tablet 25 mg PO DAILY Eliquis 5 MG tablet 5 mg PO BID pantoprazole 20 mg tablet,delayed release (DR/EC) 20 mg PO DAILY cyanocobalamin (vitamin B-12) 500 mcg Tablet 500 mcg PO DAILY mirtazapine 7.5 mg tablet 7.5 mg PO QHS cholecalciferol (vitamin D3) 1,250 mcg (50,000 unit) Capsule 1,250 mcg PO QWEEK Rx Instructions: Saturday polyethylene glycol 3350 17 gram Powder In Packet 17 g PO BID PRN (Reason: Constipation) acetaminophen 650 mg Tablet 650 mg PO Q4H PRN (Reason: Pain) Discontinued donepezil 5 mg tablet 2.5 mg PO QHS hydrocodone-acetaminophen 5-325 mg tablet 1 tab PO Q8H PRN PRN (Reason: Pain) sucralfate 1 gram tablet 1 g PO ACHS nystatin 1 billion unit Powder 1 unit PO TID clobetasol 0.05 % cream 1 applic TOPICAL QHS PRN PRN (Reason: Itching) guaifenesin 100 mg/5 mL Liquid 200 mg PO Q4H PRN (Reason: Cough) Referrals / Follow Up: Chelsi Marks MD [Primary Care Provider] - Juan Oro MD [Med Staff - Active Staff] - Within 1 Month (Patient is to follow-up with Juan Oro in 1 month.) Care Physician,No Primary [Non-Staff] - Disposition Disposition (needs filled in before D/C Order can be placed): Senior Living Facility
--- NOTE | 2023-03-12 15:35 | PCM.DC.SUM ---
Providers Date of Admission: 03/10/23 Date of Discharge: 03/12/23 Primary Care Physician: Dr. Chelsi Marks MD Reason For Visit: RIGHT HUMERUS FRACTURE, RIGHT TIB-FIB FRACTURE Diagnosis Discharge Diagnosis (1) Rheumatoid arthritis: Status: Chronic Code(s): M06.9 - Rheumatoid arthritis, unspecified Plan 1. 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 Her daughter does not know why the patient is taking these medications. Total clinical time spent by myself addressing the patient's medical issues, reviewing all of her data, and collaborating with patient's care team: 35 minutes Medications at Discharge Home Medications sertraline 25 mg tablet (Zoloft) 25 mg PO DAILY mental health 03/07/18 simvastatin 40 mg tablet 40 mg PO QHS cholesterol 03/07/18 apixaban 5 mg tablet (Eliquis) 5 mg PO BID blood thinner 03/09/18 acetaminophen 650 mg tablet 650 mg PO Q4H PRN Pain 03/10/23 cholecalciferol (vitamin D3) 1,250 mcg (50,000 unit) capsule 1,250 mcg PO QWEEK 03/10/23 cyanocobalamin (vitamin B-12) 500 mcg tablet 500 mcg PO DAILY 03/10/23 mirtazapine 7.5 mg tablet 7.5 mg PO QHS 03/10/23 pantoprazole 20 mg tablet,delayed release 20 mg PO DAILY 03/10/23 polyethylene glycol 3350 17 gram oral powder packet 17 g PO BID PRN Constipation 03/10/23 cephalexin 500 mg capsule 500 mg PO BID #10 caps 03/12/23 hydrocodone-acetaminophen 5-325mg 5mg-325mg 1 tab PO Q6H PRN PRN Pain Score 1-10 5 days #20 tabs 03/12/23 Hospital Course Operations None Procedures None Summary of Care Provided Minutes Spent on Discharge: 32 Hospital Course: This 77-year-old white female was seen in the emergency room at [facility] after being transported from an extended care facility where she was undergoing respite care. Patient had fallen out of her wheelchair several days prior and had x-rays done at the group home which were negative is relayed to me. Patient was being moved with a Mala lift at the group home and complained of severe right lower leg pain and she was brought in for evaluation to the ER at [facility]. X-rays at [facility] revealed a fracture of the proximal right humerus (patient was not complaining of any overt pain however) and a fracture of the right tibia and fibula. A stabilizing knee brace was placed on her right lower extremity, a sling and swath was placed on her right arm, orthopedic surgery reviewed her films and felt that the patient did not require surgery-patient was nonambulatory at the group home. Patient was admitted to [place] [id number], she was seen by PT and OT, and a request was sent to her insurance carrier for transfer to another facility as a skilled patient which the insurance approved. On 03/12/2023, patient was seen and examined: alert and no apparent distress Constitutional Narrative: Patient appears older than her stated age, she answers simple questions appropriately General Appearance: cooperative and well developed Orientation / Consciousness: awake, oriented to person and oriented to place HEENT normocephalic, head/scalp atraumatic, hearing grossly normal bilaterally and moist oral mucous membranes Eyes PERRL, EOMs intact bilaterally and conjunctivae normal Neck supple, no JVD, thyroid normal and no carotid bruits General: trachea midline Resp normal respiratory effort, no retractions, no use of accessory muscles and clear to auscultation bilaterally Auscultation: Negative for rales, rhonchi or wheezes Cardio S1 normal heart sound, S2 normal heart sound, no murmurs, no rub and no gallops Cardio Narrative: Heart rate and rhythm is irregular GI normal to inspection, nondistended, normoactive bowel sounds, soft to palpation, non-tender and non-distended Extremity Extremity Narrative: Patient has generalized pain in her right lower leg, no obvious deformity is noted over the right lower leg, patient has deformities of her fingers and hands in keeping with rheumatoid arthritis Skin no rashes or lesions noted General Skin Exam: no breakdown Neuro CN's II-XII intact bilaterally and no sensory deficits noted Neuro Narrative: Patient has weakness on her right side Sensorium / Orientation: awake, alert, oriented to person and oriented to place Speech: speech normal Psych affect normal Patient was transferred on 03/12/2023 to [facility] in [facility], she was in stable condition when she was transferred. 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 Meaningful Use Info Meaningful Use Diagnoses (Choose all that apply): None applicable Discharge Plan Admission Admit Date/Time: 03/10/23 17:17 Primary Reason for Your Visit: Right humerus fracture, right tib-fib fracture Attending Provider: Ishan Mcneal Primary Care Provider: Chelsi Marks Instructions Additional Instructions / Restrictions: Patient is to wear a right knee immobilizer for 6 to 12 weeks, it can be removed daily for skin check, patient is to wear right shoulder sling/swath as needed for comfort Discharge Orders/Prescriptions Prescriptions: New hydrocodone-acetaminophen 5-325 mg Tablet 1 tab PO Q6H PRN PRN (Reason: Pain Score 1-10) 5 Days Qty: 20 0RF cephalexin 500 mg capsule 500 mg PO BID Qty: 10 0RF Rx Instructions: one twice daily for ten doses-start 03/13/23 Continued simvastatin 40 MG tablet 40 mg PO QHS Label Comments: sertraline [Zoloft] 25 MG tablet 25 mg PO DAILY Eliquis 5 MG tablet 5 mg PO BID pantoprazole 20 mg tablet,delayed release (DR/EC) 20 mg PO DAILY cyanocobalamin (vitamin B-12) 500 mcg Tablet 500 mcg PO DAILY mirtazapine 7.5 mg tablet 7.5 mg PO QHS cholecalciferol (vitamin D3) 1,250 mcg (50,000 unit) Capsule 1,250 mcg PO QWEEK Rx Instructions: Saturday polyethylene glycol 3350 17 gram Powder In Packet 17 g PO BID PRN (Reason: Constipation) acetaminophen 650 mg Tablet 650 mg PO Q4H PRN (Reason: Pain) Discontinued donepezil 5 mg tablet 2.5 mg PO QHS hydrocodone-acetaminophen 5-325 mg tablet 1 tab PO Q8H PRN PRN (Reason: Pain) sucralfate 1 gram tablet 1 g PO ACHS nystatin 1 billion unit Powder 1 unit PO TID clobetasol 0.05 % cream 1 applic TOPICAL QHS PRN PRN (Reason: Itching) guaifenesin 100 mg/5 mL Liquid 200 mg PO Q4H PRN (Reason: Cough) Referrals / Follow Up: Chelsi Marks MD [Primary Care Provider] - Juan Oro MD [Med Staff - Active Staff] - Within 1 Month (Patient is to follow-up with Juan Oro in 1 month.) Care Physician,No Primary [Non-Staff] - Disposition Disposition (needs filled in before D/C Order can be placed): [facility] Charges/Coding Visit Charges Inpatient E&M: 53346 Disch Hosp >30min
[2023-03-12] MEDS: Acetaminophen 325 MG Tablet 650 MG PO (15:40)
--- NOTE | 2023-03-12 15:52 | CASEMGMT ---
Patient medically ready for discharge. Authorization received for patient to be transferred to [facility]. Patient and her daughter, Delphine informed that patient will be transferred to [facility] today. Discharge orders, PASSR and medication list sent to [facility]. Ping Shepard, CONSTRUCTION PROJECT ASSISTANT, RETURNED MATERIALS INSPECTOR
--- NOTE | 2023-03-12 15:59 | PHA.DC.MR ---
Pharmacy Service has performed discharge medication reconciliation for this patient. The patient's discharge medication list was reviewed for discrepancies and discrepancies were resolved. Home Medications sertraline 25 mg tablet (Zoloft) 25 mg PO DAILY mental health 03/07/18 simvastatin 40 mg tablet 40 mg PO QHS cholesterol 03/07/18 apixaban 5 mg tablet (Eliquis) 5 mg PO BID blood thinner 03/09/18 acetaminophen 650 mg tablet 650 mg PO Q4H PRN Pain 03/10/23 cholecalciferol (vitamin D3) 1,250 mcg (50,000 unit) capsule 1,250 mcg PO QWEEK 03/10/23 cyanocobalamin (vitamin B-12) 500 mcg tablet 500 mcg PO DAILY 03/10/23 mirtazapine 7.5 mg tablet 7.5 mg PO QHS 03/10/23 pantoprazole 20 mg tablet,delayed release 20 mg PO DAILY 03/10/23 polyethylene glycol 3350 17 gram oral powder packet 17 g PO BID PRN Constipation 03/10/23 cephalexin 500 mg capsule 500 mg PO BID #10 caps 03/12/23 hydrocodone-acetaminophen 5-325mg 5mg-325mg 1 tab PO Q6H PRN PRN Pain Score 1-10 5 days #20 tabs 03/12/23
--- NOTE | 2023-03-12 16:16 | CASEMGMT ---
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 Pt, pt dgt, bedside nurse notified and VM left with admission coordinator at [facility]. Disposition: [facility], skilled level of care LUIS Mirza
--- NOTE | 2023-03-12 16:49 | NURSING ---
report called by this RN and given to Jennifer at [facility], pt to be picked up by physcians at 1800
[2023-03-12] MEDS: HYDROcodone Bitartrate/Apap 5/325 Tablet PO (17:56)
== END 2023-03-12 19:30 | disposition skilled nursing facility (03) ==
LOC: ED 16:59 → MS3 17:44
PROVIDERS: Family Medicine; Admitting Provider Internal Medicine; Emergency Provider Emergency Medicine; PCP Internal Medicine; Visit Provider Internal Medicine
DX: S82.191A Other fracture of upper end of right tibia, initial encounter for closed fracture (principal); I69.351 Hemiplegia and hemiparesis following cerebral infarction affecting right dominant side; M06.9 Rheumatoid arthritis, unspecified; I48.20 Chronic atrial fibrillation, unspecified; D68.69 Other thrombophilia; M19.90 Unspecified osteoarthritis, unspecified site; I10 Essential (primary) hypertension; E78.5 Hyperlipidemia, unspecified; S42.291A Other displaced fracture of upper end of right humerus, initial encounter for closed fracture; Z79.899 Other long term (current) drug therapy; Z79.01 Long term (current) use of anticoagulants; Z99.3 Dependence on wheelchair; W07.XXXA Fall from chair, initial encounter; S82.401A Unspecified fracture of shaft of right fibula, initial encounter for closed fracture; Y92.129 Unspecified place in nursing home as the place of occurrence of the external cause; R82.998 Other abnormal findings in urine
CPT/HCPCS: 72170; 73030; 73552; 73590; 81001; 87077; 87086; 87088; 87186; 87426; 96365; 96366; 97166; 99221; 99285; G0378

== ENCOUNTER 2023-11-15 12:28 | Emergency (ER) | payer MEDICARE, MEDICAID, SELFPAY ==
[2023-11-15 12:29] VITALS: PULSE 79; RESP 18; TEMP 36.6; O2SAT 98; BMI 27.5
[2023-11-15 12:37] VITALS: BP 149/84
--- NOTE | 2023-11-15 13:27 | EX.ED.DYSGE1 ---
HPI History of Present Illness Chief Complaint: Nausea/Vomiting/Diarrhea Informant: patient, legal guardian and family Narrative Narrative: 78-year-old female nonambulatory due to prior stroke and history of atrial fibrillation on Eliquis presenting to the emergency room with vomiting diarrhea. Patient seemed fine this morning per the daughter. She has had a cough which is not uncommon due to her allergies. Patient ate breakfast of [employer] and went to [facility]. When she got there she had vomiting x 2 and diarrhea. Was reported the patient had abdominal pain but currently she states she does not have any abdominal pain or cramping. No reported fevers. [facility] Medical History A-fib Anxiety disorder, unspecified CVA (cerebral vascular accident) CVA (cerebral vascular accident) Fall Hemiplegia HLD (hyperlipidemia) HTN (hypertension) Major depressive disorder, recurrent, mild Sarcopenia Home Medications sertraline 25 mg tablet (Zoloft) 25 mg PO DAILY mental health 03/07/18 [History Last Taken Unknown] simvastatin 40 mg tablet 40 mg PO QHS cholesterol 03/07/18 [History Last Taken Unknown] apixaban 5 mg tablet (Eliquis) 5 mg PO BID blood thinner 03/09/18 [History Last Taken Unknown] acetaminophen 650 mg tablet 650 mg PO Q4H PRN Pain 03/10/23 [History Last Taken Unknown] cholecalciferol (vitamin D3) 1,250 mcg (50,000 unit) capsule 1,250 mcg PO QWEEK 03/10/23 [History Last Taken Unknown] cyanocobalamin (vitamin B-12) 500 mcg tablet 500 mcg PO DAILY 03/10/23 [History Last Taken Unknown] mirtazapine 7.5 mg tablet 7.5 mg PO QHS 03/10/23 [History Last Taken Unknown] pantoprazole 20 mg tablet,delayed release 20 mg PO DAILY 03/10/23 [History Last Taken Unknown] polyethylene glycol 3350 17 gram oral powder packet 17 g PO BID PRN Constipation 03/10/23 [History Last Taken Unknown] cephalexin 500 mg capsule 500 mg PO BID #10 caps 03/12/23 [Rx Last Taken Unknown] hydrocodone-acetaminophen 5-325mg 5mg-325mg 1 tab PO Q6H PRN PRN Pain Score 1-10 5 days #20 tabs 05/23/23 [Rx Last Taken Unknown] Allergy/AdvReac Type Severity Reaction Status Date / Time No Known Allergies Allergy Verified 01/03/23 11:18 Social History Smoking Status: Never smoker ROS ROS ED Constitutional Constitutional ED: Denies chills, fever(s) or weight loss Eyes Eyes: Denies change in vision or diplopia ENT ENT ED: Denies ear pain, rhinorrhea or sore throat Cardiovascular Cardiovascular: Denies chest pain, orthopnea, palpitations or racing heartbeat Respiratory/Chest Respiratory/Chest: Denies cough, dyspnea or orthopnea Gastrointestinal Gastrointestinal: Reports diarrhea, nausea and vomiting; Denies abdominal pain Genitourinary Genitourinary ED: Denies dysuria, hematuria or urinary frequency Musculoskeletal Musculoskeletal: Denies arthralgias or myalgias Integumentary Denies abscess or rash Neurologic Neurologic: Denies headache(s) or weakness Psychiatric Psychiatric: Denies anxiety, depression, suicidal ideation or suicidal thoughts Endocrine Endocrinology: Denies polydipsia, polyphagia or polyuria Allergic/Immunologic Allergic/Immunologic ED: Denies mouth swelling, tongue swelling or urticaria EXAM Physical Exam Const Vital Signs: 11/15/23 12:29 11/15/23 12:37 Temperature 97.8 F Temperature Source Temporal Pulse Rate 79 Respiratory Rate 18 Blood Pressure 149/84 H Blood Pressure Mean 105 Pulse Ox 98 Oxygen Delivery Method Room Air Positive well nourished and well developed General Appearance ED: well developed HEENT Reports normocephalic, head/scalp atraumatic and moist mucous membranes Eyes PERRL and EOMs intact bilaterally Neck no lymphadenopathy, supple and no JVD Resp normal respiratory effort and clear to auscultation bilaterally Cardio regular rate, regular rhythm and no murmurs GI normal to inspection, nondistended, normoactive bowel sounds and non-tender GI Narrative: Patient does allow deep palpation of the abdomen. Auscultation: normoactive bowel sounds Palpation: soft; Negative for tender, guarding or rebound tenderness present Back/Spine no CVA tenderness and normal ROM Extremity Extremity Narrative: Chronic changes of the extremities associated with contractures from prior stroke General Extremety ED: Negative for edema General Extremity: Negative for edema Neuro oriented x3 and CN's II-XII intact bilaterally Sensorium / Orientation: alert Psych mental status grossly normal Mood & Affect: Negative for depressed or tearful Skin no rashes or lesions noted and no wounds MDM MDM MDM Narrative Medical decision making narrative: Basic blood work showed a white count of 15.1 hemoglobin of 15.6. CMP showed a glucose of 124 total bilirubin of 1.7 but normal transaminases and alkaline phosphatase. Lipase 24. Patient received IV fluids. Because of the patient's symptoms are chronic medical issues and a leukocytosis of [address] of the abdomen pelvis was ordered. This demonstrated gallstones. I do not believe that this is the cause of the patient's symptoms. She has no pain over the gallbladder no pericholecystic fluid or inflammatory changes noted. Her symptoms otherwise have abated. Other chronic changes were noted on the CT please see the radiologist read. At this point I think the patient can be discharged home. Family is actually looking for some respite care I can have social work talk to them about that but otherwise I would anticipate discharge home. I can write for some Zofran. Lab Data Attestation: I reviewed the patient's lab results. Labs: Laboratory Results - last 24 hr 11/15/23 13:35 WBC 15.1 H RBC 5.16 Hgb 15.6 H Hct 48.0 H MCV 93.0 MCH 30.2 MCHC 32.5 RDW Std Deviation 47.1 H RDW Coeff of [place] 13.7 Plt Count 195 MPV 12.7 H Immature Gran % (Auto) 0.300 Neut % (Auto) 84.6 H Lymph % (Auto) 7.9 L [place] % (Auto) 5.9 Eos % (Auto) 0.8 Baso % (Auto) 0.5 Absolute Neuts (auto) 12.8 H Absolute Lymphs (auto) 1.19 Nucleated RBC % 0 Sodium 138 Potassium 4.4 Chloride 108 H Carbon Dioxide 26.0 Anion Gap 4 L BUN 9 Creatinine 0.70 Estim Creat Clear Calc 50.43 Est GFR (MDRD) Af Amer 104 Est GFR (MDRD) Non-Af 86 BUN/Creatinine Ratio 12.9 Glucose 124 H Calcium 9.8 Total Bilirubin 1.70 H AST 25 ALT 20 Alkaline Phosphatase 94 Total Protein 7.4 Albumin 3.5 Globulin 3.9 Albumin/Globulin Ratio 0.9 Lipase 24 Radiography Diagnostic Testing: Clinical Impression(s) from Imaging Studies Abdomen/Pelvis CT 11/15/23 14:11 IMPRESSION: Mild scarring and/or atelectasis at the lung bases. Multiple gallstones. Diffuse pancreatic atrophy with multiple small cystic changes suggestive of either multiple small cysts versus dilated pancreatic duct. Calcified fibroid uterus. Stable right renal cyst. Electronically Signed: Giuseppe Young MD at 14:53 EST , Discharge Plan Triage Chief Complaint: Nausea/Vomiting/Diarrhea ED Provider: Luís Skelton Dx/Rx/DC Orders Prescriptions: No Action simvastatin 40 MG tablet 40 mg PO QHS Patient Comments: sertraline [Zoloft] 25 MG tablet 25 mg PO DAILY Eliquis 5 MG tablet 5 mg PO BID pantoprazole 20 mg tablet,delayed release (DR/EC) 20 mg PO DAILY cyanocobalamin (vitamin B-12) 500 mcg Tablet 500 mcg PO DAILY mirtazapine 7.5 mg tablet 7.5 mg PO QHS cholecalciferol (vitamin D3) 1,250 mcg (50,000 unit) Capsule 1,250 mcg PO QWEEK Rx Instructions: Saturday polyethylene glycol 3350 17 gram Powder In Packet 17 g PO BID PRN (Reason: Constipation) acetaminophen 650 mg Tablet 650 mg PO Q4H PRN (Reason: Pain) hydrocodone-acetaminophen 5-325 mg Tablet 1 tab PO Q6H PRN PRN (Reason: Pain Score 1-10) 5 Days Qty: 20 0RF cephalexin 500 mg capsule 500 mg PO BID Qty: 10 0RF Rx Instructions: one twice daily for ten doses-start 03/13/23 Primary Care Provider: Chelsi Marks Referrals: Chelsi Marks MD [Primary Care Provider] -
[2023-11-15] MEDS: 0.9% Normal Saline (1000mL) 1,000 ML 1000 ML IV (13:38)
[2023-11-15] MEDS: Ondansetron 4 MG/2 ML Vial IV (13:38)
[2023-11-15 13:57] LABS: Absolute Lymphocyte Count 1.19 X10^3/uL (0.83-4.51); Absolute Neutrophil Count 12.8 X10^3/uL (2.0-7.7); Basophil# 0.07 X10^3/uL; Basophil% 0.5 % (0-1); Eosinophil# 0.12 X10^3/uL; Eosinophils% 0.8 % (0-5); Hemoglobin 15.6 g/dL (12.0-15.0); Lymphocyte # 1.19 X10^3/ul (0.83-4.51); Lymphocyte % 7.9 % (19-41); Mean Corp Hgb Conc 32.5 g/dL (32-36); Mean Corpuscular Hgb 30.2 pg (27.0-32.0); Mean Platelet Vol. 12.7 fl (6.2-12.0); Monocyte# 0.89 X10^3/uL; Monocyte% 5.9 % (0-10); NRBC Flagged by Analyzer 0 % (0-5); Neutrophil # 12.82 X10^3/uL (2.7-7.7); Neutrophil % 84.6 % (47-70); Platelet Count 195 K/mm3 (150-450); RBC Distribution Width CV 13.7 % (11.6-14.6); RBC Distribution Width SD 47.1 fl (35.1-43.9); Red Blood Count 5.16 M/mm3 (4.2-5.4); White Blood Count 15.1 K/mm3 (4.4-11.0)
[2023-11-15 14:03] LABS: ALB/GLOB Ratio 0.9 RATIO (0.9-2.4); AST(SGOT) 25 U/L (15-37); Alanine Aminotransfer ALT/SGPT 20 U/L (13-56); Albumin, Serum 3.5 g/dL (3.2-5.0); Alkaline Phosphatase 94 U/L (45-117); Anion Gap 4 (5-15); BUN 9 mg/dL (7-18); BUN/Creat Ratio 12.9 RATIO (10-20); Calcium,Total 9.8 mg/dL (8.5-10.1); Chloride 108 mmol/L (98-107); EST Glomerular Filtration Rate 86 mL/min (>60); Est Glom Filt Rate - Afr Amer 104 mL/min (>60); Estimated Creatinine Clearance 50.43 ml/min; Globulin 3.9 g/dL (2.2-4.2); Glucose 124 mg/dL (74-106); Lipase 24 U/L (13-75); Potassium 4.4 mmol/L (3.5-5.1); Protein, Total 7.4 g/dL (6.4-8.2); Sodium Level 138 mmol/L (136-145)
--- NOTE | 2023-11-15 14:11 | CT_ITS ---
STUDY: CT ABDOMEN AND PELVIS WITH CONTRAST REASON FOR EXAM: Female, 78 years old. Abdominal pain RADIATION DOSAGE (If Supplied By Facility): CTDIvol = ( 25.78 ) mGy, DLP = ( 1067.02 ) mGycm TECHNIQUE: Transaxial images were obtained from the dome of the diaphragm to the symphysis pubis without oral contrast. IV 75mL Isovue-[id number] was administered. Sagittal and coronal images were reconstructed. Individualized dose optimization techniques were used for this CT. COMPARISON: Comparison is made with prior examination dated January 03, 2023. FINDINGS: Minimal increased linear markings at the lung bases suggestive of a atelectasis. Coronary artery calcification. Normal liver. There are multiple gallstones. Normal spleen. There is diffuse atrophy of the pancreas. Multiple cystic changes are seen in the pancreas suggestive of either multiple small cysts or dilated duct. Normal bilateral adrenal glands. There is a 2.7 cm cyst in the inferior medial portion of the right kidney. Bilateral cortical renal atrophy. Normal visualized stomach. Normal small intestine. There are multiple colonic diverticula consistent with diverticulosis. The appendix is visualized and appears normal. There is diffuse atherosclerotic calcification of the abdominal aorta, without a demonstrated aneurysm. Normal inferior vena cava. Normal retroperitoneum. Normal urinary bladder. Enlarged diffusely calcified fibroid uterus. Stable 2.5 cm cyst in the left ovary. Normal abdominal wall. Normal osseous structures. CT/Abdomen/Pelvis W IV Cont ONLY IMPRESSION: Mild scarring and/or atelectasis at the lung bases. Multiple gallstones. Diffuse pancreatic atrophy with multiple small cystic changes suggestive of either multiple small cysts versus dilated pancreatic duct. Calcified fibroid uterus. Stable right renal cyst. Electronically Signed: Giuseppe Young MD at 14:53 EST ,
--- OUTSIDE RECORDS SUMMARY | 2023-11-15 14:22 | XMS RPT_ITS | CCD ---
Author Name Unknown Address [address] [facility] [id number] [place] [address] Organization [facility] Care Team Providers Care Log Deck Tender Name Role Phone Unavailable Primary Care Provider Unavailabl e Medications Current Medications Medication Drug Class(es) Dates Sig (Normalized) Sig (Original) Acetaminophen (1 source) Start: 06-24-2020 acetaminophen (TYLENOL) tablet 650 mg albuterol 0.833 mg/ml / ipratropium bromide 0.167 mg/ml inhalant solution (1 source) Anticholinergic, beta2-Adrenergic Agonist Start: 06-24-2020 ipratropium-albutero l (DUONEB) nebulizer solution 1 ampule apixaban 5 mg oral tablet (3 sources) Factor Xa Inhibitor Start: 03-09-2021 Eliquis 5 mg oral tablet Dose : 5 mg = 1 tab(s), Oral, BID, 0 Refill(s) Start Date: 03/09/21 Status: Ordered Completed/Discontinued Medications Medication Drug Class(es) Dates Sig (Normalized) Sig (Original) calcium chloride 0.0014 meq/ml / potassium chloride 0.004 meq/ml / sodium chloride 0.103 meq/ml / sodium lactate 0.028 meq/ml injectable solution (1 source) Start: 06-24-2020 End: 06-25-2020 lactated ringers infusion calcium gluconate 2 g in dextrose 5 % 100 mL IVPB (2 sources) Start: 06-27-2020 End: 06-27-2020 calcium gluconate 2 g in dextrose 5 % 100 mL IVPB Problems Problem Classification Problem Date Documented Da te Episodic/Chronic Cardiac dysrhythmias (2 sources) Atrial fibrillation; Translations: [Atrial fibrillation] Onset: 06-27-2020 06-27-2020 Chronic Gastroduodenal ulcer (except hemorrhage) (2 sources) H/O: peptic ulcer; Translations: [History of peptic ulcer] 06-27-2020 Episodic Gastrointestinal hemorrhage (4 sources) Hematemesis; Translations: [Gastrointestinal hemorrhage] Onset: 06-27-2020 Resolved: 06-27-2020 06-27-2020 Episodic Other aftercare (2 sources) Long-term current use of anticoagulant; Translations: [Chronic anticoagulation] 06-27-2020 Episodic Other circulatory disease (2 sources) History of cerebrovascular accident; Translations: [History of CVA (cerebrovascular accident)] 06-27-2020 Episodic Other lower respiratory disease (1 source) Hypoxia; Translations: [Hypoxia] Episodic Unclassified (2 sources) Patient encounter status; Translations: [NSAID long-term use] Resolved: 06-27-2020 06-27-2020 Results Test Name Value Interpretation Reference Range Facil ity Vital Signs Date Time Vital Sign Value Performing Clinician Urban deleon 06-27-2020 07:23-0400 Pulse (Heart Rate) 79 /min Ravi Sumner [place] [employer] [facility], [place] 06-27-2020 07:23-0400 Pulse Oximetry 98 % Ravi Sumner [facility] [place] 06-27-2020 07:23-0400 Respiratory Rate 20 /min [facility] [place] 06-27-2020 07:23-0400 Body Temperature 96.91 [degF] Ravi Sumner [place] [employer] [facility], [place] 06-27-2020 07:23-0400 BP Diastolic 86 mm[Hg] Ravi Sumner [facility] [place] [employer], [place] 06-27-2020 07:23-0400 BP Systolic 140 mm[Hg] Ravi Sumner [facility], [place] 06-27-2020 03:27-0400 BMI (Body Mass Index) 36.56 kg/m2 Ravi Nicolas [facility], [place] 06-27-2020 03:27-0400 Body weight 90.67 kg Ravi Sumner [place] [employer] [place] , [place] 06-24-2020 12:32-0400 Height 157.5 cm [facility]avi [facility] [place] Encounters Encounter Date Encounter Type Care Provider Facility Start: 03-27-2023 End: 03-27-2023 AMB External Visit JOSIANE ABDI MD [facility] Stephanie Start: 06-24-2020 End: 06-27-2020 Evaluation and management of inpatient Ravi Sumner Work Phone: [facility] Procedures Date Procedure Procedure Detail Performing Clinician Start: 06-27-2020 Gluc bld gluc mntr d ev cleared fda spec home use Caterina Nolasco Work Phone: Start: 06-27-2020 Assay of magnesium Randee ey [employer] Work Phone: Start: 06-27-2020 Assay of phosphorus inorganic Jhoana [employer] Work Phone: Start: 06-27-2020 BASIC METABOLIC PANE L W/ REFLEX TO MG FOR LOW K Jhoana [employer] Work Phone: Start: 06-27-2020 Blood count complete auto&auto difrntl wbc Herson Shauna Meneses Work Phone: Start: 06-27-2020 Calcium ionized Jhoana [employer] Work Phone: Start: 06-27-2020 Hepatic function panel Boby Perea Work Phone: Start: 06-26-2020 Gluc bld gluc mntr d ev cleared fda spec home use Caterina Nolasco Work Phone: Start: 06-26-2020 Gluc bld gluc mntr d ev cleared fda spec home use Ravi Sumner Work Phone: Start: 06-26-2020 Blood count complete auto&auto difrntl wbc Boby Perea Work Phone: Start: 06-26-2020 Gluc bld gluc mntr d ev cleared fda spec home use Ravi Sumner Work Phone: Start: 06-26-2020 ADD ON LAB TEST Michelle Bonds Work Phone: Start: 06-26-2020 ADD ON LAB TEST Boby Perea Work Phone: Start: 06-26-2020 Assay of magnesium Randee ey [employer] Work Phone: Start: 06-26-2020 Assay of phosphorus inorganic Jhoana [employer] Work Phone: Start: 06-26-2020 BASIC METABOLIC PANE L W/ REFLEX TO MG FOR LOW K Jhoana [employer] Work Phone: Start: 06-26-2020 Blood count complete auto&auto difrntl wbc Herson D Gideon Work Phone: Start: 06-26-2020 Calcium ionized Jhoana [employer] Work Phone: Start: 06-26-2020 Hemoglobin glycosylated a1c Jhoana Smatr [employer] Work Phone: Start: 06-26-2020 Hepatic function panel Herson D Meneses Work Phone: Start: 06-25-2020 Gluc bld gluc mntr d ev cleared fda spec home use Caterina Nolasco Work Phone: Start: 06-25-2020 Gluc bld gluc mntr d ev cleared fda spec home use Caterina Nolasco Work Phone: Start: 06-25-2020 HM ENDOSCOPY REPORT 3m Scanning Start: 06-25-2020 Gluc bld gluc mntr d ev cleared fda spec home use Ravi Sumner Work Phone: Start: 06-25-2020 Assay of lactate Herson Villatoro Meneses Work Phone: Start: 06-25-2020 Blood count hemoglobin Herson D Meneses Work Phone: Start: 06-25-2020 PROTIME/INR & PTT Farzana [employer] Work Phone: Start: 06-25-2020 BLOOD GAS, ARTERIAL José ale [employer] Work Phone: Start: 06-25-2020 Radiologic exam ches t single view Jhoana [employer] Work Phone: Start: 06-25-2020 End: 06-25-2020 ADD ON LAB TEST Jhoana [employer] Work Phone: Start: 06-25-2020 Ecg routine ecg w/le ast 12 lds w/i&r Herson D Meneses Work Phone: Start: 06-25-2020 Gluc bld gluc mntr d ev cleared fda spec home use Ravi Sumner Work Phone: Start: 06-25-2020 Assay of haptoglobin quantitative Ravi Sumner Work Phone: Start: 06-25-2020 Assay of lactate Herson D Meneses Work Phone: Start: 06-25-2020 Assay of magnesium Raza ael Burak Work Phone: Start: 06-25-2020 Assay of phosphorus inorganic Ravi Sumner Work Phone: Start: 06-25-2020 BASIC METABOLIC PANE L W/ REFLEX TO MG FOR LOW K Ravi Sumner Work Phone: Start: 06-25-2020 Blood count complete auto&auto difrntl wbc Herson D Meneses Work Phone: Start: 06-25-2020 Calcium ionized Herson D Meneses Work Phone: Start: 06-25-2020 Hepatic function panel Ravi Sumner Work Phone: Start: 06-25-2020 Lactate dehydrogenase ldh Ravi Sumner Work Phone: Start: 06-25-2020 Transfuse erythrocyt es [Volume] Ravi Sumner Work Phone: Start: 06-25-2020 Transfuse erythrocyt es [Volume] Ravi Sumner Work Phone: Start: 06-24-2020 Assay of lactate Herson D Meneses Work Phone: Start: 06-24-2020 Blood count hemoglobin Herson D Meneses Work Phone: Start: 06-24-2020 Gluc bld gluc mntr d ev cleared fda spec home use Ravi Sumner Work Phone: Start: 06-24-2020 Assay of magnesium Raza aereji Sumner Work Phone: Start: 06-24-2020 Assay of phosphorus inorganic Ravi Sumner Work Phone: Start: 06-24-2020 BASIC METABOLIC PANE L W/ REFLEX TO MG FOR LOW K Ravi Sumner Work Phone: Start: 06-24-2020 Assay of lactate Herson D Meneses Work Phone: Start: 06-24-2020 Blood count hemoglobin Herson D Meneses Work Phone: Start: 06-24-2020 Calcium ionized Herson D Meneses Work Phone: Start: 06-24-2020 Gluc bld gluc mntr d ev cleared fda spec home use Ravi Sumner Work Phone: Start: 06-24-2020 Gluc bld gluc mntr d ev cleared fda spec home use Ravi uSmner Work Phone: Start: 06-24-2020 Assay of lactate Herson D Meneses Work Phone: Start: 06-24-2020 Blood count hemoglobin Herson D Meneses Work Phone: Start: 06-24-2020 Prothrombin time Herson D Meneses Work Phone: Start: 06-24-2020 Radiologic exam ches t single view Herson D Meneses Work Phone: Start: 06-24-2020 Ecg routine ecg w/le ast 12 lds w/i&r Kristen Gyenge Work Phone: Start: 06-24-2020 Gluc bld gluc mntr d ev cleared fda spec home use Ravi Sumner Work Phone: Start: 06-24-2020 Assay of lipase Herson D Meneses Work Phone: Start: 06-24-2020 Assay of magnesium Vale y D Meneses Work Phone: Start: 06-24-2020 Assay of phosphorus inorganic Herson D Meneses Work Phone: Start: 06-24-2020 Basic metabolic pane l calcium total Herson D Meneses Work Phone: Start: 06-24-2020 Blood typing serologic abo Herson D Meneses Work Phone: Start: 06-24-2020 Creatine kinase total A bhay D Meneses Work Phone: Start: 06-24-2020 Hepatic function panel Herson D Meneses Work Phone: Start: 06-24-2020 Lipid panel Herson Villatoro Pa tel Work Phone: Start: 06-24-2020 Assay of lactate Herson Villatoro Meneses Work Phone: Start: 06-24-2020 Blood count complete auto&auto difrntl wbc Herson Villatoro Meneses Work Phone: Start: 06-24-2020 Procalcitonin (pct) Alf Villatoro Meneses Work Phone: Start: 06-24-2020 PROTIME/INR & PTT Herson Villatoro Meneses Work Phone: Feeding tube, device (physical object) JOSIANE ABDI MD Plan of Treatment Date Care Activity Detail Author Start: 06-21-2020 Influenza vaccination Flu vaccine (#1) [place], [place] Start: 2010 Pneumococcal 65+ years Vaccine (1 of 1 - PPSV23) Pneumococcal 65+ years Vaccine (1 of 1 - PPSV23) [place], [place] Start: 2000 Screening for osteoporosis DEXA (modify frequency per FRAX score) [place] Start: 1995 Screening for malignant neoplasm of breast Breast cancer screen [place], [place] Start: 1995 Screening for malignant neoplasm of colon Colon cancer screen colonoscopy [place], [place] Start: 1995 Shingles Vaccine (1 of 2) Shingles Vaccine (1 of 2) [place], [place] Start: 1964 DTaP/Tdap/Td vaccine (1 - Tdap) DTaP/Tdap/Td vaccine (1 - Tdap) [place] Start: 1963 Diabetic microalbuminuria test Diabetic microalbuminuria test [place] Start: 1955 Diabetic foot examination Diabetic foot exam [place] Start: 1955 Diabetic retinal exam Diabetic retinal exam [place] Start: 1955 HbA1c (Bld) [Mass fraction] A1C test (Diabetic or Prediabetic) [place] Start: 1955 Lipid panel Lipid screen [place] Start: 1945 Hepatitis C screening Hepatitis C screen [place] Basic Metabolic Pane l w/ Reflex to MG Basic Metabolic Panel w/ Reflex to MG Lab Routine Daily until discontinued starting 06/26/2020, 2 completed [place] Social History Date Type Detail Facility Start: 06-27-2020 End: 03-13-2021 Tobacco smoking status [facility] Never smoker [facility] Start: 06-27-2020 Tobacco use and exposure Never used [place] Sex Assigned At Not on file [place] Exposure to SARS-CoV-2 (event) Not sure [place] Sex Assigned At Female [facility] Evaluation + Plan note Note Date & Type Note Facility Evaluation + Plan note No data available for this section [facility] Hospital Discharge instructions Note Date & Type Note Facility Hospital Discharge instructions No data available for this section [facility] Progress note Note Date & Type Note Facility Progress note No data available for this section [facility] Reason for Referral Status Reason Specialty Diagnoses / Procedures Referred By Contact Referred To Contact [facility] Required Sleep Medicine / Pulmonology Diagnoses Hypoxia Shanda Bonds DO [address] [place] [address] Moiz Bernardo MD [address] [place] [address] Scheduling Instructions [facility] Sleep - Moiz Bernardo MD [address] [place] [address] Discharge Instructions * Instructions* Shanda Bonds DO - 06/27/2020 Please do not resume the apixaban (Eliquis) for two weeks from the endoscopy procedure (06/25/20 - 07/09/20). Please restart at prior dose (5 mg twice daily) on 07/10/20. Continue sertraline and simvastatin as before. Please avoid NSAID use (meloxicam/Mobic, naproxen/Aleve, ibuprofen/Advil, etc.). You may use acetaminophen/Tylenol 500-1,000 mg up to three times a day. Do not exceed more than 3,000 mg of acetaminophen in 24 hours. Please start taking pantoprazole/Protonix twice daily and sucralfate four times daily for one monthfrom the endoscopy procedure (06/25/20 - 07/25/20). Starting after 07/25/20, please take pantoprazole/Protonix once daily indefinitely for ulcer protection. Please make an appointment with [facility] for a home visit as soon as possible within the next week or two for a hospital follow up appointment and a lab draw to include at least a CBC. A referral has been placed for patient to have an outpatient sleep study, as we believe Deneen sandovalve sleep apnea. documented in this encounter History of Present Illness * Louis Whitaker RN - 06/27/2020 11:[address] perea says pt set up for dc to home at 2pm. Spoke with dtr karla who verified this and home address at [address] [place] [address]. * Boby Perea DO - 06/27/2020 7:31 AM EDT Med Team Progress Note Deneen Pathak : 1945(74 y.o.) Date: June 27, 2020 Med Team: [place] Attending: Dr. Caterina Nolasco Chief Complaint: hematemesis Subjective: - No acute events overnight. - Currently, endorsing no new acute symptoms. Much more conversant today. Having no pain or dyspnea, no new nausea/emesis, following commands readily and oriented x3. Review of Systems Constitutional: Negative for chills and fever. Respiratory: Negative for cough and shortness of breath. Cardiovascular: Negative for chest pain and palpitations. Gastrointestinal: Negative for abdominal pain, constipation, diarrhea, nausea and vomiting. Musculoskeletal: Negative for arthralgias and myalgias. Neurological: Negative for dizziness, weakness and light-headedness. Psychiatric/Behavioral: Negative for agitation and confusion. Scheduled Meds: calcium gluconate IVPB 2 g Intravenous Once atorvastatin 40 mg Oral Daily pantoprazole 40 mg Intravenous BID And sodium chloride (PF) 10 mL Intravenous BID sucralfate 1 g Oral 4 times per day insulin lispro 0-6 Units Subcutaneous TID WC insulin lispro 0-3 Units Subcutaneous Nightly sertraline 25 mg Oral Daily sodium chloride flush 10 mL Intravenous 2 times per day miconazole Topical BID stomahesive in petrolatum Topical 3 times per day Continuous Infusions: dextrose Objective: BP (!) 140/86 Pulse 79 Temp 96.9 F (36.1 C) (Temporal) Resp 20 Ht 5' 2 (1.575 m) Wt 199 lb 14.4 oz (90.7 kg) SpO2 98% BMI 36.56 kg/m Physical Exam Constitutional: General: She is not in acute distress. Appearance: She is obese. She is ill-appearing (appears chronically ill). She is not toxic-appearing. HENT: Head: Comments: Edentulous Mouth/Throat: Mouth: Mucous membranes are moist. Pharynx: Oropharynx is clear. Eyes: Extraocular Movements: Extraocular movements intact. Conjunctiva/sclera: Conjunctivae normal. Cardiovascular: Rate and Rhythm: Regular rhythm. Tachycardia present. Heart sounds: Murmur (2/6 systolic) present. Comments: Borderline tachy Pulmonary: Effort: No respiratory distress. Breath sounds: Normal breath sounds. Abdominal: General: Bowel sounds are normal. Palpations: Abdomen is soft. There is no mass. Tenderness: There is no guarding. Musculoskeletal: General: Deformity (hands and feet small with moderate to severe deformity, hx RA) present. No swelling. Skin: General: Skin is warm and dry. Coloration: Skin is not pale. Neurological: General: No focal deficit present. Mental Status: She is alert and oriented to person, place, and time. Mental status is at baseline. Cranial Nerves: No cranial nerve deficit. Motor: Weakness (RUE/RLE, chronic) present. Gait: Gait abnormal (wheelchair bound at baseline). Comments: Dysarthria, uncommon expressive aphasia Psychiatric: Mood and Affect: Mood normal. Behavior: Behavior normal. [facility] within last 24 hours Lab Results Component Value Date/Time WBC 7.1 06/27/2020 04:46 AM Hemoglobin 9.5 (L) 06/27/2020 04:46 AM Hemoglobin 9.3 (L) 06/26/2020 12:03 PM Hematocrit 29.3 (L) 06/27/2020 04:46 AM Platelets 146 06/27/2020 04:46 AM MCV 83.7 06/27/2020 04:46 AM Lab Results Component Value Date/Time Sodium 138 06/27/2020 04:46 AM Potassium 3.4 (L) 06/27/2020 04:46 AM Chloride 110 (H) 06/27/2020 04:46 AM CO2 23 06/27/2020 04:46 AM BUN 15 06/27/2020 04:46 AM CREATININE 0.55 06/27/2020 04:46 AM Glucose 101 (H) 06/27/2020 04:46 AM Calcium 8.2 (L) 06/27/2020 04:46 AM Magnesium 2.0 06/27/2020 04:46 AM Phosphorus 3.5 06/27/2020 04:46 AM Lab Results Component Value Date/Time AST 24 06/27/2020 04:46 AM ALT 10 06/27/2020 04:46 AM Total Protein 5.5 (L) 06/27/2020 04:46 AM Albumin,Serum 2.8 (L) 06/27/2020 04:46 AM Total Bilirubin 2.0 (H) 06/27/2020 04:46 AM Alkaline Phosphatase 45 06/27/2020 04:46 AM Assessment and Plan: Hematemesis Acute blood loss anemia Hx of PUD, hx gastrostomy - EGD with multiple small to medium nonbleeding ulcers in prepyloric and antral regions of stomach,normal duodenum - Per GI recommendations hold apixaban for two weeks, sucralfate q6h and pantoprazole bid for 1 month, then PPI indefinitely - Received 2u PRBC, Hb chay 6.0 now 9.5 - Stable for d/c Debility Rheumatoid arthritis Hx CVA - Called daughter as pt with low functional baseline - Daughter states she is able to take care of patient at home and has been doing so for the last six years, but she states she will need help with pt transport - Discussed with RN, TCC - TCC will reach out to daughter, appreciate assistance with transport options back to [place] Paroxysmal atrial fibrillation Hypocalcemia HTN/HLD - holding apixaban as above - iCa low, will replete and daily labs - Not in a.fib on exam - CK normal, restart statin - Not on any antihypertensives, BP controlled DM2 - low dose SSI inpatient - BG reasonably controlled here - A1c 6.5, ok for age Depression - Home sertraline Obesity, 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 I have personally taken a history, examined the patient, and performed the associated medical decision making activities. I have reviewed & verified the attested documentation. Unless otherwise noted below, this documentation reflects the history, physical exam, and medical decision making that I performed myself. Please see below for my personal highlights or additions to the note. Patient seen and examined by myself at 9am on 06/27/20 Agree with resident's HPI and exam. A/P: full A/P documented in attested note, see below for perez highlights or additions to A/P. Acute blood loss anemia and hematemesis 2/2 UGIB/PUD- s/p 2u RBC's while in ICU, Hgb has since remained stable over past few days with no recurrence of hematemesis and no melena/hematochezia, PUD likely 2/2 NSAID use on top of her eliquis, on PPI BID for 1mo (then daily thereafter) and 1mo of carafate, plan per GI is to restart eliquis in 2 weeks Debility/suspected dementia- resident spoke with dtr Karla who cares for patient at home and has been doing so for past 6years, patient medically stable for d/c, will reach out to Karla to discuss if she would be okay for placement (if PT/OT feels needed), or if she insists on taking patient home then will ensure she has assistance (homecare, patient lives in [place]) and that appt is set up for pat ient to follow-up with PCP in the next few weeks to reassess and check Hgb level Suspected CINDA- needs outpatient PSG -possible d/c home today Pager: [phone] * Zbigniew, Boby Giron, DO - 06/26/2020 8:09 AM EDT Med Team Progress Note Deneen Pathak : 1945(74 y.o.) Date: June 26, 2020 Med Team: B Attending: Dr. Caterina Nolasco Chief Complaint: hematemesis Subjective: - No acute events overnight. - Currently, endorsing no new acute symptoms. Able to nod and speak in short sentences, but is not able to tell me why she is in the hospital or what her symptoms were when she came in. Eating breakfast on exam, relatively disinterested in interview but denies any GI symptoms or dizziness/lightheade dness. Review of Systems Constitutional: Negative for chills and fever. Respiratory: Negative for cough and shortness of breath. Cardiovascular: Negative for chest pain and palpitations. Gastrointestinal: Negative for abdominal pain, constipation, diarrhea, nausea and vomiting. Musculoskeletal: Negative for arthralgias and myalgias. Neurological: Negative for dizziness, weakness and light-headedness. Psychiatric/Behavioral: Negative for agitation and confusion. Scheduled Meds: calcium gluconate IVPB 2 g Intravenous Once atorvastatin 40 mg Oral Daily pantoprazole 40 mg Intravenous BID And sodium chloride (PF) 10 mL Intravenous BID sucralfate 1 g Oral 4 times per day insulin lispro 0-6 Units Subcutaneous TID WC insulin lispro 0-3 Units Subcutaneous Nightly sertraline 25 mg Oral Daily sodium chloride flush 10 mL Intravenous 2 times per day miconazole Topical BID stomahesive in petrolatum Topical 3 times per day Continuous Infusions: dextrose Objective: BP 133/68 Pulse 84 Temp 96.5 F (35.8 C) (Temporal) Resp 20 Ht 5' 2 (1.575 m) Wt 202 lb 3.2 oz (91.7 kg) SpO2 97% BMI 36.98 kg/m Physical Exam Constitutional: General: She is not in acute distress. Appearance: She is obese. She is ill-appearing. HENT: Head: Comments: Edentulous Mouth/Throat: Mouth: Mucous membranes are moist. Pharynx: Oropharynx is clear. Eyes: Extraocular Movements: Extraocular movements intact. Conjunctiva/sclera: Conjunctivae normal. Cardiovascular: Rate and Rhythm: Regular rhythm. Tachycardia present. Heart sounds: Murmur (2/6 systolic) present. Comments: Borderline tachy Pulmonary: Effort: No respiratory distress. Breath sounds: Normal breath sounds. Comments: Poor effort Abdominal: General: Bowel sounds are normal. Palpations: Abdomen is soft. There is no mass. Tenderness: There is no guarding. Skin: General: Skin is warm and dry. Comments: Mild mottling Neurological: General: No focal deficit present. Mental Status: She is alert and oriented to person, place, and time. Psychiatric: Mood and Affect: Mood normal. Behavior: Behavior normal. [facility] within last 24 hours Lab Results Component Value Date/Time WBC 9.9 06/26/2020 06:36 AM Hemoglobin 9.1 (L) 06/26/2020 06:36 AM Hematocrit 27.5 (L) 06/26/2020 06:36 AM Platelets 159 06/26/2020 06:36 AM MCV 82.8 06/26/2020 06:36 AM Lab Results Component Value Date/Time Sodium 138 06/26/2020 06:36 AM Potassium 4.0 06/26/2020 06:36 AM Chloride 112 (H) 06/26/2020 06:36 AM CO2 23 06/26/2020 06:36 AM BUN 18 06/26/2020 06:36 AM CREATININE 0.63 06/26/2020 06:36 AM Glucose 118 (H) 06/26/2020 06:36 AM Calcium 7.6 (L) 06/26/2020 06:36 AM Magnesium 2.2 06/26/2020 06:36 AM Phosphorus 2.8 06/26/2020 06:36 AM Lab Results Component Value Date/Time AST 22 06/26/2020 06:36 AM ALT 9 06/26/2020 06:36 AM Total Protein 5.1 (L) 06/26/2020 06:36 AM Albumin,Serum 2.6 (L) 06/26/2020 06:36 AM Total Bilirubin 1.7 (H) 06/26/2020 06:36 AM Alkaline Phosphatase 42 06/26/2020 06:36 AM Assessment and Plan: Hematemesis Acute blood loss anemia Hx of PUD, hx gastrostomy - EGD with multiple small to medium nonbleeding ulcers in prepyloric and antral regions of stomach,normal duodenum - Per GI recommendations hold apixaban for two weeks, sucralfate q6h and pantoprazole bid for 1 month, then PPI indefinitely - Received 2u PRBC, Hb 6.0 -> 10.3 -> 9.1 - Will recheck CBC this PM given drop although may be simply dilutional Debility Rheumatoid arthritis - Called daughter as pt seems to have poor understanding of medical condition, is oriented but slowto respond and speaks in incomplete sentences (also difficult to understand, edentulous) - Daughter Karla lives with pt and notes pt is entirely wheelchair bound, daughter says this is because of her RA that she has had since she was 28 years old. Daughter admits to memory slightly slipping , and that she is repetitive and requires help with medications/transfers/etc. Daughter does feel as though she is capable of taking care of pt and does not feel overwhelmed as she is able to haverespite care sometimes. - Consider geriatrics consult for recent memory loss, poor functional status Paroxysmal atrial fibrillation Hypocalcemia HTN/HLD - holding apixaban as above - iCa low, will replete and daily labs - Regular rhythm today, can repeat EKG as necessary - CK normal, restart statin - HTN controlled here without medication DM2 - low dose SSI - BG reasonably controlled here - A1c pending Depression - Home sertraline Obesity, likely underlying CINDA - outpatient sleep study - Goals of Care: FULL CODE - DVT Prophylaxis: SCDs - GI Prophylaxis: Protonix BID - Diet: Cardiac Associated attestation - Caterina Nolasco MD - 06/26/2020 11:18 AM EDT I have discussed the care of Deneen Pathak with the medical student and/or resident. I have personally taken a history, examined the patient, and performed the associated medical decision making activities. I have reviewed & verified the attested documentation. Unless otherwise noted below, this documentation reflects the history, physical exam, and medical decision making that I performed myself. Please see below for my personal highlights or additions to the note. Patient seen and examined by myself at 8:10am on 06/26/20 S: Patient drowsy upon entering this AM. Txfr out of ICU yesterday after being admitted for acute blood loss anemia 2/2 UGIB. Reports no acute issues overnight. States she has not had any N/V/abd pain today but did have some nausea yesterday around dinner time that improved with medication. Initially told me she ate breakfast this AM but then breakfast arrived during my eval. Denies any light-headedness/dizziness/melena/hematochezia. O: Agree with resident's exam. Patient edentulous with dysarthria and some expressive aphasia. Bandage on R shoulder. Drowsy but awakened to voice and answered questions with brief responses. Oriented to place/month/year. No abd TTP. Oral mucosa dry but normal skin turgor and cap refill. 2/6 systolic murmur appreciated. +RUE/RLE spasticity with minimal movement, LUE/LLE with spontaneous movement.+Deformities of hands/feet. A/P: full A/P documented in attested note, see below for perez highlights or additions to A/P. Acute blood loss anemia and hematemesis 2/2 UGIB with PUD seen on EGD- s/p 2u RBC's with improved Hgb (slightly down-trended today so will repeat this afternoon), on PPI/carafate, hold eliquis for 2 weeks per GI Debility/suspected dementia- PT/OT eval pending Afib/HTN/HLD- restart eliquis in 2 weeks Suspected CINDA- needs outpatient PSG -dispo pending stabilization of Hgb and PT/OT evals Pager: [phone] * Susan Finley RCP - 06/25/2020 10:45 PM EDT Nocturnal desaturation study done on RA. SpO2 96% at start of study with brief desaturations noted.Completed study placed in chart. * Jhoana Bartholomew PA-C - 06/25/2020 1:35 PM EDT ICU TRANSFER CHECKLIST Transfer Med Reconciliation (resume home meds if able, convert to PO if able) Complete Antibiotics (name, indication, duration, convert to PO if able) None Steroid (indication, duration, convert to PO if able) None Anticipated [place] Medications (ICU initiated) or Dose Changes and Indication Yes - PPI (indefinitely), sucralfate Permanently Discontinued Home Medications and Reason for medication contraindication Yes - NSAIDs. Holding eliquis for 2 weeks Christy Catheter (please remove if able) Yes- will remove prior to transfer Central Line (please remove if able) No Transfer Discussed with: Dr. Bonds - transferring to Dr. Zamarripa's service (Med Team B) If additional questions for ICU team within 24 hours of ICU transfer, page [phone] for clarifications. * Jhoana Bartholomew PA-C - 06/25/2020 7:40 AM EDT CRITICAL CARE DAILYPROGRESS NOTE Admit Date: 06/24/2020 PCP: No primary care provider on file. Subjective HPI: 74yoF w/ PMH significant for HTN, HLD, Afib on Eliquis (last dose 06/23 AM), stroke (w/ residualL-sided deficits and dysarthria), dysphagia s/p PEG 2013 removed 02/2016, RA on NSAIDs, DM2, PUD, and depression and anxiety admitted to [facility] ICU from [facility] early AM 06/24/20 for massive hematemesis which started ~1700 the day prior. At [facility] BP 114/74, HR 96-109, afebrile, no hypoxia. Labs w/ Hgb 11.7, WBC 11.8, Plt 267, INR 2.1, HCO3 21. On arrival to ICU BP 90s/60s, HR 90s, Hgb 10.9, INR 1.2, HCO3 18, LA 3. Tx w/ 1L IVF bolus and placed IV PPI gtt. GI consulted. EVENTS OF LAST 24HOURS: Overnight transfused 2uPRBC for Hgb 6.0, f/u Hgb 10.1. No acute overnight events otherwise. This AM while sleeping pt having mild desaturations into the high 80s on RA, current SpO2 100% on 2L NC. Sleeping in bed this AM, awakens easily to voice, follows commands, responds appropriately to questions. Asking for water and sprite. Denies CP, SOB, N/V, abdominal pain. Planning for EGD today w/ Dr. Ayala. INVASIVE LINES: PIV Christy Diet: Diet NPO Effective Now Exceptions are: Ice Chips IV: pantoprozole (PROTONIX) infusion 8 mg/hr (06/25/20 0505) lactated ringers 100 mL/hr at 06/25/20 0015 dextrose MEDICATIONS Scheduled Meds: sodium chloride flush 10 mL Intravenous 2 times per day miconazole Topical BID insulin regular 0-6 Units Subcutaneous 4x Daily AC & HS stomahesive in petrolatum Topical 3 times per day PRN meds: sodium chloride flush, acetaminophen OR acetaminophen, polyethylene glycol, ipratropium-albuterol, promethazine OR ondansetron, glucose, dextrose, glucagon (rDNA), dextrose Objective EXAM: VITALS: BP 122/71 Pulse 72 Temp 97 F (36.1 C) (Temporal) Resp 19 Ht 5' 2 (1.575 m) Wt 191 lb 12.8 oz (87 kg) SpO2 97% BMI 35.08 kg/m Temp (24hrs), Av F (36.1 C), Min:96.7 F (35.9 C), Max:97.2 F (36.2 C) I/O: 06/24 0701 - 06/25 0700 In: 4070.5 [I.V.:3233] Out: 910 [Urine:910] CVP: Physical Exam Vitals signs reviewed. Constitutional: General: She is sleeping. She is not in acute distress. Appearance: She is morbidly obese. She is not ill-appearing. Interventions: Nasal cannula in place. HENT: Head: Normocephalic and atraumatic. Mouth/Throat: Mouth: Mucous membranes are moist. Pharynx: Oropharynx is clear. No oropharyngeal exudate or posterior oropharyngeal erythema. Eyes: General: No scleral icterus. Right eye: No discharge. Left eye: No discharge. Conjunctiva/sclera: Conjunctivae normal. Pupils: Pupils are equal, round, and reactive to light. Neck: Musculoskeletal: Neck supple. Cardiovascular: Rate and Rhythm: Normal rate. Rhythm irregular. Pulses: Radial pulses are 1+ on the right side and 1+ on the left side. Dorsalis pedis pulses are 1+ on the right side and 1+ on the left side. Heart sounds: Murmur present. No friction rub. No gallop. Pulmonary: Effort: No tachypnea, accessory muscle usage or respiratory distress. Breath sounds: No stridor. Decreased breath sounds present. No wheezing, rhonchi or rales. Comments: Shallow inspiration Abdominal: General: Abdomen is protuberant. Bowel sounds are decreased. There is no distension. Palpations: Abdomen is soft. There is no mass. Tenderness: There is no abdominal tenderness. There is no guarding. Genitourinary: Comments: Christy in place w/ moderate amount clear yellow/orange urine chamber Musculoskeletal: General: Deformity (microdactyly) present. Right lower leg: No edema. Left lower leg: No edema. Skin: General: Skin is dry. Capillary Refill: Capillary refill takes less than 2 seconds. Findings: No erythema or rash. Comments: slin cool over distal extremities Neurological: Mental Status: She is oriented to person, place, and time and easily aroused. She is confused. GCS: GCS eye subscore is 3. GCS verbal subscore is 5. GCS motor subscore is 6. Cranial Nerves: Dysarthria present. Psychiatric: Mood and Affect: Mood and affect normal. Behavior: Behavior is cooperative. LABS: BMP: Recent Labs 06/24/20 0046 06/24/20 1627 06/25/20 0357 NA 139 138 139 K 4.9 5.0 4.4 CL 110* 112* 114* CO2 18* 22 21* BUN 30* 27* 25* CREATININE 0.58 0.52 0.60 GLUCOSE 165* 127* 109* . CBC: Recent Labs 06/24/20 0041 06/24/20 2108 06/25/20 0357 WBC 13.3* -- -- 10.2 HGB 10.9* < > 6.0* 10.1* PLT 286 -- -- 137* < > = values in this interval not displayed. Ionized Calcium: Lab Results Component Value Date IONCA 4.30 06/25/2020 IONCA 4.00 06/24/2020 Hepatic: Recent Labs 06/24/20 0046 AST 25 ALT 12 BILITOT 1.2 ALKPHOS 60 Lactate: Lab Results Component Value Date LACTA 1.2 06/25/2020 LACTA 1.3 06/24/2020 LACTA 2.0 06/24/2020 CK: Recent Labs 06/24/2045 CKTOTAL 38 INR: Recent Labs 06/24/204006/24/2046 INR 1.2* 1.2* PT/INR: Recent Labs 06/24/204006/24/20 0546 PROTIME 12.9* 13.0* INR 1.2* 1.2* APTT: Recent Labs 06/24/2040 APTT 21.9 PROCALCITONIN: Recent Labs 06/24/2040 PROCAL <0.10 LIPIDS: Recent Labs 06/24/206 CHOL 109 HDL 21* Cultures: No results for input(s): LABURIN in the last 72 hours. No results for input(s): BC in the last 72 hours. No results for input(s): BLOODCULT2 in the last 72 hours. No results for input(s): CULTRESP in the last 72 hours. No results for input(s): CXCATHTIP in the last 72 hours. No results for input(s): LEGUR in the last 72 hours. Invalid input(s): STREPPNEUMAGU No results for input(s): LABGRAM in the last 72 hours. RADIOLOGY: CXR Portable: Results for orders placed during the hospital encounter of 06/24/20 XR CHEST PORTABLE Narrative Patient Name: DENEEN PATHAK ---Diagnostic Radiology--- Exam Date/Time 06/24/2020 05:42:14 EDT Exam CR Chest Portable Ordering Physician Suzan MENESES [facility] Accession Number [id number] CPT4 Codes 03786 () Reason For Exam hematemesis, evaluate for possible aspiration Report PORTABLE CHEST Clinical indication: hematemesis, evaluate for possible aspiration Comparison: None. The cardiac silhouette is enlarged. The aorta is atherosclerotic. No edema or focal infiltrate is noted in the lungs. There are no pleural effusions. IMPRESSION: Cardiomegaly Report Dictated on --- Final --- Dictated: 06/24/2020 4:01 am Dictating Physician: MD MAXWELL DIANE Signed Date and Time: 06/24/2020 4:01 am Signed by: MD MAXWELL DIANE Transcribed Date and Time: 06/24/2020 4:01 Assessment & Plan: 1. Anemia 2/2 hematemesis 2/2 acute GIB in the setting of Afib on Eliquis, recent NSAID use, and hxPUD: - Transfused 2uPRBC overnight for Hgb 6.0, f/u Hgb 10.1 - No hematemesis since admission to [facility], likely also component of dilution (+4.4L since admit) - GI following -- s/p EGD this afternoon which showed non-bleeding ulcer s/p cautery & epi injection - D/c protonix gtt switch to IV BID PPI, ok for diet, add sucralfate - Ok to resume home eliquis in 2 weeks, continue holding home NSAIDs - Will need to continue PPI indefinitely - Monitor daily CBC, repeat H&H PRN - Repeat transfusion for Hgb<7.0 or s/s acute bleed 2. Thrombocytopenia: - Likely 2/2 consumption + dilution - Plt 138 from 286 - Check LFTs and repeat coags - Monitor daily/PRN CBC 3. Mild hypoxia likely 2/2 volume overload vs underlying CINDA + acidosis possibly 2/2 underlying OHS: - Early AM desaturating in to the high 80s/low 90s on RA while sleeping, not previously requiring O2 - Currently awake and on 2L NC w/ SpO2 100% - Did receive 2uPRBC overnight & net +4.4L -- hold MIVF and check CXR - Wean supplemental O2 as tolerated w/ goal SpO2>92% - Encourage IS/C&DB, OOB, increase activity as able - Monitor strict I/O and daily weights, repeat CXR and ABG PRN - Check nocturnal pulse oximetry study to further evaluate for possible ICNDA 4. Mild acidosis: - Venous pH 7.26, HCO3 21, AG 4 - Suspect pH too low for pure metabolic -- possibly respiratory component 2/2 underlying OHS - Check ABG 5. Afib on eliquis: - Remains in afib, rate controlled w/ out meds - Continue holding home eliquis - ok to resume in 2 weeks per GI - Monitor on tele 6. Stroke w/ residual dysarthria & L sided deficits: - Continue holding home eliquis - ok to resume in 2 weeks per GI - Resume home statin 7. HTN: - No home meds listed - Mildly hypotensive overnight, improved w/ PRBC transfusion, currently 111/62 - Continue to monitor 8. HPL: - Resume home statin once ok for PO 9. DM: - No home meds listed - Currently controlled (109) -- continue low dose SSI, switch to TID AC&HS once diet advanced - Continue to monitor BGTs w/ goal <180 - Check Hgb A1c in AM 10. RA: - No home meds listed - Continue holding NSAIDs 11. Anxiety, depression: - Resume home zoloft 12. Obesity: - Body mass index is 35.08 kg/m . 13. Debility: - PT/OT 14. Code status: - Currently full code 15. FEN + hx dysphagia: - NPO -- ok to advance diet per GI - D/c MIVF - Continue to monitor daily lytes and replace PRN Prophylaxis: Stress ulcer: [x] PPI Agent [] H2RA [] Sucralfate [x] Other: VTE: [] Enoxaparin [] SC Heparin [x] SCD Dispo: Plan for transfer to floor today Critical care time spent reviewing labs/films, examining patient, collaboratingwith other physicians but excluding procedures for life threatening organ failure is 40 minutes. Plan of care discussed with and reviewed by Dr. Ronald Sumner. Associated attestation - Demetri Sumner MD - 06/25/2020 3:34 PM EDT I have personally performed a face to face diagnostic evaluation on this patient. Labs, imaging studies and electronic medical record have been reviewed by me. This note documented by the DARREN reflects my history, exam and medical decision making as discussed with the DARREN . I have reviewed and agreewith the care plan. Changes were made in the orders as necessary My history, exam, assessment and plan are as follows. Agree with nocturnal oximetry, some desats last night suspicious for sleep apnea. May benefit from nocturnal O2 and PSG as output. * Niru Arreaga RD, LD - 06/24/2020 12:38 PM EDT Comprehensive Nutrition Assessment Type and Reason for Visit: Initial (Poor appetite) Nutrition Recommendations/Plan: 1.Pt. NPO and should not remain without nutrition >72 hours. 2. Monitor bowel function to determine appropriate route of nutrition intervention. 3. Pt. With history of dysphagia and PEG. 4. If with improvement of bowel function and po diet is contraindicated, and EN deemed appropriate,suggest: Semi-Elemental/Vital 1.5@ goal rate 35ml/hour = 1260cal/56gPro/641ml free water = 25cal/1.1gPro/kg IBW (50kg). 5. If unable to advance po diet and EN not indicated, question need of bowel rest and PN ; 90gPro (360cal)/550 Dextrose Calories/ 390 Lipid Calories: Total 1300cal/90gPro = 26cal/1.8gPro/kg IBW (50kg). 6. Continue to monitor and follow weekly. Nutrition Assessment: At time of visit, pt. sleeping; Per chart,with significant past medical history of HTN, HLD, Afib on Eliquis, prior stroke, rheumatoid arthritis, PEG tube insertion for dysphagia 2013 - 02/2016, type 2 DM, PUD, depression, and anxiety who presents with hematemesis. Patient arrived to [facility] ED on 06/23 as a direct transfer from [facility] after experiencing multiple bouts of hematemesis. Per transport services, patient had 2 additional bouts of massive hematemesis containing blood clots prior to arrival. No further reports of hematemesis. Malnutrition Assessment: Malnutrition Status: Insufficient data Context: Acute Illness Estimated Daily Nutrient Needs: Energy (kcal): 25 - 30cal/kg IBW = 1250 - 1500cal/day; Weight Used for Energy Requirements: [place](IBW 50kg) Protein (g): 1.1 - 1.3g/kg IBw = 55 - 65g/day; Weight Used for Protein Requirements: [place](50kg) Fluid (ml/day): per MD order; Weight Used for Fluid Requirements: Nutrition Related Findings: + bowel sounds with generalized/trace edema; Noted: BUN 30, Glu 152^, Ca 8.3, HDL 21, LDL 52, TG 182 ; Pt. Edentulous. Wounds: Pressure Injury Current Nutrition Therapies: Diet NPO Effective Now Exceptions are: Ice Chips Anthropometric Measures: Height: 5' 2 (157.5 cm) Current Body Weight: 191 lb 12.8 oz (87 kg) [place] Body Weight: 110 lbs; % [place] Body Weight 174.4 % BMI: 35.1 BMI Categories: Obese Class 2 (BMI 35.0 -39.9) Nutrition Diagnosis: Inadequate oral intake related to altered GI structure as evidenced by NPO or clear liquid status due to medical condition Nutrition Interventions: Food and/or Nutrient Delivery: Continue NPO Nutrition Education/Counseling: No recommendation at this time Coordination of Nutrition Care: Continued Inpatient Monitoring Goals: Pt. to receive nutrition within the next 72 hours. Nutrition Monitoring and Evaluation: Food/Nutrient Intake Outcomes: Diet Advancement/Tolerance Physical Signs/Symptoms Outcomes: Hemodynamic Status, Nausea or Vomiting, GI Status, Biochemical Data, Nutrition Focused Physical Findings, Skin, Weight Discharge Planning: Too soon to determine Contact: pager [phone] documented in this encounter Assessments Diagnosis Hypoxia Hypoxemia Hematemesis Chronic anticoagulation Encounter for long-term (current) use of anticoagulants NSAID long-term use Encounter for long-term (current) use of non-steroidal anti-inflammatories History of peptic ulcer Personal history of peptic ulcer disease History of CVA (cerebrovascular accident) Transient ischemic attack (TIA), and cerebral infarction without residual deficits Gastrointestinal hemorrhage associated with gastric ulcer Atrial fibrillation (HCC) Atrial fibrillation Advance Directives Latest Code Status on File Code Status Date Activated Date Inactivated Comments Full Code 06/24/2020 12:36 AM Summary Purpose Family History No Family History Records Found Hospital Course Note Attestation signed by Caterina Nolasco MD at 06/28/2020 8:42 AM Patient seen & examined on day of discharge. Please refer to note dated on the day of discharge (06/27/2020) for associated attestation, exam, and plan. Internal Medicine: Med Team Discharge Summary Deneen Pathak : 1945 ADMIT DATE: 06/24/2020 DISCHARGE DATE: 06/27/20 PCP: No primary care provider on file. Visit Status: Admission Code Status: FULL CODE Primary Discharge Diagnosis: Massive hematemesis secondary to gastric ulcers in the setting of recent NSAID use Secondary Discharge Diagnoses: Paroxysmal atrial fibrillation Peptic ulcer disease DM2 HTN HLD Depression Rheumatoid arthritis Dysphagia with history of PEG CVA with residual deficits and hemiparesis R posterior thigh abr (more content not included)... Additional Source Comments Reason for Visit (unrecogniz ed section and content) INFORMATION SOURCE (unrecogn ized section and content) Patient Care team informatio n (unrecognized section and content) Care Team Related Persons Name: KARLA HARRISON Address: Home [address] [place], [place] [id number] FOR RECORDS PERTAINING TO PATIENTS WHO ARE OR HAVE BEEN ENROLLED IN A CHEMICAL DEPENDENCY/SUBSTANCEABUSE PROGRAM, SOME INFORMATION MAY BE OMITTED. This clinical summary was aggregated from multiple sources. Caution should be exercised in using it in the provision of clinical care. This summary normalizes information from multiple sources, and as a consequence, information in this document may materially change the coding, format and clinical context of patient data. In addition, data may be omitted in some cases. CLINICAL DECISIONS SHOULD BE BASED ON THE PRIMARY CLINICAL RECORDS. [employer] [facility]. provides no warranty or guarantee of the accuracy or completeness of information in this document.
[2023-11-15 16:29] VITALS: BP 132/78; PULSE 64; RESP 16; TEMP 36.7; O2SAT 99
--- NOTE | 2023-11-15 16:31 | ED.RN ---
HAROL[facility] CALLED, ETA 30 MIN. (1700)
== END 2023-11-15 17:17 | disposition home or self-care (01) ==
PROVIDERS: Emergency Provider Emergency Medicine; PCP Internal Medicine; Visit Provider Emergency Medicine
DX: R11.2 Nausea with vomiting, unspecified (principal); I48.91 Unspecified atrial fibrillation; I69.398 Other sequelae of cerebral infarction; Z79.01 Long term (current) use of anticoagulants; E78.5 Hyperlipidemia, unspecified; I10 Essential (primary) hypertension; Z79.899 Other long term (current) drug therapy; F41.9 Anxiety disorder, unspecified; R19.7 Diarrhea, unspecified
CPT/HCPCS: 74177; 80053; 83690; 85025; 96361; 96374; 99283; J7030; Q9967; J2405

== ENCOUNTER 2024-02-26 09:11 | Emergency (ER) | payer MEDICARE, MEDICAID, SELFPAY ==
[2024-02-26 09:14] VITALS: BP 138/96; PULSE 85; RESP 16; TEMP 36; O2SAT 100; BMI 26.6
--- NOTE | 2024-02-26 09:31 | ED.VIS.GI ---
HPI HPI - GI History of Present Illness Chief Complaint: Nausea/Vomiting Informant: patient and other (Antonio at the adult daycare center via phone.) Nausea/Vomiting/Emesis GI Symptom: Positive for Nausea and Vomiting Severity: Mild Diarrhea/Melena/Hematochezia GI Symptom: Negative for Diarrhea, Melena or Hematochezia Associated Symptoms Associated Symptoms: Negative for Dysuria, Frequency or Hematuria Narrative Narrative: 78-year-old female limited informant. History of multiple prior strokes with right-sided hemiplegia and history of A-fib and gallstones. Patient goes to an adult daycare center. I spoke to Antonio one of the workers there today. She states the patient had 1 episode emesis at home prior to going to daycare and then 3 episodes there. No gross blood. No coffee-ground. They just wanted her evaluated. Prior similar symptoms: Yes Recent Illness/Hospitalization: No PFSH PFSH Medical History A-fib Anxiety disorder, unspecified CVA (cerebral vascular accident) CVA (cerebral vascular accident) Fall Hemiplegia HLD (hyperlipidemia) HTN (hypertension) Major depressive disorder, recurrent, mild Sarcopenia Home Medications sertraline 25 mg tablet (Zoloft) 25 mg PO DAILY mental health 03/07/18 [History Last Taken Unknown] simvastatin 40 mg tablet 40 mg PO QHS cholesterol 03/07/18 [History Last Taken Unknown] apixaban 5 mg tablet (Eliquis) 5 mg PO BID blood thinner 03/09/18 [History Last Taken Unknown] acetaminophen 650 mg tablet 650 mg PO Q4H PRN Pain 03/10/23 [History Last Taken Unknown] cholecalciferol (vitamin D3) 1,250 mcg (50,000 unit) capsule 1,250 mcg PO QWEEK 03/10/23 [History Last Taken Unknown] cyanocobalamin (vitamin B-12) 500 mcg tablet 500 mcg PO DAILY 03/10/23 [History Last Taken Unknown] mirtazapine 7.5 mg tablet 7.5 mg PO QHS 03/10/23 [History Last Taken Unknown] pantoprazole 20 mg tablet,delayed release 20 mg PO DAILY 03/10/23 [History Last Taken Unknown] polyethylene glycol 3350 17 gram oral powder packet 17 g PO BID PRN Constipation 03/10/23 [History Last Taken Unknown] ondansetron 4 mg disintegrating tablet 4 mg PO Q6H PRN PRN Nausea #15 tabs 11/15/23 [Rx Last Taken Unknown] ondansetron 4 mg disintegrating tablet 4 mg PO Q6H PRN nausea and vomiting #7 tabs 02/26/24 [Rx Last Taken Unknown] Allergy/AdvReac Type Severity Reaction Status Date / Time No Known Allergies Allergy Verified 02/26/24 09:16 Social History Smoking Status: Never smoker ROS ROS ED ROS Narrative Nausea and vomiting.Patient is a very limited informant. There is no family here with her. I did speak to the adult daycare center. Review of Systems ROS Unobtainable: Denies due to encephalopathy Constitutional Constitutional ED: Denies chills or fever(s) ENT ENT ED: Denies ear pain Cardiovascular Cardiovascular: Denies chest pain Respiratory/Chest Respiratory/Chest: Denies cough or dyspnea Gastrointestinal Gastrointestinal: Reports nausea and vomiting; Denies abdominal pain, constipation, diarrhea or melena Genitourinary Genitourinary ED: Denies dysuria or hematuria Musculoskeletal Musculoskeletal: Denies arthralgias or back pain Integumentary Denies abscess or Abrasions Neurologic Neurologic: Denies headache(s) Psychiatric Psychiatric: Denies anxiety or depression Endocrine Endocrinology: Denies polydipsia Hematologic/Lymphatic Hematologic/Lymphatic: Denies easy bleeding Allergic/Immunologic Allergic/Immunologic ED: Denies mouth swelling, tongue swelling or urticaria EXAM Physical Exam Narrative Exam Narrative: 78-year-old female sitting upright in bed. Vital signs are stable afebrile. Pulse ox 100% on room air no hypoxia. No distress. H EENT exam mildly dry mucous membranes. Pupils round reactive light. Neck nontender. No lymphadenopathy. Lungs clear to auscultation bilateral. Heart regular rhythm rate about 85 no murmur. Chest wall and ribs nontender. Abdomen soft, nontender, nondistended, normal bowel sounds without peritoneal signs. No obstruction. No mass. No localizing tenderness. Both the right upper and right lower quadrant unremarkable. No hernia or mass. She is paralyzed on the right upper and lower extremity. Both hands are in contractures. She can lift the left arm and the left leg. Patient is awake. Her eyes are open. She is a very limited informant. Const Vital Signs: 02/26/24 09:14 Temperature 96.8 F L Temperature Source Temporal Pulse Rate 85 Respiratory Rate 16 Blood Pressure 138/96 H Blood Pressure Mean 110 Pulse Ox 100 Oxygen Delivery Method Room Air Positive well nourished and well developed; Negative for obese, cachectic, contractures or unkempt General Appearance ED: well developed and NAD; Negative for unkempt, cachectic, contractures or pallor Nutritional Appearance: Negative for cachectic or obese HEENT Reports dry mucous membranes; Denies moist mucous membranes normocephalic and atraumatic; Negative for trauma or tenderness Mouth ED: Yes dry mucous membranes Mouth: dry mucous membranes Eyes PERRL and EOMs intact bilaterally General Eye ED: Negative for pale conjunctiva or scleral icterus Neck no lymphadenopathy, supple and no JVD General: Negative for tenderness Lymph Lymphatic: Negative for other Resp normal respiratory effort and clear to auscultation bilaterally Effort and Inspection: Negative for respiratory distress Auscultation: Negative for rales, rhonchi, wheezes or diminished lung sounds Cardio regular rate, regular rhythm, S1 normal heart sound, S2 normal heart sound and no murmurs Rate: Negative for bradycardia or tachycardic Rhythm: Negative for abnormal rhythm GI non-tender, non-distended and no masses Inspection: Negative for abdominal distention Auscultation: normoactive bowel sounds Palpation: soft; Negative for tender, guarding, hernia, mass, pulsatile mass or rebound tenderness present Back/Spine no CVA tenderness General Back: Negative for CVA tenderness Cervical Spine: Negative for cervical spine tenderness Lumbar Spine / Lower Back: Negative for lumbar spinal tenderness Coccyx: Negative for other Extremity Negative for full ROM Extremity Narrative: Right-sided hemiplegia. General Extremety ED: Negative for edema General Extremity: Negative for edema Neuro CN's II-XII intact bilaterally and No moves all extremities Neuro Narrative: Right-sided paralysis upper and lower extremity. Sensorium / Orientation: alert and oriented to person Motor Exam: Negative for strength 5/5 throughout, general weakness or strength abnormal Psych mental status grossly normal and thought process normal Appearance: Negative for unkempt Attitude: No agitated Mood & Affect: Negative for depressed, anxious or tearful Skin no wounds General Skin Exam: Negative for jaundice or pallor Lesions: no lesions Rashes: no rashes Trauma: Negative for abrasion Nails: Negative for discolored MDM MDM MDM Narrative Medical decision making narrative: 78-year-old female from [facility] with nausea and vomiting. Exam is completely benign. She has had prior strokes and right-sided paralysis. Is not new. Her abdomen is completely nontender and not distended. I will treat her with IV fluids and Zofran for nausea. Check screening labs. I do not think she needs any imaging. Repeat exam patient is resting comfortably in bed. Abdomen is nontender nondistended. Labs are unremarkable. She will be discharged back to the [facility]. History & Record Review Discussion w/independent historian: Patient and Other (I called the [facility].) Additional record(s) reviewed:: Prior inpatient record, Prior outpatient record, Prior ED visit and Prior labs Lab Data Attestation: I reviewed the patient's lab results. Lab results narrative: CBC shows a white count of 12. H&H 14.2 and 44. Platelets 231. Electrolytes show gap 5. BUN of 37 creatinine 1.64 consistent with dehydration. She was treated with IV fluids. Glucose 131. Liver enzymes normal. Labs: Laboratory Results - last 24 hr 02/26/24 09:50 WBC 12.0 H RBC 4.66 Hgb 14.2 Hct 44.3 MCV 95.1 MCH 30.5 MCHC 32.1 RDW Std Deviation 50.2 H RDW Coeff of Pelon 14.6 Plt Count 231 MPV 12.2 H Immature Gran % (Auto) 0.300 Neut % (Auto) 79.1 H Lymph % (Auto) 12.1 L [place] % (Auto) 4.3 Eos % (Auto) 3.7 Baso % (Auto) 0.5 Absolute Neuts (auto) 9.5 H Absolute Lymphs (auto) 1.45 Nucleated RBC % 0 Sodium 140 Potassium 4.4 Chloride 107 Carbon Dioxide 28.0 Anion Gap 5 BUN 37 H Creatinine 0.64 Estim Creat Clear Calc 49.59 Est GFR (MDRD) Af Amer 116 Est GFR (MDRD) Non-Af 96 BUN/Creatinine Ratio 57.9 H Glucose 131 H Calcium 9.7 Total Bilirubin 1.40 H AST 24 ALT 18 Alkaline Phosphatase 83 Total Protein 7.5 Albumin 3.4 Globulin 4.1 Albumin/Globulin Ratio 0.8 L Discharge Plan Triage Chief Complaint: Nausea/Vomiting ED Provider: Oren Vasquez Dx/Rx/DC Orders Clinical Impression: History of paralysis, History of atrial fibrillation, History of stroke, Nausea & vomiting Instructions: ED Vomiting (Adult) Prescriptions: New ondansetron 4 mg tablet,disintegrating 4 mg PO Q6H PRN (Reason: nausea and vomiting) Qty: 7 0RF No Action simvastatin 40 MG tablet 40 mg PO QHS Patient Comments: sertraline [Zoloft] 25 MG tablet 25 mg PO DAILY Eliquis 5 MG tablet 5 mg PO BID pantoprazole 20 mg tablet,delayed release (DR/EC) 20 mg PO DAILY cyanocobalamin (vitamin B-12) 500 mcg Tablet 500 mcg PO DAILY mirtazapine 7.5 mg tablet 7.5 mg PO QHS cholecalciferol (vitamin D3) 1,250 mcg (50,000 unit) Capsule 1,250 mcg PO QWEEK Rx Instructions: Saturday polyethylene glycol 3350 17 gram Powder In Packet 17 g PO BID PRN (Reason: Constipation) acetaminophen 650 mg Tablet 650 mg PO Q4H PRN (Reason: Pain) ondansetron [ondansetron] 4 mg tablet,disintegrating 4 mg PO Q6H PRN PRN (Reason: Nausea) Qty: 15 0RF Primary Care Provider: Chelsi Marks Referrals: Chelsi Marks MD [Primary Care Provider] - 3-5 Days if not improving Activity Restrictions/Additional Instructions: Plenty of fluids and rest. Anderson diet and increase slowly as tolerated. Zofran as needed for vomiting and nausea. Follow-up with primary care physician not improving or return if worse. Disposition Disposition: Home, Self Care
[2024-02-26] MEDS: 0.9% Normal Saline (500mL Bag) 500 ML 1000 ML IV (09:48)
[2024-02-26] MEDS: Ondansetron 4 MG/2 ML Vial IV (09:49)
[2024-02-26 10:04] LABS: Absolute Lymphocyte Count 1.45 X10^3/uL (0.83-4.51); Absolute Neutrophil Count 9.5 X10^3/uL (2.0-7.7); Basophil# 0.06 X10^3/uL; Basophil% 0.5 % (0-1); Eosinophil# 0.45 X10^3/uL; Eosinophils% 3.7 % (0-5); Hematocrit 44.3 % (37-47); Hemoglobin 14.2 g/dL (12.0-15.0); Lymphocyte # 1.45 X10^3/ul (0.83-4.51); Lymphocyte % 12.1 % (19-41); Mean Corp Hgb Conc 32.1 g/dL (32-36); Mean Corpuscular Hgb 30.5 pg (27.0-32.0); Mean Corpuscular Volume 95.1 fL (81-99); Mean Platelet Vol. 12.2 fl (6.2-12.0); Monocyte# 0.52 X10^3/uL; Monocyte% 4.3 % (0-10); NRBC Flagged by Analyzer 0 % (0-5); Neutrophil % 79.1 % (47-70); Platelet Count 231 K/mm3 (150-450); RBC Distribution Width CV 14.6 % (11.6-14.6); RBC Distribution Width SD 50.2 fl (35.1-43.9); Red Blood Count 4.66 M/mm3 (4.2-5.4)
[2024-02-26 10:20] LABS: ALB/GLOB Ratio 0.8 RATIO (0.9-2.4); AST(SGOT) 24 U/L (15-37); Alanine Aminotransfer ALT/SGPT 18 U/L (13-56); Albumin, Serum 3.4 g/dL (3.2-5.0); Alkaline Phosphatase 83 U/L (45-117); Anion Gap 5 (5-15); BUN 37 mg/dL (7-18); BUN/Creat Ratio 57.9 RATIO (10-20); Calcium,Total 9.7 mg/dL (8.5-10.1); Chloride 107 mmol/L (98-107); Creatinine, Serum 0.64 mg/dL (0.55-1.02); EST Glomerular Filtration Rate 96 mL/min (>60); Est Glom Filt Rate - Afr Amer 116 mL/min (>60); Estimated Creatinine Clearance 49.59 ml/min; Globulin 4.1 g/dL (2.2-4.2); Glucose 131 mg/dL (74-106); Potassium 4.4 mmol/L (3.5-5.1); Protein, Total 7.5 g/dL (6.4-8.2); Sodium Level 140 mmol/L (136-145)
--- NOTE | 2024-02-26 10:38 | ED.RN ---
Attempted to call both emergency contacts on file. No answer.
--- NOTE | 2024-02-26 10:39 | ED.RN ---
Andrei coming to pick patient up.
[2024-02-26 10:43] VITALS: BP 128/72; PULSE 84; RESP 22; TEMP 36.1; O2SAT 94
== END 2024-02-26 11:02 | disposition home or self-care (01) ==
PROVIDERS: Emergency Provider Emergency Medicine; PCP Internal Medicine; Visit Provider Emergency Medicine
DX: R11.2 Nausea with vomiting, unspecified (principal); I69.351 Hemiplegia and hemiparesis following cerebral infarction affecting right dominant side; I48.91 Unspecified atrial fibrillation; E78.5 Hyperlipidemia, unspecified; I10 Essential (primary) hypertension; F41.9 Anxiety disorder, unspecified; Z79.899 Other long term (current) drug therapy; Z79.01 Long term (current) use of anticoagulants; F33.0 Major depressive disorder, recurrent, mild
CPT/HCPCS: 80053; 85025; 96361; 96374; 99283; J7040; A4216; J2405

== ENCOUNTER 2024-05-08 08:54 | Inpatient (IN) | payer MEDICARE, MEDICAID, SELFPAY ==
[2024-05-08] VITALS (14 sets, daily range): BP systolic 74–152; BP diastolic 50–91; PULSE 68–99; RESP 16–19; TEMP 35.8–36.7; O2SAT 98–100; BMI 23.8
--- NOTE | 2024-05-08 09:09 | ED.RN ---
Daughter is very upset that patient is here. She said that she was not with the patient the last time, but she came here and we did nothing and sent her back. Daughter took her to [facility] and she was admitted for 5 days. Daughter asked if we could transfer the patient to [facility]. I told her that we couldn't just call transport to take her there, but I would let the Dr know and would also let the Patient Advocate know. Tyrell has been called and Dr Hill is aware.
--- NOTE | 2024-05-08 09:16 | EKG12_ITS ---
Test Reason : GI BLEED Blood Pressure : / mmHG Vent. Rate : 074 BPM Atrial Rate : 296 BPM P-R Int : 000 ms QRS Dur : 082 ms QT Int : 432 ms P-R-T Axes : 070 032 038 degrees QTc Int : 479 ms Atrial flutter with 4:1 A-V conduction Abnormal ECG Confirmed by JOMAR ABREU, VALDO ([id number]), development editor GLENROY JERNIGAN ([id number]) on 05/11/2024 11:01:04 AM Referred By: Confirmed By:VALDO HADLEY MD
[2024-05-08] MEDS: 0.9% Normal Saline (1000mL) 1,000 ML 150 ML IV ×3 (09:33→20:04)
[2024-05-08] MEDS: Ondansetron 4 MG/2 ML Vial IV (09:33)
[2024-05-08 09:38] LABS: Absolute Lymphocyte Count 1.29 X10^3/uL (0.83-4.51); Absolute Neutrophil Count 6.1 X10^3/uL (2.0-7.7); Basophil# 0.06 X10^3/uL; Basophil% 0.7 % (0-1); Eosinophil# 0.34 X10^3/uL; Eosinophils% 4.1 % (0-5); Hemoglobin 10.4 g/dL (12.0-15.0); Lymphocyte # 1.29 X10^3/ul (0.83-4.51); Lymphocyte % 15.5 % (19-41); Mean Corp Hgb Conc 29.7 g/dL (32-36); Mean Corpuscular Hgb 25.1 pg (27.0-32.0); Mean Corpuscular Volume 84.3 fL (81-99); Mean Platelet Vol. 12.9 fl (6.2-12.0); Monocyte# 0.52 X10^3/uL; Monocyte% 6.2 % (0-10); NRBC Flagged by Analyzer 0 % (0-5); Neutrophil # 6.08 X10^3/uL (2.7-7.7); Platelet Count 211 K/mm3 (150-450); RBC Distribution Width CV 17.2 % (11.6-14.6); Red Blood Count 4.15 M/mm3 (4.2-5.4); White Blood Count 8.3 K/mm3 (4.4-11.0)
[2024-05-08 09:50] LABS: AST(SGOT) 16 U/L (15-37); Alanine Aminotransfer ALT/SGPT 17 U/L (13-56); Albumin, Serum 2.9 g/dL (3.2-5.0); Alkaline Phosphatase 84 U/L (45-117); Anion Gap 5 (5-15); BUN 13 mg/dL (7-18); BUN/Creat Ratio 22.5 RATIO (10-20); Bilirubin, Direct 0.22 mg/dL (0.00-0.30); Calcium,Total 8.4 mg/dL (8.5-10.1); Chloride 109 mmol/L (98-107); Creatinine, Serum 0.58 mg/dL (0.55-1.02); EST Glomerular Filtration Rate 107 mL/min (>60); Est Glom Filt Rate - Afr Amer 130 mL/min (>60); Globulin 3.5 g/dL (2.2-4.2); Glucose 135 mg/dL (74-106); Lipase 19 U/L (13-75); Potassium 4.5 mmol/L (3.5-5.1); Protein, Total 6.4 g/dL (6.4-8.2); Sodium Level 143 mmol/L (136-145)
[2024-05-08 09:53] LABS: International Normalized Ratio 1.8; Partial Thromboplast Time 32.5 Seconds (24.1-36.2); Prothrombin Time (Protime)PT. 20.8 SECONDS (11.7-14.9)
[2024-05-08] MEDS: Pantoprazole Sodium 80 MG in 0.9% Normal Saline (100mL Bag) 80 ML 10 MG CONT INF ×2 (10:01→22:07)
--- NOTE | 2024-05-08 10:06 | EDS_ITS ---
HPI History of Present Illness Chief Complaint: GI Bleed Informant: patient and family Onset/Context/Timing Onset: Today Narrative Narrative: Patient presents secondary to upper G.I. bleed. She was in the F van for transport today when she started vomiting large amounts of blood. She was transported via EMS. EMS notes that the staff member was washing out the back of the van with a hose because of the large amount of blood. Patient denies abdominal pain or nausea at this time. Patient was admitted to [facility] approximately two months ago with an upper G.I. bleed. She had an EGD that showed a esophagitis and gastritis with evidence of ulcers, but no active bleeding at that time. Patient is currently on Eliquis secondary to a history of A-fib. [facility] Medical History (Updated 05/08/24 @ 16:[address] Karon Hill MD) Fall Major depressive disorder, recurrent, mild Anxiety disorder, unspecified Sarcopenia Hemiplegia CVA (cerebral vascular accident) HTN (hypertension) HLD (hyperlipidemia) A-fib Home Medications ?Medication ?Instructions ?Recorded ?Last Taken ?Type sertraline 25 mg tablet (Zoloft) 50 mg PO DAILY mental health 03/07/18 05/08/24 History apixaban 5 mg tablet (Eliquis) 5 mg PO BID blood thinner 03/09/18 05/08/24 History pantoprazole 20 mg tablet,delayed 20 mg PO DAILY 03/10/23 Unknown History release atorvastatin 20 mg tablet 20 mg PO DAILY 05/08/24 05/08/24 History meloxicam 15 mg tablet 15 mg PO DAILY 05/08/24 05/08/24 History metformin 500 mg tablet 500 mg PO DAILY 05/08/24 05/08/24 History Allergy/AdvReac Type Severity Reaction Status Date / Time No Known Allergies Allergy Verified 05/08/24 09:01 Surgical History (Updated 05/08/24 @ 11:[address] Melvin Celaya MD) Percutaneous endoscopic gastrostomy status Social History Smoking Status: Never smoker ROS ROS ED Constitutional Constitutional ED: Denies chills or fever(s) ENT ENT ED: Denies rhinorrhea or sore throat Cardiovascular Cardiovascular: Denies chest pain or palpitations Respiratory/Chest Respiratory/Chest: Denies cough or dyspnea Gastrointestinal Gastrointestinal: Reports nausea, vomiting and other Details: hematemesis ; Denies abdominal pain or diarrhea Musculoskeletal Musculoskeletal: Denies back pain or extremity pain Integumentary Denies Abrasions or rash Neurologic Neurologic: Denies headache(s) Allergic/Immunologic Allergic/Immunologic ED: Denies lip swelling or urticaria EXAM Physical Exam Const Vital Signs: 05/08/24 08:57 05/08/24 09:55 05/08/24 10:00 Temperature 98.0 F Temperature Source Oral Pulse Rate 74 74 73 Respiratory Rate 18 18 18 Blood Pressure 152/77 H 118/76 118/62 Blood Pressure Mean 102 90 80 Pulse Ox 100 98 99 Oxygen Delivery Method Room Air Room Air Room Air 05/08/24 10:32 Temperature 97.7 F L Temperature Source Pulse Rate 78 Respiratory Rate 19 H Blood Pressure 140/50 H Blood Pressure Mean 80 Pulse Ox 98 Oxygen Delivery Method Positive cachectic General Appearance ED: cachectic Nutritional Appearance: cachectic HEENT HEENT Narrative: Dried blood noted around nares. Eyes EOMs intact bilaterally Chest Wall inspection of chest normal and palpation of chest normal Resp normal respiratory effort and clear to auscultation bilaterally Cardio regular rate and regular rhythm GI non-tender Auscultation: hypoactive bowel sounds Palpation: soft Extremity Extremity Narrative: right sided contractures Neuro Neuro Narrative: Patient alert. Chronic right sided weakness and contractures from prior stroke. Skin no rashes or lesions noted MDM MDM MDM Narrative Medical decision making narrative: Patient placed on hand or machine paster. IV line initiated. EKG obtained to evaluate for underlying cardiac rhythm. Lab work, including CBC, chemistry studies, and coags obtained to a evaluate for anemia and coagulopathy. Patient given IV protonix drip. Zofran given for nausea. History & Record Review Discussion w/independent historian: Patient and Family Additional record(s) reviewed:: Prior inpatient record, Prior ED visit and Prior labs Lab Data Attestation: I reviewed the patient's lab results. Labs: Laboratory Results - last 24 hr 05/08/24 09:25 WBC 8.3 RBC 4.15 L Hgb 10.4 L Hct 35.0 L MCV 84.3 MCH 25.1 L MCHC 29.7 L RDW Std Deviation 53.0 H RDW Coeff of Pelon 17.2 H Plt Count 211 MPV 12.9 H Immature Gran % (Auto) 0.500 Neut % (Auto) 73.0 H Lymph % (Auto) 15.5 L [place] % (Auto) 6.2 Eos % (Auto) 4.1 Baso % (Auto) 0.7 Absolute Neuts (auto) 6.1 Absolute Lymphs (auto) 1.29 Nucleated RBC % 0 PT 20.8 H INR 1.8 APTT 32.5 Sodium 143 Potassium 4.5 Chloride 109 H Carbon Dioxide 29.0 Anion Gap 5 BUN 13 Creatinine 0.58 Est GFR (MDRD) Af Amer 130 Est GFR (MDRD) Non-Af 107 BUN/Creatinine Ratio 22.5 H Glucose 135 H Calcium 8.4 L Total Bilirubin 0.70 Direct Bilirubin 0.22 AST 16 ALT 17 Alkaline Phosphatase 84 Total Protein 6.4 Albumin 2.9 L Globulin 3.5 Lipase 19 Blood Type A POSITIVE Antibody Screen NEGATIVE Crossmatch See Detail EKG Initial EKG: Attestation: I personally reviewed and interpreted this EKG as follows: Interpretation: Atrial Flutter (A flutter with 4:1 conduction.) Treatment and Re-Evaluation :: CBC reveals normal White count at 8.3 with a hemoglobin of 10.4. Hemoglobin at the time of discharge from [facility] on March 01 was 8.1. Chemistry studies are unremarkable with a normal BUN. INR is elevated at 1.8. On repeat evaluation patient is sleeping comfortably and has had no further vomiting here. Test results are discussed with daughter at bedside. I spoke with , Friend, search engine optimization strategist for [employer]. Patient is to remain on Protonix drip. Patient is to be kept NPO with plan for scope later today. I will speak with hospitalist for admission. Discharge Plan Dx/Rx/DC Orders Clinical Impression: Acute upper GI bleed Disposition Disposition: [facility] Discharge Date/Time: 05/08/24 11:36
--- NOTE | 2024-05-08 10:41 | NURSING ---
1130 SURGERY FOR SCOPE
--- NOTE | 2024-05-08 10:44 | ED.RN ---
Report given to nurse prior to patient leaving for EGD
--- NOTE | 2024-05-08 10:44 | NURSING ---
DR SHIRLEY FOR DR KHAN
--- NOTE | 2024-05-08 10:57 | HP.PCM.HOS_ITS ---
HPI - General General Date of Admission: 05/08/24 Date of Service: 05/08/24 Chief Complaint: Vomiting blood HPI Narrative OSEAS PATHAK, is a 78-year-old female with a history of rheumatoid arthritis, CVA with residual right sided deficits, G.I. bleed, if it on Eliquis, he presented to or [facility], ED 05/08/24 with vomiting, bright red blood. In the ED hemoglobin was 10.4 however, given the witnessed a large volume hematemesis G.I. contacted and recommended protonic strip, and that she would go for endoscopy. Hospitals contact information. Valuated patient with daughter at bedside and they reported no blood in the stool however, just today started having a significant volume hematemesis to the point that the inside of the van she was in had to be rinsed out with a hose. She denies any abdominal pain, has had some difficulty with urination and daughter is concerned she has a UTI, but otherwise denies any complaints. of note, she did have G.I. bleed in February and was an omen for five days that was discharged in stable condition and has not had trouble since that time. [facility] Medical History (Updated 05/08/24 @ 11:[address] Carly Cuenca MD) A-fib Anxiety disorder, unspecified CVA (cerebral vascular accident) CVA (cerebral vascular accident) Fall Hemiplegia HLD (hyperlipidemia) HTN (hypertension) Major depressive disorder, recurrent, mild Sarcopenia Home Medications ?Medication ?Instructions ?Recorded ?Last Taken ?Type sertraline 25 mg tablet (Zoloft) 50 mg PO DAILY mental health 03/07/18 05/08/24 History apixaban 5 mg tablet (Eliquis) 5 mg PO BID blood thinner 03/09/18 05/08/24 History pantoprazole 20 mg tablet,delayed 20 mg PO DAILY 03/10/23 Unknown History release atorvastatin 20 mg tablet 20 mg PO DAILY 05/08/24 05/08/24 History meloxicam 15 mg tablet 15 mg PO DAILY 05/08/24 05/08/24 History metformin 500 mg tablet 500 mg PO DAILY 05/08/24 05/08/24 History Allergy/AdvReac Type Severity Reaction Status Date / Time No Known Allergies Allergy Verified 05/08/24 09:01 Social History Smoking Status: Never smoker ROS Constitutional Constitutional: Denies chills, fever(s) or night sweats Eyes Eyes: Denies change in vision ENT HEENT: Denies headache(s), nasal congestion or sore throat Cardiovascular Cardiovascular: Denies chest pain or palpitations Respiratory/Chest Respiratory/Chest: Denies cough or productive cough Gastrointestinal Gastrointestinal: Reports other Details: +hematemasis, no changes in bowel ; Denies abdominal pain Genitourinary Genitourinary: Reports other Details: some difficulty with urination and also urinary frequency Musculoskeletal Musculoskeletal: Denies joint pain Neurologic Neurologic: Reports other Details: has R sided residual deficits ; Denies headache(s) Psychiatric Psychiatric: Denies anxiety Hematologic/Lymphatic Hematologic/Lymphatic: Denies easy bleeding Allergic/Immunologic Allergic/Immunologic: Reports other Details: denies rashes Vital Signs Vital Signs Vital Signs: 05/08/24 08:57 05/08/24 09:55 05/08/24 10:00 Temperature 98.0 F Temperature Source Oral Pulse Rate 74 74 73 Respiratory Rate 18 18 18 Blood Pressure 152/77 H 118/76 118/62 Blood Pressure Mean 102 90 80 Pulse Ox 100 98 99 Oxygen Delivery Method Room Air Room Air Room Air 05/08/24 10:32 Temperature 97.7 F L Temperature Source Pulse Rate 78 Respiratory Rate 19 H Blood Pressure 140/50 H Blood Pressure Mean 80 Pulse Ox 98 Oxygen Delivery Method Physical Exam Const alert and no apparent distress Constitutional Narrative: Oriented HEENT head/scalp atraumatic Eyes Eyes Narrative: EOM grossly intact, anicteric Neck supple Resp normal respiratory effort and clear to auscultation bilaterally Cardio regular rate and regular rhythm GI soft to palpation, non-tender and non-distended Extremity Extremity Narrative: No edema appreciated Neuro Neuro Narrative: chronic R sided contractures and deficits noted Psych Psych Narrative: Cooperative Results Lab / Micro Data 05/08/24 09:25 05/08/24 09:25 Labs: Laboratory Results - last 24 hr 05/08/24 09:25: WBC 8.3, RBC 4.15 L, Hgb 10.4 L, Hct 35.0 L, MCV 84.3, MCH 25.1 L, MCHC 29.7 L, RDW Std Deviation 53.0 H, RDW Coeff of Pelon 17.2 H, Plt Count 211, MPV 12.9 H, Immature Gran % (Auto) 0.500, Neut % (Auto) 73.0 H, Lymph % (Auto) 15.5 L, [place] % (Auto) 6.2, Eos % (Auto) 4.1, Baso % (Auto) 0.7, Absolute Neuts (auto) 6.1, Absolute Lymphs (auto) 1.29, Nucleated RBC % 0, PT 20.8 H, INR 1.8, APTT 32.5, Sodium 143, Potassium 4.5, Chloride 109 H, Carbon Dioxide 29.0, Anion Gap 5, BUN 13, Creatinine 0.58, Est GFR (MDRD) Af Amer 130, Est GFR (MDRD) Non-Af 107, BUN/Creatinine Ratio 22.5 H, Glucose 135 H, Calcium 8.4 L, Total Bilirubin 0.70, Direct Bilirubin 0.22, AST 16, ALT 17, Alkaline Phosphatase 84, Total Protein 6.4, Albumin 2.9 L, Globulin 3.5, Lipase 19, Blood Type A POSITIVE, Antibody Screen NEGATIVE Assessment & Plan Assessment/Plan (1) Acute upper GI bleed: (2) Afib: QUALIFIERS: Atrial fibrillation type: unspecified Qualified Code(s): I48.91 - Unspecified atrial fibrillation (3) Acute ischemic right MCA stroke: (4) Anxiety disorder, unspecified: PLAN: Plan #Hematemasis, concern for UGIB -Recent UGIB seen at [place] for 5 days in February -Presented with large volume hematemasis -Hgb 10.5 but given extent of bleeding pt taken to EGD urgently -Type and screened -PPI gtt -GI c/s -Holding eliquis -Also appears pt was taking meloxicam at home, will d/c #Hx CVA w/ residual deficits -Holding eliquis -Cont statin #Hx afib/flutter -Holding eliquis -No rate controlled medications, pt not tachycardic #Anx -Continue sertraline DVT: SCDS Charges/Coding Visit Charges Inpatient E&M: 57387 Init Hosp L1
--- NOTE | 2024-05-08 10:58 | NURSING ---
ENDO FRIEND UPPER GI BLEED
--- NOTE | 2024-05-08 11:23 | PCM.PRE.AN2 ---
ASA Classification* ASA Classification ASA Classification: 3 and E Assessment & Plan Anesthesia* Anesthesia Assessment Anesthesia Assessment: Discussed sedation and/or anesthesia options, risks, benefits, and alternatives with patient/parents/legal guardian/POA. Questions invited. The patient/parents/legal guardian/POA seems to understand and agrees to proceed with anesthesia plan. Reviewed the physical assessment, medical history, allergy history and patient home medications list prior to surgery/procedure/anesthetic and documented any changes. Performed airway and anesthesia risk assessments. Anesthesia Type Anesthesia Type: MAC History Source History Obtained from:: Patient and Chart Anesthesia Focused Assessment* Temperature: 97.7 F Pulse Rate: 78 Blood Pressure: 140/50 Respiratory Rate: 19 Pulse Ox: 98 Oxygen Delivery Method: Room Air Airway Assessment Mouth opens: 2 cm Mallampati Score: IV Teeth Condition: Missing (Patient is missing most of her teeth. one small remnant remaining. No dentures) Neck Range of motion (ROM): Limited ROM Pertinent Findings EKG Pertinent Findings:: 05/08/2024. Atrial Flutter with a 4:1 AV conduction Focused Labs Anesthesia Preop lab: CBC WBC 8.3 K/mm3 (4.4-11.0) 05/08/24 09:25 RBC 4.15 M/mm3 (4.2-5.4) L 05/08/24 09:25 Hgb 10.4 g/dL (12.0-15.0) L 05/08/24 09:25 Hct 35.0 % (37-47) L 05/08/24 09:25 Plt Count 211 K/mm3 (150-450) 05/08/24 09:25 CHEMISTRY Potassium 4.5 mmol/L (3.5-5.1) 05/08/24 09:25 Sodium 143 mmol/L (136-145) 05/08/24 09:25 Magnesium 1.7 mg/dL (1.8-2.4) L 02/03/15 05:16 Phosphorus 3.3 mg/dL (2.5-4.9) 02/03/15 05:16 BUN 13 mg/dL (7-18) 05/08/24 09:25 Creatinine 0.58 mg/dL (0.55-1.02) 05/08/24 09:25 Glucose 135 mg/dL (74-106) H 05/08/24 09:25 POC Glucose 87 mg/dL (70-110) 04/06/14 12:42 TSH 0.93 uIU/mL (0.358-3.74) 01/09/23 06:35 COAG PT 20.8 SECONDS (11.7-14.9) H 05/08/24 09:25 Pre-Assessment Diagnosis/Proposed Procedure Planned Operative Procedure(s): Esophagogastroduodenoscopy with possible biopsy. 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 When Was Last Pacemaker Check QUESTION #4 FULL TEXT: You/Your Family Experience fever (hyperthermia) with Anesthesia Last Oral Intake Last Oral intake: Last Oral Intake NPO since Meds taken in AM with sips of water? Meds patient instructed to take am of surgery Any additional information?: Yes NPO since: 06:45 (Pt had breakfast at 6:45. Had emesis and hematemesis which brought her into hospital.) PONV PONV - customer solutions coordinator: PONV - customer solutions coordinator Female HX of Motion Sickness HX of N/V After Surgery Non-Smoker Duration of Surgery greater than 60 minutes Number of Risk Factors PONV Score Height & Weight Height & Weight: Anesthesia: Height & Weight Height 5 ft 1 in 05/08/24 08:57 Respiratory Assessment Respiratory Assessment - customer solutions coordinator: Respiratory Tract Infection Hx - customer solutions coordinator Hx Respiratory Tract Infection No 03/31/14 18:57 STOP Sleep Apnea STOP Sleep Apnea - customer solutions coordinator: STOP Sleep Apnea - customer solutions coordinator Hx Hypertension No 03/11/23 18:58 Hx Sleep Apnea No 03/10/23 18:31 CPAP No 03/10/23 18:31 BIPAP No 03/10/23 18:31 Do you snore loudly (louder than talking or can be heard Do you often feel tired/ fatigued/ sleepy during daytime? Has anyone observed you stop breathing during sleep? STOP Results QUESTION #5 FULL TEXT : Do you snore loudly (louder than talking or can be heard through closed doors)? 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 Specify any problems Hx of Preganancy in last 3 Months Nurse Filling Out Transfusion & Questions: Date: Time: Patient unable to answer at this time (ie. confused, unrespo /Reproduction History /Reproductive History - customer solutions coordinator: /Reproductive Hx- customer solutions coordinator Hx Now Gestational Age (in weeks): EDC: Hx Hx Para Hx Section SAB Active Medications Active Medications: Current Medications Generic Name Dose Route Start Last Admin Trade Name Freq PRN Reason Stop Dose Admin Sodium Chloride 1,000 mls @ 150 mls/hr 05/08/24 09:20 05/08/24 09:33 IV 150 mls/hr .[id number] JOSE Administration Pantoprazole Sodium 80 mg/ 100 mls @ 10 mls/hr 05/08/24 09:20 05/08/24 10:01 Sodium Chloride CONT INF 10 mls/hr Q10H JOSE Administration PFSH Medical History (Updated 05/08/24 @ 11:[address] Carly Cuenca MD) Fall Major depressive disorder, recurrent, mild Anxiety disorder, unspecified Sarcopenia Hemiplegia CVA (cerebral vascular accident) CVA (cerebral vascular accident) HTN (hypertension) HLD (hyperlipidemia) A-fib Home Medications ?Medication ?Instructions ?Recorded ?Last Taken ?Type sertraline 25 mg tablet (Zoloft) 50 mg PO DAILY mental health 03/07/18 05/08/24 History apixaban 5 mg tablet (Eliquis) 5 mg PO BID blood thinner 03/09/18 05/08/24 History pantoprazole 20 mg tablet,delayed 20 mg PO DAILY 03/10/23 Unknown History release atorvastatin 20 mg tablet 20 mg PO DAILY 05/08/24 05/08/24 History meloxicam 15 mg tablet 15 mg PO DAILY 05/08/24 05/08/24 History metformin 500 mg tablet 500 mg PO DAILY 05/08/24 05/08/24 History Allergy/AdvReac Type Severity Reaction Status Date / Time No Known Allergies Allergy Verified 05/08/24 09:01 Surgical History (Updated 05/08/24 @ 11:[address] Melvin Celaya MD) Percutaneous endoscopic gastrostomy status Social History Smoking Status: Never smoker Review of Systems (Anesthesia) ROS Narrative System reviewed and no additional complaints, except as documented.
--- NOTE | 2024-05-08 11:54 | EX.PCM.CON.G ---
HPI Consult Data Date of Consult: 05/08/24 HPI Narrative Reason for Consultation: GI bleed HPI Narrative: OSEAS PATHAK, is a 78 F who presents secondary to upper G.I. bleed. She was in the F van for transport today when she started vomiting, large amounts of blood. She was transported via EMS. EMS notes that the staff member was washing out the back of the van with a hose because of the large amount of blood. Patient denies abdominal pain or nausea at this time. Patient was admitted to hospital and approximately two months ago with an upper G.I. bleed. She had an EGD that showed a esophagitis and gastritis with evidence of ulcers, but no active bleeding at that time. In the ED hemoglobin was 10.4 however, given the witnessed a large volume hematemesis G.I. contacted and recommended protonic strip, and that she would go for endoscopy. Hospitals contact information. Valuated patient with daughter at bedside and they reported no blood in the stool however, just today started having a significant volume hematemesis to the point that the inside of the van she was in had to be rinsed out with a hose. [facility] Medical History (Updated 05/08/24 @ 11:[address] Carly Cuenca MD) Fall Major depressive disorder, recurrent, mild Anxiety disorder, unspecified Sarcopenia Hemiplegia CVA (cerebral vascular accident) CVA (cerebral vascular accident) HTN (hypertension) HLD (hyperlipidemia) A-fib Home Medications ?Medication ?Instructions ?Recorded ?Last Taken ?Type sertraline 25 mg tablet (Zoloft) 50 mg PO DAILY mental health 03/07/18 05/08/24 History apixaban 5 mg tablet (Eliquis) 5 mg PO BID blood thinner 03/09/18 05/08/24 History pantoprazole 20 mg tablet,delayed 20 mg PO DAILY 03/10/23 Unknown History release atorvastatin 20 mg tablet 20 mg PO DAILY 05/08/24 05/08/24 History meloxicam 15 mg tablet 15 mg PO DAILY 05/08/24 05/08/24 History metformin 500 mg tablet 500 mg PO DAILY 05/08/24 05/08/24 History Allergy/AdvReac Type Severity Reaction Status Date / Time No Known Allergies Allergy Verified 05/08/24 09:01 Surgical History (Updated 05/08/24 @ 11:[address] Melvin Celaya MD) Percutaneous endoscopic gastrostomy status Social History Smoking Status: Never smoker ROS Constitutional Constitutional: Denies chills, fever(s) or night sweats Eyes Eyes: Denies change in vision ENT HEENT: Denies headache(s), nasal congestion or sore throat Cardiovascular Cardiovascular: Denies chest pain or palpitations Respiratory/Chest Respiratory/Chest: Denies cough or productive cough Gastrointestinal Gastrointestinal: Reports other Details: +hematemasis, no changes in bowel ; Denies abdominal pain Genitourinary Genitourinary: Reports other Details: some difficulty with urination and also urinary frequency Musculoskeletal Musculoskeletal: Denies joint pain Neurologic Neurologic: Reports other Details: has R sided residual deficits ; Denies headache(s) Psychiatric Psychiatric: Denies anxiety Hematologic/Lymphatic Hematologic/Lymphatic: Denies easy bleeding Allergic/Immunologic Allergic/Immunologic: Reports other Details: denies rashes Physical Exam Const alert and no apparent distress Constitutional Narrative: Oriented HEENT head/scalp atraumatic Eyes Eyes Narrative: EOM grossly intact, anicteric Neck supple Resp normal respiratory effort and clear to auscultation bilaterally Cardio regular rate and regular rhythm GI soft to palpation, non-tender and non-distended Extremity Extremity Narrative: No edema appreciated Neuro Neuro Narrative: chronic R sided contractures and deficits noted Psych Psych Narrative: Cooperative Lab / Micro Data 05/08/24 09:25 05/08/24 09:25 Labs: Laboratory Results - last 24 hr 05/08/24 09:25: WBC 8.3, RBC 4.15 L, Hgb 10.4 L, Hct 35.0 L, MCV 84.3, MCH 25.1 L, MCHC 29.7 L, RDW Std Deviation 53.0 H, RDW Coeff of Pelon 17.2 H, Plt Count 211, MPV 12.9 H, Immature Gran % (Auto) 0.500, Neut % (Auto) 73.0 H, Lymph % (Auto) 15.5 L, [place] % (Auto) 6.2, Eos % (Auto) 4.1, Baso % (Auto) 0.7, Absolute Neuts (auto) 6.1, Absolute Lymphs (auto) 1.29, Nucleated RBC % 0, PT 20.8 H, INR 1.8, APTT 32.5, Sodium 143, Potassium 4.5, Chloride 109 H, Carbon Dioxide 29.0, Anion Gap 5, BUN 13, Creatinine 0.58, Est GFR (MDRD) Af Amer 130, Est GFR (MDRD) Non-Af 107, BUN/Creatinine Ratio 22.5 H, Glucose 135 H, Calcium 8.4 L, Total Bilirubin 0.70, Direct Bilirubin 0.22, AST 16, ALT 17, Alkaline Phosphatase 84, Total Protein 6.4, Albumin 2.9 L, Globulin 3.5, Lipase 19, Blood Type A POSITIVE, Antibody Screen NEGATIVE Assessment & Plan Assessment/Plan (1) Acute upper GI bleed: (2) Afib: QUALIFIERS: Atrial fibrillation type: unspecified Qualified Code(s): I48.91 - Unspecified atrial fibrillation (3) Acute ischemic right MCA stroke: (4) Anxiety disorder, unspecified: PLAN: Plan 78 yo with h/o afib and acute right MCA CVA on Eliquis with concern for UGIB. She was recently seen at [facility] for 5 days in February for UGIB. Recommended urgent upper endoscopy. Risk and benefits were explained to the patient and her daughter. -Hgb 10.5 but given extent of bleeding pt taken to EGD urgently -PPI gtt -Hold eliquis Charges/Coding Visit Charges Inpatient E&M: 83498 Init Hosp L3
[2024-05-08] MEDS: Epinephrine (1 mg/ml) 1 MG/ML VIAL (12:23)
[2024-05-08] MEDS: 0.9% Normal Saline (Pres. free 10 ML Vial (12:23)
--- NOTE | 2024-05-08 12:34 | OP.EGD_ITS ---
Patient Name: Deneen Guadalupe Procedure Date: 05/08/2024 10:40 AM Date of : 1945 Age: 78 Procedure: Upper GI endoscopy Indications: Active gastrointestinal bleeding Providers: Navdeep Barlow DO Medicines: Monitored Anesthesia Care Patient Profile: This is a 78 year old female. Refer to note in patient chart for documentation of history and physical. Patient has symptoms of acute vomiting. Complications: No immediate complications. Procedure: Pre-Anesthesia Assessment: - Prior to the procedure, a History and Physical was performed, and patient medications and allergies were reviewed. The patient is competent. The risks and benefits of the procedure and the sedation options and risks were discussed with the patient. All questions were answered and informed consent was obtained. Patient identification and proposed procedure were verified by the physician in the pre-procedure area. Mental Status Examination: alert and oriented. Airway Examination: normal oropharyngeal airway and neck mobility. Respiratory Examination: clear to auscultation. CV Examination: normal. Prophylactic Antibiotics: The patient does not require prophylactic antibiotics. Prior Anticoagulants: The patient has taken no anticoagulant or antiplatelet agents except for NSAID medication. ASA Grade Assessment: II - A patient with mild systemic disease. After reviewing the risks and benefits, the patient was deemed in satisfactory condition to undergo the procedure. The anesthesia plan was to use monitored anesthesia care (MAC). Immediately prior to administration of medications, the patient was re-assessed for adequacy to receive sedatives. The heart rate, respiratory rate, oxygen saturations, blood pressure, adequacy of pulmonary ventilation, and response to care were monitored throughout the procedure. The physical status of the patient was re-assessed after the procedure. After obtaining informed consent, the endoscope was passed under direct vision. Throughout the procedure, the patient's blood pressure, pulse, and oxygen saturations were monitored continuously. The Endoscope was introduced through the mouth, and advanced to the second part of duodenum. The upper GI endoscopy was accomplished without difficulty. The patient tolerated the procedure well. Scope In: 12:04:38 PM Scope Out: 12:26:03 PM Total Procedure Duration Time 0 hours 21 minutes 25 seconds Findings: The examined esophagus was normal. Two oozing cratered gastric ulcers with a visible vessel were found at the pylorus. The largest lesion was 6 mm in largest dimension. Area was successfully injected with 10 mL of a 0.1 mg/mL solution of epinephrine for hemostasis. Coagulation for hemostasis using heater probe was successful. Estimated blood loss was minimal. To prevent bleeding post-intervention, two hemostatic clips were successfully placed. Clip events administrative assistant: Giiv. There was no bleeding at the end of the procedure. A benign-appearing, intrinsic severe stenosis was found at the pylorus. This was traversed. Few non-bleeding cratered duodenal ulcers with no stigmata of bleeding were found in the duodenal bulb. The largest lesion was 6 mm in largest dimension. An acquired benign-appearing, intrinsic severe stenosis was found in the duodenal bulb and was traversed. Impression: - Normal esophagus. - Oozing gastric ulcers with a visible vessel. Injected. Treated with a heater probe. 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 - Non-bleeding duodenal ulcers with no stigmata of bleeding. - Acquired duodenal stenosis. - No specimens collected. Recommendation: - Return patient to hospital edge for ongoing care. - Clear liquid diet. - Continue present medications. Procedure Code(s): --- Professional --- 06546, Esophagogastroduodenoscopy, flexible, transoral; with control of bleeding, any method CPT copyright 2021 [employer]. All rights reserved. The codes documented in this report are preliminary and upon superintendent circus review may be revised to meet current compliance requirements. Navdeep Barlow DO 05/08/2024 12:34:13 PM This report has been signed electronically. Number of Addenda: 0 Note Initiated On: 05/08/2024 10:40 AM
--- NOTE | 2024-05-08 12:35 | OP.CCLET_ITS ---
05/08/2024 Wolfgang Re : Upper GI endoscopy procedure for Deneen Goss This procedure was performed on Wednesday, May 08, 2024. My impressions and recommendations are as follows: Impressions : - Normal esophagus. - Oozing gastric ulcers with a visible vessel. Injected. Treated with a heater probe. 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 - Non-bleeding duodenal ulcers with no stigmata of bleeding. - Acquired duodenal stenosis. - No specimens collected. Recommendations : - Return patient to hospital edge for ongoing care. - Clear liquid diet. - Continue present medications. My findings are described in the full procedure note, which is enclosed. If I can be of further assistance, please feel free to contact me at . Sincerely, Navdeep Barlow, 05/08/2024 12:34:13 PM This report has been signed electronically.
--- NOTE | 2024-05-08 12:55 | PCM.POST.ANE ---
Anesthesia: Postop Eval I Current Vital Signs Temperature: 97.7 F Pulse Rate: 92 Blood Pressure: 74/59 Respiratory Rate: 16 Pulse Ox: 100 Oxygen Delivery Method: Room Air Assessment Airway patent: Yes Spontaneous unlabored respirations: Yes Mental status: Awake nausea: No Vomiting: No Anesthesia Complication: No Fluid Hydration Crystalloid volume administer (ml): 200 Total IV fluid infused: 200 Progress Note Anesthesia document: Postop Eval 1 completed: Yes
--- NOTE | 2024-05-08 13:55 | PCM.POSTANE2 ---
Anesthesia Postop Eval I Sum Postop Eval Completion status Anesthesia document: Postop Eval 1 completed: Yes Anesthesia Postop Eval I Summary Anesthesia Postop Eval I Summary: Anesthesia Postop Eval I: Assessment Summary Airway patent Yes 05/08/24 12:56 [email or web address] Spontaneous unlabored Yes 05/08/24 12:56 [email or web address] respirations Mental status Awake 05/08/24 12:56 [email or web address] nausea No 05/08/24 12:56 [email or web address] Vomiting No 05/08/24 12:56 [email or web address] Anesthesia Postop Eval I: Fluid Summary Crystalloid volume administer 200 05/08/24 12:56 [email or web address] (ml) Colloids volume administered ( ml) Blood Product volume administered (ml) Total IV fluid infused 200 05/08/24 12:56 [email or web address] Anesthesia Postop Eval I: Summary Notes Anesthesia Complication No 05/08/24 12:56 [email or web address] Anesthesia Complication Comment: Post-operative progress note Anesthesia: Postop Eval II Evaluation Mental status: Awake and Calm Pain Level: 0 nausea: No Vomiting: No Complications Anesthesia Complication: No
[2024-05-09] MEDS: 0.9% Normal Saline (1000mL) 1,000 ML 150 ML IV ×2 (01:49→06:44)
[2024-05-09 02:39] VITALS: BP 143/60; PULSE 68; RESP 18; TEMP 36.6; O2SAT 97
[2024-05-09 06:30] LABS: Absolute Lymphocyte Count 1.69 X10^3/uL (0.83-4.51); Basophil# 0.04 X10^3/uL; Basophil% 0.5 % (0-1); Eosinophil# 0.25 X10^3/uL; Eosinophils% 2.9 % (0-5); Hematocrit 31.7 % (37-47); Hemoglobin 9.9 g/dL (12.0-15.0); Lymphocyte # 1.69 X10^3/ul (0.83-4.51); Lymphocyte % 19.7 % (19-41); Mean Corp Hgb Conc 31.2 g/dL (32-36); Mean Corpuscular Hgb 26.5 pg (27.0-32.0); Mean Platelet Vol. 12.6 fl (6.2-12.0); Monocyte# 0.59 X10^3/uL; Monocyte% 6.9 % (0-10); NRBC Flagged by Analyzer 0 % (0-5); Neutrophil # 5.99 X10^3/uL (2.7-7.7); Neutrophil % 69.9 % (47-70); Platelet Count 178 K/mm3 (150-450); RBC Distribution Width CV 16.9 % (11.6-14.6); RBC Distribution Width SD 52.1 fl (35.1-43.9); Red Blood Count 3.73 M/mm3 (4.2-5.4); White Blood Count 8.6 K/mm3 (4.4-11.0)
[2024-05-09 07:18] LABS: ALB/GLOB Ratio 0.8 RATIO (0.9-2.4); AST(SGOT) 19 U/L (15-37); Alanine Aminotransfer ALT/SGPT 13 U/L (13-56); Albumin, Serum 2.5 g/dL (3.2-5.0); Alkaline Phosphatase 69 U/L (45-117); Anion Gap 5 (5-15); BUN 14 mg/dL (7-18); BUN/Creat Ratio 27.5 RATIO (10-20); Chloride 115 mmol/L (98-107); Creatinine, Serum 0.51 mg/dL (0.55-1.02); EST Glomerular Filtration Rate 124 mL/min (>60); Est Glom Filt Rate - Afr Amer 150 mL/min (>60); Estimated Creatinine Clearance 43.73 ml/min; Glucose 89 mg/dL (74-106); Magnesium 1.8 mg/dL (1.6-2.6); Potassium 4.1 mmol/L (3.5-5.1); Protein, Total 5.5 g/dL (6.4-8.2); Sodium Level 144 mmol/L (136-145); Thyroid Stim Hormone (TSH) 0.57 uIU/mL (0.358-3.74)
[2024-05-09] MEDS: Pantoprazole Sodium 80 MG in 0.9% Normal Saline (100mL Bag) 80 ML 10 MG CONT INF ×2 (08:35→19:27)
[2024-05-09 08:40] VITALS: BP 147/59; PULSE 69; RESP 18; TEMP 36.7; O2SAT 98
[2024-05-09 08:43] VITALS: BMI 25.4
--- NOTE | 2024-05-09 09:28 | CASEMGMT ---
Addendum entered by Fawn Wei 05/09/24 14:03: Social Work Referrals sent via [facility] to [facility] and [facility]. PT/OT still pending however. SW will follow up on Saturday. DEVONTE Herr Original Note: Social Work SW spoke w/pt's daughter Delphine on the phone in regard to prior level of function and anticipated discharge plan. PCP: Josiane Buck NP and Apurva Dalton MD Specialists: None Pharmacy: [facility] in [place] Insurance/Prescription Coverage: [employer] [facility] Community Plan LW/POA: Daughter states she is pt's healthcare POA, she is pt's only child and pt is . SW did let daughter know LW/POA papers are not on the chart. Without the papers, daughter would still be pt's decision maker. Daughter states pt would have a difficult time making decisions for herself. LNOK: Daughter Delphine, granddaughter Shey Living arrangements/Prior level of function: Pt lives in an apartment w/daughter Delphine. Pt's daughter assists pt w/all ADLS including cooking, cleaning, bathing, dressing, setting up medication. Pt is nonambulatory, uses a wheelchair and Mala at baseline. Transportation: [place] provides transportation for pt DME: Wheelchair, Mala lift, hospital bed HHC/SNF: Pt has had HHC in the past, Daughter states she had HHC from [id number]. Since then pt goes to [facility]. Pt has been to [facility] in the past Plan: SNF SW spoke w/daughter about discharge plan. Daughter would like pt to go to SNF for respite, but she is thinking pt may stay equipment [employer]. SW explained has a list of facilities can provide to her, if she can let SW know some options. SW [facility] for daughter a list [facility] in network w/insurance, in preferred geographic area, and complete w/quality and resource use data. SW explained will leave the list in the room, SW did review it with daughter on the phone however. Daughter states would like referrals sent to [facility] and [facility]. Daughter states if these facilities cannot take pt, will make additional choices. SW will start the initial referral process, and did leave SNF list in the room. SW will continue to follow. Precert will be needed so it is anticipated pt will be here through the weekend. DEVONTE Herr
[2024-05-09] MEDS: Menthol/Lanolin/Calamine/Znox 113 GM Tube 1 APPLIC TOPICAL ×2 (09:54→21:31)
[2024-05-09] MEDS: Nystatin Powder 15gm Bottle 1 APPLIC TOPICAL ×2 (09:55→21:31)
[2024-05-09] MEDS: Magnesium Sulfate 4gm/100mL 4 GM/100 ML IV.SOLN. IV (09:55)
[2024-05-09] MEDS: Sertraline 50 MG Tablet PO (10:02)
--- NOTE | 2024-05-09 11:00 | PN.GI_ITS ---
Subjective Subjective Patient underwent emergent endoscopy yesterday for very large recurrent GI bleed Objective Data Objective Data Vital Signs: Vital Signs Temp Pulse Resp BP Pulse Ox O2 Del Method 98.0 F 69 18 147/59 H 98 Room Air 05/09/24 08:40 05/09/24 08:40 05/09/24 08:40 05/09/24 08:40 05/09/24 08:40 05/09/24 08:40 Oxygen Delivery Method Room Air Weight: 134 lb 15.86 oz Body Mass Index (BMI) 25.4 Intake & Output: Intake and Output for Last 24 Hours 05/07/24 05/08/24 05/09/24 23:59 23:59 23:59 Intake Total 1678.5 / 1678.5 1700.0 / 1700.0 Balance 1678.5 / 1678.5 1700.0 / 1700.0 Lab / Micro Data 05/09/24 06:03 05/09/24 06:03 Labs: Laboratory Results - last 24 hr 05/08/24 09:25: Crossmatch See Detail 05/09/24 06:03: WBC 8.6, RBC 3.73 L, Hgb 9.9 L, Hct 31.7 L, MCV 85.0, MCH 26.5 L , MCHC 31.2 L D, RDW Std Deviation 52.1 H, RDW Coeff of Pelon 16.9 H, Plt Count 178, MPV 12.6 H, Immature Gran % (Auto) 0.100, Neut % (Auto) 69.9, Lymph % (Auto) 19.7, [place] % (Auto) 6.9, Eos % (Auto) 2.9, Baso % (Auto) 0.5, Absolute Neuts (auto) 6.0, Absolute Lymphs (auto) 1.69, Nucleated RBC % 0, Sodium 144, Potassium 4.1, Chloride 115 H, Carbon Dioxide 24.0, Anion Gap 5, BUN 14, C reatinine 0.51 L, Estim Creat Clear Calc 43.73, Est GFR (MDRD) Af Amer 150, Est GFR (MDRD) Non-Af 124, BUN/Creatinine Ratio 27.5 H, Glucose 89, Calcium 8.0 L, Magnesium 1.8, Total Bilirubin 1.30 H, AST 19, ALT 13, Alkaline Phosphatase 69, Total Protein 5.5 L, Albumin 2.5 L, Globulin 3.0, Albumin/Globulin Ratio 0.8 L, TSH 0.57 Physical Exam Const alert and no apparent distress Constitutional Narrative: Oriented HEENT head/scalp atraumatic Eyes Eyes Narrative: EOM grossly intact, anicteric Neck supple Resp normal respiratory effort and clear to auscultation bilaterally Cardio regular rate and regular rhythm GI soft to palpation, non-tender and non-distended Extremity Extremity Narrative: No edema appreciated Neuro Neuro Narrative: chronic R sided contractures and deficits noted Psych Psych Narrative: Cooperative Assessment & Plan Assessment/Plan (1) Acute upper GI bleed: PLAN: Acute upper GI bleed in the setting of recent acute right MCA stroke, rheumatoid arthritis on Eliquis, meloxicam and sertraline all which can result in upper GI bleed. Hemoglobin is slightly down at 9.9. I had a long talk with her daughter yesterday explained to her that she has essentially a mild gastric outlet because she has severe pyloric stenosis and duodenal stenosis which lead to her pills sitting at the base of her stomach. She would likely need at least a temporary duodenal stent to open up the pyloric sphincter and duodenal bulb. Continue to monitor hemoglobin. Patient can be on full liquid diet today. Charges/Coding Visit Charges Inpatient E&M: 27556 Subs Hosp L3
[2024-05-09] MEDS: 0.9% Saline Lock 10 ML Syringe IV ×2 (11:20→21:31)
--- NOTE | 2024-05-09 12:49 | PN.HOSP_ITS ---
Reason for Visit Reason for Visit: Diagnoses Anxiety disorder, unspecified (05/08/24) Unspecified atrial fibrillation (05/08/24) Cerebral infarction due to unspecified occlusion or stenosis of right middle cerebral artery (05/08/24) Gastrointestinal hemorrhage, unspecified (05/08/24) Subjective Subjective Patient resting comfortably in bed, no acute complaints Objective Data Objective Data Vital Signs: Vital Signs Temp Pulse Resp BP Pulse Ox O2 Del Method 98.0 F 69 18 147/59 H 98 Room Air 05/09/24 08:40 05/09/24 08:40 05/09/24 08:40 05/09/24 08:40 05/09/24 08:40 05/09/24 08:40 Oxygen Delivery Method Room Air Weight: 61.231 kg Body Mass Index (BMI) 25.4 Intake & Output: Intake and Output for Last 24 Hours 05/07/24 05/08/24 05/09/24 23:59 23:59 23:59 Intake Total 1678.5 / 1678.5 1700.0 / 1700.0 Balance 1678.5 / 1678.5 1700.0 / 1700.0 Lab / Micro Data 05/09/24 06:03 05/09/24 06:03 Labs: Laboratory Results - last 24 hr 05/08/24 09:25: Crossmatch See Detail 05/09/24 06:03: WBC 8.6, RBC 3.73 L, Hgb 9.9 L, Hct 31.7 L, MCV 85.0, MCH 26.5 L , MCHC 31.2 L D, RDW Std Deviation 52.1 H, RDW Coeff of Pelon 16.9 H, Plt Count 178, MPV 12.6 H, Immature Gran % (Auto) 0.100, Neut % (Auto) 69.9, Lymph % (Auto) 19.7, Phelps % (Auto) 6.9, Eos % (Auto) 2.9, Baso % (Auto) 0.5, Absolute Neuts (auto) 6.0, Absolute Lymphs (auto) 1.69, Nucleated RBC % 0, Sodium 144, Potassium 4.1, Chloride 115 H, Carbon Dioxide 24.0, Anion Gap 5, BUN 14, C reatinine 0.51 L, Estim Creat Clear Calc 43.73, Est GFR (MDRD) Af Amer 150, Est GFR (MDRD) Non-Af 124, BUN/Creatinine Ratio 27.5 H, Glucose 89, Calcium 8.0 L, Magnesium 1.8, Total Bilirubin 1.30 H, AST 19, ALT 13, Alkaline Phosphatase 69, Total Protein 5.5 L, Albumin 2.5 L, Globulin 3.0, Albumin/Globulin Ratio 0.8 L, TSH 0.57 Physical Exam Const alert and no apparent distress HEENT head/scalp atraumatic Eyes Eyes Narrative: EOM grossly intact, anicteric Neck supple Resp normal respiratory effort and clear to auscultation bilaterally Cardio regular rate and regular rhythm GI soft to palpation, non-tender and non-distended Extremity Extremity Narrative: No edema appreciated Neuro Neuro Narrative: chronic R sided contractures and deficits noted Psych Psych Narrative: Cooperative Assessment & Plan Assessment/Plan (1) Acute upper GI bleed: (2) Afib: QUALIFIERS: Atrial fibrillation type: unspecified Qualified Code(s): I48.91 - Unspecified atrial fibrillation (3) Acute ischemic right MCA stroke: (4) Anxiety disorder, unspecified: PLAN: Plan #Hematemasis with proper GI bleed due to gastric ulcers/acquired duodenal stenosis -Recent UGIB seen at [facility] for 5 days in February -Presented with large volume hematemasis -Hgb 10.5 but given extent of bleeding pt taken to EGD urgently -Type and screened -PPI gtt -GI c/s -Holding eliquis -Also appears pt was taking meloxicam at home, will d/c -05/09: Patient may need duodenal stent given her acquired stenosis as she will continue to have problems with GI bleeds if she has to take meloxicam and anticoagulation, advised to keep patient on full liquid diet. Hemoglobin 9.9 today with no further evidence of bleeding at this time, remains on Protonix drip at this time #Concern for UTI -Daughter reported patient had been having more urinary frequency and seemed to be having abnormal urination for her to UA obtained which does show bacteria, urine culture pending, will start Rocephin while pending culture Chronic problems: #Hx CVA w/ residual deficits -Holding eliquis -Cont statin #Hx afib/flutter -Holding eliquis -No rate controlled medications, pt not tachycardic #Anx -Continue sertraline #RA -Takes meloxicam at home -Being held here -May need evaluated for alternative option on d/c DVT: SCDS Charges/Coding Visit Charges Inpatient E&M: 23402 Subs Hosp L1
[2024-05-09 14:40] VITALS: BP 105/47; PULSE 64; RESP 18; TEMP 36.4; O2SAT 98
[2024-05-09 15:11] LABS: Mucous, Urine 0 SEEN /hpf (<or=2+); Red Blood Cells-Urine 0 SEEN /hpf (0-5)
[2024-05-09 15:15] LABS: Color, Urine Yellow (Yellow); Glucose, Dipstick Normal (Normal); Ketone-Dipstick Negative (Negative); Leukocyte Esterase-Dipstick 500 /ul (Negative); Nitrite-Dipstick Negative (Negative); Occult Blood-Urine 10 /ul (Negative); Protein-Dipstick 15 mg/dl (Negative); Urine Bilirubin Dipstick Negative (Negative); Urine Clarity Cloudy (Clear); Urine Urobilinogen Normal (Normal)
[2024-05-09 15:35] LABS: Squamous Epithelial Cells - UA 0-5 SEEN /hpf (5-10)
[2024-05-09 15:36] LABS: Bacteria 3+ /hpf (None Seen); White Blood Cells 10-25 SEEN /hpf (0-5)
[2024-05-09] MEDS: Ceftriaxone 1 GM/50 ML BAG IV (16:41)
[2024-05-09 21:30] VITALS: BP 110/57; PULSE 68; RESP 18; TEMP 36.7; O2SAT 99
[2024-05-09] MEDS: Atorvastatin Calcium 20 MG Tablet PO (21:31)
[2024-05-10 03:54] VITALS: BP 118/57; PULSE 75; RESP 18; TEMP 36.8; O2SAT 96
[2024-05-10] MEDS: Pantoprazole Sodium 80 MG in 0.9% Normal Saline (100mL Bag) 80 ML 10 MG CONT INF ×2 (04:56→16:15)
[2024-05-10 05:51] LABS: Hematocrit 28.9 % (37-47); Mean Corp Hgb Conc 31.1 g/dL (32-36); Mean Corpuscular Hgb 26.5 pg (27.0-32.0); Platelet Count 168 K/mm3 (150-450); RBC Distribution Width CV 17.2 % (11.6-14.6); RBC Distribution Width SD 53.1 fl (35.1-43.9); White Blood Count 6.8 K/mm3 (4.4-11.0)
[2024-05-10 06:16] LABS: Anion Gap 3 (5-15); BUN 11 mg/dL (7-18); BUN/Creat Ratio 23.1 RATIO (10-20); Calcium,Total 8.2 mg/dL (8.5-10.1); Chloride 116 mmol/L (98-107); Creatinine, Serum 0.48 mg/dL (0.55-1.02); EST Glomerular Filtration Rate 134 mL/min (>60); Est Glom Filt Rate - Afr Amer 162 mL/min (>60); Estimated Creatinine Clearance 48.65 ml/min; Glucose 109 mg/dL (74-106); Potassium 3.8 mmol/L (3.5-5.1); Sodium Level 141 mmol/L (136-145)
--- NOTE | 2024-05-10 08:44 | PCM.PN.HOSP ---
Reason for Visit Reason for Visit: Diagnoses Anxiety disorder, unspecified (05/08/24) Unspecified atrial fibrillation (05/08/24) Cerebral infarction due to unspecified occlusion or stenosis of right middle cerebral artery (05/08/24) Gastrointestinal hemorrhage, unspecified (05/08/24) Subjective Subjective Resting comfortably in bed denies any abdominal pain or other acute focal complaints Objective Data Objective Data Vital Signs: Vital Signs Temp Pulse Resp BP Pulse Ox O2 Del Method 98.2 F 75 18 118/57 L 96 Room Air 05/10/24 03:54 05/10/24 03:54 05/10/24 03:54 05/10/24 03:54 05/10/24 03:54 05/10/24 07:25 Oxygen Delivery Method Room Air Weight: 61.231 kg Body Mass Index (BMI) 25.4 Intake & Output: Intake and Output for Last 24 Hours 05/08/24 05/09/24 05/10/24 23:59 23:59 23:59 Intake Total 1678.5 / 1678.5 2840.0 / 2840.0 94.83 / 94.83 Balance 1678.5 / 1678.5 2840.0 / 2840.0 94.83 / 94.83 Lab / Micro Data 05/10/24 05:34 05/10/24 05:34 Labs: Laboratory Results - last 24 hr 05/09/24 05:45: Urine Color Yellow, Urine Clarity Cloudy, Urine pH 6.0, Ur Specific Ericson 1.010, Urine Protein 15 H, Urine Glucose (UA) Normal, Urine Ketones Negative, Urine Occult Blood 10 H, Urine Nitrite Negative, Urine Bilirubin Negative, Urine Urobilinogen Normal, Ur Leukocyte Esterase 500 H, Urine RBC 0 SEEN, Urine WBC 10-25 SEEN, Ur Squamous Epith Cells 0-5 SEEN, Urine Bacteria 3+, Urine Mucus 0 SEEN 05/10/24 05:34: WBC 6.8, RBC 3.40 L, Hgb 9.0 L, Hct 28.9 L, MCV 85.0, MCH 26.5 L, MCHC 31.1 L, RDW Std Deviation 53.1 H, RDW Coeff of Pelon 17.2 H, Plt Count 168, MPV 12.0, Sodium 141, Potassium 3.8, Chloride 116 H, Carbon Dioxide 22.0, Anion Gap 3 L, BUN 11, Creatinine 0.48 L, Estim Creat Clear Calc 48.65, Est GFR (MDRD) Af Amer 162, Est GFR (MDRD) Non-Af 134, BUN/Creatinine Ratio 23.1 H, Glucose 109 H, Calcium 8.2 L Physical Exam Const alert and no apparent distress HEENT head/scalp atraumatic Eyes Eyes Narrative: EOM grossly intact, anicteric Neck supple Resp normal respiratory effort and clear to auscultation bilaterally Cardio regular rate and regular rhythm GI soft to palpation, non-tender and non-distended Extremity Extremity Narrative: No edema appreciated Neuro Neuro Narrative: chronic R sided contractures and deficits noted Psych Psych Narrative: Cooperative Assessment & Plan Assessment/Plan (1) Acute upper GI bleed: (2) Afib: QUALIFIERS: Atrial fibrillation type: unspecified Qualified Code(s): I48.91 - Unspecified atrial fibrillation (3) Acute ischemic right MCA stroke: (4) Anxiety disorder, unspecified: PLAN: Plan #Hematemasis with proper GI bleed due to gastric ulcers/acquired duodenal stenosis -Recent UGIB seen at [place] for 5 days in February -Presented with large volume hematemasis -Hgb 10.5 but given extent of bleeding pt taken to EGD urgently -Type and screened -PPI gtt -GI c/s -Holding eliquis -Also appears pt was taking meloxicam at home, will d/c -05/09: Patient may need duodenal stent given her acquired stenosis as she will continue to have problems with GI bleeds if she has to take meloxicam and anticoagulation, advised to keep patient on full liquid diet. Hemoglobin 9.9 today with no further evidence of bleeding at this time, remains on Protonix drip at this time -05/10: Holding AC, hemoglobin down trended but no evidence of active bleed, awaiting determination on stent placement #Concern for UTI -Daughter reported patient had been having more urinary frequency and seemed to be having abnormal urination for her to UA obtained which does show bacteria, urine culture pending, will start Rocephin while pending culture -05/10: Urine culture with gram-negative rods, on Rocephin, await sensitivities Chronic problems: #Hx CVA w/ residual deficits -Holding eliquis -Cont statin -05/10: PT/OT #Hx afib/flutter -Holding eliquis -No rate controlled medications, pt not tachycardic -05/10: Monitoring on telemetry #Anx -Continue sertraline #RA -Takes meloxicam at home -Being held here -May need evaluated for alternative option on d/c DVT: SCDS Charges/Coding Visit Charges Inpatient E&M: 18470 Subs Hosp L1
[2024-05-10] MEDS: Menthol/Lanolin/Calamine/Znox 113 GM Tube 1 APPLIC TOPICAL ×2 (09:25→22:18)
[2024-05-10] MEDS: Nystatin Powder 15gm Bottle 1 APPLIC TOPICAL ×2 (09:25→22:18)
[2024-05-10] MEDS: Ceftriaxone 1 GM/50 ML BAG IV (09:26)
[2024-05-10] MEDS: Sertraline 50 MG Tablet PO (09:29)
[2024-05-10 09:35] VITALS: BP 126/39; PULSE 68; RESP 18; TEMP 36.5; O2SAT 98
[2024-05-10 15:35] VITALS: BP 119/57; PULSE 64; RESP 18; TEMP 36.4; O2SAT 95
--- NOTE | 2024-05-10 22:04 | EX.PCM.PN.GI ---
Subjective Subjective Patient has been doing okay on clear liquid diet. Objective Data Objective Data Vital Signs: Vital Signs Temp Pulse Resp BP Pulse Ox O2 Del Method 97.5 F L 64 18 119/57 L 95 Room Air 05/10/24 15:35 05/10/24 15:35 05/10/24 15:35 05/10/24 15:35 05/10/24 15:35 05/10/24 19:46 Oxygen Delivery Method Room Air Weight: 134 lb 15.86 oz Body Mass Index (BMI) 25.4 Intake & Output: Intake and Output for Last 24 Hours 05/08/24 05/09/24 05/10/24 23:59 23:59 23:59 Intake Total 1678.5 / 1678.5 2840.0 / 2840.0 604.83 / 604.83 Balance 1678.5 / 1678.5 2840.0 / 2840.0 604.83 / 604.83 Lab / Micro Data 05/10/24 05:34 05/10/24 05:34 Labs: Laboratory Results - last 24 hr 05/10/24 05:34: WBC 6.8, RBC 3.40 L, Hgb 9.0 L, Hct 28.9 L, MCV 85.0, MCH 26.5 L, MCHC 31.1 L, RDW Std Deviation 53.1 H, RDW Coeff of Pelon 17.2 H, Plt Count 168, MPV 12.0, Sodium 141, Potassium 3.8, Chloride 116 H, Carbon Dioxide 22.0, Anion Gap 3 L, BUN 11, Creatinine 0.48 L, Estim Creat Clear Calc 48.65, Est GFR (MDRD) Af Amer 162, Est GFR (MDRD) Non-Af 134, BUN/Creatinine Ratio 23.1 H, Glucose 109 H, Calcium 8.2 L Micro: Microbiology 05/09/24 05:45 Urine, Random Urine 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 - 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 Physical Exam Const alert and no apparent distress HEENT head/scalp atraumatic Eyes Eyes Narrative: EOM grossly intact, anicteric Neck supple Resp normal respiratory effort and clear to auscultation bilaterally Cardio regular rate and regular rhythm GI soft to palpation, non-tender and non-distended Extremity Extremity Narrative: No edema appreciated Neuro Neuro Narrative: chronic R sided contractures and deficits noted Psych Psych Narrative: Cooperative Assessment & Plan Assessment/Plan (1) Acute upper GI bleed: PLAN: Acute upper GI bleed in the setting of recent acute right MCA stroke, rheumatoid arthritis on Eliquis, meloxicam and sertraline all which can result in upper GI bleed. Hemoglobin is slightly down at 9.9. I had a long talk with her daughter yesterday explained to her that she has essentially a mild gastric outlet because she has severe pyloric stenosis and duodenal stenosis which lead to her pills sitting at the base of her stomach. She would likely need at least a temporary duodenal stent to open up the pyloric sphincter and duodenal bulb. Continue to monitor hemoglobin. Patient can be on full liquid diet today. PLAN: Plan 05/10/2024-patient's hemoglobin is slightly down to 9 from 9.9. She may still be losing at the site of multiple gastric ulcers that were treated endoscopically. She will need a repeat upper endoscopy and possible stent placement due to her pyloric stricture and her duodenal stricture. Plan was discussed with patient's daughter. Keep n.p.o. past midnight Charges/Coding Visit Charges Inpatient E&M: 80652 Subs Hosp L2
[2024-05-10 22:16] VITALS: BP 144/61; PULSE 68; RESP 18; TEMP 36.5; O2SAT 93
[2024-05-10] MEDS: Atorvastatin Calcium 20 MG Tablet PO (22:18)
[2024-05-11] VITALS (9 sets, daily range): BP systolic 118–168; BP diastolic 57–96; PULSE 63–81; RESP 14–18; TEMP 36.1–36.9; O2SAT 94–100
[2024-05-11] MEDS: Pantoprazole Sodium 80 MG in 0.9% Normal Saline (100mL Bag) 80 ML 10 MG CONT INF ×2 (01:26→14:00)
[2024-05-11 05:49] LABS: Hematocrit 30.1 % (37-47); Hemoglobin 9.4 g/dL (12.0-15.0); Mean Corp Hgb Conc 31.2 g/dL (32-36); Mean Corpuscular Hgb 26.3 pg (27.0-32.0); Mean Corpuscular Volume 84.3 fL (81-99); Mean Platelet Vol. 12.2 fl (6.2-12.0); Platelet Count 159 K/mm3 (150-450); RBC Distribution Width CV 17.3 % (11.6-14.6); RBC Distribution Width SD 53.1 fl (35.1-43.9); Red Blood Count 3.57 M/mm3 (4.2-5.4); White Blood Count 6.1 K/mm3 (4.4-11.0)
--- NOTE | 2024-05-11 05:55 | EKG12_ITS ---
Test Reason : PRE-OP Blood Pressure : / mmHG Vent. Rate : 071 BPM Atrial Rate : 000 BPM P-R Int : 000 ms QRS Dur : 096 ms QT Int : 454 ms P-R-T Axes : 000 059 038 degrees QTc Int : 493 ms Atrial fibrillation Prolonged QT Abnormal ECG When compared with ECG of 08-MAY-2024 09:27, MANUAL COMPARISON REQUIRED, DATA IS UNCONFIRMED Confirmed by JOMAR ABREU, VALDO ([id number]), slot editor CARA MOREL ([id number]) on 05/11/2024 1:01:27 PM Referred By: Confirmed By:AVLDO HADLEY MD
[2024-05-11 06:26] LABS: Anion Gap 6 (5-15); BUN 10 mg/dL (7-18); BUN/Creat Ratio 18.4 RATIO (10-20); Calcium,Total 8.3 mg/dL (8.5-10.1); Chloride 114 mmol/L (98-107); Creatinine, Serum 0.54 mg/dL (0.55-1.02); EST Glomerular Filtration Rate 115 mL/min (>60); Est Glom Filt Rate - Afr Amer 139 mL/min (>60); Estimated Creatinine Clearance 48.65 ml/min; Glucose 106 mg/dL (74-106); Potassium 3.7 mmol/L (3.5-5.1); Sodium Level 143 mmol/L (136-145)
--- NOTE | 2024-05-11 08:43 | CASEMGMT ---
Discharge Planning Updates sent to [facility] and [employer] [facility]. Gemma Mas DC Planning Asst.
--- NOTE | 2024-05-11 10:13 | PCM.PRE.AN2 ---
ASA Classification* ASA Classification ASA Classification: 3 Assessment & Plan Anesthesia* Anesthesia Assessment Anesthesia Assessment: Discussed sedation and/or anesthesia options, risks, benefits, and alternatives with patient/parents/legal guardian/POA. Questions invited. The patient/parents/legal guardian/POA seems to understand and agrees to proceed with anesthesia plan. Reviewed the physical assessment, medical history, allergy history and patient home medications list prior to surgery/procedure/anesthetic and documented any changes. Performed airway and anesthesia risk assessments. Anesthesia Type Anesthesia Type: MAC (NO Sux due to CVA hx with paralysis) Anesthesia Focused Assessment* Temperature: 97.5 F Pulse Rate: 76 Blood Pressure: 135/86 Respiratory Rate: 14 Pulse Ox: 97 Airway Assessment Mouth opens: >3 cm Mallampati Score: II Focused Labs Anesthesia Preop lab: CBC WBC 6.1 K/mm3 (4.4-11.0) 05/11/24 05:13 RBC 3.57 M/mm3 (4.2-5.4) L 05/11/24 05:13 Hgb 9.4 g/dL (12.0-15.0) L 05/11/24 05:13 Hct 30.1 % (37-47) L 05/11/24 05:13 Plt Count 159 K/mm3 (150-450) 05/11/24 05:13 CHEMISTRY Potassium 3.7 mmol/L (3.5-5.1) 05/11/24 05:13 Sodium 143 mmol/L (136-145) 05/11/24 05:13 Magnesium 1.8 mg/dL (1.6-2.6) 05/09/24 06:03 Phosphorus 3.3 mg/dL (2.5-4.9) 02/03/15 05:16 BUN 10 mg/dL (7-18) 05/11/24 05:13 Creatinine 0.54 mg/dL (0.55-1.02) L 05/11/24 05:13 Glucose 106 mg/dL (74-106) 05/11/24 05:13 POC Glucose 87 mg/dL (70-110) 04/06/14 12:42 TSH 0.57 uIU/mL (0.358-3.74) 05/09/24 06:03 COAG PT 20.8 SECONDS (11.7-14.9) H 05/08/24 09:25 Pre-Assessment Diagnosis/Proposed Procedure Planned Operative Procedure(s): Esophagogastroduodenoscopy with possible biopsy. Anesthesia History Anesthesia History - track template maker: Anesthesia History - track template maker Hx Hospitalization No 06/23/20 17:49 Any Problems With Anesthesia Cholinesterase deficiency You/Your Family Experience fever (hyperthermia) with Relationship Recent Exposure to Contagious No 03/31/14 18:57 Disease Does patient have nerve stimulator Patient instructed to have device shut off --Does patient have Pacemaker or ICD? When Was Last Pacemaker Check QUESTION #4 FULL TEXT: You/Your Family Experience fever (hyperthermia) with Anesthesia Last Oral Intake Last Oral intake: Last Oral Intake NPO since 06:45 05/08/24 11:38 Meds taken in AM with sips of water? Meds patient instructed to take am of surgery PONV PONV - track template maker: PONV - track template maker Female HX of Motion Sickness HX of N/V After Surgery Non-Smoker Duration of Surgery greater than 60 minutes Number of Risk Factors PONV Score Height & Weight Height & Weight: Anesthesia: Height & Weight Height 5 ft 1.02 in 05/08/24 13:36 Weight: 61.231 kg 05/09/24 08:43 Body Mass Index (BMI) 25.4 05/09/24 08:43 Respiratory Assessment Respiratory Assessment - track template maker: Respiratory Tract Infection Hx - track template maker Hx Respiratory Tract Infection No 03/31/14 18:57 STOP Sleep Apnea STOP Sleep Apnea - track template maker: STOP Sleep Apnea - track template maker Hx Hypertension No 05/09/24 13:54 Hx Sleep Apnea No 05/08/24 13:36 CPAP No 05/08/24 12:40 BIPAP No 03/10/23 18:31 Do you snore loudly (louder No 05/08/24 13:36 than talking or can be heard Do you often feel tired/ No 05/08/24 13:36 fatigued/ sleepy during daytime? Has anyone observed you stop No 05/08/24 13:36 breathing during sleep? STOP Results Negative 05/08/24 13:36 QUESTION #5 FULL TEXT : Do you snore loudly (louder than talking or can be heard through closed doors)? 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 Specify any problems Hx of Preganancy in last 3 N/A 05/08/24 13:36 Months Nurse Filling Out Transfusion HFALK 05/08/24 13:36 & Questions: Date: 05/08/24 05/08/24 13:36 Time: 13:50 05/08/24 13:36 Patient unable to answer at this time (ie. confused, unrespo /Reproduction History /Reproductive History - track template maker: /Reproductive Hx- track template maker Hx Now Gestational Age (in weeks): EDC: Hx Hx Para Hx Section SAB Active Medications Active Medications: Current Medications Generic Name Dose Route Start Last Admin Trade Name Freq PRN Reason Stop Dose Admin Acetaminophen 650 mg 05/08/24 13:33 Acetaminophen 325 Mg Tablet PO Q6H PRN PRN Pain 1-10 Or Fever >100.7 Albuterol Sulfate 2.5 mg 05/08/24 13:33 Albuterol 2.5 Mg/3 Ml Vial.Neb. INHALATION Q2H PRN PRN SOB &/OR WHEEZING Atorvastatin Calcium 20 mg 05/09/24 22:00 05/10/24 22:18 Atorvastatin Calcium 20 Mg Tablet PO 20 mg QHS JOSE Administration Calamine/Phenol 1 applic 05/09/24 10:00 05/10/24 22:18 Menthol/Lanolin/Calamine/Znox 113 Gm Tube TOPICAL 1 applic BID JOSE Administration Protocol Pantoprazole Sodium 80 mg/ 100 mls @ 10 mls/hr 05/08/24 09:20 05/11/24 10:04 Sodium Chloride CONT INF 0 mls/hr Q10H JOSE Infusion Ceftriaxone Sodium 1 gm in 50 mls @ 100 mls/hr 05/10/24 10:00 05/10/24 10:27 Rocephin IV Infused Q24 JOSE Infusion Melatonin 3 mg 05/08/24 13:33 Melatonin 3 Mg Tablet PO QHS PRN PRN INSOMNIA Nystatin 1 applic 05/09/24 10:00 05/10/24 22:18 Nystatin Powder 15gm Bottle TOPICAL 1 applic BID JOSE Administration Protocol Ondansetron HCl 4 mg 05/08/24 13:33 Ondansetron 4 Mg/2 Ml Vial IV Q8H PRN PRN NAUSEA/VOMITING Senna/Docusate Sodium 2 tablet 05/08/24 13:33 Senna/Docusate Sodium 1 Tablet PO BID PRN PRN Constipation Sertraline HCl 50 mg 05/09/24 10:00 05/10/24 09:29 Sertraline 50 Mg Tablet PO 50 mg DAILY JOSE Administration Sodium Chloride 10 - 40 ml 05/08/24 13:52 05/09/24 21:31 0.9% Saline Lock 10 Ml Syringe IV 10 ml UD PRN Administration SALINE FLUSH PFSH Medical History Fall Major depressive disorder, recurrent, mild Anxiety disorder, unspecified Sarcopenia Hemiplegia CVA (cerebral vascular accident) HTN (hypertension) HLD (hyperlipidemia) A-fib Home Medications ?Medication ?Instructions ?Recorded ?Last Taken ?Type sertraline 25 mg tablet (Zoloft) 50 mg PO DAILY mental health 03/07/18 05/08/24 History apixaban 5 mg tablet (Eliquis) 5 mg PO BID blood thinner 03/09/18 05/08/24 History pantoprazole 20 mg tablet,delayed 20 mg PO DAILY 03/10/23 Unknown History release atorvastatin 20 mg tablet 20 mg PO DAILY 05/08/24 05/08/24 History meloxicam 15 mg tablet 15 mg PO DAILY 05/08/24 05/08/24 History metformin 500 mg tablet 500 mg PO DAILY 05/08/24 05/08/24 History Allergy/AdvReac Type Severity Reaction Status Date / Time No Known Allergies Allergy Verified 05/08/24 09:01 Surgical History Percutaneous endoscopic gastrostomy status Social History Smoking Status: Never smoker Review of Systems (Anesthesia) ROS Narrative System reviewed and no additional complaints, except as documented.
--- NOTE | 2024-05-11 11:30 | RAD_ITS ---
PROCEDURE: EGD with stent placement. DATE OF EXAMINATION: May 11, 2024. INDICATION: Female, 78 years old. Duodenal stent placement. FLUOROSCOPY TIME (if supplied): (1 minute and 17 seconds) minutes/seconds. 5 images were submitted. RAD/Fluoroscopy 1 Hr or Less IMPRESSION: Fluoroscopic services provided for duodenal stent placement. Electronically Signed: Giuseppe Young MD at 13:18 EDT ,
--- NOTE | 2024-05-11 12:24 | OP.EGD_ITS ---
Patient Name: Deneen Guadalupe Procedure Date: 05/11/2024 11:32 AM Date of : 1945 Age: 78 Procedure: Upper GI endoscopy Indications: Coffee-ground emesis, Melena Providers: Navdeep Barlow DO Medicines: Monitored Anesthesia Care Patient Profile: This is a 78 year old female. Refer to note in patient chart for documentation of history and physical. Patient has symptoms of acute epigastric abdominal pain. Complications: No immediate complications. Procedure: Pre-Anesthesia Assessment: - Prior to the procedure, a History and Physical was performed, and patient medications and allergies were reviewed. The patient is competent. The risks and benefits of the procedure and the sedation options and risks were discussed with the patient. All questions were answered and informed consent was obtained. Patient identification and proposed procedure were verified by the physician in the pre-procedure area. Mental Status Examination: alert and oriented. Airway Examination: normal oropharyngeal airway and neck mobility. Respiratory Examination: clear to auscultation. CV Examination: normal. Prophylactic Antibiotics: The patient does not require prophylactic antibiotics. Prior Anticoagulants: The patient has taken no anticoagulant or antiplatelet agents. ASA Grade Assessment: IV - A patient with severe systemic disease that is a constant threat to life. After reviewing the risks and benefits, the patient was deemed in satisfactory condition to undergo the procedure. The anesthesia plan was to use monitored anesthesia care (MAC). Immediately prior to administration of medications, the patient was re-assessed for adequacy to receive sedatives. The heart rate, respiratory rate, oxygen saturations, blood pressure, adequacy of pulmonary ventilation, and response to care were monitored throughout the procedure. The physical status of the patient was re-assessed after the procedure. After obtaining informed consent, the endoscope was passed under direct vision. Throughout the procedure, the patient's blood pressure, pulse, and oxygen saturations were monitored continuously. The adult colonoscope was introduced through the mouth, and advanced to the fourth part of duodenum. The upper GI endoscopy was accomplished without difficulty. The patient tolerated the procedure well. Scope In: 11:50:30 AM Scope Out: 12:16:25 PM Total Procedure Duration Time 0 hours 25 minutes 55 seconds Findings: The examined esophagus was normal. An endoclip was found in the gastric antrum. Removal was accomplished with a Jain net. Verification of patient identification for the specimen was done. Estimated blood loss was minimal. Two non-bleeding cratered gastric ulcers with no stigmata of bleeding were found in the prepyloric region of the stomach. The largest lesion was 10 mm in largest dimension. A benign-appearing, intrinsic severe stenosis was found at the pylorus. This was traversed. An acquired benign-appearing, intrinsic severe stenosis was found in the duodenal bulb and was traversed. This was stented with a 22 mm x 9 cm WallFlex stent under fluoroscopic guidance. Estimated blood loss was minimal. Impression: - Normal esophagus. - An endoclip was found in the stomach. Removal was successful. - Non-bleeding gastric ulcers with no stigmata of bleeding. 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 - Acquired duodenal stenosis. Prosthesis placed. Recommendation: - Return patient to hospital edge for ongoing care. - Full liquid diet today. - Continue present medications. Procedure Code(s): --- Professional --- 22840, Esophagogastroduodenoscopy, flexible, transoral; with placement of endoscopic stent (includes pre- and post-dilation and guide wire passage, when performed) 71189, Esophagogastroduodenoscopy, flexible, transoral; with removal of foreign body(s) 01016, 26, Intraluminal dilation of strictures and/or obstructions (eg, esophagus), radiological supervision and interpretation CPT copyright 2021 [employer]. All rights reserved. The codes documented in this report are preliminary and upon kiln mechanic review may be revised to meet current compliance requirements. Navdeep Barlow DO 05/11/2024 12:23:53 PM This report has been signed electronically. Number of Addenda: 0 Note Initiated On: 05/11/2024 11:32 AM
--- NOTE | 2024-05-11 12:24 | OP.CCLET_ITS ---
05/11/2024 Padminitristan Goss Re : Upper GI endoscopy procedure for Deneen Goss This procedure was performed on Saturday, May 11, 2024. My impressions and recommendations are as follows: Impressions : - Normal esophagus. - An endoclip was found in the stomach. Removal was successful. - Non-bleeding gastric ulcers with no stigmata of bleeding. 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 - Acquired duodenal stenosis. Prosthesis placed. Recommendations : - [facility]. - Full liquid diet today. - Continue present medications. My findings are described in the full procedure note, which is enclosed. If I can be of further assistance, please feel free to contact me at . Sincerely, Navdeep Barlow, 05/11/2024 12:23:53 PM This report has been signed electronically.
--- NOTE | 2024-05-11 12:36 | PCM.POST.ANE ---
Anesthesia: Postop Eval I Current Vital Signs Temperature: 98.4 F Pulse Rate: 81 Blood Pressure: 118/69 Respiratory Rate: 16 Pulse Ox: 100 Oxygen Delivery Method: Room Air Assessment Airway patent: Yes Spontaneous unlabored respirations: Yes Mental status: Asleep nausea: No Vomiting: No Anesthesia Complication: No Fluid Hydration Crystalloid volume administer (ml): 600 Total IV fluid infused: 600 Progress Note Anesthesia document: Postop Eval 1 completed: Yes
[2024-05-11] MEDS: Ceftriaxone 1 GM/50 ML BAG IV (13:58)
[2024-05-11] MEDS: Nystatin Powder 15gm Bottle 1 APPLIC TOPICAL ×2 (14:03→22:20)
[2024-05-11] MEDS: Menthol/Lanolin/Calamine/Znox 113 GM Tube 1 APPLIC TOPICAL ×2 (14:03→22:20)
[2024-05-11] MEDS: Sertraline 50 MG Tablet PO (14:04)
[2024-05-11] MEDS: 0.9% Saline Lock 10 ML Syringe IV (14:25)
--- NOTE | 2024-05-11 14:25 | CASEMGMT ---
[facility] able [facility] patient. [facility] has a [facility] private room available. GILBERTO spoke with patient's daughter, Delphine. GILBERTO introduced self and role at [facility]. GILBERTO explained [facility] can take patient, but they only have a semi private room. Delphine said that is fine. GILBERTO asked Luther Vasques to start the pre-cert. Plan: d/c to [facility] pending insurance approval. Kaykay RICHEY
--- NOTE | 2024-05-11 14:35 | CASEMGMT ---
Discharge Planning Note sent via [facility] to [facility] asking for them to cancel referral. Gemma Mas DC Planning Asst.
--- NOTE | 2024-05-11 16:37 | PN.HOSP_ITS ---
Reason for Visit Reason for Visit: Diagnoses Anxiety disorder, unspecified (05/08/24) Unspecified atrial fibrillation (05/08/24) Cerebral infarction due to unspecified occlusion or stenosis of right middle cerebral artery (05/08/24) Gastrointestinal hemorrhage, unspecified (05/08/24) Objective Data Objective Data Vital Signs: Vital Signs Temp Pulse Resp BP Pulse Ox O2 Del Method 97.7 F L 63 18 168/74 H 95 Room Air 05/11/24 14:15 05/11/24 14:15 05/11/24 14:15 05/11/24 14:15 05/11/24 14:15 05/11/24 14:18 Oxygen Delivery Method Room Air Weight: 134 lb 15.86 oz Body Mass Index (BMI) 25.4 Intake & Output: Intake and Output for Last 24 Hours 05/09/24 05/10/24 05/11/24 23:59 23:59 23:59 Intake Total 2840.0 / 2840.0 714.83 / 714.83 228.16 / 228.16 Balance 2840.0 / 2840.0 714.83 / 714.83 228.16 / 228.16 Lab / Micro Data 05/11/24 05:13 05/11/24 05:13 Labs: Laboratory Results - last 24 hr 05/11/24 05:13: WBC 6.1, RBC 3.57 L, Hgb 9.4 L, Hct 30.1 L, MCV 84.3, MCH 26.3 L , MCHC 31.2 L, RDW Std Deviation 53.1 H, RDW Coeff of Pelon 17.3 H, Plt Count 159, MPV 12.2 H, Sodium 143, Potassium 3.7, Chloride 114 H, Carbon Dioxide 23.0, Anion Gap 6, BUN 10, Creatinine 0.54 L, Estim Creat Clear Calc 48.65, Est GFR (MDRD) Af Amer 139, Est GFR (MDRD) Non-Af 115, BUN/Creatinine Ratio 18.4, Glucose 106, Calcium 8.3 L Micro: Microbiology 05/09/24 05:45 Urine, Random Urine Culture - Final Escherichia coli Radiography Diagnostic Testing: Radiology Impression Fluoroscopy 05/11/24 11:30 IMPRESSION: Fluoroscopic services provided for duodenal stent placement. Electronically Signed: Giuseppe Young MD at 13:18 EDT , Physical Exam Narrative Seen and examined. Patient had EGD today. Discussed with Dr. Barlow. Patient's daughter present in the room. Physical exam General: While sleeping, woke up. Oriented x 3. Cooperative HEENT: Atraumatic, PERRLA, EOMI, Normocephalic Oral: No Gingival or Mucosal Lesions/ Ulcerations Neck: Supple, No JVD, Negative Carotid Bruits Chest wall/Lungs: Air entry diminished in bilateral lung bases. No crepitation/rhonchi Cardiovascular: Irregular rate and rhythm, Normal S1, Normal S2, soft systolic murmur Abdomen: Bowel Sounds Present, Soft, Non Tender, Non-Distended : No dysuria. No renal angle tenderness. No suprapubic tenderness. Extremities: No edema, Capillary Refill Less than 3 Seconds Skin: No rashes, No breakdown Musculoskeletal: Chronic deformity of the small finger joints, hands and feet joints. Burnout chronic RA. Muscle strength 3/5 at knees and hip joints and small joints with contracture on the right side. No Tenderness to Palpation of Joints or Extremities Neurological: Cranial nerves II-XII grossly intact, DTR 2+/4. No acute focal neurological deficit. Psych/Mental Status: Flat affect. Assessment & Plan Assessment/Plan (1) Acute upper GI bleed: (2) Afib: QUALIFIERS: Atrial fibrillation type: unspecified Qualified Code(s): I48.91 - Unspecified atrial fibrillation (3) Acute ischemic right MCA stroke: (4) Anxiety disorder, unspecified: PLAN: Plan #Hematemasis with proper GI bleed due to gastric ulcers/acquired duodenal stenosis -Recent UGIB seen at [facility] for 5 days in February -Presented with large volume hematemasis -Hgb 10.5 but given extent of bleeding pt taken to EGD urgently -Type and screened -PPI gtt -GI c/s -Holding eliquis -Also appears pt was taking meloxicam at home, will d/c -05/09: Patient may need duodenal stent given her acquired stenosis as she will continue to have problems with GI bleeds if she has to take meloxicam and anticoagulation, advised to keep patient on full liquid diet. Hemoglobin 9.9 today with no further evidence of bleeding at this time, remains on Protonix drip at this time -05/10: Holding AC, hemoglobin down trended but no evidence of active bleed, awaiting determination on stent placement 05/11 continue holding anticoagulant. H&H 9.4/30%. Platelet count 159,000. EGD on 05/11 Impressions : - Normal esophagus. - An endoclip was found in the stomach. Removal was successful. - Non-bleeding gastric ulcers with no stigmata of bleeding. 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 - Acquired duodenal stenosis. Prosthesis placed. #Concern for UTI -Daughter reported patient had been having more urinary frequency and seemed to be having abnormal urination for her to UA obtained which does show bacteria -05/10: Urine culture E. coli more than 100,000 colonies. Resistant to Bactrim, gentamicin and ampicillin otherwise pansensitive. Continue ceftriaxone Chronic problems: #Hx CVA w/ residual deficits -Holding eliquis -Cont statin -05/10: PT/OT #Hx afib/flutter -Holding eliquis -No rate controlled medications, pt not tachycardic -05/10: Monitoring on telemetry #Anx -Continue sertraline #RA -Takes meloxicam at home -Being held here -May need evaluated for alternative option on d/c DVT: SCDS Charges/Coding Visit Charges Inpatient E&M: 38447 Subs Hosp L2
[2024-05-11] MEDS: Mag /Aluminum/Simeth WCH UDC 30 ML ORAL.SUSP 15 ML PO (16:39)
[2024-05-11] MEDS: Ensure Plus High Protein 120 ML LIQUID PO (16:43)
[2024-05-11] MEDS: Atorvastatin Calcium 20 MG Tablet PO (22:19)
[2024-05-12 03:05] VITALS: BP 143/76; PULSE 82; RESP 16; TEMP 36.6; O2SAT 99
[2024-05-12 06:41] LABS: Hemoglobin 9.9 g/dL (12.0-15.0); Mean Corp Hgb Conc 30.9 g/dL (32-36); Mean Corpuscular Hgb 26.1 pg (27.0-32.0); Mean Corpuscular Volume 84.4 fL (81-99); Mean Platelet Vol. 12.1 fl (6.2-12.0); Platelet Count 182 K/mm3 (150-450); RBC Distribution Width CV 17.5 % (11.6-14.6); RBC Distribution Width SD 53.1 fl (35.1-43.9); Red Blood Count 3.79 M/mm3 (4.2-5.4); White Blood Count 8.5 K/mm3 (4.4-11.0)
[2024-05-12 07:10] LABS: Anion Gap 5 (5-15); BUN 6 mg/dL (7-18); BUN/Creat Ratio 11.6 RATIO (10-20); Calcium,Total 8.3 mg/dL (8.5-10.1); Chloride 110 mmol/L (98-107); Creatinine, Serum 0.52 mg/dL (0.55-1.02); EST Glomerular Filtration Rate 122 mL/min (>60); Est Glom Filt Rate - Afr Amer 147 mL/min (>60); Estimated Creatinine Clearance 48.65 ml/min; Glucose 131 mg/dL (74-106); Potassium 3.5 mmol/L (3.5-5.1); Sodium Level 141 mmol/L (136-145)
[2024-05-12] MEDS: Ensure Plus High Protein 120 ML LIQUID PO ×2 (08:08→11:01)
[2024-05-12] MEDS: Menthol/Lanolin/Calamine/Znox 113 GM Tube 1 APPLIC TOPICAL ×2 (08:09→20:39)
[2024-05-12] MEDS: Nystatin Powder 15gm Bottle 1 APPLIC TOPICAL ×2 (08:09→20:39)
[2024-05-12 09:00] VITALS: BP 146/73; PULSE 73; RESP 16; TEMP 36.6; O2SAT 96
[2024-05-12] MEDS: Ceftriaxone 1 GM/50 ML BAG IV (10:58)
[2024-05-12] MEDS: Sertraline 50 MG Tablet PO (11:00)
--- NOTE | 2024-05-12 13:00 | CASEMGMT ---
Social Work As per daughter Delphine, she is pt's healthcare POA. Daughter aware we do not have the documents on the chart however. DEVONTE Herr
[2024-05-12] MEDS: Pantoprazole Sodium 80 MG in 0.9% Normal Saline (100mL Bag) 80 ML 10 MG CONT INF ×2 (13:47)
[2024-05-12] MEDS: Ondansetron 4 MG/2 ML Vial IV (13:48)
[2024-05-12 15:00] VITALS: BP 148/84; PULSE 82; RESP 14; TEMP 36.4; O2SAT 96
--- NOTE | 2024-05-12 16:15 | PN.GI_ITS ---
Subjective Subjective Patient underwent duodenal stent placement yesterday for refractory peptic ulcer disease in the setting of severe pyloric stenosis and duodenal stenosis. She is not having abdominal pain. She denies any cramping. She is tolerating liquid diet. Objective Data Objective Data Vital Signs: Vital Signs Temp Pulse Resp BP Pulse Ox O2 Del Method 97.6 F L 82 14 148/84 H 96 Room Air 05/12/24 15:00 05/12/24 15:00 05/12/24 15:00 05/12/24 15:00 05/12/24 15:00 05/12/24 15:00 Oxygen Delivery Method Room Air Weight: 134 lb 15.86 oz Body Mass Index (BMI) 25.4 Intake & Output: Intake and Output for Last 24 Hours 05/10/24 05/11/24 05/12/24 23:59 23:59 23:59 Intake Total 714.83 / 714.83 468.16 / 568.16 250 / 250 Balance 714.83 / 714.83 468.16 / 568.16 250 / 250 Lab / Micro Data 05/12/24 06:19 05/12/24 06:19 Labs: Laboratory Results - last 24 hr 05/12/24 06:19: WBC 8.5, RBC 3.79 L, Hgb 9.9 L, Hct 32.0 L, MCV 84.4, MCH 26.1 L , MCHC 30.9 L, RDW Std Deviation 53.1 H, RDW Coeff of Pelon 17.5 H, Plt Count 182, MPV 12.1 H, Sodium 141, Potassium 3.5, Chloride 110 H, Carbon Dioxide 26.0, Anion Gap 5, BUN 6 L, Creatinine 0.52 L, Estim Creat Clear Calc 48.65, Est GFR (MDRD) Af Amer 147, Est GFR (MDRD) Non-Af 122, BUN/Creatinine Ratio 11.6, G lucose 131 H, Calcium 8.3 L Micro: Microbiology 05/09/24 05:45 Urine, Random Urine Culture - Final Escherichia coli Physical Exam Narrative Seen and examined. Patient had EGD today. Discussed with Dr. Barlow. Patient's daughter present in the room. Physical exam General: While sleeping, woke up. Oriented x 3. Cooperative HEENT: Atraumatic, PERRLA, EOMI, Normocephalic Oral: No Gingival or Mucosal Lesions/ Ulcerations Neck: Supple, No JVD, Negative Carotid Bruits Chest wall/Lungs: Air entry diminished in bilateral lung bases. No crepitation/rhonchi Cardiovascular: Irregular rate and rhythm, Normal S1, Normal S2, soft systolic murmur Abdomen: Bowel Sounds Present, Soft, Non Tender, Non-Distended : No dysuria. No renal angle tenderness. No suprapubic tenderness. Extremities: No edema, Capillary Refill Less than 3 Seconds Skin: No rashes, No breakdown Musculoskeletal: Chronic deformity of the small finger joints, hands and feet joints. Burnout chronic RA. Muscle strength 3/5 at knees and hip joints and small joints with contracture on the right side. No Tenderness to Palpation of Joints or Extremities Neurological: Cranial nerves II-XII grossly intact, DTR 2+/4. No acute focal neurological deficit. Psych/Mental Status: Flat affect. Assessment & Plan Assessment/Plan (1) Acute upper GI bleed: PLAN: Acute upper GI bleed in the setting of recent acute right MCA stroke, rheumatoid arthritis on Eliquis, meloxicam and sertraline all which can result in upper GI bleed. Hemoglobin is slightly down at 9.9. I had a long talk with her daughter yesterday explained to her that she has essentially a mild gastric outlet because she has severe pyloric stenosis and duodenal stenosis which lead to her pills sitting at the base of her stomach. She would likely need at least a temporary duodenal stent to open up the pyloric sphincter and duodenal bulb. Continue to monitor hemoglobin. Patient can be on full liquid diet today. PLAN: Plan 05/10/2024-patient's hemoglobin is slightly down to 9 from 9.9. She may still be losing at the site of multiple gastric ulcers that were treated endoscopically. She will need a repeat upper endoscopy and possible stent placement due to her pyloric stricture and her duodenal stricture. Plan was discussed with patient's daughter. Keep n.p.o. past midnight 05/12/2024. Patient's diet can be advanced to soft diet for the next couple days and then we will advance to a regular diet. Her hemoglobin continues to go up with the placement of the duodenal stent over the ulcer. Charges/Coding Visit Charges Inpatient E&M: 17545 Subs Hosp L3
--- NOTE | 2024-05-12 16:30 | PN.HOSP_ITS ---
Reason for Visit Reason for Visit: Diagnoses Anxiety disorder, unspecified (05/08/24) Unspecified atrial fibrillation (05/08/24) Cerebral infarction due to unspecified occlusion or stenosis of right middle cerebral artery (05/08/24) Gastrointestinal hemorrhage, unspecified (05/08/24) Objective Data Objective Data Vital Signs: Vital Signs Temp Pulse Resp BP Pulse Ox O2 Del Method 97.6 F L 82 14 148/84 H 96 Room Air 05/12/24 15:00 05/12/24 15:00 05/12/24 15:00 05/12/24 15:00 05/12/24 15:00 05/12/24 15:00 Oxygen Delivery Method Room Air Weight: 134 lb 15.86 oz Body Mass Index (BMI) 25.4 Intake & Output: Intake and Output for Last 24 Hours 05/10/24 05/11/24 05/12/24 23:59 23:59 23:59 Intake Total 714.83 / 714.83 468.16 / 568.16 250 / 250 Balance 714.83 / 714.83 468.16 / 568.16 250 / 250 Lab / Micro Data 05/12/24 06:19 05/12/24 06:19 Labs: Laboratory Results - last 24 hr 05/12/24 06:19: WBC 8.5, RBC 3.79 L, Hgb 9.9 L, Hct 32.0 L, MCV 84.4, MCH 26.1 L , MCHC 30.9 L, RDW Std Deviation 53.1 H, RDW Coeff of Pelon 17.5 H, Plt Count 182, MPV 12.1 H, Sodium 141, Potassium 3.5, Chloride 110 H, Carbon Dioxide 26.0, Anion Gap 5, BUN 6 L, Creatinine 0.52 L, Estim Creat Clear Calc 48.65, Est GFR (MDRD) Af Amer 147, Est GFR (MDRD) Non-Af 122, BUN/Creatinine Ratio 11.6, G lucose 131 H, Calcium 8.3 L Micro: Microbiology 05/09/24 05:45 Urine, Random Urine Culture - Final Escherichia coli Physical Exam Narrative Seen and examined. Patient had EGD on 05/11/2024. Discussed with Dr. Barlow. Patient's daughter present in the room. No acute issues. Physical exam General: Awake oriented x 3. Cooperative, fatigue BMI 25.5 kg/m? HEENT: Atraumatic, PERRLA, EOMI, Normocephalic Oral: No Gingival or Mucosal Lesions/ Ulcerations Neck: Supple, No JVD, Negative Carotid Bruits Chest wall/Lungs: Air entry diminished in bilateral lung bases. No crepitation/rhonchi Cardiovascular: Irregular rate and rhythm, Normal S1, Normal S2, soft systolic murmur Abdomen: Bowel Sounds Present, Soft, Non Tender, Non-Distended : No dysuria. No renal angle tenderness. No suprapubic tenderness. Extremities: No edema, Capillary Refill Less than 3 Seconds Skin: No rashes, No breakdown Musculoskeletal: Chronic deformity of the small finger joints, hands and feet joints. Burnout chronic RA. Muscle strength 3/5 at knees and hip joints and small joints with contracture on the right side. No Tenderness to Palpation of Joints or Extremities Neurological: Cranial nerves II-XII grossly intact, DTR 2+/4. No acute focal neurological deficit. Psych/Mental Status: Flat affect. Assessment & Plan Assessment/Plan (1) Acute upper GI bleed: (2) Afib: QUALIFIERS: Atrial fibrillation type: unspecified Qualified Code(s): I48.91 - Unspecified atrial fibrillation (3) Acute ischemic right MCA stroke: (4) Anxiety disorder, unspecified: PLAN: Plan #Hematemasis with proper GI bleed due to gastric ulcers/acquired duodenal stenosis -Recent UGIB seen at [facility] for 5 days in February -Presented with large volume hematemasis -Hgb 10.5 but given extent of bleeding pt taken to EGD urgently -Type and screened -PPI gtt -GI c/s -Holding eliquis -Also appears pt was taking meloxicam at home, will d/c -05/09: Patient may need duodenal stent given her acquired stenosis as she will continue to have problems with GI bleeds if she has to take meloxicam and anticoagulation, advised to keep patient on full liquid diet. Hemoglobin 9.9 today with no further evidence of bleeding at this time, remains on Protonix drip at this time -05/10: Holding AC, hemoglobin down trended but no evidence of active bleed, awaiting determination on stent placement 05/11 continue holding anticoagulant. H&H 9.4/30%. Platelet count 159,000. EGD on 05/11 Impressions : - Normal esophagus. - An endoclip was found in the stomach. Removal was successful. - Non-bleeding gastric ulcers with no stigmata of bleeding. 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 - Acquired duodenal stenosis. Prosthesis placed. 05/12: No acute issues. H&H 9.9/32%. Platelet count normal #Concern for UTI -Daughter reported patient had been having more urinary frequency and seemed to be having abnormal urination for her to UA obtained which does show bacteria -05/10: Urine culture E. coli more than 100,000 colonies. Resistant to Bactrim, gentamicin and ampicillin otherwise pansensitive. Continue ceftriaxone 05/12: Continue ceftriaxone while inpatient. Chronic problems: #Hx CVA w/ residual deficits -Holding eliquis -Cont statin -05/10: PT/OT #Hx afib/flutter -Holding eliquis -No rate controlled medications, pt not tachycardic -05/10: Monitoring on telemetry #Anx -Continue sertraline #RA -Takes meloxicam at home -Being held here -May need evaluated for alternative option on d/c DVT: SCDS Charges/Coding Visit Charges Inpatient E&M: 02831 Subs Hosp L2
[2024-05-12] MEDS: Potassium Chloride Oral Tablet 20 MEQ 40 MEQ PO (17:30)
[2024-05-12] MEDS: 0.9% Saline Lock 10 ML Syringe IV (18:26)
[2024-05-12] MEDS: Metoclopramide 10 MG/2 ML Vial 5 MG IV (18:26)
[2024-05-12 20:30] VITALS: BP 158/73; PULSE 85; RESP 16; TEMP 36.8; O2SAT 96
[2024-05-12] MEDS: Atorvastatin Calcium 20 MG Tablet PO (20:38)
[2024-05-13] MEDS: Pantoprazole Sodium 80 MG in 0.9% Normal Saline (100mL Bag) 80 ML 10 MG CONT INF ×2 (01:58→10:25)
[2024-05-13 02:55] VITALS: BP 142/72; PULSE 80; RESP 18; TEMP 36.8; O2SAT 96
--- NOTE | 2024-05-13 09:12 | CASEMGMT ---
Discharge Planning Updates sent to [facility] via [facility]. Gemma Mas DC Planning Asst.
[2024-05-13 09:40] VITALS: BP 147/91; PULSE 82; RESP 18; TEMP 36.4; O2SAT 94
[2024-05-13] MEDS: Ceftriaxone 1 GM/50 ML BAG IV (09:41)
[2024-05-13] MEDS: Sertraline 50 MG Tablet PO (09:41)
[2024-05-13] MEDS: Menthol/Lanolin/Calamine/Znox 113 GM Tube 1 APPLIC TOPICAL ×2 (09:49→21:26)
[2024-05-13] MEDS: Nystatin Powder 15gm Bottle 1 APPLIC TOPICAL ×2 (09:49→21:26)
--- NOTE | 2024-05-13 12:30 | CASEMGMT ---
GILBERTO received a phone call from Delphine at [facility] and [facility] ([employer] [facility] manages [facility] requests). Delphine asked GILBERTO a few questions and notified GILBERTO that patient will not be approved for skilled. Delphine said once the denial goes through the facility can try for pre-cert for intermediate level of care. Kaykay RICHEY
--- NOTE | 2024-05-13 14:50 | PCM.PN.HOSP ---
Reason for Visit Reason for Visit: Diagnoses Anxiety disorder, unspecified (05/08/24) Unspecified atrial fibrillation (05/08/24) Cerebral infarction due to unspecified occlusion or stenosis of right middle cerebral artery (05/08/24) Gastrointestinal hemorrhage, unspecified (05/08/24) Objective Data Objective Data Vital Signs: Vital Signs Temp Pulse Resp BP Pulse Ox O2 Del Method 97.5 F L 82 18 147/91 H 94 Room Air 05/13/24 09:40 05/13/24 09:40 05/13/24 09:40 05/13/24 09:40 05/13/24 09:40 05/13/24 13:44 Oxygen Delivery Method Room Air Weight: 134 lb 15.86 oz Body Mass Index (BMI) 25.4 Intake & Output: Intake and Output for Last 24 Hours 05/11/24 05/12/24 05/13/24 23:59 23:59 23:59 Intake Total 468.16 / 568.16 350 / 350 134.5 / 134.5 Output Total 400 / 400 750 / 750 Balance 468.16 / 568.16 -50 / -50 -615.5 / -615.5 Lab / Micro Data 05/12/24 06:19 05/12/24 06:19 Micro: Microbiology 05/09/24 05:45 Urine, Random Urine Culture - Final Escherichia coli Physical Exam Narrative Seen and examined. Patient had EGD on 05/11/2024. Discussed with Dr. Barlow. Yesterday evening patient had vomiting after having tomato soup and juice. Patient's daughter was upset about it as she has reflux. Discussed with the nursing staff and adjusto writer operator about the daughters consult. Physical exam General: Awake oriented x 3. Cooperative, fatigue BMI 25.5 kg/m? HEENT: Atraumatic, PERRLA, EOMI, Normocephalic Oral: No Gingival or Mucosal Lesions/ Ulcerations Neck: Supple, No JVD, Negative Carotid Bruits Chest wall/Lungs: Air entry diminished in bilateral lung bases. No crepitation/rhonchi Cardiovascular: Irregular rate and rhythm, Normal S1, Normal S2, soft systolic murmur Abdomen: Bowel Sounds Present, Soft, Non Tender, Non-Distended : No dysuria. No renal angle tenderness. No suprapubic tenderness. Extremities: No edema, Capillary Refill Less than 3 Seconds Skin: No rashes, No breakdown Musculoskeletal: Chronic deformity of the small finger joints, hands and feet joints. Burnout chronic RA. Muscle strength 3/5 at knees and hip joints and small joints with contracture on the right side. No Tenderness to Palpation of Joints or Extremities Neurological: Cranial nerves II-XII grossly intact, DTR 2+/4. No acute focal neurological deficit. Psych/Mental Status: Flat affect. Assessment & Plan Assessment/Plan (1) Acute upper GI bleed: (2) Afib: QUALIFIERS: Atrial fibrillation type: unspecified Qualified Code(s): I48.91 - Unspecified atrial fibrillation (3) Acute ischemic right MCA stroke: (4) Anxiety disorder, unspecified: PLAN: Plan #Hematemasis with proper GI bleed due to gastric ulcers/acquired duodenal stenosis -Recent UGIB seen at [facility] for 5 days in February -Presented with large volume hematemasis -Hgb 10.5 but given extent of bleeding pt taken to EGD urgently -Type and screened -PPI gtt -GI c/s -Holding eliquis -Also appears pt was taking meloxicam at home, will d/c -05/09: Patient may need duodenal stent given her acquired stenosis as she will continue to have problems with GI bleeds if she has to take meloxicam and anticoagulation, advised to keep patient on full liquid diet. Hemoglobin 9.9 today with no further evidence of bleeding at this time, remains on Protonix drip at this time -05/10: Holding AC, hemoglobin down trended but no evidence of active bleed, awaiting determination on stent placement 05/11 continue holding anticoagulant. H&H 9.4/30%. Platelet count 159,000. EGD on 05/11 Impressions : - Normal esophagus. - An endoclip was found in the stomach. Removal was successful. - Non-bleeding gastric ulcers with no stigmata of bleeding. 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 - Acquired duodenal stenosis. Prosthesis placed. 05/12: No acute issues. H&H 9.9/32%. Platelet count normal 05/13 patient had vomiting 1 time small amount after tomato soup knowing his family due to GERD. On PPI. Discussed with the adjusto writer operator so that she can only non-citrus/tangy but soft pudding or oatmeal. # E. coli lower UTI/cystitis -Daughter reported patient had been having more urinary frequency and seemed to be having abnormal urination for her to UA obtained which does show bacteria -05/10: Urine culture E. coli more than 100,000 colonies. Resistant to Bactrim, gentamicin and ampicillin otherwise pansensitive. Continue ceftriaxone 05/12: Continue ceftriaxone while inpatient. Chronic problems: #Hx CVA w/ residual deficits -Holding eliquis -Cont statin -05/10: PT/OT #Hx afib/flutter -Holding eliquis -No rate controlled medications, pt not tachycardic -05/10: Monitoring on telemetry #Anx -Continue sertraline #RA -Takes meloxicam at home -Being held here -May need evaluated for alternative option on d/c DVT: SCDS Charges/Coding Visit Charges Inpatient E&M: 05619 Subs Hosp L2
[2024-05-13 16:12] VITALS: BP 137/76; PULSE 83; RESP 18; TEMP 36.5; O2SAT 94
--- NOTE | 2024-05-13 17:00 | CT_ITS ---
INDICATION: nausea and vomiting EXAMINATION: CTA abdomen and pelvis - TECHNIQUE: Routine abdominal CT angiogram protocol was performed with IV contrast. MIP images provided. The protocol utilizes one or more of the following dose reduction techniques: automated exposure control, adjustment of mA and/or kV according to patient size,and/or use of iterative reconstruction technique. IV Contrast dosage and agent: 100 cc of Isovue-370 RADIATION DOSAGE (If Supplied By Facility): CTDIvol = ( 24.14 ) mGy, DLP = ( 1012.64 ) mGycm COMPARISON: January 03, 2023 and November 15, 2023 FINDINGS: Motion artifact degrades anatomic detail. Lung bases: There is a small left pleural effusion associated with left lower lobe consolidation. Liver: Normal. No bile ductal dilatation. Gallbladder: There are multiple gallstones within the gallbladder with no associated gallbladder distention nor pericholecystic fluid. Spleen: Normal. Adrenal gland: Normal. Kidneys: Normal. No hydronephrosis or stone formation. There is a stable right renal cyst. Pancreas:No pancreatic ductal dilatation is seen. Within the uncinate process there is a stable 10 mm round low-attenuation focus which may reflect a cyst. There is a similar stable appearing focus within the tail of the pancreas measuring 9.6 mm. Bowel gas pattern: There is a stent within the proximal duodenum.. There are diverticula arising from the colon. The appendix appears within normal limits. Free air: None. Free fluid: None. Pelvis: Pelvic organs: There are stable coarse calcifications arising from the uterine fundus suggestive of calcified fibroids. There are stable cystic foci within the left adnexa suggestive of ovarian cyst. There is thickening of the anterior and right urinary bladder wall. Bone survey: There are degenerative changes of the lumbar spine. Adenopathy: No significant pathologic adenopathy detected. Vascular: There are atherosclerotic calcifications of the abdominal aorta and the common iliac arteries and their branches. No significant stenosis or occlusion is visualized. CT/CTA Abd/Pelvis W/WO Contrast IMPRESSION: Left pleural effusion associated with left lower lobe consolidation. Cholelithiasis. No bowel obstruction identified. Duodenal stent in place. Colonic diverticulosis. Atherosclerosis. Stable cystic foci within the pancreas with no associated pancreatic ductal dilatation. Electronically Signed: Lyn Booth MD at 9:35 EDT ,
--- NOTE | 2024-05-13 17:01 | EX.PCM.PN.GI ---
Subjective Subjective I was made aware by nursing and patient's daughter was at the bedside that she has been having some nausea vomiting. This has been a chronic problem but has gotten progressively worse and she had the second major GI bleed. Objective Data Objective Data Vital Signs: Vital Signs Temp Pulse Resp BP Pulse Ox O2 Del Method 97.7 F L 83 18 137/76 H 94 Room Air 05/13/24 16:12 05/13/24 16:12 05/13/24 16:12 05/13/24 16:12 05/13/24 16:12 05/13/24 16:12 Oxygen Delivery Method Room Air Weight: 134 lb 15.86 oz Body Mass Index (BMI) 25.4 Intake & Output: Intake and Output for Last 24 Hours 05/11/24 05/12/24 05/13/24 23:59 23:59 23:59 Intake Total 468.16 / 568.16 350 / 350 134.5 / 134.5 Output Total 400 / 400 750 / 750 Balance 468.16 / 568.16 -50 / -50 -615.5 / -615.5 Lab / Micro Data 05/12/24 06:19 05/12/24 06:19 Micro: Microbiology 05/09/24 05:45 Urine, Random Urine Culture - Final Escherichia coli Physical Exam Narrative Seen and examined. Physical exam General: Awake oriented x 3. Cooperative, fatigue BMI 25.5 kg/m? HEENT: Atraumatic, PERRLA, EOMI, Normocephalic Oral: No Gingival or Mucosal Lesions/ Ulcerations Neck: Supple, No JVD, Negative Carotid Bruits Chest wall/Lungs: Air entry diminished in bilateral lung bases. No crepitation/rhonchi Cardiovascular: Irregular rate and rhythm, Normal S1, Normal S2, soft systolic murmur Abdomen: Bowel Sounds Present, Soft, Non Tender, Non-Distended : No dysuria. No renal angle tenderness. No suprapubic tenderness. Extremities: No edema, Capillary Refill Less than 3 Seconds Skin: No rashes, No breakdown Musculoskeletal: Chronic deformity of the small finger joints, hands and feet joints. Burnout chronic RA. Muscle strength 3/5 at knees and hip joints and small joints with contracture on the right side. No Tenderness to Palpation of Joints or Extremities Neurological: Cranial nerves II-XII grossly intact, DTR 2+/4. No acute focal neurological deficit. Psych/Mental Status: Flat affect. Assessment & Plan Assessment/Plan (1) Acute upper GI bleed: PLAN: Acute upper GI bleed in the setting of recent acute right MCA stroke, rheumatoid arthritis on Eliquis, meloxicam and sertraline all which can result in upper GI bleed. Hemoglobin is slightly down at 9.9. I had a long talk with her daughter yesterday explained to her that she has essentially a mild gastric outlet because she has severe pyloric stenosis and duodenal stenosis which lead to her pills sitting at the base of her stomach. She would likely need at least a temporary duodenal stent to open up the pyloric sphincter and duodenal bulb. Continue to monitor hemoglobin. Patient can be on full liquid diet today. PLAN: Plan 05/10/2024-patient's hemoglobin is slightly down to 9 from 9.9. She may still be losing at the site of multiple gastric ulcers that were treated endoscopically. She will need a repeat upper endoscopy and possible stent placement due to her pyloric stricture and her duodenal stricture. Plan was discussed with patient's daughter. Keep n.p.o. past midnight 05/12/2024. Patient's diet can be advanced to soft diet for the next couple days and then we will advance to a regular diet. Her hemoglobin continues to go up with the placement of the duodenal stent over the ulcer. 05/13/2024-patient probably has some elements of gastroparesis due to her previous stroke in immobility. Recommend CT scan abdomen pelvis with oral and IV contrast and also gastric emptying study. Patient's hemoglobin seems to be stable at this time. Continue to hold blood thinners. Charges/Coding Visit Charges Inpatient E&M: 92849 Subs Hosp L3
[2024-05-13] MEDS: Atorvastatin Calcium 20 MG Tablet PO (21:26)
[2024-05-13] MEDS: MENTHOL 226.8 GM JAR 1 APPLIC TOPICAL (21:26)
[2024-05-13 22:12] VITALS: BP 142/85; PULSE 82; RESP 18; TEMP 36.5; O2SAT 95
[2024-05-14] VITALS (11 sets, daily range): BP systolic 118–156; BP diastolic 60–86; PULSE 71–92; RESP 16–18; TEMP 36.1–36.7; O2SAT 95–100
[2024-05-14] MEDS: Pantoprazole Sodium 80 MG in 0.9% Normal Saline (100mL Bag) 80 ML 10 MG CONT INF ×2 (03:00→17:31)
[2024-05-14 07:55] LABS: Absolute Lymphocyte Count 1.19 X10^3/uL (0.83-4.51); Absolute Neutrophil Count 6.7 X10^3/uL (2.0-7.7); Basophil# 0.03 X10^3/uL; Basophil% 0.3 % (0-1); Eosinophil# 0.41 X10^3/uL; Eosinophils% 4.5 % (0-5); Hematocrit 31.6 % (37-47); Hemoglobin 9.7 g/dL (12.0-15.0); Lymphocyte # 1.19 X10^3/ul (0.83-4.51); Lymphocyte % 13.1 % (19-41); Mean Corp Hgb Conc 30.7 g/dL (32-36); Mean Corpuscular Hgb 26.1 pg (27.0-32.0); Mean Corpuscular Volume 84.9 fL (81-99); Mean Platelet Vol. 12.2 fl (6.2-12.0); Monocyte# 0.73 X10^3/uL; NRBC Flagged by Analyzer 0 % (0-5); Neutrophil # 6.71 X10^3/uL (2.7-7.7); Neutrophil % 73.9 % (47-70); Platelet Count 189 K/mm3 (150-450); RBC Distribution Width CV 18.6 % (11.6-14.6); RBC Distribution Width SD 55.7 fl (35.1-43.9); Red Blood Count 3.72 M/mm3 (4.2-5.4); White Blood Count 9.1 K/mm3 (4.4-11.0)
[2024-05-14 08:22] LABS: Anion Gap 4 (5-15); BUN 6 mg/dL (7-18); BUN/Creat Ratio 11.1 RATIO (10-20); Calcium,Total 8.1 mg/dL (8.5-10.1); Chloride 108 mmol/L (98-107); Creatinine, Serum 0.54 mg/dL (0.55-1.02); EST Glomerular Filtration Rate 116 mL/min (>60); Est Glom Filt Rate - Afr Amer 141 mL/min (>60); Estimated Creatinine Clearance 48.65 ml/min; Glucose 131 mg/dL (74-106); Potassium 3.8 mmol/L (3.5-5.1); Sodium Level 138 mmol/L (136-145)
[2024-05-14] MEDS: Ceftriaxone 1 GM/50 ML BAG IV (09:47)
[2024-05-14] MEDS: Menthol/Lanolin/Calamine/Znox 113 GM Tube 1 APPLIC TOPICAL ×2 (09:48→19:44)
[2024-05-14] MEDS: Nystatin Powder 15gm Bottle 1 APPLIC TOPICAL ×2 (09:48→19:44)
--- NOTE | 2024-05-14 10:58 | PN.HOSP_ITS ---
Reason for Visit Reason for Visit: Diagnoses Anxiety disorder, unspecified (05/08/24) Unspecified atrial fibrillation (05/08/24) Cerebral infarction due to unspecified occlusion or stenosis of right middle cerebral artery (05/08/24) Gastrointestinal hemorrhage, unspecified (05/08/24) Objective Data Objective Data Vital Signs: Vital Signs Temp Pulse Resp BP Pulse Ox O2 Del Method 97.8 F 77 18 136/62 H 100 Room Air 05/14/24 08:22 05/14/24 08:22 05/14/24 08:22 05/14/24 08:22 05/14/24 08:22 05/14/24 08:22 Oxygen Delivery Method Room Air Weight: 134 lb 15.86 oz Body Mass Index (BMI) 25.4 Intake & Output: Intake and Output for Last 24 Hours 05/12/24 05/13/24 05/14/24 23:59 23:59 23:59 Intake Total 350 / 350 205.33 / 205.33 83.17 / 83.17 Output Total 400 / 400 750 / 750 Balance -50 / -50 -544.67 / -544.67 83.17 / 83.17 Lab / Micro Data 05/14/24 07:47 05/14/24 07:47 Labs: Laboratory Results - last 24 hr 05/14/24 07:47: WBC 9.1, RBC 3.72 L, Hgb 9.7 L, Hct 31.6 L, MCV 84.9, MCH 26.1 L , MCHC 30.7 L, RDW Std Deviation 55.7 H, RDW Coeff of Pelon 18.6 H, Plt Count 189, MPV 12.2 H, Immature Gran % (Auto) 0.200, Neut % (Auto) 73.9 H, Lymph % (Auto) 13.1 L, Owen % (Auto) 8.0, Eos % (Auto) 4.5, Baso % (Auto) 0.3, Absolute Neuts (auto) 6.7, Absolute Lymphs (auto) 1.19, Nucleated RBC % 0, Sodium 138, Potassium 3.8, Chloride 108 H, Carbon Dioxide 26.0, Anion Gap 4 L, BUN 6 L, C reatinine 0.54 L, Estim Creat Clear Calc 48.65, Est GFR (MDRD) Af Amer 141, Est GFR (MDRD) Non-Af 116, BUN/Creatinine Ratio 11.1, Glucose 131 H, Calcium 8.1 L Micro: Microbiology 05/09/24 05:45 Urine, Random Urine Culture - Final Escherichia coli Radiography Diagnostic Testing: Radiology Impression Abdomen/Pelvis CTA 05/13/24 17:00 IMPRESSION: Left pleural effusion associated with left lower lobe consolidation. Cholelithiasis. No bowel obstruction identified. Duodenal stent in place. Colonic diverticulosis. Atherosclerosis. Stable cystic foci within the pancreas with no associated pancreatic ductal dilatation. Electronically Signed: Lyn Booth MD at 9:35 EDT , Physical Exam Narrative Seen and examined. Patient had EGD on 05/11/2024. Discussed with Dr. Barlow. Patient also had nausea and vomiting yesterday after soft food therefore diet was changed to liquid diet and then made n.p.o. She also had CTA abdomen and pelvis in the morning today. Physical exam General: Awake oriented x 3. Cooperative, fatigue BMI 25.5 kg/m? HEENT: Atraumatic, PERRLA, EOMI, Normocephalic Oral: No Gingival or Mucosal Lesions/ Ulcerations Neck: Supple, No JVD, Negative Carotid Bruits Chest wall/Lungs: Air entry diminished in bilateral lung bases. No crepitation/rhonchi Cardiovascular: Irregular rate and rhythm, Normal S1, Normal S2, soft systolic murmur Abdomen: Bowel Sounds Present, Soft, Non Tender, Non-Distended : No dysuria. No renal angle tenderness. No suprapubic tenderness. Extremities: No edema, Capillary Refill Less than 3 Seconds Skin: No rashes, No breakdown Musculoskeletal: Chronic deformity of the small finger joints, hands and feet joints. Burnout chronic RA. Muscle strength 3/5 at knees and hip joints and small joints with contracture on the right side. No Tenderness to Palpation of Joints or Extremities Neurological: Cranial nerves II-XII grossly intact, DTR 2+/4. No acute focal neurological deficit. Psych/Mental Status: Flat affect. Assessment & Plan Assessment/Plan (1) Acute upper GI bleed: (2) Afib: QUALIFIERS: Atrial fibrillation type: unspecified Qualified Code(s): I48.91 - Unspecified atrial fibrillation (3) Acute ischemic right MCA stroke: (4) Anxiety disorder, unspecified: PLAN: Plan #Hematemasis with proper GI bleed due to gastric ulcers/acquired duodenal stenosis -Recent UGIB seen at [facility] for 5 days in February -Presented with large volume hematemasis -Hgb 10.5 but given extent of bleeding pt taken to EGD urgently -Type and screened -PPI gtt -GI c/s -Holding eliquis -Also appears pt was taking meloxicam at home, will d/c -05/09: Patient may need duodenal stent given her acquired stenosis as she will continue to have problems with GI bleeds if she has to take meloxicam and anticoagulation, advised to keep patient on full liquid diet. Hemoglobin 9.9 today with no further evidence of bleeding at this time, remains on Protonix drip at this time -05/10: Holding AC, hemoglobin down trended but no evidence of active bleed, awaiting determination on stent placement 05/11 continue holding anticoagulant. H&H 9.4/30%. Platelet count 159,000. EGD on 05/11 Impressions : - Normal esophagus. - An endoclip was found in the stomach. Removal was successful. - Non-bleeding gastric ulcers with no stigmata of bleeding. 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 - Acquired duodenal stenosis. Prosthesis placed. 05/12: No acute issues. H&H 9.9/32%. Platelet count normal 05/13 patient had vomiting 1 time small amount after tomato soup knowing his family due to GERD. On PPI. Discussed with the senior hardware engineer so that she can only non-citrus/tangy but soft pudding or oatmeal. 05/14: CTA abdomen pelvis images individually reviewed and shows fluid in the stomach which is not mentioned in the report. Stent in the proximal duodenum. Does not show any acute findings. Has multiple gallstones with no associated GB distention or pericholecystic fluid. Spleen normal. Liver normal no bili ductal dilatation. Gastric emptying study is scheduled. # E. coli lower UTI/cystitis -Daughter reported patient had been having more urinary frequency and seemed to be having abnormal urination for her to UA obtained which does show bacteria -05/10: Urine culture E. coli more than 100,000 colonies. Resistant to Bactrim, gentamicin and ampicillin otherwise pansensitive. Continue ceftriaxone 05/12: Continue ceftriaxone while inpatient. Chronic problems: #Hx CVA w/ residual deficits -Holding eliquis -Cont statin -05/10: PT/OT #Hx afib/flutter -Holding eliquis -No rate controlled medications, pt not tachycardic -05/10: Monitoring on telemetry #Anx -Continue sertraline #RA -Takes meloxicam at home -Being held here -May need evaluated for alternative option on d/c DVT: SCDS Charges/Coding Visit Charges Inpatient E&M: 18969 Subs Hosp L2
--- NOTE | 2024-05-14 11:01 | CASEMGMT ---
Luther Vasques stated insurance is likely going to deny skilled. Per Luther Vasques patient's insurance was going to contact Dr for peer to peer. 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 Once skilled is denied then Luther Vasques will request pre-cert for intermediate level of care through patient's Medicaid. Kaykay Wayne TRANSLATOR INTERPRETER ROSSI
[2024-05-14] MEDS: Lactated Ringers 1,000 ML 15 ML IV (12:22)
--- NOTE | 2024-05-14 12:27 | PCM.PRE.AN2 ---
ASA Classification* ASA Classification ASA Classification: 3 Assessment & Plan Anesthesia* Anesthesia Assessment Anesthesia Assessment: Discussed sedation and/or anesthesia options, risks, benefits, and alternatives with patient/parents/legal guardian/POA. Questions invited. The patient/parents/legal guardian/POA seems to understand and agrees to proceed with anesthesia plan. Reviewed the physical assessment, medical history, allergy history and patient home medications list prior to surgery/procedure/anesthetic and documented any changes. Performed airway and anesthesia risk assessments. Anesthesia Type Anesthesia Type: MAC History Source History Obtained from:: Patient and Chart Anesthesia Focused Assessment* Temperature: 97.0 F Pulse Rate: 71 Blood Pressure: 123/78 Respiratory Rate: 18 Pulse Ox: 100 Oxygen Delivery Method: Room Air Airway Assessment Mouth opens: 2 cm Mallampati Score: IV Teeth Condition: Missing (Patient is edentulous) Neck Range of motion (ROM): Limited ROM (Somewhat limited extension.) Pertinent Findings EKG Pertinent Findings:: May 11, 2024. Atrial fibrillation. Prolonged QT Focused Labs Anesthesia Preop lab: CBC WBC 9.1 K/mm3 (4.4-11.0) 05/14/24 07:47 RBC 3.72 M/mm3 (4.2-5.4) L 05/14/24 07:47 Hgb 9.7 g/dL (12.0-15.0) L 05/14/24 07:47 Hct 31.6 % (37-47) L 05/14/24 07:47 Plt Count 189 K/mm3 (150-450) 05/14/24 07:47 CHEMISTRY Potassium 3.8 mmol/L (3.5-5.1) 05/14/24 07:47 Sodium 138 mmol/L (136-145) 05/14/24 07:47 Magnesium 1.8 mg/dL (1.6-2.6) 05/09/24 06:03 Phosphorus 3.3 mg/dL (2.5-4.9) 02/03/15 05:16 BUN 6 mg/dL (7-18) L 05/14/24 07:47 Creatinine 0.54 mg/dL (0.55-1.02) L 05/14/24 07:47 Glucose 131 mg/dL (74-106) H 05/14/24 07:47 POC Glucose 87 mg/dL (70-110) 04/06/14 12:42 TSH 0.57 uIU/mL (0.358-3.74) 05/09/24 06:03 COAG PT 20.8 SECONDS (11.7-14.9) H 05/08/24 09:25 Pre-Assessment Diagnosis/Proposed Procedure Planned Operative Procedure(s): Esophagogastroduodenoscopy with possible biopsy. Anesthesia History Anesthesia History - manager building: Anesthesia History - manager building Hx Hospitalization No 06/23/20 17:49 Any Problems With Anesthesia Cholinesterase deficiency You/Your Family Experience fever (hyperthermia) with Relationship Recent Exposure to Contagious No 03/31/14 18:57 Disease Does patient have nerve stimulator Patient instructed to have device shut off --Does patient have Pacemaker or ICD? When Was Last Pacemaker Check QUESTION #4 FULL TEXT: You/Your Family Experience fever (hyperthermia) with Anesthesia Last Oral Intake Last Oral intake: Last Oral Intake NPO since 06:45 05/08/24 11:38 Meds taken in AM with sips of water? Meds patient instructed to take am of surgery Any additional information?: Yes NPO since: 00:00 PONV PONV - manager building: PONV - manager building Female HX of Motion Sickness HX of N/V After Surgery Non-Smoker Duration of Surgery greater than 60 minutes Number of Risk Factors PONV Score Height & Weight Height & Weight: Anesthesia: Height & Weight Height 5 ft 1.02 in 05/13/24 12:06 Weight: 61.231 kg 05/13/24 12:06 Body Mass Index (BMI) 25.4 05/09/24 08:43 Respiratory Assessment Respiratory Assessment - manager building: Respiratory Tract Infection Hx - manager building Hx Respiratory Tract Infection No 03/31/14 18:57 STOP Sleep Apnea STOP Sleep Apnea - manager building: STOP Sleep Apnea - manager building Hx Hypertension No 05/09/24 13:54 Hx Sleep Apnea No 05/08/24 13:36 CPAP No 05/08/24 12:40 BIPAP No 03/10/23 18:31 Do you snore loudly (louder No 05/08/24 13:36 than talking or can be heard Do you often feel tired/ No 05/08/24 13:36 fatigued/ sleepy during daytime? Has anyone observed you stop No 05/08/24 13:36 breathing during sleep? STOP Results Negative 05/08/24 13:36 QUESTION #5 FULL TEXT : Do you snore loudly (louder than talking or can be heard through closed doors)? Tobacco Use History Tobacco Use History - manager building: Tobacco Use History - manager building Tobacco Use Smoking Status Never smoker 05/08/24 13:36 Hx Tobacco Use No 05/08/24 13:36 Years Smoking Packs Smoked per Day Smoking Cessation Date was within the last 15 years Hx Smoking Cessation Date Hx Smoking Cessation No: NON-SMOKER 05/08/24 13:36 Counseling Hematologic Medial History Hematologic Hx - manager building: Hematologic Medical Hx - clinical documentation developer Hx of Blood Transfusion No 05/08/24 13:36 Hx of Transfusion in last 3 No 05/08/24 13:36 Months Date of Last Transfusion (if within last 3 months) Ever experience any problems No 05/08/24 13:36 with transfusion(s)? Specify any problems Hx of Preganancy in last 3 N/A 05/08/24 13:36 Months Nurse Filling Out Transfusion HFALK 05/08/24 13:36 & Questions: Date: 05/08/24 05/08/24 13:36 Time: 13:50 05/08/24 13:36 Patient unable to answer at this time (ie. confused, unrespo /Reproduction History /Reproductive History - manager building: /Reproductive Hx- manager building Hx Now Gestational Age (in weeks): EDC: Hx Hx Para Hx Section SAB Active Medications Active Medications: Current Medications Generic Name Dose Route Start Last Admin Trade Name Freq PRN Reason Stop Dose Admin Acetaminophen 650 mg 05/08/24 13:33 Acetaminophen 325 Mg Tablet PO Q6H PRN PRN Pain 1-10 Or Fever >100.7 Al Hydrox/Mg Hydrox/Simethicone 15 ml 05/11/24 15:19 05/11/24 16:39 Mag /Aluminum/Simeth Wch Udc 30 Ml Oral.Susp PO 15 ml Q4H PRN PRN Administration DYSPEPSIA/INDIGESTION Albuterol Sulfate 2.5 mg 05/08/24 13:33 Albuterol 2.5 Mg/3 Ml Vial.Neb. INHALATION Q2H PRN PRN SOB &/OR WHEEZING Atorvastatin Calcium 20 mg 05/09/24 22:00 05/13/24 21:26 Atorvastatin Calcium 20 Mg Tablet PO 20 mg QHS JOSE Administration Calamine/Phenol 1 applic 05/09/24 10:00 05/14/24 09:48 Menthol/Lanolin/Calamine/Znox 113 Gm Tube TOPICAL 1 applic BID JOSE Administration Protocol Pantoprazole Sodium 80 mg/ 100 mls @ 10 mls/hr 05/08/24 09:20 05/14/24 11:46 Sodium Chloride CONT INF 0 mls/hr Q10H JOSE Infusion Ceftriaxone Sodium 1 gm in 50 mls @ 100 mls/hr 05/10/24 10:00 05/14/24 09:47 Rocephin IV 100 mls/hr Q24 JOSE Administration Lactated Ringer's 1,000 mls @ 15 mls/hr 05/14/24 12:30 05/14/24 12:22 IV 15 mls/hr .Q48H JOSE Administration Melatonin 3 mg 05/08/24 13:33 Melatonin 3 Mg Tablet PO QHS PRN PRN INSOMNIA Menthol 1 applic 05/13/24 20:44 05/13/24 21:26 Menthol 226.8 Gm Jar TOPICAL 1 applic TID PRN PRN Administration Pain/Inflammation Metoclopramide HCl 5 mg 05/12/24 18:09 05/12/24 18:26 Metoclopramide 10 Mg/2 Ml Vial IV 5 mg Q6H PRN PRN Administration NAUSEA/VOMITING Nutritional Formula (Lactose Free) 120 ml 05/11/24 17:00 05/14/24 11:46 Ensure Plus High Protein 120 Ml Liquid PO Not Given TIDCM JOSE Nystatin 1 applic 05/09/24 10:00 05/14/24 09:48 Nystatin Powder 15gm Bottle TOPICAL 1 applic BID JOSE Administration Protocol Ondansetron HCl 4 mg 05/08/24 13:33 05/12/24 13:48 Ondansetron 4 Mg/2 Ml Vial IV 4 mg Q8H PRN PRN Administration NAUSEA/VOMITING Senna/Docusate Sodium 2 tablet 05/08/24 13:33 Senna/Docusate Sodium 1 Tablet PO BID PRN PRN Constipation Sertraline HCl 50 mg 05/09/24 10:00 05/14/24 09:48 Sertraline 50 Mg Tablet PO Not Given DAILY JOSE Sodium Chloride 10 - 40 ml 05/08/24 13:52 05/12/24 18:26 0.9% Saline Lock 10 Ml Syringe IV 10 ml UD PRN Administration SALINE FLUSH [facility] Medical History Fall Major depressive disorder, recurrent, mild Anxiety disorder, unspecified Sarcopenia Hemiplegia CVA (cerebral vascular accident) HTN (hypertension) HLD (hyperlipidemia) A-fib Home Medications ?Medication ?Instructions ?Recorded ?Last Taken ?Type sertraline 25 mg tablet (Zoloft) 50 mg PO DAILY mental health 03/07/18 05/08/24 History apixaban 5 mg tablet (Eliquis) 5 mg PO BID blood thinner 03/09/18 05/08/24 History pantoprazole 20 mg tablet,delayed 20 mg PO DAILY 03/10/23 Unknown History release atorvastatin 20 mg tablet 20 mg PO DAILY 05/08/24 05/08/24 History meloxicam 15 mg tablet 15 mg PO DAILY 05/08/24 05/08/24 History metformin 500 mg tablet 500 mg PO DAILY 05/08/24 05/08/24 History Allergy/AdvReac Type Severity Reaction Status Date / Time No Known Allergies Allergy Verified 05/08/24 09:01 Surgical History Percutaneous endoscopic gastrostomy status Social History Smoking Status: Never smoker Review of Systems (Anesthesia) ROS Narrative System reviewed and no additional complaints, except as documented.
--- NOTE | 2024-05-14 14:17 | OP.EGD_ITS ---
Patient Name: Deneen Guadalupe Procedure Date: 05/14/2024 1:52 PM Date of : 1945 Age: 78 Procedure: Upper GI endoscopy Indications: Acute post hemorrhagic anemia, Iron deficiency anemia, Hematemesis, Melena, Pyloric stenosis, Acute peptic ulcer with hemorrhage Providers: Navdeep Barlow DO Medicines: Monitored Anesthesia Care Patient Profile: This is a 78 year old female. Refer to note in patient chart for documentation of history and physical. Patient has symptoms of acute dyspepsia. Complications: No immediate complications. Procedure: Pre-Anesthesia Assessment: - Prior to the procedure, a History and Physical was performed, and patient medications and allergies were reviewed. The patient is competent. The risks and benefits of the procedure and the sedation options and risks were discussed with the patient. All questions were answered and informed consent was obtained. Patient identification and proposed procedure were verified by the physician in the pre-procedure area. Mental Status Examination: alert and oriented. Airway Examination: normal oropharyngeal airway and neck mobility. Respiratory Examination: clear to auscultation. CV Examination: normal. Prophylactic Antibiotics: The patient does not require prophylactic antibiotics. Prior Anticoagulants: The patient has taken no anticoagulant or antiplatelet agents except for NSAID medication. ASA Grade Assessment: III - A patient with severe systemic disease. After reviewing the risks and benefits, the patient was deemed in satisfactory condition to undergo the procedure. The anesthesia plan was to use monitored anesthesia care (MAC). Immediately prior to administration of medications, the patient was re-assessed for adequacy to receive sedatives. The heart rate, respiratory rate, oxygen saturations, blood pressure, adequacy of pulmonary ventilation, and response to care were monitored throughout the procedure. The physical status of the patient was re-assessed after the procedure. After obtaining informed consent, the endoscope was passed under direct vision. Throughout the procedure, the patient's blood pressure, pulse, and oxygen saturations were monitored continuously. The gastroscope was introduced through the mouth, and advanced to the second part of duodenum. There was a stent seen transversing the pyloric sphincter and into the first portion of the duodenum. It was patent. The scope was able to pass into the second and third portion of the duodenum. The upper GI endoscopy was accomplished without difficulty. The patient tolerated the procedure well. Scope In: 2:05:41 PM Scope Out: 2:11:08 PM Total Procedure Duration Time 0 hours 5 minutes 27 seconds Findings: The examined esophagus was normal. Bilious fluid was found in the stomach. A benign-appearing, intrinsic severe stenosis was found at the pylorus. This was traversed. No gross lesions were noted in the second portion of the duodenum. Impression: - Normal esophagus. - Bilious gastric fluid. 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 - No gross lesions in the second portion of the duodenum. - No specimens collected. Recommendation: - Return patient to hospital edge for ongoing care. - Advance diet as tolerated. - Continue present medications. - Ursodiol 500 mg p.o. twice daily - Metoclopramide 10 mg p.o. 4 times daily Procedure Code(s): --- Professional --- 49493, Esophagogastroduodenoscopy, flexible, transoral; diagnostic, including collection of specimen(s) by brushing or washing, when performed (separate procedure) CPT copyright 2021 [employer] [place] [employer]. All rights reserved. The codes documented in this report are preliminary and upon wood room hand review may be revised to meet current compliance requirements. Navdeep Barlow DO 05/14/2024 2:17:47 PM This report has been signed electronically. Number of Addenda: 0 Note Initiated On: 05/14/2024 1:52 PM
--- NOTE | 2024-05-14 14:18 | OP.CCLET_ITS ---
05/14/2024 Wolfgang Re : Upper GI endoscopy procedure for Deneen Goss This procedure was performed on April. My impressions and recommendations are as follows: Impressions : - Normal esophagus. - Bilious gastric fluid. 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 - No gross lesions in the second portion of the duodenum. - No specimens collected. Recommendations : - Return patient to hospital edge for ongoing care. - Advance diet as tolerated. - Continue present medications. - Ursodiol 500 mg p.o. twice daily - Metoclopramide 10 mg p.o. 4 times daily My findings are described in the full procedure note, which is enclosed. If I can be of further assistance, please feel free to contact me at . Sincerely, Navdeep Barlow, 05/14/2024 2:17:47 PM This report has been signed electronically.
--- NOTE | 2024-05-14 14:18 | PCM.POST.ANE ---
Anesthesia: Postop Eval I Current Vital Signs Temperature: 97.3 F Pulse Rate: 81 Blood Pressure: 156/68 Respiratory Rate: 16 Pulse Ox: 98 Oxygen Delivery Method: Room Air Assessment Airway patent: Yes Spontaneous unlabored respirations: Yes Mental status: Awake and Calm nausea: No Vomiting: No Anesthesia Complication: No Fluid Hydration Crystalloid volume administer (ml): 200 Total IV fluid infused: 200 Progress Note Anesthesia document: Postop Eval 1 completed: Yes
[2024-05-14] MEDS: Atorvastatin Calcium 20 MG Tablet PO (19:43)
[2024-05-14] MEDS: Ursodiol 250 MG Tablet 500 MG PO (19:43)
[2024-05-14] MEDS: Metoclopramide 10 MG/2 ML Vial IV (22:57)
[2024-05-14] MEDS: 0.9% Saline Lock 10 ML Syringe IV (22:57)
[2024-05-15] MEDS: Pantoprazole Sodium 80 MG in 0.9% Normal Saline (100mL Bag) 80 ML 10 MG CONT INF ×3 (02:29→23:44)
[2024-05-15 03:00] VITALS: BP 115/53; PULSE 80; RESP 16; TEMP 36.2; O2SAT 100
[2024-05-15] MEDS: 0.9% Saline Lock 10 ML Syringe IV ×2 (05:28→11:29)
[2024-05-15] MEDS: Metoclopramide 10 MG/2 ML Vial IV ×2 (05:29→11:29)
[2024-05-15 05:43] LABS: Absolute Neutrophil Count 5.6 X10^3/uL (2.0-7.7); Basophil# 0.05 X10^3/uL; Basophil% 0.6 % (0-1); Eosinophil# 0.49 X10^3/uL; Eosinophils% 6.2 % (0-5); Hematocrit 32.6 % (37-47); Hemoglobin 10.3 g/dL (12.0-15.0); Lymphocyte % 15.1 % (19-41); Mean Corp Hgb Conc 31.6 g/dL (32-36); Mean Corpuscular Hgb 27.2 pg (27.0-32.0); Monocyte# 0.57 X10^3/uL; Monocyte% 7.2 % (0-10); NRBC Flagged by Analyzer 0 % (0-5); Neutrophil % 70.6 % (47-70); Platelet Count 176 K/mm3 (150-450); RBC Distribution Width CV 18.6 % (11.6-14.6); Red Blood Count 3.79 M/mm3 (4.2-5.4); White Blood Count 7.9 K/mm3 (4.4-11.0)
[2024-05-15 06:44] LABS: Anion Gap 4 (5-15); BUN 7 mg/dL (7-18); BUN/Creat Ratio 14.8 RATIO (10-20); Calcium,Total 8.5 mg/dL (8.5-10.1); Chloride 113 mmol/L (98-107); Creatinine, Serum 0.47 mg/dL (0.55-1.02); EST Glomerular Filtration Rate 135 mL/min (>60); Est Glom Filt Rate - Afr Amer 164 mL/min (>60); Estimated Creatinine Clearance 48.65 ml/min; Glucose 112 mg/dL (74-106); Potassium 3.7 mmol/L (3.5-5.1); Sodium Level 144 mmol/L (136-145)
[2024-05-15 08:56] VITALS: BP 142/68; PULSE 79; RESP 18; TEMP 36.1; O2SAT 99
[2024-05-15] MEDS: Nystatin Powder 15gm Bottle 1 APPLIC TOPICAL ×2 (08:56→21:43)
[2024-05-15] MEDS: Ensure Plus High Protein 120 ML LIQUID PO ×3 (08:57→16:05)
[2024-05-15] MEDS: Menthol/Lanolin/Calamine/Znox 113 GM Tube 1 APPLIC TOPICAL ×2 (08:57→21:43)
[2024-05-15] MEDS: Ceftriaxone 1 GM/50 ML BAG IV (08:57)
[2024-05-15] MEDS: Ursodiol 250 MG Tablet 500 MG PO ×2 (08:58→21:43)
--- NOTE | 2024-05-15 09:01 | CASEMGMT ---
Discharge Planning Updates sent to [facility] for ILOC. Full passr requested. SW updated. Gemma Mas DC Planning Asst.
[2024-05-15] MEDS: Azithromycin 250 MG Tablet 500 MG PO (13:46)
--- NOTE | 2024-05-15 14:28 | PN.HOSP_ITS ---
Reason for Visit Reason for Visit: Diagnoses Anxiety disorder, unspecified (05/08/24) Unspecified atrial fibrillation (05/08/24) Cerebral infarction due to unspecified occlusion or stenosis of right middle cerebral artery (05/08/24) Gastrointestinal hemorrhage, unspecified (05/08/24) Objective Data Objective Data Vital Signs: Vital Signs Temp Pulse Resp BP Pulse Ox O2 Del Method 97.0 F L 79 18 142/68 H 99 Room Air 05/15/24 08:56 05/15/24 08:56 05/15/24 08:56 05/15/24 08:56 05/15/24 08:56 05/15/24 08:56 Oxygen Delivery Method Room Air Weight: 134 lb 15.86 oz Body Mass Index (BMI) 25.4 Intake & Output: Intake and Output for Last 24 Hours 05/13/24 05/14/24 05/15/24 23:59 23:59 23:59 Intake Total 205.33 / 205.33 257.25 / 257.25 490 / 490 Output Total 750 / 750 650 / 850 200 / 200 Balance -544.67 / -544.67 -392.75 / -592.75 290 / 290 Lab / Micro Data 05/15/24 05:24 05/15/24 05:24 Labs: Laboratory Results - last 24 hr 05/15/24 05:24: WBC 7.9, RBC 3.79 L, Hgb 10.3 L, Hct 32.6 L, MCV 86.0, MCH 27.2, MCHC 31.6 L, RDW Std Deviation 56.0 H, RDW Coeff of Pelon 18.6 H, Plt Count 176, MPV 12.0, Immature Gran % (Auto) 0.300, Neut % (Auto) 70.6 H, Lymph % (Auto) 15.1 L, [place] % (Auto) 7.2, Eos % (Auto) 6.2 H, Baso % (Auto) 0.6, Absolute Neuts (auto) 5.6, Absolute Lymphs (auto) 1.20, Nucleated RBC % 0, Sodium 144, Potassium 3.7, Chloride 113 H, Carbon Dioxide 27.0, Anion Gap 4 L, BUN 7, C reatinine 0.47 L, Estim Creat Clear Calc 48.65, Est GFR (MDRD) Af Amer 164, Est GFR (MDRD) Non-Af 135, BUN/Creatinine Ratio 14.8, Glucose 112 H, Calcium 8.5 Micro: Microbiology 05/09/24 05:45 Urine, Random Urine Culture - Final Escherichia coli Physical Exam Narrative Seen and examined. Patient had EGD on 05/11/2024 and then repeat 05/14/2024. Discussed with Dr. Barlow. 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 IV Reglan changed to Reglan 5 mg 3 times daily AC. Discussed with the shot core drill operator. She had refused for gastric emptying study. Physical exam General: Awake oriented x 3. Cooperative, fatigue BMI 25.5 kg/m?. Very low functional status. HEENT: Atraumatic, PERRLA, EOMI, Normocephalic Oral: No Gingival or Mucosal Lesions/ Ulcerations Neck: Supple, No JVD, Negative Carotid Bruits Chest wall/Lungs: Air entry diminished in bilateral lung bases. No crepitation/rhonchi Cardiovascular: Irregular rate and rhythm, Normal S1, Normal S2, soft systolic murmur Abdomen: Bowel Sounds Present, Soft, Non Tender, Non-Distended : No dysuria. No renal angle tenderness. No suprapubic tenderness. Extremities: No edema, Capillary Refill Less than 3 Seconds Skin: No rashes, No breakdown Musculoskeletal: At baseline, she is a Mala lift. Chronic deformity of the small finger joints, hands and feet joints. Burnout chronic RA. Muscle strength 3/5 at knees and hip joints and small joints with contracture on the right side. No Tenderness to Palpation of Joints or Extremities Neurological: Cranial nerves II-XII grossly intact, DTR 2+/4. No acute focal neurological deficit. Psych/Mental Status: Flat affect. Assessment & Plan Assessment/Plan (1) Acute upper GI bleed: (2) Afib: QUALIFIERS: Atrial fibrillation type: unspecified Qualified Code(s): I48.91 - Unspecified atrial fibrillation (3) Acute ischemic right MCA stroke: (4) Anxiety disorder, unspecified: PLAN: Plan #Hematemasis with proper GI bleed due to gastric ulcers/acquired duodenal stenosis -Recent UGIB seen at [place] for 5 days in February -Presented with large volume hematemasis -Hgb 10.5 but given extent of bleeding pt taken to EGD urgently -Type and screened -PPI gtt -GI c/s -Holding eliquis -Also appears pt was taking meloxicam at home, will d/c -05/09: Patient may need duodenal stent given her acquired stenosis as she will continue to have problems with GI bleeds if she has to take meloxicam and anticoagulation, advised to keep patient on full liquid diet. Hemoglobin 9.9 today with no further evidence of bleeding at this time, remains on Protonix drip at this time -05/10: Holding AC, hemoglobin down trended but no evidence of active bleed, awaiting determination on stent placement 05/11 continue holding anticoagulant. H&H 9.4/30%. Platelet count 159,000. EGD on 05/11 Impressions : - Normal esophagus. - An endoclip was found in the stomach. Removal was successful. - Non-bleeding gastric ulcers with no stigmata of bleeding. 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 - Acquired duodenal stenosis. Prosthesis placed. 05/12: No acute issues. H&H 9.9/32%. Platelet count normal 05/13 patient had vomiting 1 time small amount after tomato soup knowing his family due to GERD. On PPI. Discussed with the sharebroker so that she can only non-citrus/tangy but soft pudding or oatmeal. 05/14: CTA abdomen pelvis images individually reviewed and shows fluid in the stomach which is not mentioned in the report. Stent in the proximal duodenum. Does not show any acute findings. Has multiple gallstones with no associated GB distention or pericholecystic fluid. Spleen normal. Liver normal no bili ductal dilatation. Gastric emptying study was refused. 05/15: Repeat EGD on 05/14 Impressions : - Normal esophagus. - Bilious gastric fluid. 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 - No gross lesions in the second portion of the duodenum. - No specimens collected. On metoclopramide 5 mg 3 times daily-or before meals. Azithromycin 500 mg daily. Continue ursodiol. Discussed with the shot core drill operator. Asymptomatic cholelithiasis: Patient has cholelithiasis is layered multiple stones on the CT abdomen. No pericholecystic fluid. Patient does not have right upper quadrant tenderness but her daughter states she might have vomiting from that. She requested surgeon consult therefore consulted Dr. Cobb. She wanted active treatment and I I tried to convince that since asymptomatic cholelithiasis does not have indication for surgery including lap lenka, percutaneous cystostomy or lithotripsy. She is high risk for GA/surgical procedure. # E. coli lower UTI/cystitis -Daughter reported patient had been having more urinary frequency and seemed to be having abnormal urination for her to UA obtained which does show bacteria -05/10: Urine culture E. coli more than 100,000 colonies. Resistant to Bactrim, gentamicin and ampicillin otherwise pansensitive. Continue ceftriaxone 05/12: Continue ceftriaxone while inpatient. Chronic problems: #Hx CVA w/ residual deficits -Holding eliquis -Cont statin -05/10: PT/OT #Hx afib/flutter -Holding eliquis -No rate controlled medications, pt not tachycardic -05/10: Monitoring on telemetry #Anx -Continue sertraline #RA -Takes meloxicam at home -Being held here -May need evaluated for alternative option on d/c DVT: SCDS I talked to the patient's daughter at length at that time and explained about my possible assessment of gastroparesis. She has burnout but arthritis started in late teenage or 20s, she is not ambulatory but has hospital bed with Mala lift. Total time of the visit including total time spent in counseling or coordination of care, (more than 50% of the total time, spent in obtaining medical information from nurses and other ancillary care providers,explaining to the patient about labs, imaging, diagnosis and management of active complex medical conditions), , review of labs and imaging is 35 minutes. Charges/Coding Visit Charges Inpatient E&M: 21508 Subs Hosp L2
--- NOTE | 2024-05-15 14:40 | EX.PCM.CON.S ---
Assessment & Plan Assessment/Plan (1) Cholelithiasis: (2) Acute upper GI bleed: (3) Nausea & vomiting: PLAN: Plan Discussed with patient and her daughter at bedside that her multiple gallstones have been unchanged on CT since 2018 with about 3-4 CTs done during that time. Patient's symptoms also fit more with gastric etiology than gallbladder currently. Would recommend patient getting a gastric emptying study per GIs recommendation. Patient and her daughter are agreeable with plan. Rosie Leon M.D. Pager: [phone] [facility] [address] [place] [address], Outpatient [facility]ilion, [address] [place] [id number] Office: [phone] HPI Consult Data Date of Consult: 05/15/24 HPI Narrative Reason for Consultation: Gallstones and nausea vomiting HPI Narrative: OSEAS PATHAK, is a 78 F who admitted with CT abdomen pelvis showing multiple gallstones. Did review patient's CT scans dating back to 2018. Patient's gallbladder has been filled with stones and unchanged on CT abdomen pelvis. Patient has had multiple gastric ulcers 1 requiring a clip due to GI bleeding and also a recent duodenal stent placed due to stenosis at the pylorus. Patient did have some vomiting after having broth per patient's daughter about 5 minutes after eating, patient's daughter was concerned this could be due to the gallstones. GI is currently seeing the patient did write in their note recommend gastric emptying study for possible gastroparesis as a cause of the vomiting. Patient denies any abdominal pain or current nausea or vomiting. [facility] Medical History Fall Major depressive disorder, recurrent, mild Anxiety disorder, unspecified Sarcopenia Hemiplegia CVA (cerebral vascular accident) HTN (hypertension) HLD (hyperlipidemia) A-fib Home Medications ?Medication ?Instructions ?Recorded ?Last Taken ?Type sertraline 25 mg tablet (Zoloft) 50 mg PO DAILY mental health 03/07/18 05/08/24 History apixaban 5 mg tablet (Eliquis) 5 mg PO BID blood thinner 03/09/18 05/08/24 History pantoprazole 20 mg tablet,delayed 20 mg PO DAILY 03/10/23 Unknown History release atorvastatin 20 mg tablet 20 mg PO DAILY 05/08/24 05/08/24 History meloxicam 15 mg tablet 15 mg PO DAILY 05/08/24 05/08/24 History metformin 500 mg tablet 500 mg PO DAILY 05/08/24 05/08/24 History Allergy/AdvReac Type Severity Reaction Status Date / Time No Known Allergies Allergy Verified 05/08/24 09:01 Surgical History Percutaneous endoscopic gastrostomy status Social History Smoking Status: Never smoker ROS Constitutional Constitutional: Denies fever(s) Eyes Eyes: Denies loss of central vision Cardiovascular Cardiovascular: Denies chest pain Respiratory/Chest Respiratory/Chest: Denies productive cough Gastrointestinal Gastrointestinal: Reports nausea and vomiting; Denies abdominal pain Genitourinary Genitourinary: Denies hematuria Musculoskeletal Musculoskeletal: Denies joint swelling Integumentary Integumentary: Denies jaundice Endocrine Endocrinology: Denies palpitations Physical Exam Const alert and no apparent distress General Appearance: frail HEENT normocephalic Resp normal respiratory effort Cardio regular rate GI soft to palpation and non-tender; Negative for non-distended Palpation: Negative for guarding Extremity no clubbing, cyanosis or edema Skin no rashes or lesions noted Neuro CN's II-XII intact bilaterally Psych mental status grossly normal Lab / Micro Data 05/15/24 05:24 05/15/24 05:24 Labs: Laboratory Results - last 24 hr 05/15/24 05:24: WBC 7.9, RBC 3.79 L, Hgb 10.3 L, Hct 32.6 L, MCV 86.0, MCH 27.2, MCHC 31.6 L, RDW Std Deviation 56.0 H, RDW Coeff of Pelon 18.6 H, Plt Count 176, MPV 12.0, Immature Gran % (Auto) 0.300, Neut % (Auto) 70.6 H, Lymph % (Auto) 15.1 L, [place] % (Auto) 7.2, Eos % (Auto) 6.2 H, Baso % (Auto) 0.6, Absolute Neuts (auto) 5.6, Absolute Lymphs (auto) 1.20, Nucleated RBC % 0, Sodium 144, Potassium 3.7, Chloride 113 H, Carbon Dioxide 27.0, Anion Gap 4 L, BUN 7, Creatinine 0.47 L, Estim Creat Clear Calc 48.65, Est GFR (MDRD) Af Amer 164, Est GFR (MDRD) Non-Af 135, BUN/Creatinine Ratio 14.8, Glucose 112 H, Calcium 8.5
[2024-05-15 14:55] VITALS: BP 124/61; PULSE 75; RESP 18; TEMP 36.6; O2SAT 100
--- NOTE | 2024-05-15 15:39 | CASEMGMT ---
Social Work PAS/RR was completed yesterday, SNF made aware PAS/RR was completed. SW placed copy of PAS/RR w/results on chart in event precert attained, and green sheet also placed on chart in event precert attained on the weekend. GILBERTO did ask [facility] to call PCU directly should they get precert on the weekend. DEVONTE Herr
[2024-05-15] MEDS: Metoclopramide 5 MG TABLET PO (16:05)
--- NOTE | 2024-05-15 18:05 | EX.PCM.PN.GI ---
Subjective Subjective Patient is doing about the same as per the patient's daughter. She was started on metoclopramide yesterday. She has not had a bowel movement yet. Objective Data Objective Data Vital Signs: Vital Signs Temp Pulse Resp BP Pulse Ox O2 Del Method 97.9 F 75 18 124/61 H 100 Room Air 05/15/24 14:55 05/15/24 14:55 05/15/24 14:55 05/15/24 14:55 05/15/24 14:55 05/15/24 14:55 Oxygen Delivery Method Room Air Weight: 134 lb 15.86 oz Body Mass Index (BMI) 25.4 Intake & Output: Intake and Output for Last 24 Hours 05/13/24 05/14/24 05/15/24 23:59 23:59 23:59 Intake Total 205.33 / 205.33 257.25 / 257.25 490 / 490 Output Total 750 / 750 650 / 850 200 / 200 Balance -544.67 / -544.67 -392.75 / -592.75 290 / 290 Lab / Micro Data 05/15/24 05:24 05/15/24 05:24 Labs: Laboratory Results - last 24 hr 05/15/24 05:24: WBC 7.9, RBC 3.79 L, Hgb 10.3 L, Hct 32.6 L, MCV 86.0, MCH 27.2, MCHC 31.6 L, RDW Std Deviation 56.0 H, RDW Coeff of Pelon 18.6 H, Plt Count 176, MPV 12.0, Immature Gran % (Auto) 0.300, Neut % (Auto) 70.6 H, Lymph % (Auto) 15.1 L, [place] % (Auto) 7.2, Eos % (Auto) 6.2 H, Baso % (Auto) 0.6, Absolute Neuts (auto) 5.6, Absolute Lymphs (auto) 1.20, Nucleated RBC % 0, Sodium 144, Potassium 3.7, Chloride 113 H, Carbon Dioxide 27.0, Anion Gap 4 L, BUN 7, Creatinine 0.47 L, Estim Creat Clear Calc 48.65, Est GFR (MDRD) Af Amer 164, Est GFR (MDRD) Non-Af 135, BUN/Creatinine Ratio 14.8, Glucose 112 H, Calcium 8.5 Micro: Microbiology 05/09/24 05:45 Urine, Random Urine Culture - Final Escherichia coli Physical Exam Const alert and no apparent distress General Appearance: frail HEENT normocephalic Resp normal respiratory effort Cardio regular rate GI soft to palpation and non-tender; Negative for non-distended Palpation: Negative for guarding Extremity no clubbing, cyanosis or edema Skin no rashes or lesions noted Neuro CN's II-XII intact bilaterally Psych mental status grossly normal Assessment & Plan Assessment/Plan (1) Acute upper GI bleed: PLAN: Acute upper GI bleed in the setting of recent acute right MCA stroke, rheumatoid arthritis on Eliquis, meloxicam and sertraline all which can result in upper GI bleed. Hemoglobin is slightly down at 9.9. I had a long talk with her daughter yesterday explained to her that she has essentially a mild gastric outlet because she has severe pyloric stenosis and duodenal stenosis which lead to her pills sitting at the base of her stomach. She would likely need at least a temporary duodenal stent to open up the pyloric sphincter and duodenal bulb. Continue to monitor hemoglobin. Patient can be on full liquid diet today. PLAN: Plan 05/10/2024-patient's hemoglobin is slightly down to 9 from 9.9. She may still be losing at the site of multiple gastric ulcers that were treated endoscopically. She will need a repeat upper endoscopy and possible stent placement due to her pyloric stricture and her duodenal stricture. Plan was discussed with patient's daughter. Keep n.p.o. past midnight 05/12/2024. Patient's diet can be advanced to soft diet for the next couple days and then we will advance to a regular diet. Her hemoglobin continues to go up with the placement of the duodenal stent over the ulcer. 05/13/2024-patient probably has some elements of gastroparesis due to her previous stroke in immobility. Recommend CT scan abdomen pelvis with oral and IV contrast and also gastric emptying study. Patient's hemoglobin seems to be stable at this time. Continue to hold blood thinners. 05/15/2024-she is status post repeat upper endoscopy. The duodenal stent is in good position. I still suspect she has elements of gastroparesis. She did agree to have the gastric emptying study. Azithromycin was added to Reglan therapy. Will await the gastric emptying study. If she is going to go to retirement she may need a GJ tube. To prevent vomiting and to get nutrition. Charges/Coding Visit Charges Inpatient E&M: 18663 Subs Hosp L3
[2024-05-15 21:41] VITALS: BP 131/69; PULSE 77; RESP 14; TEMP 36.6; O2SAT 100
[2024-05-15] MEDS: Atorvastatin Calcium 20 MG Tablet PO (21:43)
[2024-05-16 03:50] VITALS: BP 131/68; PULSE 72; RESP 14; TEMP 36.4; O2SAT 98
[2024-05-16] MEDS: Metoclopramide 5 MG TABLET PO ×3 (06:43→15:25)
--- NOTE | 2024-05-16 09:01 | PN.SURG_ITS ---
Subjective Subjective Patient denies any abdominal pain or nausea vomiting this morning. Gastric emptying study as ordered we will plan to be completed on Saturday. Per nursing patient previously went down and refused when she got down to nuclear medicine. Objective Data Objective Data Vital Signs: Vital Signs Temp Pulse Resp BP Pulse Ox O2 Del Method 97.5 F L 72 14 131/68 H 98 Room Air 05/16/24 03:50 05/16/24 03:50 05/16/24 03:50 05/16/24 03:50 05/16/24 03:50 05/16/24 07:55 Oxygen Delivery Method Room Air Weight: 134 lb 15.86 oz Body Mass Index (BMI) 25.4 Intake & Output: Intake and Output for Last 24 Hours 05/14/24 05/15/24 05/16/24 23:59 23:59 23:59 Intake Total 257.25 / 257.25 709.67 / 759.67 100 / 100 Output Total 650 / 850 300 / 400 100 / 100 Balance -392.75 / -592.75 409.67 / 359.67 0 / 0 Lab / Micro Data 05/15/24 05:24 05/15/24 05:24 Micro: Microbiology 05/09/24 05:45 Urine, Random Urine Culture - Final Escherichia coli Physical Exam Const no apparent distress Resp normal respiratory effort Cardio regular rate GI soft to palpation and non-tender Inspection: Negative for abdominal distention Assessment & Plan Assessment/Plan (1) Cholelithiasis: (2) Acute upper GI bleed: (3) Nausea & vomiting: PLAN: Plan Await gastric emptying study. No plans for acute surgical intervention currently. Rosie Leon M.D. Pager: [phone] [facility] [address] [place] [address], [facility], [address] [place] [address] Office: [phone] Charges/Coding Multi Select Codes Visit Charges Visit Charges: 79719 Subs Hosp L2
[2024-05-16 09:41] VITALS: BP 114/51; PULSE 70; RESP 16; TEMP 36.3; O2SAT 98
[2024-05-16] MEDS: Pantoprazole Sodium 80 MG in 0.9% Normal Saline (100mL Bag) 80 ML 10 MG CONT INF ×2 (09:42→18:49)
[2024-05-16] MEDS: Menthol/Lanolin/Calamine/Znox 113 GM Tube 1 APPLIC TOPICAL ×2 (09:44→21:05)
[2024-05-16] MEDS: Ensure Plus High Protein 120 ML LIQUID PO ×2 (09:44→15:35)
[2024-05-16] MEDS: Ursodiol 250 MG Tablet 500 MG PO ×2 (09:44→21:02)
[2024-05-16] MEDS: Azithromycin 250 MG Tablet 500 MG PO (09:44)
[2024-05-16] MEDS: Nystatin Powder 15gm Bottle 1 APPLIC TOPICAL ×2 (09:44→21:05)
--- NOTE | 2024-05-16 10:00 | CASEMGMT ---
Social Work SW called daughter, message left. SW will follow up should she return SW call today, otherwise SW will follow up on Saturday. DEVONTE Herr
--- NOTE | 2024-05-16 10:38 | CASEMGMT ---
Addendum entered by Fawn Wei 05/18/24 10:01: Social Work Pt's daughter asked to speak w/SW. 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 SW explained again that we are still waiting for the precert for the intermediate level of care, pt was denied a skilled level of care. SW explained if she decides she does not want pt to stay, SW aware is able to care for pt at home and can take her home. Daughter states understanding. SW did let daughter know that as per physician, if we get the precert today pt will be able to go to [facility] today, pending the test results. Daughter states understanding. SW will continue to follow for discharge to [facility], still awaiting precert. DEVONTE Herr Original Note: Social Work Pt's daughter called SW back. SW updated daughter Delphine that insurance did deny a skilled stay, [facility] is trying for an approval for an intermediate level of care. Daughter states understanding, she is okay with this. SW did explain that pt may not get therapy since pt is likely going under intermediate level of care. Daughter is fine with this. SW will continue to follow for discharge to [facility] when appropriate and precert is attained. DEVONTE Herr
[2024-05-16] MEDS: Bisacodyl 10 MG Suppository RC (11:18)
[2024-05-16] MEDS: Ceftriaxone 1 GM/50 ML BAG IV (11:18)
--- NOTE | 2024-05-16 13:02 | PCM.PN.HOSP ---
Reason for Visit Reason for Visit: Diagnoses Anxiety disorder, unspecified (05/08/24) Unspecified atrial fibrillation (05/08/24) Cerebral infarction due to unspecified occlusion or stenosis of right middle cerebral artery (05/08/24) Calculus of gallbladder without cholecystitis without obstruction (05/08/24) Gastrointestinal hemorrhage, unspecified (05/08/24) Nausea with vomiting, unspecified (05/08/24) Objective Data Objective Data Vital Signs: Vital Signs Temp Pulse Resp BP Pulse Ox O2 Del Method 97.4 F L 70 16 114/51 L 98 Room Air 05/16/24 09:41 05/16/24 09:41 05/16/24 09:41 05/16/24 09:41 05/16/24 09:41 05/16/24 09:41 Oxygen Delivery Method Room Air Weight: 134 lb 15.86 oz Body Mass Index (BMI) 25.4 Intake & Output: Intake and Output for Last 24 Hours 05/14/24 05/15/24 05/16/24 23:59 23:59 23:59 Intake Total 257.25 / 257.25 709.67 / 759.67 249.67 / 249.67 Output Total 650 / 850 300 / 400 300 / 300 Balance -392.75 / -592.75 409.67 / 359.67 -50.33 / -50.33 Lab / Micro Data 05/15/24 05:24 05/15/24 05:24 Micro: Microbiology 05/09/24 05:45 Urine, Random Urine Culture - Final Escherichia coli Physical Exam Narrative Seen and examined. Patient had EGD on 05/11/2024 and then repeat 05/14/2024. Discussed with Dr. Barlow. Patient did not had any vomiting in the last 2 days. Gastric emptying study was was ordered yesterday but could not be done but earlier it was ordered but patient did not like oatmeal or daughter did not want it. Her last BM on 05/14/2024. Dulcolax suppository given. Physical exam General: Awake oriented x 3. Cooperative, fatigue BMI 25.5 kg/m?. Very low functional status. HEENT: Atraumatic, PERRLA, EOMI, Normocephalic Oral: No Gingival or Mucosal Lesions/ Ulcerations Neck: Supple, No JVD, Negative Carotid Bruits Chest wall/Lungs: Air entry diminished in bilateral lung bases. No crepitation/rhonchi Cardiovascular: Irregular rate and rhythm, Normal S1, Normal S2, soft systolic murmur Abdomen: Bowel Sounds Present, Soft, Non Tender, Non-Distended. Mathis sign negative : No dysuria. No renal angle tenderness. No suprapubic tenderness. Extremities: No edema, Capillary Refill Less than 3 Seconds Skin: No rashes, No breakdown Musculoskeletal: At baseline, she is a Mala lift. Chronic deformity of the small finger joints, hands and feet joints. Burnout chronic RA. Muscle strength 3/5 at knees and hip joints and small joints with contracture on the right side. No Tenderness to Palpation of Joints or Extremities Neurological: Cranial nerves II-XII grossly intact, DTR 2+/4. No acute focal neurological deficit. Psych/Mental Status: Flat affect. Assessment & Plan Assessment/Plan (1) Acute upper GI bleed: (2) Afib: QUALIFIERS: Atrial fibrillation type: unspecified Qualified Code(s): I48.91 - Unspecified atrial fibrillation (3) Acute ischemic right MCA stroke: (4) Anxiety disorder, unspecified: PLAN: Plan #Hematemasis with proper GI bleed due to gastric ulcers/acquired duodenal stenosis -Recent [facility]IB seen at [facility] days in February -Presented with large volume hematemasis -Hgb 10.5 but given extent of bleeding pt taken to EGD urgently -Type and screened -PPI gtt -GI c/s -Holding eliquis -Also appears pt was taking meloxicam at home, will d/c -05/09: Patient may need duodenal stent given her acquired stenosis as she will continue to have problems with GI bleeds if she has to take meloxicam and anticoagulation, advised to keep patient on full liquid diet. Hemoglobin 9.9 today with no further evidence of bleeding at this time, remains on Protonix drip at this time -05/10: Holding AC, hemoglobin down trended but no evidence of active bleed, awaiting determination on stent placement 05/11 continue holding anticoagulant. H&H 9.4/30%. Platelet count 159,000. EGD on 05/11 Impressions : - Normal esophagus. - An endoclip was found in the stomach. Removal was successful. - Non-bleeding gastric ulcers with no stigmata of bleeding. 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 - Acquired duodenal stenosis. Prosthesis placed. 05/12: No acute issues. H&H 9.9/32%. Platelet count normal 05/13 patient had vomiting 1 time small amount after tomato soup knowing his family due to GERD. On PPI. Discussed with the seal delivery vehicle team technician so that she can only non-citrus/tangy but soft pudding or oatmeal. 05/14: CTA abdomen pelvis images individually reviewed and shows fluid in the stomach which is not mentioned in the report. Stent in the proximal duodenum. Does not show any acute findings. Has multiple gallstones with no associated GB distention or pericholecystic fluid. Spleen normal. Liver normal no bili ductal dilatation. Gastric emptying study was refused. 05/15: Repeat EGD on 05/14 Impressions : - Normal esophagus. - Bilious gastric fluid. 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 - No gross lesions in the second portion of the duodenum. - No specimens collected. On metoclopramide 5 mg 3 times daily-or before meals. Azithromycin 500 mg daily. Continue ursodiol. Discussed with the playground supervisor. 05/16: Continue regimen for presumed gastroparesis from pyloric stenosis and duodenal stenosis. Gastric imaging was ordered but could not be done yesterday. Earlier it was refused by the patient. Asymptomatic cholelithiasis: Patient has cholelithiasis is layered multiple stones on the CT abdomen. No pericholecystic fluid. Patient does not have right upper quadrant tenderness but her daughter states she might have vomiting from that. She requested surgeon consult therefore consulted Dr. Cobb. She wanted active treatment and I I tried to convince that since asymptomatic cholelithiasis does not have indication for surgery including lap lenka, percutaneous cystostomy or lithotripsy. She is high risk for GA/surgical procedure. 05/16: Surgeons note reviewed. Asymptomatic cholelithiasis. Nausea and vomiting most likely due to gastroparesis. She also had pyloric stenosis and duodenal stenosis admission. # E. coli lower UTI/cystitis -Daughter reported patient had been having more urinary frequency and seemed to be having abnormal urination for her to UA obtained which does show bacteria -05/10: Urine culture E. coli more than 100,000 colonies. Resistant to Bactrim, gentamicin and ampicillin otherwise pansensitive. Continue ceftriaxone 05/12: Continue ceftriaxone while inpatient. 05/16: Patient had completed 7 days of IV antibiotics ceftriaxone. Ceftriaxone discontinued. Chronic problems: #Hx CVA w/ residual deficits -Holding eliquis -Cont statin -05/10: PT/OT #Hx afib/flutter -Holding eliquis -No rate controlled medications, pt not tachycardic -05/10: Monitoring on telemetry #Anx -Continue sertraline #RA -Takes meloxicam at home -Being held here -May need evaluated for alternative option on d/c DVT: SCDS I talked to the patient's daughter at length at that time and explained about my possible assessment of gastroparesis. She has burnout but arthritis started in late teenage or 20s, she is not ambulatory but has hospital bed with Mala lift. Total time of the visit including total time spent in counseling or coordination of care, (more than 50% of the total time, spent in obtaining medical information from nurses and other ancillary care providers,explaining to the patient about labs, imaging, diagnosis and management of active complex medical conditions), , review of labs and imaging is 35 minutes. Charges/Coding Visit Charges Inpatient E&M: 53406 Subs Hosp L2
[2024-05-16 15:20] VITALS: BP 127/66; PULSE 64; RESP 18; TEMP 36.4; O2SAT 100
[2024-05-16] MEDS: Atorvastatin Calcium 20 MG Tablet PO (21:02)
[2024-05-16 21:19] VITALS: BP 136/61; PULSE 93; RESP 16; TEMP 36.3; O2SAT 97
[2024-05-17 03:52] VITALS: BP 139/67; PULSE 73; RESP 16; TEMP 36.1; O2SAT 100
[2024-05-17] MEDS: Pantoprazole Sodium 80 MG in 0.9% Normal Saline (100mL Bag) 80 ML 10 MG CONT INF ×2 (05:21→16:03)
[2024-05-17 05:33] LABS: Absolute Lymphocyte Count 1.58 X10^3/uL (0.83-4.51); Absolute Neutrophil Count 7.6 X10^3/uL (2.0-7.7); Basophil# 0.06 X10^3/uL; Basophil% 0.6 % (0-1); Eosinophil# 0.77 X10^3/uL; Eosinophils% 7.1 % (0-5); Hemoglobin 9.8 g/dL (12.0-15.0); Lymphocyte # 1.58 X10^3/ul (0.83-4.51); Lymphocyte % 14.6 % (19-41); Mean Corp Hgb Conc 30.6 g/dL (32-36); Mean Corpuscular Volume 84.9 fL (81-99); Mean Platelet Vol. 12.6 fl (6.2-12.0); Monocyte# 0.71 X10^3/uL; Monocyte% 6.6 % (0-10); NRBC Flagged by Analyzer 0 % (0-5); Neutrophil # 7.63 X10^3/uL (2.7-7.7); Neutrophil % 70.7 % (47-70); Platelet Count 235 K/mm3 (150-450); RBC Distribution Width CV 18.7 % (11.6-14.6); RBC Distribution Width SD 55.9 fl (35.1-43.9); Red Blood Count 3.77 M/mm3 (4.2-5.4); White Blood Count 10.8 K/mm3 (4.4-11.0)
[2024-05-17 05:55] LABS: Anion Gap 5 (5-15); BUN 10 mg/dL (7-18); BUN/Creat Ratio 17.2 RATIO (10-20); Calcium,Total 8.2 mg/dL (8.5-10.1); Chloride 111 mmol/L (98-107); Creatinine, Serum 0.58 mg/dL (0.55-1.02); EST Glomerular Filtration Rate 107 mL/min (>60); Est Glom Filt Rate - Afr Amer 129 mL/min (>60); Estimated Creatinine Clearance 48.65 ml/min; Glucose 140 mg/dL (74-106); Potassium 4.1 mmol/L (3.5-5.1); Sodium Level 141 mmol/L (136-145)
[2024-05-17] MEDS: Metoclopramide 5 MG TABLET PO ×3 (06:14→16:06)
--- NOTE | 2024-05-17 08:24 | PN.SURG_ITS ---
Subjective Subjective Patient is tolerating p.o., no nausea or vomiting per patient and nursing, patient denies abdominal pain Objective Data Objective Data Vital Signs: Vital Signs Temp Pulse Resp BP Pulse Ox O2 Del Method 97 F L 73 16 139/67 H 100 Room Air 05/17/24 03:52 05/17/24 03:52 05/17/24 03:52 05/17/24 03:52 05/17/24 03:52 05/17/24 03:52 Oxygen Delivery Method Room Air Weight: 134 lb 15.86 oz Body Mass Index (BMI) 25.4 Intake & Output: Intake and Output for Last 24 Hours 05/15/24 05/16/24 05/17/24 23:59 23:59 23:59 Intake Total 709.67 / 759.67 340.84 / 340.84 100 / 100 Output Total 300 / 400 800 / 800 200 / 200 Balance 409.67 / 359.67 -459.16 / -459.16 -100 / -100 Lab / Micro Data 05/17/24 05:15 05/17/24 05:15 Labs: Laboratory Results - last 24 hr 05/17/24 05:15: WBC 10.8, RBC 3.77 L, Hgb 9.8 L, Hct 32.0 L, MCV 84.9, MCH 26.0 L, MCHC 30.6 L, RDW Std Deviation 55.9 H, RDW Coeff of Pelon 18.7 H, Plt Count 235, MPV 12.6 H, Immature Gran % (Auto) 0.400, Neut % (Auto) 70.7 H, Lymph % (Auto) 14.6 L, [place] % (Auto) 6.6, Eos % (Auto) 7.1 H, Baso % (Auto) 0.6, Absolute Neuts (auto) 7.6, Absolute Lymphs (auto) 1.58, Nucleated RBC % 0, Sodium 141, Potassium 4.1, Chloride 111 H, Carbon Dioxide 25.0, Anion Gap 5, BUN 10, Creatinine 0.58, Estim Creat Clear Calc 48.65, Est GFR (MDRD) Af Amer 129, Est GFR (MDRD) Non-Af 107, BUN/Creatinine Ratio 17.2, Glucose 140 H, Calcium 8.2 L Micro: Microbiology 05/09/24 05:45 Urine, Random Urine Culture - Final Escherichia coli Physical Exam Const no apparent distress Resp normal respiratory effort Cardio regular rate GI soft to palpation and non-tender Inspection: Negative for abdominal distention Assessment & Plan Assessment/Plan (1) Cholelithiasis: (2) Acute upper GI bleed: (3) Nausea & vomiting: PLAN: Plan Patient has not had any further nausea and vomiting tolerating p.o. per patient and nursing. Await gastric emptying study question if pylorus/duodenal stent will play a role in the gastric emptying study. No plans for acute surgical intervention currently. Rosie Leon M.D. Pager: [phone] [facility] [address] [place] [address], [facility], [address] [place] [address] Office: [phone] Charges/Coding Visit Charges Inpatient E&M: 01524 Subs Hosp L2
[2024-05-17 08:53] VITALS: BP 135/103; PULSE 69; RESP 18; TEMP 36.2; O2SAT 99
[2024-05-17] MEDS: Ursodiol 250 MG Tablet 500 MG PO ×2 (09:48→20:52)
[2024-05-17] MEDS: Menthol/Lanolin/Calamine/Znox 113 GM Tube 1 APPLIC TOPICAL ×2 (09:48→20:53)
[2024-05-17] MEDS: Azithromycin 250 MG Tablet 500 MG PO (09:48)
[2024-05-17] MEDS: Nystatin Powder 15gm Bottle 1 APPLIC TOPICAL ×2 (09:49→20:53)
[2024-05-17] MEDS: Ensure Plus High Protein 120 ML LIQUID PO ×2 (09:52→16:08)
--- NOTE | 2024-05-17 12:35 | PN.HOSP_ITS ---
Reason for Visit Reason for Visit: Diagnoses Anxiety disorder, unspecified (05/08/24) Unspecified atrial fibrillation (05/08/24) Cerebral infarction due to unspecified occlusion or stenosis of right middle cerebral artery (05/08/24) Calculus of gallbladder without cholecystitis without obstruction (05/08/24) Gastrointestinal hemorrhage, unspecified (05/08/24) Nausea with vomiting, unspecified (05/08/24) Subjective Subjective Patient was seen and examined today, patient's hemoglobin today was 9.8. Objective Data Objective Data Vital Signs: Vital Signs Temp Pulse Resp BP Pulse Ox O2 Del Method 97.1 F L 69 18 135/103 H 99 Room Air 05/17/24 08:53 05/17/24 08:53 05/17/24 08:53 05/17/24 08:53 05/17/24 08:53 05/17/24 09:54 Oxygen Delivery Method Room Air Weight: 61.231 kg Body Mass Index (BMI) 25.4 Intake & Output: Intake and Output for Last 24 Hours 05/15/24 05/16/24 05/17/24 23:59 23:59 23:59 Intake Total 709.67 / 759.67 340.84 / 340.84 146.5 / 146.5 Output Total 300 / 400 800 / 800 200 / 200 Balance 409.67 / 359.67 -459.16 / -459.16 -53.5 / -53.5 Lab / Micro Data 05/17/24 05:15 05/17/24 05:15 Labs: Laboratory Results - last 24 hr 05/17/24 05:15: WBC 10.8, RBC 3.77 L, Hgb 9.8 L, Hct 32.0 L, MCV 84.9, MCH 26.0 L, MCHC 30.6 L, RDW Std Deviation 55.9 H, RDW Coeff of Pelon 18.7 H, Plt Count 235, MPV 12.6 H, Immature Gran % (Auto) 0.400, Neut % (Auto) 70.7 H, Lymph % (Auto) 14.6 L, [place] % (Auto) 6.6, Eos % (Auto) 7.1 H, Baso % (Auto) 0.6, Absolute Neuts (auto) 7.6, Absolute Lymphs (auto) 1.58, Nucleated RBC % 0, Sodium 141, Potassium 4.1, Chloride 111 H, Carbon Dioxide 25.0, Anion Gap 5, BUN 10, Creatinine 0.58, Estim Creat Clear Calc 48.65, Est GFR (MDRD) Af Amer 129, Est GFR (MDRD) Non-Af 107, BUN/Creatinine Ratio 17.2, Glucose 140 H, Calcium 8.2 L Micro: Microbiology 05/09/24 05:45 Urine, Random Urine Culture - Final Escherichia coli Physical Exam Const alert, oriented x3 and no apparent distress Constitutional Narrative: Patient appears older than her stated age, she has multiple deformities of her extremities secondary to rheumatoid arthritis General Appearance: cooperative, well kempt and well developed Orientation / Consciousness: awake, oriented to person and oriented to place HEENT normocephalic, head/scalp atraumatic and moist oral mucous membranes Eyes PERRL, EOMs intact bilaterally and conjunctivae normal Neck supple, no JVD and thyroid normal General: trachea midline Resp normal respiratory effort, no retractions, no use of accessory muscles and clear to auscultation bilaterally Auscultation: Negative for rales, rhonchi or wheezes Cardio regular rate, regular rhythm, S1 normal heart sound, S2 normal heart sound, no murmurs, no rub and no gallops GI normal to inspection, nondistended, normoactive bowel sounds, soft to palpation, non-tender and non-distended Extremity Extremity Narrative: Patient has multiple deformities of her toes and fingers in keeping with rheumatoid arthritis Skin no rashes or lesions noted General Skin Exam: no breakdown Neuro oriented x3, CN's II-XII intact bilaterally, moves all extremities, no focal motor deficits and no sensory deficits noted Sensorium / Orientation: awake and alert Speech: speech normal Psych affect normal Assessment & Plan Assessment/Plan (1) Acute upper GI bleed: PLAN: Plan 1. Acute upper GI bleed secondary to gastric ulcers-patient's hemoglobin appears to be stable at this time, continue PPI #2 duodenal stenosis-patient now has a stent which was placed during this admission #3 acute upper GI hemorrhage secondary to gastric ulcers requiring blood transfusion-patient's hemoglobin appears to be stable at this time, continue to monitor #4 paroxysmal B-[id number]'s Eliquis is being held now due to her GI bleeding #5 possible gastroparesis-gastroenterology has ordered a gastric emptying study. #6 acute debility-secondary to upper GI bleed, PT and OT are seeing patient, [facility]. #7 acute cystitis-patient has completed a course of IV antibiotics this admission Total clinical time spent by myself addressing the patient's medical issues, reviewing all of her data, and collaborating with patient's care team: 35 minutes Charges/Coding Visit Charges Inpatient E&M: 55746 Subs Hosp L2
[2024-05-17 14:43] VITALS: BP 149/64; PULSE 72; RESP 16; TEMP 36.9; O2SAT 100
[2024-05-17 20:49] VITALS: BP 127/70; PULSE 70; RESP 18; TEMP 36.8; O2SAT 98
[2024-05-17] MEDS: Atorvastatin Calcium 20 MG Tablet PO (20:52)
--- NOTE | 2024-05-18 | NM_ITS ---
CLINICAL: 78-year-old female with history of clinical gastroparesis. SEMI-SOLID PHASE 99m Tc SULFUR COLLOID GASTRIC EMPTYING STUDY COMPARISON: None available FINDINGS: The patient was administered 1.2 mCi of 99m Tc sulfur colloid mixed with oatmeal and consumed per os. Image acquisitions in the anterior-posterior projections were obtained for 60 minutes. There is prompt visualization of the stomach. There is no gastroesophageal reflux identified. The T ? raw data emptying was calculated to be 54.77 minutes, (Normal: 12-56 minutes). NM/Gastric Emptying Study IMPRESSION: 1. NORMAL 99m Tc sulfur colloid semi-solid phase (oatmeal) gastric emptying imaging examination. A. There is upper limits of normal semi-solid phase gastric emptying compared to normal controls. (Svetlana et al, J Nucl Med Tech 38: 186, 2010). Electronically Signed: Vance Yeung DO at 10:32 EDT ,
[2024-05-18] MEDS: Pantoprazole Sodium 80 MG in 0.9% Normal Saline (100mL Bag) 80 ML 10 MG CONT INF ×3 (02:13→19:44)
[2024-05-18 03:00] VITALS: BP 145/76; PULSE 71; RESP 16; TEMP 36.4; O2SAT 100
[2024-05-18 08:17] VITALS: BP 135/63; PULSE 69; RESP 18; TEMP 35.8; O2SAT 94
[2024-05-18 08:23] VITALS: O2SAT 96
[2024-05-18] MEDS: Nystatin Powder 15gm Bottle 1 APPLIC TOPICAL ×2 (08:32→22:57)
[2024-05-18] MEDS: Menthol/Lanolin/Calamine/Znox 113 GM Tube 1 APPLIC TOPICAL ×2 (08:33→22:57)
--- NOTE | 2024-05-18 09:40 | PN.SURG_ITS ---
Subjective Subjective Patient is evaluated resting comfortably in bed. She denies any abdominal pain, nausea, vomiting. Objective Data Objective Data Vital Signs: Vital Signs Temp Pulse Resp BP Pulse Ox O2 Del Method 96.5 F L 69 18 135/63 H 96 Room Air 05/18/24 08:17 05/18/24 08:17 05/18/24 08:17 05/18/24 08:17 05/18/24 08:23 05/18/24 08:23 Oxygen Delivery Method Room Air Weight: 134 lb 15.86 oz Body Mass Index (BMI) 25.4 Intake & Output: Intake and Output for Last 24 Hours 05/16/24 05/17/24 05/18/24 23:59 23:59 23:59 Intake Total 340.84 / 340.84 200.0 / 200.0 163 / 163 Output Total 800 / 800 400 / 400 100 / 100 Balance -459.16 / -459.16 -200.0 / -200.0 63 / 63 Lab / Micro Data 05/17/24 05:15 05/17/24 05:15 Micro: Microbiology 05/09/24 05:45 Urine, Random Urine Culture - Final Escherichia coli Physical Exam GI GI Narrative: Abdomen- soft, non-tender, non-distended Assessment & Plan Assessment/Plan (1) Abdominal pain: QUALIFIERS: Abdominal location: generalized Qualified Code(s): R 10.84 - Generalized abdominal pain PLAN: I am following this patient in conjunction with Dr. Leon. She will independently evaluate this patient. Plan for gastric emptying study today No plans for surgical intervention Charges/Coding Visit Charges Inpatient E&M: 00905 [facility] Hosp L1
[2024-05-18 10:45] VITALS: BP 150/83; PULSE 72; RESP 16; TEMP 36.1; O2SAT 100
[2024-05-18] MEDS: Metoclopramide 5 MG TABLET PO ×2 (10:45→16:25)
[2024-05-18] MEDS: Azithromycin 250 MG Tablet 500 MG PO (10:45)
[2024-05-18] MEDS: Ursodiol 250 MG Tablet 500 MG PO ×2 (10:45→22:56)
[2024-05-18] MEDS: Ensure Plus High Protein 120 ML LIQUID PO (10:46)
--- NOTE | 2024-05-18 11:05 | WOUNDNOTE ---
wound photo: right posterior lower leg
--- NOTE | 2024-05-18 15:30 | CHAPLAIN ---
Type of Pastoral Visit _x__ Initial Visit ___ Follow-up Visit ___ On-call Visit ___ General Patient Visit ___ Spiritual Assessment ___ Family Conference ___ Bereavement ___ Rapid Response ___ Code Blue ___ Other (describe below) Pastoral Care Referral From _x__ Patient _x__ Family ___ Nurse ___ Physician ___ Hvac Design Mechanical Engineer ___ Wind Tunnel Technician ___ Other (describe below) Sacrament/Intervention _x__ Active listening ___ Anointing ___ Jehovah'S Witness ___ Bereavement ___ Communion ___ Christina exploration ___ ___ Life review _x__ Prayer ___ Reconciliation ___ Sacrament of Sick _x__ Supportive presence ___ Wedding ___ Other (describe below) Pastoral Comments patient is in bed awake and yet limited in how she answers questions; pt does not engage in conversation but answers questions appropriately and simply; pt smiles mostly and looks to daughter for filling in the story; daughter is eating lunch but stops to explain the situation in simple terms and with some vague responses; daughter uses words referring to attempts to cope, feelings of overwhelm, at a loss for how to respond to mother's needs; when asked if daughter has support too she states I have a daughter and a grandson; pt does ask for a prayer and says she is not worried when asked about these things; daughter is tearful at her mother's responses; when asked about her needs again, the daughter says that she will manage; pt says thank you for coming
[2024-05-18 16:25] VITALS: BP 145/65; PULSE 67; RESP 16; TEMP 35.8; O2SAT 99
--- NOTE | 2024-05-18 16:59 | PCM.PN.HOSP ---
Reason for Visit Reason for Visit: Diagnoses Anxiety disorder, unspecified (05/08/24) Unspecified atrial fibrillation (05/08/24) Cerebral infarction due to unspecified occlusion or stenosis of right middle cerebral artery (05/08/24) Calculus of gallbladder without cholecystitis without obstruction (05/08/24) Gastrointestinal hemorrhage, unspecified (05/08/24) Generalized abdominal pain (05/08/24) Nausea with vomiting, unspecified (05/08/24) Subjective Subjective Patient was seen and examined today, she remains on room air, her gastric emptying study was unremarkable today. Patient's daughter was in the room today Objective Data Objective Data Vital Signs: Vital Signs Temp Pulse Resp BP Pulse Ox O2 Del Method 96.5 F L 67 16 145/65 H 99 Room Air 05/18/24 16:25 05/18/24 16:25 05/18/24 16:25 05/18/24 16:25 05/18/24 16:25 05/18/24 16:25 Oxygen Delivery Method Room Air Weight: 61.231 kg Body Mass Index (BMI) 25.4 Intake & Output: Intake and Output for Last 24 Hours 05/16/24 05/17/24 05/18/24 23:59 23:59 23:59 Intake Total 340.84 / 340.84 200.0 / 200.0 283 / 283 Output Total 800 / 800 400 / 400 250 / 250 Balance -459.16 / -459.16 -200.0 / -200.0 33 / 33 Lab / Micro Data 05/17/24 05:15 05/17/24 05:15 Micro: Microbiology 05/09/24 05:45 Urine, Random Urine Culture - Final Escherichia coli Radiography Diagnostic Testing: Radiology Impression Gastric Emptying Nuclear Medicine 05/18/24 00:00 IMPRESSION: 1. NORMAL 99m Tc sulfur colloid semi-solid phase (oatmeal) gastric emptying imaging examination. A. There is upper limits of normal semi-solid phase gastric emptying compared to normal controls. (Svetlana et al, J Nucl Med Tech 38: 186, 2010). Electronically Signed: Vance Yeung DO at 10:32 EDT , Physical Exam Narrative alert, oriented x3 and no apparent distress Constitutional Narrative: Patient appears older than her stated age, she has multiple deformities of her extremities secondary to rheumatoid arthritis General Appearance: cooperative, well kempt and well developed Orientation / Consciousness: awake, oriented to person and oriented to place HEENT normocephalic, head/scalp atraumatic and moist oral mucous membranes Eyes PERRL, EOMs intact bilaterally and conjunctivae normal Neck supple, no JVD and thyroid normal General: trachea midline Resp normal respiratory effort, no retractions, no use of accessory muscles and clear to auscultation bilaterally Auscultation: Negative for rales, rhonchi or wheezes Cardio regular rate, regular rhythm, S1 normal heart sound, S2 normal heart sound, no murmurs, no rub and no gallops GI normal to inspection, nondistended, normoactive bowel sounds, soft to palpation, non-tender and non-distended Extremity Extremity Narrative: Patient has multiple severe deformities of her toes and fingers in keeping with rheumatoid arthritis Skin no rashes or lesions noted General Skin Exam: no breakdown Neuro oriented x3, CN's II-XII intact bilaterally, moves all extremities, no focal motor deficits and no sensory deficits noted Sensorium / Orientation: awake and alert Speech: speech normal Psych affect normal Assessment & Plan Assessment/Plan (1) Acute upper GI bleed: PLAN: Plan 1. Acute upper GI bleed secondary to gastric ulcers-patient's hemoglobin appears to be stable at this time, continue PPI #2 duodenal stenosis-patient now has a stent which was placed during this admission #3 acute upper GI hemorrhage secondary to gastric ulcers requiring blood transfusion-patient's hemoglobin appears to be stable at this time, continue to monitor #4 paroxysmal [id number]'s Eliquis is being held now due to her GI bleeding #5 acute debility-secondary to upper GI bleed, PT and OT are seeing patient, she will need temporary placement in a [place] [facility] facility for skilled services. #6 acute cystitis-patient has completed a course of IV antibiotics this admission Total clinical time spent by myself addressing the patient's medical issues, reviewing all of her data, and collaborating with patient's care team: 35 minutes Charges/Coding Visit Charges Inpatient E&M: 77394 Subs Hosp L2
--- NOTE | 2024-05-18 17:18 | EX.PCM.PN.GI ---
Subjective Subjective Patient has not had any more nausea vomiting. She is tolerating a modified diet. Objective Data Objective Data Vital Signs: Vital Signs Temp Pulse Resp BP Pulse Ox O2 Del Method 96.5 F L 67 16 145/65 H 99 Room Air 05/18/24 16:25 05/18/24 16:25 05/18/24 16:25 05/18/24 16:25 05/18/24 16:25 05/18/24 16:25 Oxygen Delivery Method Room Air Weight: 134 lb 15.86 oz Body Mass Index (BMI) 25.4 Intake & Output: Intake and Output for Last 24 Hours 05/16/24 05/17/24 05/18/24 23:59 23:59 23:59 Intake Total 340.84 / 340.84 200.0 / 200.0 283 / 283 Output Total 800 / 800 400 / 400 250 / 250 Balance -459.16 / -459.16 -200.0 / -200.0 33 / 33 Lab / Micro Data 05/17/24 05:15 05/17/24 05:15 Micro: Microbiology 05/09/24 05:45 Urine, Random Urine Culture - Final Escherichia coli Radiography Diagnostic Testing: Radiology Impression Gastric Emptying Nuclear Medicine 05/18/24 00:00 IMPRESSION: 1. NORMAL 99m Tc sulfur colloid semi-solid phase (oatmeal) gastric emptying imaging examination. A. There is upper limits of normal semi-solid phase gastric emptying compared to normal controls. (Svetlana et al, J Nucl Med Tech 38: 186, 2010). Electronically Signed: Vance Yeung DO at 10:32 EDT , Physical Exam Narrative alert, oriented x3 and no apparent distress Constitutional Narrative: Patient appears older than her stated age, she has multiple deformities of her extremities secondary to rheumatoid arthritis General Appearance: cooperative, well kempt and well developed Orientation / Consciousness: awake, oriented to person and oriented to place HEENT normocephalic, head/scalp atraumatic and moist oral mucous membranes Eyes PERRL, EOMs intact bilaterally and conjunctivae normal Neck supple, no JVD and thyroid normal General: trachea midline Resp normal respiratory effort, no retractions, no use of accessory muscles and clear to auscultation bilaterally Auscultation: Negative for rales, rhonchi or wheezes Cardio regular rate, regular rhythm, S1 normal heart sound, S2 normal heart sound, no murmurs, no rub and no gallops GI normal to inspection, nondistended, normoactive bowel sounds, soft to palpation, non-tender and non-distended Extremity Extremity Narrative: Patient has multiple severe deformities of her toes and fingers in keeping with rheumatoid arthritis Skin no rashes or lesions noted General Skin Exam: no breakdown Neuro oriented x3, CN's II-XII intact bilaterally, moves all extremities, no focal motor deficits and no sensory deficits noted Sensorium / Orientation: awake and alert Speech: speech normal Psych affect normal Assessment & Plan Assessment/Plan (1) Acute upper GI bleed: (2) Afib: QUALIFIERS: Atrial fibrillation type: unspecified Qualified Code(s): I48.91 - Unspecified atrial fibrillation (3) Acute ischemic right MCA stroke: (4) Anxiety disorder, unspecified: PLAN: Plan 78-year-old bedbound because of severe rheumatoid arthritis with history of embolic cerebral infarction with paraplegia on Eliquis and meloxicam who developed recurrent upper GI bleeding. 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 She also was discovered to have bleeding ulcer at the pyloric sphincter and gastric antrum that were treated endoscopically. She underwent another upper endoscopy and had a duodenal stent placed before the pyloric and duodenal stenosis. 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 Hematemesis -Resolved. This was secondary to meloxicam and Eliquis therapy resulting in peptic ulcer disease -Not recommended any more NSAIDs at this time. -She will need to be on twice a day PPI -Eliquis can be restarted Gastroparesis -Secondary to immobility and pyloric stenosis -Continue high-dose Reglan therapy and azithromycin -Repeat upper endoscopy with possible stent removal in 2 months Cholelithiasis -She was started on ursodiol therapy at 500 mg twice daily to hopefully change to the consistency of her new bile to deoxycholic acid. Charges/Coding Visit Charges Inpatient E&M: 33580 Subs Hosp L3
[2024-05-18 22:25] VITALS: BP 112/60; PULSE 70; RESP 15; TEMP 36.3; O2SAT 100
[2024-05-18] MEDS: Atorvastatin Calcium 20 MG Tablet PO (22:57)
[2024-05-19 04:12] VITALS: BP 128/66; PULSE 68; RESP 15; TEMP 36.4; O2SAT 100
[2024-05-19] MEDS: Pantoprazole Sodium 80 MG in 0.9% Normal Saline (100mL Bag) 80 ML 10 MG CONT INF (05:48)
[2024-05-19 05:51] LABS: Absolute Lymphocyte Count 1.46 X10^3/uL (0.83-4.51); Absolute Neutrophil Count 5.5 X10^3/uL (2.0-7.7); Basophil# 0.06 X10^3/uL; Basophil% 0.7 % (0-1); Eosinophil# 0.81 X10^3/uL; Eosinophils% 9.7 % (0-5); Hematocrit 30.6 % (37-47); Hemoglobin 9.4 g/dL (12.0-15.0); Lymphocyte # 1.46 X10^3/ul (0.83-4.51); Lymphocyte % 17.4 % (19-41); Mean Corp Hgb Conc 30.7 g/dL (32-36); Mean Corpuscular Hgb 25.8 pg (27.0-32.0); Mean Corpuscular Volume 84.1 fL (81-99); Monocyte# 0.58 X10^3/uL; Monocyte% 6.9 % (0-10); NRBC Flagged by Analyzer 0 % (0-5); Neutrophil # 5.45 X10^3/uL (2.7-7.7); Neutrophil % 64.9 % (47-70); Platelet Count 219 K/mm3 (150-450); RBC Distribution Width CV 18.6 % (11.6-14.6); RBC Distribution Width SD 55.6 fl (35.1-43.9); Red Blood Count 3.64 M/mm3 (4.2-5.4); White Blood Count 8.4 K/mm3 (4.4-11.0)
[2024-05-19 10:11] VITALS: BP 154/78; PULSE 71; RESP 16; TEMP 36.3; O2SAT 100
[2024-05-19] MEDS: Metoclopramide 5 MG TABLET PO ×2 (10:11→16:49)
[2024-05-19] MEDS: Ursodiol 250 MG Tablet 500 MG PO ×2 (10:11→20:28)
[2024-05-19] MEDS: Azithromycin 250 MG Tablet 500 MG PO (10:11)
[2024-05-19] MEDS: Nystatin Powder 15gm Bottle 1 APPLIC TOPICAL ×2 (10:12→20:28)
[2024-05-19] MEDS: Menthol/Lanolin/Calamine/Znox 113 GM Tube 1 APPLIC TOPICAL ×2 (10:12→20:29)
--- NOTE | 2024-05-19 13:46 | PCM.PN.HOSP ---
Reason for Visit Reason for Visit: Diagnoses Anxiety disorder, unspecified (05/08/24) Unspecified atrial fibrillation (05/08/24) Cerebral infarction due to unspecified occlusion or stenosis of right middle cerebral artery (05/08/24) Calculus of gallbladder without cholecystitis without obstruction (05/08/24) Gastrointestinal hemorrhage, unspecified (05/08/24) Generalized abdominal pain (05/08/24) Nausea with vomiting, unspecified (05/08/24) Subjective Subjective Patient was seen and examined today, I talked briefly with her daughter who was in the room at the time of my examination. Patient's hemoglobin this morning was stable at 9.4. Objective Data Objective Data Vital Signs: Vital Signs Temp Pulse Resp BP Pulse Ox O2 Del Method 97.4 F L 71 16 154/78 H 100 Room Air 05/19/24 10:11 05/19/24 10:11 05/19/24 10:11 05/19/24 10:11 05/19/24 10:11 05/19/24 10:11 Oxygen Delivery Method Room Air Weight: 61.231 kg Body Mass Index (BMI) 25.4 Intake & Output: Intake and Output for Last 24 Hours 05/17/24 05/18/24 05/19/24 23:59 23:59 23:59 Intake Total 200.0 / 200.0 623 / 623 460 / 460 Output Total 400 / 400 250 / 350 150 / 150 Balance -200.0 / -200.0 373 / 273 310 / 310 Lab / Micro Data 05/19/24 05:41 05/17/24 05:15 Labs: Laboratory Results - last 24 hr 05/19/24 05:41: WBC 8.4, RBC 3.64 L, Hgb 9.4 L, Hct 30.6 L, MCV 84.1, MCH 25.8 L, MCHC 30.7 L, RDW Std Deviation 55.6 H, RDW Coeff of Pelon 18.6 H, Plt Count 219, MPV 12.0, Immature Gran % (Auto) 0.400, Neut % (Auto) 64.9, Lymph % (Auto) 17.4 L, [place] % (Auto) 6.9, Eos % (Auto) 9.7 H, Baso % (Auto) 0.7, Absolute Neuts (auto) 5.5, Absolute Lymphs (auto) 1.46, Nucleated RBC % 0 Micro: Microbiology 05/09/24 05:45 Urine, Random Urine Culture - Final Escherichia coli Physical Exam Narrative alert, oriented x3 and no apparent distress Constitutional Narrative: Patient appears older than her stated age, she has multiple deformities of her extremities secondary to rheumatoid arthritis General Appearance: cooperative, well kempt and well developed Orientation / Consciousness: awake, oriented to person and oriented to place HEENT normocephalic, head/scalp atraumatic and moist oral mucous membranes Eyes PERRL, EOMs intact bilaterally and conjunctivae normal Neck supple, no JVD and thyroid normal General: trachea midline Resp normal respiratory effort, no retractions, no use of accessory muscles and clear to auscultation bilaterally Auscultation: Negative for rales, rhonchi or wheezes Cardio regular rate, regular rhythm, S1 normal heart sound, S2 normal heart sound, no murmurs, no rub and no gallops GI normal to inspection, nondistended, normoactive bowel sounds, soft to palpation, non-tender and non-distended Extremity Extremity Narrative: Patient has multiple severe deformities of her toes and fingers in keeping with rheumatoid arthritis Skin no rashes or lesions noted General Skin Exam: no breakdown Neuro oriented x3, CN's II-XII intact bilaterally, moves all extremities, no focal motor deficits and no sensory deficits noted Sensorium / Orientation: awake and alert Speech: speech normal Psych affect normal Assessment & Plan Assessment/Plan (1) Acute upper GI bleed: PLAN: Plan 1. Acute upper GI bleed secondary to gastric ulcers-patient's hemoglobin appears to be stable at this time, continue PPI #2 duodenal stenosis-patient now has a stent which was placed during this admission #3 acute upper GI hemorrhage secondary to gastric ulcers requiring blood transfusion-patient's hemoglobin appears to be stable at this time, continue to monitor #4 paroxysmal R-[id number]-[id number]'s Eliquis is being held now due to her GI bleeding #5 acute debility-secondary to upper GI bleed, PT and OT are seeing patient, she will need temporary placement in a detention facility for skilled services. #6 acute cystitis-patient has completed a course of IV antibiotics this admission #4 functional quadriplegia-complicates care, management, recovery, and prognosis Total clinical time spent by myself addressing the patient's medical issues, reviewing all of her data, and collaborating with patient's care team: 35 minutes Charges/Coding Visit Charges Inpatient E&M: 17102 Subs Hosp L2
[2024-05-19 16:47] VITALS: BP 138/65; PULSE 71; RESP 16; TEMP 35.9; O2SAT 100
[2024-05-19] MEDS: Ensure Plus High Protein 120 ML LIQUID PO (16:49)
[2024-05-19] MEDS: Atorvastatin Calcium 20 MG Tablet PO (20:28)
[2024-05-19] MEDS: Pantoprazole Sodium 40 MG Tablet PO (20:33)
[2024-05-19 20:38] VITALS: O2SAT 100
[2024-05-19 22:45] VITALS: BP 133/67; PULSE 70; RESP 16; TEMP 36.6; O2SAT 100
[2024-05-20 03:42] VITALS: O2SAT 100
[2024-05-20 04:33] VITALS: BP 158/84; PULSE 71; RESP 15; TEMP 36.4; O2SAT 99
[2024-05-20 09:11] VITALS: BP 123/48; PULSE 72; RESP 18; TEMP 36.6; O2SAT 99
[2024-05-20] MEDS: Nystatin Powder 15gm Bottle 1 APPLIC TOPICAL ×2 (09:12→22:06)
[2024-05-20] MEDS: Menthol/Lanolin/Calamine/Znox 113 GM Tube 1 APPLIC TOPICAL ×2 (09:12→22:06)
[2024-05-20] MEDS: Azithromycin 250 MG Tablet 500 MG PO (09:13)
[2024-05-20] MEDS: Pantoprazole Sodium 40 MG Tablet PO ×2 (09:13→22:06)
[2024-05-20] MEDS: Ursodiol 250 MG Tablet 500 MG PO ×2 (09:13→22:05)
[2024-05-20] MEDS: Ensure Plus High Protein 120 ML LIQUID PO ×2 (09:13→11:04)
--- NOTE | 2024-05-20 09:36 | CASEMGMT ---
Addendum entered by Kaykay Wayne 05/20/24 10:33: Vanessa from [facility] notified SW she called insurance to inquire on status of patient's case. Vanessa was told it is still under review and no explanation as to why it is taking so long was given. Kaykay Wayne SYSTEMS ENGINEERING MANAGERMary RICHEY Original Note: SW spoke with patient's daughter Delphine. Delphine expressed her concerns with the insurance taking so long. Delphine asked if SW could check with [facility]. SW reassured Delphine that [facility] has been regularly updating . Someone from [facility] called [facility] and told them it was still pending. SW listened and provided emotional support. SW told Delphine that SW will check in with [facility]. SW did send [facility] a message via [employer] letting them know patient's daughter is anxious about the pre-cert taking so long and she would really like to get patient over to them as soon as possible. Kaykay Wayne SYSTEMS ENGINEERING MANAGERMary RICHEY
[2024-05-20] MEDS: Metoclopramide 5 MG TABLET PO ×2 (11:04→17:04)
--- NOTE | 2024-05-20 14:43 | CASEMGMT ---
Phone call received from patient's insurance. Insurance is stating [facility] is out of network. Insurance has been trying to reach patient's daughter Delphine, but cannot get her. SW took SW's phone to patient's room and let Delphine know insurance is on the phone and would like to talk with her. After Delphine hung up phone she said insurance is saying [facility] is out of network. Insurance notified Delphine that if she still wants patient to go to [facility] she will have to appeal and they gave Delphine the phone number to appeal. Delphine was going to appeal. Kaykay Wayne LABORER PIPELINE PERINATAL BREASTFEEDING ASSISTANT
--- NOTE | 2024-05-20 15:07 | CASEMGMT ---
Delphine requested GILBERTO. GILBERTO met with Delphine in patient's room. Delphine asked if GILBERTO could send referrals to [facility] and [place]. GILBERTO sent referrals to both [facility] ([facility]) and [place] [facility] via [facility]. GILBERTO called [facility] and notified Josiane that SW sent a referral. Await responses. Plan: Sending referrals to [facility] and [place] [facility] as patient's insurance is stating [place] is out of network. Kaykay Wayne DOPE WORKER ROSSI
[2024-05-20 15:10] VITALS: BP 102/49; PULSE 72; RESP 18; TEMP 36.7; O2SAT 100
--- NOTE | 2024-05-20 16:22 | PCM.PN.HOSP ---
Reason for Visit Reason for Visit: Diagnoses Anxiety disorder, unspecified (05/08/24) Unspecified atrial fibrillation (05/08/24) Cerebral infarction due to unspecified occlusion or stenosis of right middle cerebral artery (05/08/24) Calculus of gallbladder without cholecystitis without obstruction (05/08/24) Gastrointestinal hemorrhage, unspecified (05/08/24) Generalized abdominal pain (05/08/24) Nausea with vomiting, unspecified (05/08/24) Subjective Subjective Patient was seen and examined today, she has no complaints today, we still have not received approval for her to go to an extended care facility for rehab services. Objective Data Objective Data Vital Signs: Vital Signs Temp Pulse Resp BP Pulse Ox O2 Del Method 98.0 F 72 18 102/49 L 100 Room Air 05/20/24 15:10 05/20/24 15:10 05/20/24 15:10 05/20/24 15:10 05/20/24 15:10 05/20/24 15:10 Oxygen Delivery Method Room Air Weight: 61.231 kg Body Mass Index (BMI) 25.4 Intake & Output: Intake and Output for Last 24 Hours 05/18/24 05/19/24 05/20/24 23:59 23:59 23:59 Intake Total 623 / 623 800 / 920 360 / 360 Output Total 250 / 350 150 / 250 200 / 200 Balance 373 / 273 650 / 670 160 / 160 Lab / Micro Data 05/19/24 05:41 05/17/24 05:15 Micro: Microbiology 05/09/24 05:45 Urine, Random Urine Culture - Final Escherichia coli Physical Exam Narrative alert, oriented x3 and no apparent distress Constitutional Narrative: Patient appears older than her stated age, she has multiple deformities of her extremities secondary to rheumatoid arthritis General Appearance: cooperative, well kempt and well developed Orientation / Consciousness: awake, oriented to person and oriented to place HEENT normocephalic, head/scalp atraumatic and moist oral mucous membranes Eyes PERRL, EOMs intact bilaterally and conjunctivae normal Neck supple, no JVD and thyroid normal General: trachea midline Resp normal respiratory effort, no retractions, no use of accessory muscles and clear to auscultation bilaterally Auscultation: Negative for rales, rhonchi or wheezes Cardio regular rate, regular rhythm, S1 normal heart sound, S2 normal heart sound, no murmurs, no rub and no gallops GI normal to inspection, nondistended, normoactive bowel sounds, soft to palpation, non-tender and non-distended Extremity Extremity Narrative: Patient has multiple severe deformities of her toes and fingers in keeping with rheumatoid arthritis Skin no rashes or lesions noted General Skin Exam: no breakdown Neuro oriented x3, CN's II-XII intact bilaterally, moves all extremities, no focal motor deficits and no sensory deficits noted Sensorium / Orientation: awake and alert Speech: speech normal Psych affect normal Assessment & Plan Assessment/Plan (1) Acute upper GI bleed: PLAN: Plan 1. Acute upper GI bleed secondary to gastric ulcers-patient's hemoglobin appears to be stable at this time, continue PPI #2 duodenal stenosis-patient now has a stent which was placed during this admission #3 acute upper GI hemorrhage secondary to gastric ulcers requiring blood transfusion-patient's hemoglobin appears to be stable at this time, continue to monitor #4 paroxysmal [id number]'s Eliquis is being held now due to her GI bleeding #5 acute debility-secondary to upper GI bleed, PT and OT are seeing patient, she will need temporary placement in a retirement facility for skilled services. #6 acute cystitis-patient has completed a course of IV antibiotics this admission #7 functional quadriplegia-complicates care, management, recovery, and prognosis Total clinical time spent by myself addressing the patient's medical issues, reviewing all of her data, and collaborating with patient's care team: 25 minutes Charges/Coding Visit Charges Inpatient E&M: 83485 [facility] Hosp L1
[2024-05-20 21:10] VITALS: BP 142/61; PULSE 64; RESP 18; TEMP 35.7; O2SAT 97
[2024-05-20] MEDS: Atorvastatin Calcium 20 MG Tablet PO (22:06)
[2024-05-21 03:10] VITALS: BP 148/67; PULSE 72; RESP 18; TEMP 35.7; O2SAT 97
[2024-05-21] MEDS: Metoclopramide 5 MG TABLET PO ×3 (05:40→16:39)
[2024-05-21 09:10] VITALS: BP 154/85; PULSE 72; RESP 18; TEMP 36.2; O2SAT 100
--- NOTE | 2024-05-21 09:48 | CASEMGMT ---
GILBERTO called [facility] ([facility]) and spoke with Josiane. Josiane has not looked at referral, but she will check in with the department chair and get back to GILBERTO. Ke Mascorro responded they are unable to accept patient. Await [facility]'s response. Kaykay Wayne LEARNING ENGINEER ROSSI
[2024-05-21] MEDS: Nystatin Powder 15gm Bottle 1 APPLIC TOPICAL ×2 (10:12→21:01)
[2024-05-21] MEDS: Pantoprazole Sodium 40 MG Tablet PO ×2 (10:12→21:01)
[2024-05-21] MEDS: Menthol/Lanolin/Calamine/Znox 113 GM Tube 1 APPLIC TOPICAL ×2 (10:12→21:02)
[2024-05-21] MEDS: Ursodiol 250 MG Tablet 500 MG PO ×2 (10:13→21:01)
[2024-05-21] MEDS: Azithromycin 250 MG Tablet 500 MG PO (10:13)
--- NOTE | 2024-05-21 10:55 | CASEMGMT ---
[facility] has accepted patient. They will submit authorization for intermediate level of care since patient was already denied for skilled. SW notified patient's daughter. Plan: d/c to [facility] pending insurance approval. Kaykay RICHEY
--- NOTE | 2024-05-21 13:43 | PN.HOSP_ITS ---
Reason for Visit Reason for Visit: Diagnoses Anxiety disorder, unspecified (05/08/24) Unspecified atrial fibrillation (05/08/24) Cerebral infarction due to unspecified occlusion or stenosis of right middle cerebral artery (05/08/24) Calculus of gallbladder without cholecystitis without obstruction (05/08/24) Gastrointestinal hemorrhage, unspecified (05/08/24) Generalized abdominal pain (05/08/24) Nausea with vomiting, unspecified (05/08/24) Subjective Subjective Patient was seen and examined today, she does not voice any complaints. We are still awaiting authorization from her insurance company for transfer to a [facility] facility. Objective Data Objective Data Vital Signs: Vital Signs Temp Pulse Resp BP Pulse Ox O2 Del Method 97.1 F L 72 18 154/85 H 100 Room Air 05/21/24 09:10 05/21/24 09:10 05/21/24 09:10 05/21/24 09:10 05/21/24 09:10 05/21/24 09:10 Oxygen Delivery Method Room Air Weight: 61.231 kg Body Mass Index (BMI) 25.4 Intake & Output: Intake and Output for Last 24 Hours 05/19/24 05/20/24 05/21/24 23:59 23:59 23:59 Intake Total 800 / 920 720 / 1080 610 / 610 Output Total 150 / 250 300 / 550 750 / 750 Balance 650 / 670 420 / 530 -140 / -140 Lab / Micro Data 05/19/24 05:41 05/17/24 05:15 Micro: Microbiology 05/09/24 05:45 Urine, Random Urine Culture - Final Escherichia coli Physical Exam Narrative alert, oriented x3 and no apparent distress Constitutional Narrative: Patient appears older than her stated age, she has multiple deformities of her extremities secondary to rheumatoid arthritis General Appearance: cooperative, well kempt and well developed Orientation / Consciousness: awake, oriented to person and oriented to place HEENT normocephalic, head/scalp atraumatic and moist oral mucous membranes Eyes PERRL, EOMs intact bilaterally and conjunctivae normal Neck supple, no JVD and thyroid normal General: trachea midline Resp normal respiratory effort, no retractions, no use of accessory muscles and clear to auscultation bilaterally Auscultation: Negative for rales, rhonchi or wheezes Cardio regular rate, regular rhythm, S1 normal heart sound, S2 normal heart sound, no murmurs, no rub and no gallops GI normal to inspection, nondistended, normoactive bowel sounds, soft to palpation, non-tender and non-distended Extremity Extremity Narrative: Patient has multiple severe deformities of her toes and fingers in keeping with rheumatoid arthritis Skin no rashes or lesions noted General Skin Exam: no breakdown Neuro oriented x3, CN's II-XII intact bilaterally, moves all extremities, no sensory deficits noted, patient does not ambulate Sensorium / Orientation: awake and alert Speech: speech normal Psych affect normal Assessment & Plan Assessment/Plan (1) Acute upper GI bleed: PLAN: Plan 1. Acute upper GI bleed secondary to gastric ulcers-patient's hemoglobin appears to be stable at this time, continue PPI #2 duodenal stenosis-patient now has a stent which was placed during this admission #3 acute upper GI hemorrhage secondary to gastric ulcers requiring blood transfusion-patient's hemoglobin appears to be stable at this time, continue to monitor as necessary #4 paroxysmal L-[id number]-xpuftgi's Eliquis is being held now due to her GI bleeding #5 acute debility-secondary to upper GI bleed, PT and OT are seeing patient, she will need temporary placement in a [facility] facility for skilled services. #6 acute cystitis-patient has completed a course of IV antibiotics this admission #7 functional quadriplegia-complicates care, management, recovery, and prognosis Total clinical time spent by myself addressing the patient's medical issues, reviewing all of her data, and collaborating with patient's care team: 25 minutes Charges/Coding Visit Charges Inpatient E&M: 05114 [facility] L1
[2024-05-21 16:00] VITALS: BP 135/76; PULSE 72; RESP 18; TEMP 36.6; O2SAT 99
[2024-05-21] MEDS: Atorvastatin Calcium 20 MG Tablet PO (21:01)
[2024-05-21] MEDS: MENTHOL 226.8 GM JAR 1 APPLIC TOPICAL (21:02)
[2024-05-21 21:11] VITALS: BP 139/50; PULSE 69; RESP 16; TEMP 36.6; O2SAT 97
[2024-05-22 03:10] VITALS: BP 128/52; PULSE 65; RESP 16; TEMP 36.6; O2SAT 98
[2024-05-22] MEDS: Metoclopramide 5 MG TABLET PO ×3 (06:41→17:50)
--- NOTE | 2024-05-22 07:28 | PN.HOSP_ITS ---
Reason for Visit Reason for Visit: Diagnoses Anxiety disorder, unspecified (05/08/24) Unspecified atrial fibrillation (05/08/24) Cerebral infarction due to unspecified occlusion or stenosis of right middle cerebral artery (05/08/24) Calculus of gallbladder without cholecystitis without obstruction (05/08/24) Gastrointestinal hemorrhage, unspecified (05/08/24) Generalized abdominal pain (05/08/24) Nausea with vomiting, unspecified (05/08/24) Subjective Subjective Patient is a 78-year-old lady with history of previous CVA with residual right- sided weakness with contractures, rheumatoid arthritis admitted with hematemesis. Objective Data Objective Data Vital Signs: Vital Signs Temp Pulse Resp BP Pulse Ox O2 Del Method 97.9 F 65 16 128/52 H 98 Room Air 05/22/24 03:10 05/22/24 03:10 05/22/24 03:10 05/22/24 03:10 05/22/24 03:10 05/22/24 03:25 Oxygen Delivery Method Room Air Weight: 61.231 kg Body Mass Index (BMI) 25.4 Intake & Output: Intake and Output for Last 24 Hours 05/20/24 05/21/24 05/22/24 23:59 23:59 23:59 Intake Total 720 / 1080 860 / 860 Output Total 300 / 550 750 / 750 Balance 420 / 530 110 / 110 Lab / Micro Data 05/19/24 05:41 05/17/24 05:15 Micro: Microbiology 05/09/24 05:45 Urine, Random Urine Culture - Final Escherichia coli Physical Exam Narrative GENERAL: cooperative HEENT: Atraumatic; normocephalic EYES; Anicteric, Normal Conjunctiva NECK; supple, normal thyroid, RESPIRATORY: Diminished to auscultation CARDIOVASCULAR: Regular S1 S2, GI: soft, normoactive bowel sounds, : No Renal angle tenderness; EXTREMITIES: No edema, no clubbing, MUSCULOSKELETAL: Contractures of extremities NEURO: Awake; right-sided hemiparesis SKIN: No Rash PSYCH; Flat affect Assessment & Plan Assessment/Plan (1) Acute upper GI bleed: PLAN: Plan Patient is a 78-year-old lady with history of previous CVA with residual right- sided weakness with contractures, rheumatoid arthritis admitted with hematemesis. 1. Acute upper GI bleed Patient underwent EGD was found to have multiple bleeding ulcers and pyloric and duodenal stenosis patient underwent duodenal stent placement. Subsequently underwent repeat EGD on 05/14/2024 [facility] demonstrated patent duodenal stent 1. Anemia ? Secondary to acute blood loss anemia secondary to multiple bleeding ulcers exacerbated by patient being on Eliquis for paroxysmal A-fib. Patient Eliquis was held was transfused patient did receive blood transfusion. Subsequently monitoring H&H with plans to transfuse additional unit if patient is deemed to be symptomatic or hemoglobin falls below 7 3. Thromboembolic CVA ? Fluids residual right-sided weakness with subsequent contractures 4. Paroxysmal A-fib ? Patient was on Eliquis discontinued given the finding of multiple bleeding ulcers on EGD 5. Rheumatoid arthritis ? Complicating care patient has significant debility with contractures patient is on meloxicam held given patient GI bleed 6. Dyslipidemia -Patient is on statin therapy, continued at home dose 7. Acute cystitis with E. coli ? Patient treated appropriately 8. Depression with anxiety ? Patient is on Zoloft 9. Physical deconditioning with functional quadriplegia - Requested for PT OT eval and secondary social studies teacher to assist with discharge planning. Plan for patient to be discharged to correction facility pending insurance approval 10. DVT prophylaxis ? Bilateral SCD Time spent in the patient's overall evaluation,decision-making process, review of diagnostic data, adjustment of management, discussion with other providers, nursing nursing and ancillary staff involved in patient's care documentation, 40 Minutes Charges/Coding Visit Charges Inpatient E&M: 06064 [facility] Hosp L2
[2024-05-22 08:50] VITALS: BP 124/70; PULSE 71; RESP 16; TEMP 36.7; O2SAT 97
[2024-05-22] MEDS: Azithromycin 250 MG Tablet 500 MG PO (08:52)
[2024-05-22] MEDS: Ursodiol 250 MG Tablet 500 MG PO ×2 (08:52→21:32)
[2024-05-22] MEDS: Menthol/Lanolin/Calamine/Znox 113 GM Tube 1 APPLIC TOPICAL ×2 (08:53→21:31)
[2024-05-22] MEDS: Pantoprazole Sodium 40 MG Tablet PO ×2 (08:53→21:32)
[2024-05-22] MEDS: Nystatin Powder 15gm Bottle 1 APPLIC TOPICAL ×2 (08:53→21:32)
--- NOTE | 2024-05-22 12:18 | CASEMGMT ---
GILBERTO called [facility] and left a message for Josiane in admissions inquiring if they have heard anything from insurance for patient. Kaykay Wayne DETECTIVE ROSSI
--- NOTE | 2024-05-22 13:39 | CASEMGMT ---
GILBERTO called [facility] and spoke with Josiane in admissions. Josiane has not heard from insurance, but she will call insurance and check on status. Kaykay Wayne HOTEL SERVER ROSSI
[2024-05-22 15:10] VITALS: BP 154/69; PULSE 73; RESP 12; TEMP 36.8; O2SAT 94
--- NOTE | 2024-05-22 15:32 | CASEMGMT ---
Josiane spoke with insurance and unfortunately insurance thought [facility] was asking for skilled level of care not intermediate so they denied skilled. Josiane has to re-submit for intermediate level of care. Patient will likely be here through the weekend. GILBERTO updated patient and her daughter. GILBERTO apologized for the long wait. Plan: d/c to [facility] pending pre-cert. Kaykay Wayne WAFER BATTER MIXER ROSSI
[2024-05-22] MEDS: Atorvastatin Calcium 20 MG Tablet PO (21:33)
[2024-05-22 21:34] VITALS: BP 125/75; PULSE 70; RESP 14; TEMP 36.8; O2SAT 99
[2024-05-23 03:30] VITALS: BP 151/84; PULSE 72; RESP 14; TEMP 36.3; O2SAT 94
[2024-05-23] MEDS: Metoclopramide 5 MG TABLET PO ×3 (06:32→16:03)
--- NOTE | 2024-05-23 07:10 | PCM.PN.HOSP ---
Reason for Visit Reason for Visit: Diagnoses Anxiety disorder, unspecified (05/08/24) Unspecified atrial fibrillation (05/08/24) Cerebral infarction due to unspecified occlusion or stenosis of right middle cerebral artery (05/08/24) Calculus of gallbladder without cholecystitis without obstruction (05/08/24) Gastrointestinal hemorrhage, unspecified (05/08/24) Generalized abdominal pain (05/08/24) Nausea with vomiting, unspecified (05/08/24) Subjective Subjective Patient seen had a relatively uneventful night. Hemoglobin down to 9.4, however no indication for blood transfusion. Awaiting insurance precertification prior to transfer to [facility] Objective Data Objective Data Vital Signs: Vital Signs Temp Pulse Resp BP Pulse Ox O2 Del Method 97.4 F L 72 14 151/84 H 94 Room Air 05/23/24 03:30 05/23/24 03:30 05/23/24 03:30 05/23/24 03:30 05/23/24 03:30 05/23/24 03:30 Oxygen Delivery Method Room Air Weight: 61.231 kg Body Mass Index (BMI) 25.4 Intake & Output: Intake and Output for Last 24 Hours 05/21/24 05/22/24 05/23/24 23:59 23:59 23:59 Intake Total 860 / 860 360 / 460 100 / 100 Output Total 750 / 750 Balance 110 / 110 360 / 460 100 / 100 Lab / Micro Data 05/19/24 05:41 05/23/24 06:05 Micro: Microbiology 05/09/24 05:45 Urine, Random Urine Culture - Final Escherichia coli Physical Exam Narrative GENERAL: cooperative HEENT: Atraumatic; normocephalic EYES; Anicteric, Normal Conjunctiva NECK; supple, normal thyroid, RESPIRATORY: Diminished to auscultation CARDIOVASCULAR: Regular S1 S2, GI: soft, normoactive bowel sounds, : No Renal angle tenderness; EXTREMITIES: No edema, no clubbing, MUSCULOSKELETAL: Contractures of extremities NEURO: Awake; right-sided hemiparesis SKIN: No Rash PSYCH; Flat affect Assessment & Plan Assessment/Plan (1) Acute upper GI bleed: PLAN: Plan Patient is a 78-year-old lady with 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 1. Acute upper GI bleed Patient underwent EGD was found to have multiple bleeding ulcers and pyloric and duodenal stenosis patient underwent duodenal stent placement. Subsequently underwent repeat EGD on 05/14/2024 [facility] demonstrated patent duodenal stent ? 05/23/2024 hemoglobin down to 9.4 no indication for blood transfusion 2. Anemia ? Secondary to acute blood loss anemia secondary to multiple bleeding ulcers exacerbated by patient being on Eliquis for paroxysmal A-fib. Patient Eliquis was held was transfused patient did receive blood transfusion. Subsequently monitoring H&H with plans to transfuse additional unit if patient is deemed to be symptomatic or hemoglobin falls below 7 ? 05/23/2024 hemoglobin down to 9.4 no indication for blood transfusion. Will continue with daily monitoring of H&H 3. Thromboembolic CVA ? Fluids residual right-sided weakness with subsequent contractures 4. Paroxysmal A-fib ? Patient was on Eliquis discontinued given the finding of multiple bleeding ulcers on EGD 5. Rheumatoid arthritis ? Complicating care patient has significant debility with contractures patient is on meloxicam held given patient GI bleed 6. Dyslipidemia -Patient is on statin therapy, continued at home dose 7. Acute cystitis with E. coli ? Patient treated appropriately 8. Depression with anxiety ? Patient is on Zoloft 9. Physical deconditioning with functional quadriplegia - Requested for PT OT eval and social service director to assist with discharge planning. Plan for [facility] to [facility] pending insurance approval 10. DVT prophylaxis ? Bilateral SCD Time spent in the patient's overall evaluation,decision-making process, review of diagnostic data, adjustment of management, discussion with other providers, nursing nursing and ancillary staff involved in patient's care documentation, 35 minutes Charges/Coding Visit Charges Inpatient E&M: 33823 Subs Hosp L2
[2024-05-23 07:11] LABS: Anion Gap 6 (5-15); BUN 10 mg/dL (7-18); Calcium,Total 8.3 mg/dL (8.5-10.1); Chloride 114 mmol/L (98-107); Creatinine, Serum 0.43 mg/dL (0.55-1.02); EST Glomerular Filtration Rate 149 mL/min (>60); Est Glom Filt Rate - Afr Amer 180 mL/min (>60); Estimated Creatinine Clearance 48.65 ml/min; Glucose 118 mg/dL (74-106); Phosphorus 3.8 mg/dL (2.5-4.9); Potassium 4.4 mmol/L (3.5-5.1); Sodium Level 142 mmol/L (136-145)
[2024-05-23 10:36] VITALS: BP 144/68; PULSE 72; RESP 16; TEMP 36.6; O2SAT 98
[2024-05-23] MEDS: Menthol/Lanolin/Calamine/Znox 113 GM Tube 1 APPLIC TOPICAL ×2 (10:58→21:42)
[2024-05-23] MEDS: Nystatin Powder 15gm Bottle 1 APPLIC TOPICAL ×2 (10:58→21:42)
[2024-05-23] MEDS: Azithromycin 250 MG Tablet 500 MG PO (10:59)
[2024-05-23] MEDS: Pantoprazole Sodium 40 MG Tablet PO ×2 (10:59→21:41)
[2024-05-23] MEDS: Ursodiol 250 MG Tablet 500 MG PO ×2 (10:59→21:41)
[2024-05-23] MEDS: 0.9% Saline Lock 10 ML Syringe IV (11:06)
[2024-05-23 15:49] VITALS: BP 105/51; PULSE 73; RESP 14; TEMP 36.3; O2SAT 97
[2024-05-23] MEDS: Atorvastatin Calcium 20 MG Tablet PO (21:41)
[2024-05-23 21:45] VITALS: BP 115/85; PULSE 85; RESP 18; TEMP 37.2; O2SAT 94
[2024-05-24 03:20] VITALS: BP 96/80; PULSE 78; RESP 18; TEMP 36.6; O2SAT 94
[2024-05-24 06:05] LABS: Absolute Lymphocyte Count 1.59 X10^3/uL (0.83-4.51); Absolute Neutrophil Count 7.5 X10^3/uL (2.0-7.7); Basophil% 0.9 % (0-1); Eosinophil# 0.98 X10^3/uL; Eosinophils% 8.8 % (0-5); Hematocrit 32.7 % (37-47); Hemoglobin 10.1 g/dL (12.0-15.0); Lymphocyte # 1.59 X10^3/ul (0.83-4.51); Lymphocyte % 14.3 % (19-41); Mean Corp Hgb Conc 30.9 g/dL (32-36); Mean Corpuscular Hgb 25.6 pg (27.0-32.0); Mean Platelet Vol. 11.4 fl (6.2-12.0); Monocyte# 0.94 X10^3/uL; Monocyte% 8.5 % (0-10); NRBC Flagged by Analyzer 0 % (0-5); Neutrophil # 7.47 X10^3/uL (2.7-7.7); Neutrophil % 67.1 % (47-70); Platelet Count 329 K/mm3 (150-450); RBC Distribution Width CV 18.5 % (11.6-14.6); RBC Distribution Width SD 55.5 fl (35.1-43.9); Red Blood Count 3.94 M/mm3 (4.2-5.4); White Blood Count 11.1 K/mm3 (4.4-11.0)
[2024-05-24 06:38] LABS: Anion Gap 5 (5-15); BUN 9 mg/dL (7-18); BUN/Creat Ratio 18.8 RATIO (10-20); Calcium,Total 8.6 mg/dL (8.5-10.1); Chloride 114 mmol/L (98-107); Creatinine, Serum 0.48 mg/dL (0.55-1.02); EST Glomerular Filtration Rate 133 mL/min (>60); Est Glom Filt Rate - Afr Amer 161 mL/min (>60); Estimated Creatinine Clearance 48.65 ml/min; Glucose 136 mg/dL (74-106); Potassium 4.1 mmol/L (3.5-5.1); Sodium Level 143 mmol/L (136-145)
--- NOTE | 2024-05-24 08:11 | PCM.PN.HOSP ---
Reason for Visit Reason for Visit: Diagnoses Anxiety disorder, unspecified (05/08/24) Unspecified atrial fibrillation (05/08/24) Cerebral infarction due to unspecified occlusion or stenosis of right middle cerebral artery (05/08/24) Calculus of gallbladder without cholecystitis without obstruction (05/08/24) Gastrointestinal hemorrhage, unspecified (05/08/24) Generalized abdominal pain (05/08/24) Nausea with vomiting, unspecified (05/08/24) Subjective Subjective Patient seen had a relatively uneventful night. Insurance precertification still pending prior to transfer to assisted facility Objective Data Objective Data Vital Signs: Vital Signs Temp Pulse Resp BP Pulse Ox O2 Del Method 97.8 F 78 18 96/80 94 Room Air 05/24/24 03:20 05/24/24 03:20 05/24/24 03:20 05/24/24 03:20 05/24/24 03:20 05/24/24 03:20 Oxygen Delivery Method Room Air Weight: 61.231 kg Body Mass Index (BMI) 25.4 Intake & Output: Intake and Output for Last 24 Hours 05/22/24 05/23/24 05/24/24 23:59 23:59 23:59 Intake Total 360 / 460 1010 / 1110 100 / 100 Balance 360 / 460 1010 / 1110 100 / 100 Lab / Micro Data 05/24/24 05:48 05/24/24 05:48 Labs: Laboratory Results - last 24 hr 05/24/24 05:48: WBC 11.1 H, RBC 3.94 L, Hgb 10.1 L, Hct 32.7 L, MCV 83.0, MCH 25.6 L, MCHC 30.9 L, RDW Std Deviation 55.5 H, RDW Coeff of Pelon 18.5 H, Plt Count 329, MPV 11.4, Immature Gran % (Auto) 0.400, Neut % (Auto) 67.1, Lymph % (Auto) 14.3 L, [place] % (Auto) 8.5, Eos % (Auto) 8.8 H, Baso % (Auto) 0.9, Absolute Neuts (auto) 7.5, Absolute Lymphs (auto) 1.59, Nucleated RBC % 0, Sodium 143, Potassium 4.1, Chloride 114 H, Carbon Dioxide 24.0, Anion Gap 5, BUN 9, Creatinine 0.48 L, Estim Creat Clear Calc 48.65, Est GFR (MDRD) Af Amer 161, Est GFR (MDRD) Non-Af 133, BUN/Creatinine Ratio 18.8, Glucose 136 H, Calcium 8.6 Micro: Microbiology 05/09/24 05:45 Urine, Random Urine Culture - Final Escherichia coli Physical Exam Narrative GENERAL: cooperative HEENT: Atraumatic; normocephalic EYES; Anicteric, Normal Conjunctiva NECK; supple, normal thyroid, RESPIRATORY: Diminished to auscultation CARDIOVASCULAR: Regular S1 S2, GI: soft, normoactive bowel sounds, : No Renal angle tenderness; EXTREMITIES: No edema, no clubbing, MUSCULOSKELETAL: Contractures of extremities NEURO: Awake; right-sided hemiparesis SKIN: No Rash PSYCH; Flat affect Assessment & Plan Assessment/Plan (1) Acute upper GI bleed: PLAN: Plan Patient is a 78-year-old lady with 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 1. Acute upper GI bleed Patient underwent EGD was found to have multiple bleeding ulcers and pyloric and duodenal stenosis patient underwent duodenal stent placement. Subsequently underwent repeat EGD on 05/14/2024 [facility] demonstrated patent duodenal stent ? 05/23/2024 hemoglobin down to 9.4 no indication for blood transfusion ? 05/24/2024 hemoglobin remained stable at 10.1 2. Anemia ? Secondary to acute blood loss anemia secondary to multiple bleeding ulcers exacerbated by patient being on Eliquis for paroxysmal A-fib. Patient Eliquis was held was transfused patient did receive blood transfusion. Subsequently monitoring H&H with plans to transfuse additional unit if patient is deemed to be symptomatic or hemoglobin falls below 7 ? 05/23/2024 hemoglobin down to 9.4 no indication for blood transfusion. Will continue with daily monitoring of H&H 3. Thromboembolic CVA ? Fluids residual right-sided weakness with subsequent contractures 4. Paroxysmal A-fib ? Patient was on Eliquis discontinued given the finding of multiple bleeding ulcers on EGD 5. Rheumatoid arthritis ? Complicating care patient has significant debility with contractures patient is on meloxicam held given patient GI bleed 6. Dyslipidemia -Patient is on statin therapy, continued at home dose 7. Acute cystitis with E. coli ? Patient treated appropriately 8. Depression with anxiety ? Patient is on Zoloft 9. Physical deconditioning with functional quadriplegia - Requested for PT OT eval and secondary social studies teacher to assist with discharge planning. Plan for patient to be discharged to assisted facility pending insurance approval 10. DVT prophylaxis ? Bilateral SCD Time spent in the patient's overall evaluation,decision-making process, review of diagnostic data, adjustment of management, discussion with other providers, nursing nursing and ancillary staff involved in patient's care documentation, 35 minutes Charges/Coding Visit Charges Inpatient E&M: 46457 Subs Hosp L2
[2024-05-24 09:20] VITALS: BP 126/76; PULSE 79; RESP 16; TEMP 36.8; O2SAT 97
[2024-05-24] MEDS: Menthol/Lanolin/Calamine/Znox 113 GM Tube 1 APPLIC TOPICAL ×2 (10:10→20:43)
[2024-05-24] MEDS: Nystatin Powder 15gm Bottle 1 APPLIC TOPICAL ×2 (10:11→20:43)
[2024-05-24] MEDS: Ursodiol 250 MG Tablet 500 MG PO ×2 (10:12→20:42)
[2024-05-24] MEDS: Pantoprazole Sodium 40 MG Tablet PO ×2 (10:12→20:42)
[2024-05-24] MEDS: Azithromycin 250 MG Tablet 500 MG PO (10:12)
[2024-05-24] MEDS: Metoclopramide 5 MG TABLET PO ×2 (10:13→15:46)
[2024-05-24] MEDS: 0.9% Saline Lock 10 ML Syringe IV (10:14)
--- NOTE | 2024-05-24 11:00 | NURSING ---
This RN is taking over care at this time.
[2024-05-24 15:44] VITALS: BP 141/50; PULSE 70; RESP 16; TEMP 36.4; O2SAT 99
[2024-05-24 20:34] VITALS: BP 134/66; PULSE 76; RESP 18; TEMP 36.6; O2SAT 95
[2024-05-24] MEDS: Atorvastatin Calcium 20 MG Tablet PO (20:42)
[2024-05-25 03:15] VITALS: BP 128/77; PULSE 71; RESP 16; TEMP 36.2; O2SAT 99
[2024-05-25] MEDS: Metoclopramide 5 MG TABLET PO ×3 (06:00→17:12)
[2024-05-25 07:18] LABS: Absolute Lymphocyte Count 1.75 X10^3/uL (0.83-4.51); Absolute Neutrophil Count 7.1 X10^3/uL (2.0-7.7); Basophil% 0.9 % (0-1); Eosinophils% 8.4 % (0-5); Hematocrit 32.2 % (37-47); Hemoglobin 9.8 g/dL (12.0-15.0); Lymphocyte # 1.75 X10^3/ul (0.83-4.51); Lymphocyte % 16.4 % (19-41); Mean Corp Hgb Conc 30.4 g/dL (32-36); Mean Corpuscular Hgb 25.1 pg (27.0-32.0); Mean Corpuscular Volume 82.6 fL (81-99); Mean Platelet Vol. 11.2 fl (6.2-12.0); Monocyte# 0.83 X10^3/uL; Monocyte% 7.8 % (0-10); NRBC Flagged by Analyzer 0 % (0-5); Neutrophil # 7.08 X10^3/uL (2.7-7.7); Neutrophil % 66.1 % (47-70); Platelet Count 317 K/mm3 (150-450); RBC Distribution Width CV 18.6 % (11.6-14.6); RBC Distribution Width SD 55.3 fl (35.1-43.9); White Blood Count 10.7 K/mm3 (4.4-11.0)
[2024-05-25 07:47] LABS: Anion Gap 4 (5-15); BUN 10 mg/dL (7-18); BUN/Creat Ratio 21.5 RATIO (10-20); Calcium,Total 8.8 mg/dL (8.5-10.1); Chloride 111 mmol/L (98-107); Creatinine, Serum 0.46 mg/dL (0.55-1.02); EST Glomerular Filtration Rate 138 mL/min (>60); Est Glom Filt Rate - Afr Amer 167 mL/min (>60); Estimated Creatinine Clearance 48.65 ml/min; Glucose 127 mg/dL (74-106); Sodium Level 142 mmol/L (136-145)
--- NOTE | 2024-05-25 07:50 | PCM.PN.HOSP ---
Reason for Visit Reason for Visit: Diagnoses Anxiety disorder, unspecified (05/08/24) Unspecified atrial fibrillation (05/08/24) Cerebral infarction due to unspecified occlusion or stenosis of right middle cerebral artery (05/08/24) Calculus of gallbladder without cholecystitis without obstruction (05/08/24) Gastrointestinal hemorrhage, unspecified (05/08/24) Generalized abdominal pain (05/08/24) Nausea with vomiting, unspecified (05/08/24) Subjective Subjective Patient seen no change in clinical condition. Hemoglobin remained stable. Insurance precertification still pending prior to transfer to a correction facility Objective Data Objective Data Vital Signs: Vital Signs Temp Pulse Resp BP Pulse Ox O2 Del Method 97.1 F L 71 16 128/77 H 99 Room Air 05/25/24 03:15 05/25/24 03:15 05/25/24 03:15 05/25/24 03:15 05/25/24 03:15 05/25/24 04:07 Oxygen Delivery Method Room Air Weight: 61.231 kg Body Mass Index (BMI) 25.4 Intake & Output: Intake and Output for Last 24 Hours 05/23/24 05/24/24 05/25/24 23:59 23:59 23:59 Intake Total 1010 / 1110 700 / 900 200 / 200 Balance 1010 / 1110 700 / 900 200 / 200 Lab / Micro Data 05/25/24 06:58 05/25/24 06:58 Labs: Laboratory Results - last 24 hr 05/25/24 06:58: WBC 10.7, RBC 3.90 L, Hgb 9.8 L, Hct 32.2 L, MCV 82.6, MCH 25.1 L, MCHC 30.4 L, RDW Std Deviation 55.3 H, RDW Coeff of Pelon 18.6 H, Plt Count 317, MPV 11.2, Immature Gran % (Auto) 0.400, Neut % (Auto) 66.1, Lymph % (Auto) 16.4 L, [place] % (Auto) 7.8, Eos % (Auto) 8.4 H, Baso % (Auto) 0.9, Absolute Neuts (auto) 7.1, Absolute Lymphs (auto) 1.75, Nucleated RBC % 0, Sodium 142, Potassium 4.0, Chloride 111 H, Carbon Dioxide 27.0, Anion Gap 4 L, BUN 10, Creatinine 0.46 L, Estim Creat Clear Calc 48.65, Est GFR (MDRD) Af Amer 167, Est GFR (MDRD) Non-Af 138, BUN/Creatinine Ratio 21.5 H, Glucose 127 H, Calcium 8.8 Micro: Microbiology 05/09/24 05:45 Urine, Random Urine Culture - Final Escherichia coli Physical Exam Narrative GENERAL: cooperative HEENT: Atraumatic; normocephalic EYES; Anicteric, Normal Conjunctiva NECK; supple, normal thyroid, RESPIRATORY: Diminished to auscultation CARDIOVASCULAR: Regular S1 S2, GI: soft, normoactive bowel sounds, : No Renal angle tenderness; EXTREMITIES: No edema, no clubbing, MUSCULOSKELETAL: Contractures of extremities NEURO: Awake; right-sided hemiparesis SKIN: No Rash PSYCH; Flat affect Assessment & Plan Assessment/Plan (1) Acute upper GI bleed: PLAN: Plan Patient is a 78-year-old lady with 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 1. Acute upper GI bleed Patient underwent EGD was found to have multiple bleeding ulcers and pyloric and duodenal stenosis patient underwent duodenal stent placement. Subsequently underwent repeat EGD on 05/14/2024 [facility] demonstrated patent duodenal stent ? 05/23/2024 hemoglobin down to 9.4 no indication for blood transfusion ? 05/24/2024 hemoglobin remained stable at 10.1 ? 05/25/2024; hemoglobin down to 9.8 we will continue with monitoring 2. Anemia ? Secondary to acute blood loss anemia secondary to multiple bleeding ulcers exacerbated by patient being on Eliquis for paroxysmal A-fib. Patient Eliquis was held was transfused patient did receive blood transfusion. Subsequently monitoring H&H with plans to transfuse additional unit if patient is deemed to be symptomatic or hemoglobin falls below 7 ? 05/23/2024 hemoglobin down to 9.4 no indication for blood transfusion. Will continue with daily monitoring of H&H 3. Thromboembolic CVA ? Fluids residual right-sided weakness with subsequent contractures 4. Paroxysmal A-fib ? Patient was on Eliquis discontinued given the finding of multiple bleeding ulcers on EGD 5. Rheumatoid arthritis ? Complicating care patient has significant debility with contractures patient is on meloxicam held given patient GI bleed 6. Dyslipidemia -Patient is on statin therapy, continued at home dose 7. Acute cystitis with E. coli ? Patient treated appropriately 8. Depression with anxiety ? Patient is on Zoloft 9. Physical deconditioning with functional quadriplegia - Requested for PT OT eval and family welfare social work professor to assist with discharge planning. Plan for patient to be discharged to [facility] facility pending insurance approval ? 05/25/2024; insurance precertification still pending 10. DVT prophylaxis ? Bilateral SCD Time spent in the patient's overall evaluation,decision-making process, review of diagnostic data, adjustment of management, discussion with other providers, nursing nursing and ancillary staff involved in patient's care documentation, 35 minutes Charges/Coding Visit Charges Inpatient E&M: 96380 Subs Hosp L2
[2024-05-25 09:15] VITALS: BP 124/78; PULSE 74; RESP 18; TEMP 36.7; O2SAT 98
[2024-05-25] MEDS: Nystatin Powder 15gm Bottle 1 APPLIC TOPICAL ×2 (10:28→22:34)
[2024-05-25] MEDS: Menthol/Lanolin/Calamine/Znox 113 GM Tube 1 APPLIC TOPICAL ×2 (10:28→22:34)
[2024-05-25] MEDS: Azithromycin 250 MG Tablet 500 MG PO (10:29)
[2024-05-25] MEDS: Pantoprazole Sodium 40 MG Tablet PO ×2 (10:29→22:34)
[2024-05-25] MEDS: Ursodiol 250 MG Tablet 500 MG PO ×2 (10:29→22:34)
[2024-05-25] MEDS: 0.9% Saline Lock 10 ML Syringe IV (10:30)
--- NOTE | 2024-05-25 10:42 | CASEMGMT ---
GILBERTO called [facility] and left a voice mail for Josiane inquiring if she has heard from insurance. Kaykay Wayne PROCESSING SPECIALIST ROSSI
--- NOTE | 2024-05-25 12:29 | CASEMGMT ---
GILBERTO received a call from Josiane with [facility] and she has a denial letter from insurance. Josiane is talking with a 3rd constitution party with insurance. This may be the denial letter from last week when insurance denied her for skilled at [facility]. GILBERTO sent updated physician notes to Josiane. Josiane will get back to GILBERTO as soon as she finds out more information. Kaykay Wayne MSW ROSSI
--- NOTE | 2024-05-25 14:47 | CASEMGMT ---
GILBERTO called Josiane at [facility] and left her a voice mail asking if she has had any success with reaching out to insurance. Kaykay Wayne CUSTOMER EXPERIENCE CONSULTANT ROSSI
[2024-05-25 15:15] VITALS: BP 126/82; PULSE 72; RESP 16; TEMP 36.6; O2SAT 96
--- NOTE | 2024-05-25 15:24 | CASEMGMT ---
GILBERTO spoke with Josiane at [facility]. Josiane said she was told to talk with patient's care mgr through [facility] to get respite. Josiane left a message for [facility] care management. GILBERTO called [facility] and was informed patient's care mgr is Jacey Milligan. They are not allowed to give out care mgr's phone numbers, but she can send Jacey a message to call SW about patient. Message was sent. Await phone call from Jacey, patient's care mgr with [facility]. Kaykay RICHEY
[2024-05-25 21:15] VITALS: BP 140/73; PULSE 71; RESP 16; TEMP 36.6; O2SAT 97
[2024-05-25] MEDS: Atorvastatin Calcium 20 MG Tablet PO (22:34)
[2024-05-26 03:20] VITALS: BP 126/100; PULSE 75; RESP 18; TEMP 37; O2SAT 98
[2024-05-26] MEDS: Ursodiol 250 MG Tablet 500 MG PO ×2 (09:09→22:03)
[2024-05-26] MEDS: Nystatin Powder 15gm Bottle 1 APPLIC TOPICAL ×2 (09:09→22:03)
[2024-05-26] MEDS: Azithromycin 250 MG Tablet 500 MG PO (09:09)
[2024-05-26] MEDS: Pantoprazole Sodium 40 MG Tablet PO ×2 (09:09→22:02)
[2024-05-26] MEDS: Menthol/Lanolin/Calamine/Znox 113 GM Tube 1 APPLIC TOPICAL ×2 (09:10→22:03)
[2024-05-26 09:16] VITALS: BP 152/71; PULSE 72; RESP 16; TEMP 36.4; O2SAT 97
--- NOTE | 2024-05-26 09:27 | CASEMGMT ---
GILBERTO was given the phone number for patient's rehabilitation case coordinator with [facility], Jacey ([phone]). GILBERTO called Jacey and left her a voice mail. GILBERTO received a return call from Jacey. GILBERTO explained situation. Jacey said she will do some research to see what is going on. She said she does not understand why patient is not getting approved for intermediate level of care. Jacey said she will see what she can find out and get back to GILBERTO and/or Josiane from [facility]. Kaykay RICHEY
[2024-05-26] MEDS: Metoclopramide 5 MG TABLET PO ×2 (11:08→15:26)
--- NOTE | 2024-05-26 11:40 | CASEMGMT ---
SW spoke with patient's daughter and let her know the latest with patient's request for [facility]. Await phone call from patient's CM with insurance and/or Josiane at [facility]. Kaykay RICHEY
--- NOTE | 2024-05-26 14:41 | PN_ITS ---
Subjective Subjective Patient seen and examined. She was lying comfortably in bed. She had no complaints. She is awaiting placement. Review of symptoms otherwise negative. Objective Data Objective Data Vital Signs: Vital Signs Temp Pulse Resp BP Pulse Ox O2 Del Method 97.5 F L 72 16 152/71 H 97 Room Air 05/26/24 09:16 05/26/24 09:16 05/26/24 09:16 05/26/24 09:16 05/26/24 09:16 05/26/24 10:00 Oxygen Delivery Method Room Air Weight: 134 lb 15.86 oz Body Mass Index (BMI) 25.4 Intake & Output: Intake and Output for Last 24 Hours 05/24/24 05/25/24 05/26/24 23:59 23:59 23:59 Intake Total 700 / 900 1040 / 1240 200 / 200 Balance 700 / 900 1040 / 1240 200 / 200 Lab / Micro Data 05/25/24 06:58 05/25/24 06:58 Micro: Microbiology 05/09/24 05:45 Urine, Random Urine Culture - Final Escherichia coli Physical Exam Const alert, oriented x3 and no apparent distress Constitutional Narrative: frail, has chronic contractures General Appearance: cooperative HEENT normocephalic, head/scalp atraumatic, moist oral mucous membranes and oropharynx normal Eyes PERRL and EOMs intact bilaterally Neck no lymphadenopathy, supple and no JVD Resp normal respiratory effort, normal air movement and clear to auscultation bilaterally Cardio regular rate, regular rhythm, S1 normal heart sound, S2 normal heart sound and no murmurs GI normal to inspection, nondistended, normoactive bowel sounds, soft to palpation and non-tender Extremity Extremity Narrative: extreme contractures of lower extremities Neuro CN's II-XII intact bilaterally Neuro Narrative: contractures in extremities Motor Exam: general weakness Psych thought process normal Appearance: appropriate Assessment & Plan Assessment/Plan (1) Acute upper GI bleed: PLAN: Plan #Acute GI bleed * resolved.S he had EGD which showed multiple bleeding ulcers and pyloric and duodenal stent placement; she had repeat EGD on 05/14/2024 which showed patent duodenal stewnt * hb is stable * On PO pantoprazole * will monitor * #Anemia due to GI bleed * stable. 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 * PT/OT on board * #Paroxysmal afib: eliquis discontinued due to GI bleed and bleeding ulcers #Rheumatoid arthritis: was on meloxicam which is now on hold due to GI bleed. #Hyperlipidemia: on statin #Depression with anxiety: on zoloft #Debility due to functional quadriplegia: PT/OT on board. fall precautions. DVT prophylaxis: SCDs Disposition: awaiting placement Charges/Coding Visit Charges Inpatient E&M: 84263 Subs Hosp L2
[2024-05-26 15:27] VITALS: BP 113/76; PULSE 71; RESP 16; TEMP 36.4; O2SAT 97
[2024-05-26 18:26] VITALS: BP 151/78; PULSE 79; RESP 16; TEMP 36.6; O2SAT 97
[2024-05-26] MEDS: Ondansetron 4 MG/2 ML Vial IV (18:45)
[2024-05-26] MEDS: 0.9% Saline Lock 10 ML Syringe IV (18:47)
[2024-05-26 21:52] VITALS: BP 148/78; PULSE 71; RESP 18; TEMP 35.9; O2SAT 99
[2024-05-26] MEDS: Atorvastatin Calcium 20 MG Tablet PO (22:02)
[2024-05-27 03:44] VITALS: BP 138/76; PULSE 70; RESP 18; TEMP 36; O2SAT 100
[2024-05-27 07:37] LABS: Absolute Lymphocyte Count 1.55 X10^3/uL (0.83-4.51); Absolute Neutrophil Count 7.4 X10^3/uL (2.0-7.7); Basophil# 0.08 X10^3/uL; Basophil% 0.7 % (0-1); Eosinophil# 0.93 X10^3/uL; Eosinophils% 8.6 % (0-5); Hematocrit 32.4 % (37-47); Hemoglobin 9.9 g/dL (12.0-15.0); Lymphocyte # 1.55 X10^3/ul (0.83-4.51); Lymphocyte % 14.4 % (19-41); Mean Corp Hgb Conc 30.6 g/dL (32-36); Mean Corpuscular Hgb 25.2 pg (27.0-32.0); Mean Corpuscular Volume 82.4 fL (81-99); Mean Platelet Vol. 11.7 fl (6.2-12.0); Monocyte% 7.4 % (0-10); NRBC Flagged by Analyzer 0 % (0-5); Neutrophil # 7.41 X10^3/uL (2.7-7.7); Neutrophil % 68.6 % (47-70); Platelet Count 336 K/mm3 (150-450); RBC Distribution Width CV 18.6 % (11.6-14.6); RBC Distribution Width SD 54.5 fl (35.1-43.9); Red Blood Count 3.93 M/mm3 (4.2-5.4); White Blood Count 10.8 K/mm3 (4.4-11.0)
[2024-05-27 07:56] LABS: Anion Gap 4 (5-15); BUN 11 mg/dL (7-18); BUN/Creat Ratio 15.9 RATIO (10-20); Calcium,Total 8.9 mg/dL (8.5-10.1); Chloride 110 mmol/L (98-107); Creatinine, Serum 0.69 mg/dL (0.55-1.02); EST Glomerular Filtration Rate 87 mL/min (>60); Est Glom Filt Rate - Afr Amer 105 mL/min (>60); Estimated Creatinine Clearance 48.65 ml/min; Glucose 141 mg/dL (74-106); Potassium 4.4 mmol/L (3.5-5.1); Sodium Level 141 mmol/L (136-145)
--- NOTE | 2024-05-27 09:44 | CASEMGMT ---
Addendum entered by Kaykay Wayne 05/27/24 10:17: Josiane called GILBERTO back. Josiane said she spoke with someone at [facility] and she was told they are in network and patient does not need a pre-cert. Josiane said to go ahead and send patient. GILBERTO notified physician, propellant charge zone assembler, RN, patient, and her daughter. Kaykay RICHEY Original Note: GILBERTO called Radha with [facility]. Radha said she read a message in computer yesterday around 430 that [facility] ([facility]) is in network and no pre-cert is needed so patient can be admitted. Radha said she sent an email to Josiane at [facility] to notify her. GILBERTO called Josiane at [facility] and she was going to review her emails and then call [facility] to verify. Kaykay RICHEY
[2024-05-27 09:50] VITALS: BP 136/78; PULSE 72; RESP 16; TEMP 37; O2SAT 98
[2024-05-27] MEDS: Ursodiol 250 MG Tablet 500 MG PO (10:48)
[2024-05-27] MEDS: Azithromycin 250 MG Tablet 500 MG PO (10:48)
[2024-05-27] MEDS: Pantoprazole Sodium 40 MG Tablet PO (10:48)
[2024-05-27 10:55] VITALS: BP 138/78; PULSE 72; RESP 14; TEMP 36.6; O2SAT 98
--- NOTE | 2024-05-27 10:57 | TREXTCAR_ITS ---
Diet Diet Order/Speech Therapy: 05/18/24 11:37 Diet: Regular - General Food consistency:: Soft & Bite Sized Liquid Consistency:: Regular/Thin Diet Comments: Assist w/ feeding - NO TOMATO SOUP, COFFEE, SODA Routine Orders/Code Status Enema Type: Fleetz Enema Frequency: Daily PRN Suppository Frequency: Daily PRN Christy Catheter Size: 90 O2 Frequency: PRN Keep PO Greater than or Equal to (%): 90 Wound(s) Right calf: Wound Type: scab jose area: Wound Type: excoriation buttock area: Wound Type: excoriation Therapies Weight Bearing: Weight bearing as tolerated Physical Therapy: Eval and Treat Occupational Therapy: Eval and Treat Problem/Diagnosis (1) Acute upper GI bleed: Status: Acute Code(s): K92.2 - Gastrointestinal hemorrhage, unspecified Plan #Acute GI bleed * resolved.S he had EGD which showed multiple bleeding ulcers and pyloric and duodenal stent placement; she had repeat EGD on 05/14/2024 which showed patent duodenal stewnt * hb is stable * On PO pantoprazole * will monitor * #Anemia due to GI bleed * stable. 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 * PT/OT on board * #Paroxysmal afib: eliquis discontinued due to GI bleed and bleeding ulcers #Rheumatoid arthritis: was on meloxicam which is now on hold due to GI bleed. #Hyperlipidemia: on statin #Depression with anxiety: on zoloft #Debility due to functional quadriplegia: PT/OT on board. fall precautions. DVT prophylaxis: SCDs Disposition: awaiting placement Allergies/Procedures Done in Hospital Allergies Food Allergies: Uncoded Adverse Reaction (Intermediate, Verified 05/27/24 10:19) Vomiting experiences vomiting with coca cola orange juice Adverse Reaction (Intermediate, Verified 05/27/24 10:19) Vomiting Procedures: None Type of Care/Length of Stay Estimated LOS: Convalescent Care Less Than 30 days Type of Care Needed: Skilled Rehab Potential: Fair Prognosis: Fair Additional Orders/Day of Discharge Day of Discharge: 05/27/24 Dietary and Speech Recommendations Dietitian Recommendations/Changes: Continue regular diet, soft and bite sized consistency, per RETORT SETTER recommendations. Continue 120ml Ensure Plus HP TID with medpass. Will follow weight as available. Reviewed and approved by Jaylyn Bernardo, , RD, LD Discharge Plan Admission Admit Date/Time: 05/08/24 10:57 Primary Reason for Your Visit: GI bleed Attending Provider: Kelsey Patel Primary Care Provider: Josiane Buck CNP Consulting Providers: Navdeep Barlow; Carly Cuenca; Rosie Leon; Gregory Vasquez; Ishan Mcneal; Apollo Hood Instructions Patient Instructions: ED Upper GI Bleeding (Stable) Discharge Orders/Prescriptions Prescriptions: New pantoprazole 40 mg Tablet,Delayed Release (Dr/Ec) 40 mg PO BID Qty: 60 2RF Continued sertraline [Zoloft] 25 MG tablet 50 mg PO DAILY metformin 500 mg tablet 500 mg PO DAILY atorvastatin 20 mg tablet 20 mg PO DAILY Discontinued Eliquis 5 MG tablet 5 mg PO BID pantoprazole 20 mg tablet,delayed release (DR/EC) 20 mg PO DAILY meloxicam 15 mg tablet 15 mg PO DAILY Referrals / Follow Up: Josiane Buck CNP [Other] - Within 1 Week Navdeep Barlow DO [Med Staff - Active Staff] - Within 2 Weeks Disposition Disposition (needs filled in before D/C Order can be placed): [facility] Facility
--- NOTE | 2024-05-27 10:59 | DS.PCM_ITS ---
Providers Date of Admission: 05/08/24 Date of Discharge: 05/27/24 Primary Care Physician: Josiane Buck Consultations 05/08/24 13:33 Consult: Gastroenterology Routine Consulting Provider: [facility] Reason for Consult: gibleed EMERGENT Consult: No Notified: Yes Date Notified: 05/08/24 Time Notified: 11:00 Method of Notification: ED Physician Initiated 05/15/24 13:03 Consult: General Surgery Routine Consulting Provider: Rosie Leon Reason for Consult: Cholelithiasis, no cholecystitis? EMERGENT Consult: No Notified: Yes Date Notified: 05/15/24 Time Notified: 13:03 Method of Notification: Verbal 05/18/24 08:27 Consult: Onc/Wound/senior technical trainer Routine Comment: Comments:: Right calf Reason For Visit: UPPER GI BLEED Diagnosis Discharge Diagnosis (1) Acute upper GI bleed: Status: Acute Code(s): K92.2 - Gastrointestinal hemorrhage, unspecified Plan #Acute GI bleed * resolved.S he had EGD which showed multiple bleeding ulcers and pyloric and duodenal stent placement; she had repeat EGD on 05/14/2024 which showed patent duodenal stewnt * hb is stable * On PO pantoprazole * will monitor * #Anemia due to GI bleed * stable. 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 * PT/OT on board * #Paroxysmal afib: eliquis discontinued due to GI bleed and bleeding ulcers #Rheumatoid arthritis: was on meloxicam which is now on hold due to GI bleed. #Hyperlipidemia: on statin #Depression with anxiety: on zoloft #Debility due to functional quadriplegia: PT/OT on board. fall precautions. DVT prophylaxis: SCDs Disposition: awaiting placement Medications at Discharge Home Medications sertraline 25 mg tablet (Zoloft) 50 mg PO DAILY mental health 03/07/18 atorvastatin 20 mg tablet 20 mg PO DAILY 05/08/24 metformin 500 mg tablet 500 mg PO DAILY 05/08/24 pantoprazole 40 mg tablet,delayed release 40 mg PO BID #60 tabs 05/27/24 Hospital Course Operations None Procedures Colonoscopy and EGD Summary of Care Provided Minutes Spent on Discharge: 65 Hospital Course: Patient is a 78-year-old female with a past medical history as outlined which includes rheumatoid arthritis and CVA with residual right-sided deficits and contractures of her extremities due to the rheumatoid arthritis who was admitted through the ED on 05/08/2024 with a complaint of hematemesis. In the ED her hemoglobin was 10.4. She had a large-volume hematemesis in the ED and she was started on Protonix drip. Hospitalist and GI were consulted. Patient was on Eliquis at home. She had had a recent upper GI bleed and was seen at [facility] for 5 days in February 2024. Eliquis was held as well as her meloxicam. She did receive blood transfusion during the admission course. She had EGD which showed multiple bleeding ulcers and pyloric and duodenal stenosis. She had a duodenal stent placed and the ulcers were cauterized. She had a repeat EGD on 05/14/2024 which showed a patent duodenal stent. She had a prolonged hospital course on account of patient waiting for placement. She eventually got insurance pre-[facility] and [facility]. She was discharged on p.o. pantoprazole 40 mg twice daily. Eliquis and meloxicam were discontinued. She is follow-up with her primary care doctor and follow-up with gastroenterology on outpatient basis. Patient seen and examined prior to discharge. She had no active complaints and had an uneventful night. Review of symptoms otherwise negative. Labs and vitals reviewed. Home medication reviewed and reconciled. Physical Exam Const alert, oriented x3 and no apparent distress Constitutional Narrative: frail, has chronic contractures General Appearance: cooperative, comfortable, well kempt and well developed Orientation / Consciousness: awake, oriented to person and oriented to place HEENT normocephalic, head/scalp atraumatic, hearing grossly normal bilaterally, moist oral mucous membranes and oropharynx normal Mouth: oral and palatal mucosa normal Eyes PERRL, EOMs intact bilaterally and conjunctivae normal Eyes Narrative: EOM grossly intact, anicteric Neck no lymphadenopathy, supple, no JVD and thyroid normal General: trachea midline Resp normal respiratory effort, normal air movement, no retractions, no use of accessory muscles and clear to auscultation bilaterally Auscultation: Negative for rales, rhonchi or wheezes Cardio regular rate, regular rhythm, S1 normal heart sound, S2 normal heart sound, no murmurs, no rub and no gallops GI normal to inspection, nondistended, normoactive bowel sounds, soft to palpation, non-tender and non-distended Extremity Extremity Narrative: extreme contractures of lower extremities Skin no rashes or lesions noted General Skin Exam: no breakdown Neuro oriented x3 and CN's II-XII intact bilaterally Neuro Narrative: contractures in extremities Sensorium / Orientation: awake and alert Speech: speech normal Motor Exam: general weakness Psych thought process normal and affect normal Psych Narrative: Cooperative Appearance: appropriate Weight / BMI Weight Weight: 134 lb 15.86 oz Body Mass Index (BMI) 25.4 ABG / Lab / Microbiology Data 05/27/24 07:00 05/27/24 07:00 Laboratory: Laboratory Results - last 24 hr 05/27/24 07:00: WBC 10.8, RBC 3.93 L, Hgb 9.9 L, Hct 32.4 L, MCV 82.4, MCH 25.2 L, MCHC 30.6 L, RDW Std Deviation 54.5 H, RDW Coeff of Pelon 18.6 H, Plt Count 336, MPV 11.7, Immature Gran % (Auto) 0.300, Neut % (Auto) 68.6, Lymph % (Auto) 14.4 L, [place] % (Auto) 7.4, Eos % (Auto) 8.6 H, Baso % (Auto) 0.7, Absolute Neuts (auto) 7.4, Absolute Lymphs (auto) 1.55, Nucleated RBC % 0, Sodium 141, Potassium 4.4, Chloride 110 H, Carbon Dioxide 27.0, Anion Gap 4 L, BUN 11, Creatinine 0.69, Estim Creat Clear Calc 48.65, Est GFR (MDRD) Af Amer 105, Est GFR (MDRD) Non-Af 87, BUN/Creatinine Ratio 15.9, Glucose 141 H, Calcium 8.9 Microbiology: Microbiology 05/09/24 05:45 Urine, Random Urine Culture - Final Escherichia coli D/C Instructions Discharge Diet: Low fat / Low cholesterol Discharge Activity: Return to Normal Activity Weight Bearing Status: Weight bearing as tolerated Call your doctor if you observe: Fever of 101 or Higher, Shortness of breath, Dizziness, Chest pain, Increased palpitations (irregular heartbeat) and - (GI bleed) Meaningful Use Info Meaningful Use Meaningful Use Diagnoses (Choose all that apply): None applicable Ischemic Stroke Statin Dosing Therapy Reference: STATIN DOSE THERAPY REFERENCE: * Patients > 75 years receive moderate or high dose statin therapy. * Patients 75 years or YOUNGER should receive HIGH intensity statin dose unless contraindicated. You will be required to document reason for non-treatment if statin daily dose does not meet guidelines. HIGH DOSE STATIN THERAPY DAILY Atorvastatin > than or = to 40 mg Rosuvastatin > than or = to 20 mg Amlodipine + Atorvastatin > than or = to 2.5/40 mg Ezetimibe + Simvastatin 10/80 mg Simvastatin 80mg Discharge Plan Admission Admit Date/Time: 05/08/24 10:57 Primary Reason for Your Visit: GI bleed Attending Provider: Kelsey Patel Primary Care Provider: Josiane Buck CNP Consulting Providers: Navdeep Barlow; Carly Cuenca; Rosie Leon; Gregory Vasquez; Ishan Mcneal; Apollo Hood Instructions Patient Instructions: ED Upper GI Bleeding (Stable) Discharge Orders/Prescriptions Prescriptions: New pantoprazole 40 mg Tablet,Delayed Release (Dr/Ec) 40 mg PO BID Qty: 60 2RF Continued sertraline [Zoloft] 25 MG tablet 50 mg PO DAILY metformin 500 mg tablet 500 mg PO DAILY atorvastatin 20 mg tablet 20 mg PO DAILY Discontinued Eliquis 5 MG tablet 5 mg PO BID pantoprazole 20 mg tablet,delayed release (DR/EC) 20 mg PO DAILY meloxicam 15 mg tablet 15 mg PO DAILY Referrals / Follow Up: Josiane Buck CNP [Other] - Within 1 Week Navdeep Barlow DO [Med Staff - Active Staff] - Within 2 Weeks Disposition Disposition (needs filled in before D/C Order can be placed): [facility] Charges/Coding Visit Charges Inpatient E&M: 67091 Disch Hosp >30min
--- NOTE | 2024-05-27 11:20 | PHA.DC.MR.R ---
Pharmacy IN Med Reconciliation Pharmacy Service has performed discharge medication reconciliation for this patient. Medications reviewed, D/C to [facility]. The patient's discharge medication list was reviewed for discrepancies and discrepancies were resolved. Medications at Discharge Home Medications sertraline 25 mg tablet (Zoloft) 50 mg PO DAILY mental health 03/07/18 atorvastatin 20 mg tablet 20 mg PO DAILY 05/08/24 metformin 500 mg tablet 500 mg PO DAILY 05/08/24 pantoprazole 40 mg tablet,delayed release 40 mg PO BID #60 tabs 05/27/24
[2024-05-27] MEDS: Menthol/Lanolin/Calamine/Znox 113 GM Tube 1 APPLIC TOPICAL (11:49)
[2024-05-27] MEDS: Nystatin Powder 15gm Bottle 1 APPLIC TOPICAL (11:49)
--- NOTE | 2024-05-27 12:04 | CASEMGMT ---
Discharge Planning Discharge orders, signed med list, and transport time sent to [facility] via [facility]. Physicians will transport patient by cot at 1p. Nursing, SW, patient, and her daughters updated. Gemma Mas DC Planning Asst.
== END 2024-05-27 13:56 | disposition skilled nursing facility (03) | DRG 377 ==
LOC: ED 10:42 → SDC 10:57 → AC 11:02 → PCU 13:24
PROVIDERS: Internal Medicine; Admitting Provider Internal Medicine Gastroenterology; Emergency Provider Emergency Medicine; Visit Provider Student in an Organized Health Care Education/Training Program
PROC: 0DJ08ZZ Inspection of Upper Intestinal Tract, Via Natural or Artificial Opening Endoscopic (ICD-10-PCS; CPT 43235; principal; 2024-05-08 11:30)
DX: K26.4 Chronic or unspecified duodenal ulcer with hemorrhage (principal); R53.2 Functional quadriplegia; K21.01 Gastro-esophageal reflux disease with esophagitis, with bleeding; D68.32 Hemorrhagic disorder due to extrinsic circulating anticoagulants; K31.5 Obstruction of duodenum; R18.8 Other ascites; I69.351 Hemiplegia and hemiparesis following cerebral infarction affecting right dominant side; D62 Acute posthemorrhagic anemia; N30.00 Acute cystitis without hematuria; I48.0 Paroxysmal atrial fibrillation; M06.9 Rheumatoid arthritis, unspecified; I10 Essential (primary) hypertension; K25.4 Chronic or unspecified gastric ulcer with hemorrhage; E78.5 Hyperlipidemia, unspecified; K29.70 Gastritis, unspecified, without bleeding; K80.20 Calculus of gallbladder without cholecystitis without obstruction; K31.84 Gastroparesis; F41.8 Other specified anxiety disorders; Z79.01 Long term (current) use of anticoagulants; Z79.1 Long term (current) use of non-steroidal anti-inflammatories (NSAID); B96.20 Unspecified Escherichia coli [E. coli] as the cause of diseases classified elsewhere; K25.0 Acute gastric ulcer with hemorrhage
CPT/HCPCS: 36415; 74174; 76000; 78264; 80048; 80053; 80076; 81001; 83690; 83735; 84100; 84443; 85025; 85027; 85610; 85730; 86850; 86900; 86901; 86920; 87077; 87086; 87088; 87186; 92526; 92610; 93005; 97110; 97162; 97166; 97530; 97535; 97802; 97803; 99284; A9541; J7030; J7040; J7120; P9016; Q9967; A4216; J2405; J3490

== ENCOUNTER 2024-06-22 11:15 | Inpatient (IN) | payer MEDICARE, MEDICAID, SELFPAY ==
[2024-06-22 11:16] VITALS: BP 155/71; PULSE 68; RESP 18; TEMP 36.3; O2SAT 100; BMI 24.1
--- NOTE | 2024-06-22 11:44 | EKG12_ITS ---
Test Reason : GENERAL Blood Pressure : / mmHG Vent. Rate : 076 BPM Atrial Rate : 000 BPM P-R Int : 000 ms QRS Dur : 102 ms QT Int : 454 ms P-R-T Axes : 000 048 031 degrees QTc Int : 510 ms Atrial fibrillation Nonspecific ST abnormality Prolonged QT Abnormal ECG Confirmed by JOMAR ABREU, VALDO ([id number]), photography editor CARA MOREL ([id number]) on 06/23/2024 1:14:13 PM Referred By: Confirmed By:VALDO HADLEY MD
--- NOTE | 2024-06-22 11:44 | CT_ITS ---
HISTORY: diffuse abdominal pain. TECHNIQUE: Helically acquired images were obtained of the abdomen and pelvis after the intravenous administration of 75 mL Isovue-370. A radiation dose optimization technique was used for this scan. 446 images. COMPARISON: 05/14/2024. FINDINGS: LOWER CHEST: Mild atelectasis in the lung bases. BOWEL: Bowel including appendix nondilated. Unchanged mild proximal duodenal wall thickening with stent in place. Mild cecal and ascending colonic wall thickening. Colonic diverticulosis without focal inflammatory change observed. Moderate stool distending the rectum. PERITONEUM: No significant ascites. LIVER/SPLEEN: No enhancing mass. GALLBLADDER/BILIARY TREE: Numerous calcified gallstones. PANCREAS: Chronic atrophy with small cysts along the expected region of the duct. ADRENAL GLANDS: No nodules. KIDNEYS: No hydronephrosis. Stable simple cyst of the right kidney which requires no follow-up. Mild left renal cortical scarring. VESSELS: No abdominal aortic aneurysm. Moderate atherosclerosis of the abdominal aorta and its major branches. PELVIC ORGANS: Small left ovarian cysts measuring up to 2.3 cm. Enlarged lobulated uterus with multiple calcified lesions. Distended bladder with mild wall thickening and residual contrast BONES: Degenerative change. Acute T12 compression fracture with less than 30% loss of height no significant retropulsion into the spinal canal. CT/Abdomen/Pelvis W IV Cont ONLY IMPRESSION: Mild T12 compression fracture, new from recent prior. Mild proximal colonic wall thickening, concerning for acute colitis. Colonic diverticulosis without acute diverticulitis. Unchanged appearance of proximal duodenal stent. Cholelithiasis. Chronic small pancreatic cysts. No significant interval change in leiomyomatous uterus and small left ovarian cysts. Electronically Signed: Niru Moreland MD at 15:06 EDT ,
[2024-06-22] MEDS: 0.9% Normal Saline (1000mL) 1,000 ML 999 ML IV (11:54)
--- NOTE | 2024-06-22 11:54 | EX.ED.DYSGE1 ---
HPI History of Present Illness Chief Complaint: Abd Pain Narrative Narrative: Patient is a 78-year-old female with past medical history of hypertension, rheumatoid arthritis, CVA, dyslipidemia, chronic atrial fibrillation who presented to the emergency department with a chief complaint of abdominal pain. Patient according to family members at bedside has had off-and-on abdominal pain however notes that she is not having back pain and states that she is unable to sit in wheelchair secondary to his pain. They state that they are following with Dr. Barlow and it is known that she has multiple gallstones in her gallbladder. They are concerned about her gallbladder today she has had nausea vomiting and not tolerating oral intake. [facility] Medical History Abdominal pain Cholelithiasis Acute upper GI bleed Acute ischemic right MCA stroke Afib Fall Major depressive disorder, recurrent, mild Anxiety disorder, unspecified Sarcopenia Hemiplegia CVA (cerebral vascular accident) HTN (hypertension) HLD (hyperlipidemia) A-fib Home Medications ?Medication ?Instructions ?Recorded ?Last Taken ?Type sertraline 25 mg tablet (Zoloft) 50 mg PO DAILY mental health 03/07/18 05/08/24 History atorvastatin 20 mg tablet 20 mg PO DAILY 05/08/24 05/08/24 History pantoprazole 40 mg tablet,delayed 40 mg PO BID #60 tabs 05/27/24 Unknown Rx release apixaban 5 mg tablet (Eliquis) 5 mg PO BID 06/22/24 Unknown History menthol 0.44 %-zinc oxide 20.6 % 1 applic topical DAILY 06/22/24 Unknown History topical ointment in packet (Calmoseptine) Allergy/AdvReac Type Severity Reaction Status Date / Time Food Allergies: Uncoded AdvReac Intermediate Vomiting Verified 06/22/24 11:16 orange juice AdvReac Intermediate Vomiting Verified 06/22/24 11:16 Surgical History Percutaneous endoscopic gastrostomy status Social History Smoking Status: Never smoker ROS ROS ED ROS Narrative Constitutional: Denies any fevers, chills, headaches, lightness, dizziness Eyes: Denies change in vision double vision blurry vision Cardiovascular: Denies chest pain or palpitations Respiratory: Denies cough wheezing shortness of breath Abdomen: Complains of abdominal pain, nausea and vomiting as noted above denies any diarrhea : Denies any urinary symptoms Neurological: Denies any numbness, weakness, tingling Musculoskeletal: Complains of back pain as noted above Skin: Denies rashes or lesions EXAM Physical Exam Narrative Exam Narrative: General: Patient lying in bed rest comfortably did not appear to be in acute distress Head: Atraumatic, normocephalic Eyes: PERRL bilaterally, EOMI bilateral, no conjunctival injection noted Neck: Soft, supple, trachea midline Cardiovascular: Regular rate and rhythm no murmurs gallops rubs noted Respiratory: Clear to auscultation bilaterally no rales rhonchi wheeze noted Abdomen: Soft, nondistended, diffuse tenderness palpation no rebound or guarding noted on exam, bowel sounds present x 4 Extremities: Patient has evidence of rheumatoid arthritis in her hands bilaterally, radial pulses +2/4 in the bilateral per extremities Neurological: Patient following commands knew that she was at [facility]. Is at baseline according family at bedside Skin: Warm, dry Const Vital Signs: 06/22/24 11:16 06/22/24 13:41 06/22/24 15:00 Temperature 97.4 F L Temperature Source Temporal Pulse Rate 68 73 66 Respiratory Rate 18 18 Blood Pressure 155/71 H 154/69 H 144/68 H Blood Pressure Mean 99 97 93 Pulse Ox 100 100 100 Oxygen Delivery Method Room Air MDM MDM MDM Narrative Medical decision making narrative: Patient is a 78-year-old female who presented to the emergency department with chief complaint of abdominal pain. Patient will have A workup performed here on the differential diagnose includes but limited to diverticulitis, UTI, cholecystitis, pancreatitis. Once workup is obtained reviewed she will be reevaluated. Patient will given IV fluids, morphine Zofran. Patient's CBC reviewed was significant for leukocytosis of 12,000, hemoglobin is 11.4, platelet count normal at 345. Patient's sodium normal 137, potassium normal 3.4, creatinine normal at 0.52. Patient's AST and ALT were 17 and 9 respectively. Patient lipase normal at 23, urinalysis was significant for a urinary tract infection with positive nitrates, 100 leukocyte esterase 5-10 white blood cells with 3+ bacteria she was given a gram Rocephin this was sent for culture. Patient's CT abdomen pelvis with IV contrast reviewed showed a mild T12 compression fracture which is likely contributing to her pain when attempting to sit up, concerning for acute colitis will add on Flagyl. There is noted be cholelithiasis and colonic diverticulosis without diverticulitis. Did do believe the patient warrants admission to the hospital at this point time for her intractable back pain, UTI and her colitis. Patient's case was discussed with hospitalist Dr. Chan who accept patient for admission. Patient and family member at bedside were notified with all question concerns answered. Lab Data Labs: Laboratory Results - last 24 hr 06/22/24 06/22/24 11:28 12:00 WBC 12.7 H RBC 4.71 Hgb 11.4 L Hct 38.0 MCV 80.7 L MCH 24.2 L MCHC 30.0 L RDW Std Deviation 53.8 H RDW Coeff of Pelon 18.6 H Plt Count 345 MPV 11.7 Immature Gran % (Auto) 2.400 H Neut % (Auto) 84.2 H Lymph % (Auto) 6.6 L [place] % (Auto) 5.3 Eos % (Auto) 1.0 Baso % (Auto) 0.5 Absolute Neuts (auto) 10.7 H Absolute Lymphs (auto) 0.83 Nucleated RBC % 0 Sodium 137 Potassium 3.4 L Chloride 102 Carbon Dioxide 24.0 Anion Gap 11 BUN 10 Creatinine 0.52 L Estim Creat Clear Calc 47.43 Est GFR (MDRD) Af Amer 147 Est GFR (MDRD) Non-Af 122 BUN/Creatinine Ratio 19.3 Glucose 118 H Calcium 8.7 Total Bilirubin 1.20 H AST 17 ALT 9 L Alkaline Phosphatase 139 H Total Protein 6.9 Albumin 2.5 L Globulin 4.4 H Albumin/Globulin Ratio 0.6 L Lipase 23 Urine Color [place] Urine Clarity Cloudy Urine pH 5.0 Ur Specific [place] 1.025 Urine Protein 30 H Urine Glucose (UA) Normal Urine Ketones 50 H Urine Occult Blood 10 H Urine Nitrite Positive H Urine Bilirubin 3 H Urine Urobilinogen 8 H Ur Leukocyte Esterase 100 H Urine RBC 0-5 SEEN Urine WBC 5-10 SEEN Ur Squamous Epith Cells 25-50 SEEN Ur Transition Epith Cell 0-5 SEEN Ur Renal Epithelial Cell 0-5 SEEN Urine Bacteria 3+ Hyaline Casts 25-50 SEEN Urine Mucus 0 SEEN Radiography Diagnostic Testing: Clinical Impression(s) from Imaging Studies Abdomen/Pelvis CT 06/22/24 11:44 IMPRESSION: Mild T12 compression fracture, new from recent prior. Mild proximal colonic wall thickening, concerning for acute colitis. Colonic diverticulosis without acute diverticulitis. Unchanged appearance of proximal duodenal stent. Cholelithiasis. Chronic small pancreatic cysts. No significant interval change in leiomyomatous uterus and small left ovarian cysts. Electronically Signed: Niru Moreland MD at 15:06 EDT , Discharge Plan Triage Chief Complaint: Abd Pain ED Provider: Sy Guo Dx/Rx/DC Orders Clinical Impression: Colitis, Acute UTI, Closed wedge compression fracture of T12 vertebra Prescriptions: No Action sertraline [Zoloft] 25 MG tablet 50 mg PO DAILY Calmoseptine 0.44-20.6 % ointment in packet 1 applic topical DAILY Eliquis 5 mg tablet 5 mg PO BID atorvastatin 20 mg tablet 20 mg PO DAILY pantoprazole 40 mg Tablet,Delayed Release (Dr/Ec) 40 mg PO BID Qty: 60 2RF Primary Care Provider: Josh Oro Referrals: Josh rOo MD [Primary Care Provider] - Print Language: Bolivian
[2024-06-22] MEDS: Morphine 2 MG/ML Syringe IV (11:55)
[2024-06-22] MEDS: Ondansetron 4 MG/2 ML Vial IV (11:55)
[2024-06-22 12:09] LABS: Absolute Lymphocyte Count 0.83 X10^3/uL (0.83-4.51); Absolute Neutrophil Count 10.7 X10^3/uL (2.0-7.7); Basophil# 0.06 X10^3/uL; Basophil% 0.5 % (0-1); Eosinophil# 0.13 X10^3/uL; Hemoglobin 11.4 g/dL (12.0-15.0); Lymphocyte # 0.83 X10^3/ul (0.83-4.51); Lymphocyte % 6.6 % (19-41); Mean Corpuscular Hgb 24.2 pg (27.0-32.0); Mean Corpuscular Volume 80.7 fL (81-99); Mean Platelet Vol. 11.7 fl (6.2-12.0); Monocyte# 0.67 X10^3/uL; Monocyte% 5.3 % (0-10); NRBC Flagged by Analyzer 0 % (0-5); Neutrophil # 10.67 X10^3/uL (2.7-7.7); Neutrophil % 84.2 % (47-70); Platelet Count 345 K/mm3 (150-450); RBC Distribution Width CV 18.6 % (11.6-14.6); RBC Distribution Width SD 53.8 fl (35.1-43.9); Red Blood Count 4.71 M/mm3 (4.2-5.4); White Blood Count 12.7 K/mm3 (4.4-11.0)
[2024-06-22 12:14] LABS: Mucous, Urine 0 SEEN /hpf (<or=2+)
[2024-06-22 12:18] LABS: Color, Urine Amber (Yellow); Glucose, Dipstick Normal (Normal); Ketone-Dipstick 50 mg/dl (Negative); Leukocyte Esterase-Dipstick 100 /ul (Negative); Nitrite-Dipstick Positive (Negative); Occult Blood-Urine 10 /ul (Negative); Protein-Dipstick 30 mg/dl (Negative); Specific Gravity, Urine 1.025 (1.002-1.030); Urine Clarity Cloudy (Clear); Urine Urobilinogen 8 mg/dl (Normal)
[2024-06-22 12:19] LABS: Urine Bilirubin Dipstick 3 mg/dL (Negative)
[2024-06-22 12:23] LABS: ALB/GLOB Ratio 0.6 RATIO (0.9-2.4); AST(SGOT) 17 U/L (15-37); Alanine Aminotransfer ALT/SGPT 9 U/L (13-56); Albumin, Serum 2.5 g/dL (3.2-5.0); Alkaline Phosphatase 139 U/L (45-117); Anion Gap 11 (5-15); BUN 10 mg/dL (7-18); BUN/Creat Ratio 19.3 RATIO (10-20); Calcium,Total 8.7 mg/dL (8.5-10.1); Chloride 102 mmol/L (98-107); Creatinine, Serum 0.52 mg/dL (0.55-1.02); EST Glomerular Filtration Rate 122 mL/min (>60); Est Glom Filt Rate - Afr Amer 147 mL/min (>60); Estimated Creatinine Clearance 47.43 ml/min; Globulin 4.4 g/dL (2.2-4.2); Glucose 118 mg/dL (74-106); Lipase 23 U/L (13-75); Potassium 3.4 mmol/L (3.5-5.1); Protein, Total 6.9 g/dL (6.4-8.2); Sodium Level 137 mmol/L (136-145)
[2024-06-22 12:34] LABS: Hyaline Cast 25-50 SEEN /lpf (0-5)
[2024-06-22 12:35] LABS: Bacteria 3+ /hpf (None Seen); Red Blood Cells-Urine 0-5 SEEN /hpf (0-5); Renal Epithelial Cells 0-5 SEEN /hpf (0-5); Squamous Epithelial Cells - UA 25-50 SEEN /hpf (5-10); Transitional Epithelial - Ur 0-5 SEEN /hpf (0-5); White Blood Cells 5-10 SEEN /hpf (0-5)
[2024-06-22 13:41] VITALS: BP 154/69; PULSE 73; O2SAT 100
[2024-06-22 15:00] VITALS: BP 144/68; PULSE 66; RESP 18; O2SAT 100
[2024-06-22] MEDS: Ceftriaxone 1 GM/50 ML BAG IV (15:07)
--- NOTE | 2024-06-22 15:10 | ED.RN ---
PATIENTS FAMILY MEMBER REQUESTING PATIENT TO HAVE SOMETHING TO DRINK. PATIENT AND FAMILY MEMBER INFORMED SHE IS NPO AT THIS TIME JUST IN CASE SHE WOULD NEED A PROCEDURE DONE. FAMILY MEMBER UPSET AND ON THE PHONE WITH ANOTHER FAMILY MEMBER DEMANDING TO TALK WITH THE DOCTOR RIGHT NOW. DR. MOON AWARE. FAMILY MEMBER STATES SHE CAN'T HAVE ANYTHING ACIDIC. WHY CAN'T SHE JUST HAVE A DRINK OF WATER. RN STATES THE DOCTOR HAS ORDERED HER TO NOT HAVE ANYTHING TO EAT OR DRINK AT THIS TIME.
[2024-06-22 15:43] VITALS: BP 116/59; PULSE 57; RESP 12; TEMP 36.7; O2SAT 92
--- NOTE | 2024-06-22 15:56 | HP.PCM.HOS_ITS ---
HPI - General General Date of Admission: 06/22/24 Date of Service: 06/22/24 Chief Complaint: Back pain HPI Narrative OSEAS PATHAK, is a 78 F with a significant history of atrial fibrillation; GI bleed; CVA with residual right-sided weakness who lives at a skilled nursing who presents with back pain. History was taken from patient and her daughter who was at the bedside. Patient is a poor historian and is unable to give a detailed history. Patient is unable to describe whether her pain is at the upper back middle back or lower back. Reportedly patient has been having nausea and vomiting going on for months. [facility] Medical History Abdominal pain Cholelithiasis Acute upper GI bleed Acute ischemic right MCA stroke Afib Fall Major depressive disorder, recurrent, mild Anxiety disorder, unspecified Sarcopenia Hemiplegia CVA (cerebral vascular accident) HTN (hypertension) HLD (hyperlipidemia) A-fib Home Medications ?Medication ?Instructions ?Recorded ?Last Taken ?Type sertraline 25 mg tablet (Zoloft) 50 mg PO DAILY mental health 03/07/18 05/08/24 History atorvastatin 20 mg tablet 20 mg PO DAILY 05/08/24 05/08/24 History pantoprazole 40 mg tablet,delayed 40 mg PO BID #60 tabs 05/27/24 Unknown Rx release apixaban 5 mg tablet (Eliquis) 5 mg PO BID 06/22/24 Unknown History menthol 0.44 %-zinc oxide 20.6 % 1 applic topical DAILY 06/22/24 Unknown History topical ointment in packet (Calmoseptine) Allergy/AdvReac Type Severity Reaction Status Date / Time Food Allergies: Uncoded AdvReac Intermediate Vomiting Verified 06/22/24 11:16 orange juice AdvReac Intermediate Vomiting Verified 06/22/24 11:16 Family History (Updated 06/22/24 @ 16:[address] Clinton Cox MD) Other CVA (cerebral vascular accident) Cancer Heart disease Surgical History Percutaneous endoscopic gastrostomy status Social History Smoking Status: Never smoker ROS ROS Narrative Patient is a poor historian and is unable to give adequate review of system Vital Signs Vital Signs Vital Signs: 06/22/24 11:16 06/22/24 13:41 06/22/24 15:00 Temperature 97.4 F L Temperature Source Temporal Pulse Rate 68 73 66 Respiratory Rate 18 18 Blood Pressure 155/71 H 154/69 H 144/68 H Blood Pressure Mean 99 97 93 Pulse Ox 100 100 100 Oxygen Delivery Method Room Air 06/22/24 15:43 Temperature 98.1 F Temperature Source Pulse Rate 57 L Respiratory Rate 12 Blood Pressure 116/59 L Blood Pressure Mean 78 Pulse Ox 92 Oxygen Delivery Method Weight Weight: 57.9 kg Body Mass Index (BMI) 24.1 Physical Exam Narrative Physical exam: General: Well-nourished, well-developed. Head: Normocephalic, atraumatic, no tenderness Eyes: Vision is grossly intact. EOMI ENT, no trauma, moist mucous membranes, no rhinorrhea Neck: Nontender, No thyromegaly. CVS: Regular rate and rhythm. S1-S2 present. No murmur, gallop or rub. Respiratory : clear to auscultation bilaterally, chest wall nontender Abdomen: Soft, nontender, nondistended, normal bowel sounds, no masses : Deferred Back: Nontender, no CVA tenderness, no midline spinal tenderness, deformities, step-offs Extremities: Bilateral hands contracture. With a deviation of bilateral toes. Skin: Normal color, no trauma, abrasions Neuro: Alert. cranial nerves II through XII grossly intact. Strength in left upper and left lower extremity 5 out of 5. Strength in right lower extremity 3 out of 5. Patient is unable to raise right upper extremity. Psychiatry: Normal mood. Normal affect. Not depressed. Not anxious. Results Lab / Micro Data 06/22/24 11:28 06/22/24 11:28 Labs: Laboratory Results - last 24 hr 06/22/24 11:28: WBC 12.7 H, RBC 4.71, Hgb 11.4 L, Hct 38.0, MCV 80.7 L, MCH 24.2 L, MCHC 30.0 L, RDW Std Deviation 53.8 H, RDW Coeff of Pelon 18.6 H, Plt Count 345, MPV 11.7, Immature Gran % (Auto) 2.400 H, Neut % (Auto) 84.2 H, Lymph % (Auto) 6.6 L, [place] % (Auto) 5.3, Eos % (Auto) 1.0, Baso % (Auto) 0.5, Absolute Neuts (auto) 10.7 H, Absolute Lymphs (auto) 0.83, Nucleated RBC % 0, Sodium 137, Potassium 3.4 L, Chloride 102, Carbon Dioxide 24.0, Anion Gap 11, BUN 10, C reatinine 0.52 L, Estim Creat Clear Calc 47.43, Est GFR (MDRD) Af Amer 147, Est GFR (MDRD) Non-Af 122, BUN/Creatinine Ratio 19.3, Glucose 118 H, Calcium 8.7, T otal Bilirubin 1.20 H, AST 17, ALT 9 L, Alkaline Phosphatase 139 H, Total Protein 6.9, Albumin 2.5 L, Globulin 4.4 H, Albumin/Globulin Ratio 0.6 L, Lipase 23 06/22/24 12:00: Urine Color Helen, Urine Clarity Cloudy, Urine pH 5.0, Ur Specific Glen 1.025, Urine Protein 30 H, Urine Glucose (UA) Normal, Urine Ketones 50 H, Urine Occult Blood 10 H, Urine Nitrite Positive H, Urine Bilirubin 3 H, Urine Urobilinogen 8 H, Ur Leukocyte Esterase 100 H, Urine RBC 0-5 SEEN, Urine WBC 5-10 SEEN, Ur Squamous Epith Cells 25-50 SEEN, Ur Transition Epith Cell 0-5 SEEN, Ur Renal Epithelial Cell 0-5 SEEN, Urine Bacteria 3+, Hyaline Casts 25-50 SEEN, Urine Mucus 0 SEEN Imaging Radiology Impression Abdomen/Pelvis CT 06/22/24 11:44 IMPRESSION: Mild T12 compression fracture, new from recent prior. Mild proximal colonic wall thickening, concerning for acute colitis. Colonic diverticulosis without acute diverticulitis. Unchanged appearance of proximal duodenal stent. Cholelithiasis. Chronic small pancreatic cysts. No significant interval change in leiomyomatous uterus and small left ovarian cysts. Electronically Signed: Niru Moreland MD at 15:06 EDT , Assessment & Plan Assessment/Plan (1) Closed wedge compression fracture of T12 vertebra: QUALIFIERS: Encounter type: initial encounter Qualified Code(s): S22.080A - Wedge compression fracture of T11-T12 vertebra, initial encounter for closed fracture (2) Acute UTI: (3) Colitis: (4) Rheumatoid arthritis: QUALIFIERS: Rheumatoid arthritis location: multiple sites R heumatoid factor presence: unspecified presence Qualified Code(s): M06.9 - Rheumatoid arthritis, unspecified (5) HTN (hypertension): QUALIFIERS: Hypertension type: essential hypertension Qualified Code(s): I10 - Essential (primary) hypertension PLAN: Plan CT of abdomen/pelvis independently interpreted showed mid a T12 compression fracture. Also acute colitis. Rocephin was given at the emergency department. Discussed with ED physician to add Flagyl IV. Flagyl be continued. Rocephin continued. Pain control as needed acetaminophen and as needed oxycodone. PT OT consult. Blood pressure is stable. Not on any home blood pressure medications. Advance care planning: Discussed with patient and family advanced directives as well as CODE STATUS. Explained various CODE STATUS: FULL CODE, DNR CCA, DNR CCA with no intubation, and DNR CC- and what each meant. Patient elected to be a full code with CPR and intubation if warranted. Order was placed. Her surrogate decision maker is his daughter Delphine who was at bedside. Time spent on discussion 16 minutes. Time spent in the patient's overall evaluation,decision-making process, review of diagnostic data, adjustment of management, discussion with other providers, nursing and ancillary staff involved in patient's care documentation, 70 minutes.
[2024-06-22 16:30] VITALS: BMI 22.8
[2024-06-22 16:41] VITALS: BP 128/68; PULSE 67; RESP 16; TEMP 36.4; O2SAT 100
[2024-06-22] MEDS: KCL 40mEq in 0.9% NS 40 MEQ/1,000 ML IV.SOLN 75 MEQ IV (17:38)
[2024-06-22] MEDS: 0.9% Saline Lock 10 ML Syringe IV (17:39)
[2024-06-22 22:23] VITALS: BP 135/73; PULSE 67; RESP 12; TEMP 36.4; O2SAT 99
[2024-06-22] MEDS: APIXABAN 5 MG TABLET PO (22:27)
[2024-06-22] MEDS: metroNIDAZOLE 500 MG/100 ML BAG 100 MG IV (22:27)
[2024-06-22] MEDS: Atorvastatin Calcium 20 MG Tablet PO (22:27)
[2024-06-22] MEDS: Pantoprazole Sodium 40 MG Tablet PO (22:28)
[2024-06-22] MEDS: Acetaminophen 325 MG Tablet 650 MG PO (22:50)
[2024-06-23 00:10] LABS: Magnesium 1.7 mg/dL (1.6-2.6)
[2024-06-23 06:21] VITALS: BP 141/71; PULSE 62; RESP 18; TEMP 36.4; O2SAT 100
[2024-06-23] MEDS: KCL 40mEq in 0.9% NS 40 MEQ/1,000 ML IV.SOLN 75 MEQ IV ×2 (06:27→21:46)
[2024-06-23] MEDS: metroNIDAZOLE 500 MG/100 ML BAG 100 MG IV ×3 (06:28→21:47)
--- NOTE | 2024-06-23 07:25 | NURSING ---
Patient encouraged to turn to get off buttocks where there is shearing. Patient refused to be turned. Patient educated on reasons to turn, still refused.
--- NOTE | 2024-06-23 07:27 | NURSING ---
Patient refused morning labs. Educated on reasons that the medical team needs current labs. Patient still refused.
[2024-06-23 09:09] VITALS: BP 159/75; PULSE 59; RESP 16; TEMP 35.9; O2SAT 99
[2024-06-23] MEDS: Menthol/Lanolin/Calamine/Znox 113 GM Tube 1 APPLIC TOPICAL (09:16)
[2024-06-23] MEDS: APIXABAN 5 MG TABLET PO ×2 (09:17→21:48)
[2024-06-23] MEDS: Pantoprazole Sodium 40 MG Tablet PO ×2 (09:17→21:48)
[2024-06-23] MEDS: Ceftriaxone 1 GM/50 ML BAG IV (09:17)
[2024-06-23] MEDS: Sertraline 50 MG Tablet PO (09:17)
[2024-06-23] MEDS: Acetaminophen 325 MG Tablet 650 MG PO (09:21)
--- NOTE | 2024-06-23 10:20 | CASEMGMT ---
Social Work- SW attempted to meet with pt to complete SDOH; pt asleep. SW called pt dtr to discuss d/c preferences, as it was previously noted that pt dtr did not want pt to return to [facility]. GILBERTO left a voicemail. LUIS Bianchi
--- NOTE | 2024-06-23 15:41 | CASEMGMT ---
Social Work Pt's daughter Delphine returned call in regard to SNF placement. She does not need a list at this time. She states would like a referral sent to [facility] rather than have pt return to [facility]. Delphine states she was told by either pt's family caseworker or by someone at [facility] pt can go to [facility], since she got a fracture at [facility], and there would just be an extra hoop to jump through for this to happen. SW and daughter spoke about the last time pt was here, and we could not get her into [facility] as her insurance is not accepted there. Daughter states understanding but again states that there is an extra hoop for us to jump through and then pt would be accepted. Daughter however cannot remember who she spoke with, is not able to give SW the name or phone number, but states upon thinking about it that she does think it is someone from [facility]. GILBERTO explained that it may be pt needs a one time contract w/insurance. SW explained we can send the referral to [facility] and see if they can take pt and what they may say. SW inquired w/daughter if she is thinking for pt to go manager [facility] at this point. Daughter states she would want pt to go for respite for 2-3 months and then she would be willing to sign a care home contract. SW explained will look into this and let her know. Gemma, d/c vice president planning, called [facility]. As per Vanessa, they cannot get a one time contract as it is an HMO. Additional, GILBERTO Mccracken spoke to the insurance last time pt was here and was told the same thing. GILBERTO called pt's daughter back to update her, message left. GILBERTO will follow up w/daughter when she returns call. DEVONTE Herr
--- NOTE | 2024-06-23 16:17 | CHAPLAIN ---
Type of Pastoral Visit ___ Initial Visit ___ Follow-up Visit ___ On-call Visit ___ General Patient Visit ___ Spiritual Assessment ___ Family Conference ___ Bereavement ___ Rapid Response ___ Code Blue ___ Other (describe below) Pastoral Care Referral From ___ Patient ___ Family ___ Nurse ___ Physician ___ Soil Scientist ___ [employer] ___ Other (describe below) Sacrament/Intervention ___ Active listening ___ Anointing ___ Hinduism ___ Bereavement ___ Communion ___ Christina exploration ___ ___ Life review ___ Prayer ___ Reconciliation ___ Sacrament of Sick ___ Supportive presence ___ Wedding ___ Other (describe below) Pastoral Comments patient was sleeping soundly; left a calling card
[2024-06-23 16:20] VITALS: BP 113/65; PULSE 67; RESP 16; TEMP 36.5; O2SAT 100
--- NOTE | 2024-06-23 16:21 | PN.HOSP_ITS ---
Reason for Visit Reason for Visit: Diagnoses Essential (primary) hypertension (06/22/24) Noninfective gastroenteritis and colitis, unspecified (06/22/24) Rheumatoid arthritis, unspecified (06/22/24) Urinary tract infection, site not specified (06/22/24) Wedge compression fracture of T11-T12 vertebra, initial encounter for closed fracture (06/22/24) Objective Data Objective Data Vital Signs: Vital Signs Temp Pulse Resp BP Pulse Ox O2 Del Method 96.7 F L 59 L 16 159/75 H 99 Room Air 06/23/24 09:09 06/23/24 09:09 06/23/24 09:09 06/23/24 09:09 06/23/24 09:09 06/23/24 09:10 Oxygen Delivery Method Room Air Weight: 116 lb 15.989 oz Body Mass Index (BMI) 22.8 Intake & Output: Intake and Output for Last 24 Hours 06/21/24 06/22/24 06/23/24 23:59 23:59 23:59 Intake Total 1432.5 / 1432.5 700 / 700 Output Total 200 / 200 300 / 300 Balance 1232.5 / 1232.5 400 / 400 Lab / Micro Data 06/22/24 11:28 06/22/24 11:28 Labs: Laboratory Results - last 24 hr 06/22/24 11:28: Magnesium 1.7 Micro: Microbiology 06/22/24 12:00 Urine, Clean Catch Urine Culture - Preliminary Presumptive E. coli Physical Exam Narrative Seen and examined. I had taken care of this patient in the recent past. She does not have much movement, mainly laying on the bed. She is also not very communicative or verbal. Was admitted yesterday for abdominal pain. Physical exam General: Awake, nonverbal, orientation cannot be ascertained. Cooperative, fatigue BMI 22.8 kg/m?. Very low functional status. HEENT: Atraumatic, PERRLA, EOMI, Normocephalic Oral: No Gingival or Mucosal Lesions/ Ulcerations Neck: Supple, No JVD, Negative Carotid Bruits Chest wall/Lungs: Air entry diminished in bilateral lung bases. No crepitation/rhonchi Cardiovascular: Irregular rate and rhythm, Normal S1, Normal S2, soft systolic murmur Abdomen: Bowel Sounds sluggish, Soft, Non Tender, Non-Distended : No dysuria. No renal angle tenderness. No suprapubic tenderness. Extremities: No edema, Capillary Refill Less than 3 Seconds Skin: No rashes, No breakdown Musculoskeletal: At baseline, she is a Mala lift. Chronic deformity of the small finger joints, hands and feet joints. Muscle strength 3/5 at knees and hip joints and small joints with contracture on the right side. No acute tenderness Neurological: Cranial nerves II-XII grossly intact, DTR 2/4. No acute focal neurological deficit. Psych/Mental Status: Flat affect. Assessment & Plan Assessment/Plan (1) Closed wedge compression fracture of T12 vertebra: QUALIFIERS: Encounter type: initial encounter Qualified Code(s): S22.080A - Wedge compression fracture of T11-T12 vertebra, initial encounter for closed fracture (2) Acute UTI: (3) Colitis: (4) Rheumatoid arthritis: QUALIFIERS: Rheumatoid arthritis location: multiple sites R heumatoid factor presence: unspecified presence Qualified Code(s): M06.9 - Rheumatoid arthritis, unspecified (5) HTN (hypertension): QUALIFIERS: Hypertension type: essential hypertension Qualified Code(s): I10 - Essential (primary) hypertension PLAN: Plan The patient was brought to ED for complaint of on and off abdominal pain. 1. Mild abdominal pain, exact etiology unclear but possible acute colitis: Patient had CT abdomen/pelvis with IV contrast. It shows mild T12 compression fracture new from the recent prior. Mild proximal colonic wall thickening concerning for acute cholecystitis. Colonic diverticulosis without acute diverticulitis. Numerous calcified cholelithiasis. Chronic small pancreatic cyst. Patient started on IV ceftriaxone and Flagyl. Abdominal pains/tenderness is better. On previous visit also she had concern of acute colitis but gastric emptying test was done which shows normal gastric emptying test. As per recent CT abdomen on 05/13, no bile duct dilatation. No pericholecystic fluid or GB distention. # E. coli lower UTI/cystitis: UA shows nitrite positive, LE 100, WBC 5-10 cells, squamous epithelial cells 25-50 cells which is not a good sample.. Prelim urine culture shows E. coli more than 100,000 colonies. Empirically on IV ceftriaxone Chronic problems: #Hx CVA w/ residual deficits: On atorvastatin. - #Hx afib/flutter: On Eliquis. 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 DVT: On apixaban Microbiology Past 72 Hours 06/22/24 12:00 Urine, Clean Catch Urine Culture - Preliminary Presumptive E. coli Laboratory Results 06/22/24 11:28: Magnesium 1.7 Advance care planning: Discussed with patient and family advanced directives as well as CODE STATUS. Explained various CODE STATUS: FULL CODE, DNR CCA, DNR CCA with no intubation, and DNR CC- and what each meant. Patient elected to be a full code with CPR and intubation if warranted. Order was placed. Her surrogate decision maker is his daughter Delphine who was at bedside. Time spent on discussion 16 minutes. Time spent in the patient's overall evaluation,decision-making process, review of diagnostic data, adjustment of management, discussion with other providers, nursing and ancillary staff involved in patient's care documentation, 70 minutes. Charges/Coding Visit Charges Inpatient E&M: 75769 Subs Hosp L2
[2024-06-23 17:14] LABS: Absolute Lymphocyte Count 0.74 X10^3/uL (0.83-4.51); Absolute Neutrophil Count 5.9 X10^3/uL (2.0-7.7); Basophil# 0.05 X10^3/uL; Basophil% 0.7 % (0-1); Hematocrit 33.4 % (37-47); Hemoglobin 9.9 g/dL (12.0-15.0); Lymphocyte # 0.74 X10^3/ul (0.83-4.51); Lymphocyte % 9.9 % (19-41); Mean Corp Hgb Conc 29.6 g/dL (32-36); Mean Corpuscular Hgb 24.1 pg (27.0-32.0); Mean Corpuscular Volume 81.3 fL (81-99); Mean Platelet Vol. 10.7 fl (6.2-12.0); Monocyte# 0.42 X10^3/uL; Monocyte% 5.6 % (0-10); NRBC Flagged by Analyzer 0 % (0-5); Neutrophil # 5.94 X10^3/uL (2.7-7.7); Neutrophil % 79.5 % (47-70); Platelet Count 280 K/mm3 (150-450); RBC Distribution Width CV 18.7 % (11.6-14.6); RBC Distribution Width SD 55.4 fl (35.1-43.9); Red Blood Count 4.11 M/mm3 (4.2-5.4); White Blood Count 7.5 K/mm3 (4.4-11.0)
[2024-06-23 17:34] LABS: Anion Gap 5 (5-15); BUN 4 mg/dL (7-18); BUN/Creat Ratio 10.4 RATIO (10-20); Calcium,Total 8.3 mg/dL (8.5-10.1); Chloride 113 mmol/L (98-107); Creatinine, Serum 0.38 mg/dL (0.55-1.02); EST Glomerular Filtration Rate 172 mL/min (>60); Est Glom Filt Rate - Afr Amer 208 mL/min (>60); Estimated Creatinine Clearance 41.63 ml/min; Glucose 122 mg/dL (74-106); Potassium 4.3 mmol/L (3.5-5.1); Sodium Level 142 mmol/L (136-145)
[2024-06-23 21:45] VITALS: BP 131/70; PULSE 72; RESP 16; TEMP 36.5; O2SAT 97
[2024-06-23] MEDS: Atorvastatin Calcium 20 MG Tablet PO (21:48)
[2024-06-24 05:25] VITALS: BP 147/91; PULSE 94; RESP 16; TEMP 36.8; O2SAT 96
[2024-06-24] MEDS: metroNIDAZOLE 500 MG/100 ML BAG 100 MG IV ×3 (05:29→21:24)
[2024-06-24] MEDS: Ceftriaxone 1 GM/50 ML BAG IV (09:13)
[2024-06-24] MEDS: Pantoprazole Sodium 40 MG Tablet PO ×2 (09:14→21:26)
[2024-06-24] MEDS: Sertraline 50 MG Tablet PO (09:14)
[2024-06-24] MEDS: APIXABAN 5 MG TABLET PO ×2 (09:14→21:26)
--- NOTE | 2024-06-24 09:46 | CASEMGMT ---
Discharge Planning A list of SNF providers including quality and resource use data and consistent with the patient's preferred geographic region, medical needs, and insurance network was created in [facility] Guide.? This list was provided to the SW. Gemma Mas Discharge Planning Asst.
[2024-06-24 10:36] VITALS: BP 138/76; PULSE 74; RESP 16; TEMP 36.6; O2SAT 98
[2024-06-24] MEDS: Menthol/Lanolin/Calamine/Znox 113 GM Tube 1 APPLIC TOPICAL (10:58)
--- NOTE | 2024-06-24 11:56 | CASEMGMT ---
Social Work- SW met with pt and pt dtr to advise the [facility] is unable to accept referral. A list of SNF providers including quality and resource use data and consistent with the patient?s preferred geographic region, medical needs, and insurance network were provided from the [facility] Guide. Pt and dtr selected [facility] as FOC. DCA advised. LUIS Bianchi
[2024-06-24] MEDS: KCL 40mEq in 0.9% NS 40 MEQ/1,000 ML IV.SOLN 75 MEQ IV (12:22)
[2024-06-24] MEDS: oxyCODONE 5 MG Tablet PO (13:43)
--- NOTE | 2024-06-24 15:26 | PN.HOSP_ITS ---
Reason for Visit Reason for Visit: Diagnoses Essential (primary) hypertension (06/22/24) Noninfective gastroenteritis and colitis, unspecified (06/22/24) Rheumatoid arthritis, unspecified (06/22/24) Urinary tract infection, site not specified (06/22/24) Wedge compression fracture of T11-T12 vertebra, initial encounter for closed fracture (06/22/24) Objective Data Objective Data Vital Signs: Vital Signs Temp Pulse Resp BP Pulse Ox O2 Del Method 97.9 F 74 16 138/76 H 98 Room Air 06/24/24 10:36 06/24/24 10:36 06/24/24 10:36 06/24/24 10:36 06/24/24 10:36 06/24/24 10:36 Oxygen Delivery Method Room Air Weight: 116 lb 15.989 oz Body Mass Index (BMI) 22.8 Intake & Output: Intake and Output for Last 24 Hours 06/22/24 06/23/24 06/24/24 23:59 23:59 23:59 Intake Total 1432.5 / 1432.5 2260 / 2260 1492.5 / 1492.5 Output Total 200 / 200 300 / 300 Balance 1232.5 / 1232.5 1960 / 1960 1492.5 / 1492.5 Lab / Micro Data 06/23/24 17:03 06/23/24 17:03 Labs: Laboratory Results - last 24 hr 06/23/24 17:03: WBC 7.5, RBC 4.11 L, Hgb 9.9 L, Hct 33.4 L, MCV 81.3, MCH 24.1 L , MCHC 29.6 L, RDW Std Deviation 55.4 H, RDW Coeff of Pelon 18.7 H, Plt Count 280, MPV 10.7, Immature Gran % (Auto) 0.300, Neut % (Auto) 79.5 H, Lymph % (Auto) 9.9 L, [place] % (Auto) 5.6, Eos % (Auto) 4.0, Baso % (Auto) 0.7, Absolute Neuts (auto) 5.9, Absolute Lymphs (auto) 0.74 L, Nucleated RBC % 0, Sodium 142, Potassium 4.3, Chloride 113 H, Carbon Dioxide 24.0, Anion Gap 5, BUN 4 L, Creatinine 0.38 L, Estim Creat Clear Calc 41.63, Est GFR (MDRD) Af Amer 208, Est GFR (MDRD) Non- Af 172, BUN/Creatinine Ratio 10.4, Glucose 122 H, Calcium 8.3 L Micro: Microbiology 06/22/24 12:00 Urine, Clean Catch Urine Culture - Final Presumptive E. coli Physical Exam Narrative Seen and examined. Patient daughter present near the bedside. Patient looks more awake and alert today. Denies abdominal pain or back pain. Her daughter said that her hand and leg deformities since age of 22. Physical exam General: Awake, oriented x 3. Cooperative, fatigue BMI 22.8 kg/m?. Very low functional status. HEENT: Atraumatic, PERRLA, EOMI, Normocephalic Oral: No Gingival or Mucosal Lesions/ Ulcerations Neck: Supple, No JVD, Negative Carotid Bruits Chest wall/Lungs: Air entry diminished in bilateral lung bases. No crepitation/rhonchi Cardiovascular: Irregular rate and rhythm, Normal S1, Normal S2, soft systolic murmur Abdomen: Bowel Sounds sluggish, Soft, Non Tender, Non-Distended. : No dysuria. No renal angle tenderness. No suprapubic tenderness. Extremities: No edema, Capillary Refill Less than 3 Seconds Skin: No rashes, No breakdown Musculoskeletal: At baseline, she is a Mala lift. Chronic deformity of the small finger joints, hands and feet joints. Muscle strength 3/5 at knees and hip joints and small joints with contracture on the right side. No acute tenderness of extremities or spine Neurological: Cranial nerves II-XII grossly intact, DTR 2/4. No acute focal neurological deficit. Psych/Mental Status: Flat affect. Assessment & Plan Assessment/Plan (1) Closed wedge compression fracture of T12 vertebra: QUALIFIERS: Encounter type: initial encounter Qualified Code(s): S22.080A - Wedge compression fracture of T11-T12 vertebra, initial encounter for closed fracture (2) Acute UTI: (3) Colitis: (4) Rheumatoid arthritis: QUALIFIERS: Rheumatoid arthritis location: multiple sites R heumatoid factor presence: unspecified presence Qualified Code(s): M06.9 - Rheumatoid arthritis, unspecified (5) HTN (hypertension): QUALIFIERS: Hypertension type: essential hypertension Qualified Code(s): I10 - Essential (primary) hypertension PLAN: Plan The patient was brought to ED for complaint of on and off abdominal pain. 1. Mild abdominal pain, exact etiology unclear but possible acute colitis: Patient had CT abdomen/pelvis with IV contrast. It shows mild T12 compression fracture new from the recent prior. Mild proximal colonic wall thickening concerning for acute cholecystitis. Colonic diverticulosis without acute diverticulitis. Numerous calcified cholelithiasis. Chronic small pancreatic cyst. Patient started on IV ceftriaxone and Flagyl. Abdominal pains/tenderness is better. On previous visit also she had concern of acute colitis but gastric emptying test was done which shows normal gastric emptying test. As per recent CT abdomen on 05/13, no bile duct dilatation. No pericholecystic fluid or GB distention. 06/24: Abdominal exam benign with no tenderness, rebound tenderness or guarding or rigidity. Continue IV antibiotics ceftriaxone and Flagyl. patient's back pain is also resolved. Electrolytes are in normal range. # E. coli lower UTI/cystitis: UA shows nitrite positive, LE 100, WBC 5-10 cells, squamous epithelial cells 25-50 cells which is not a good sample.. urine culture shows E. coli more than 100,000 colonies. Culture and sensitivity panel shows sensitive to IV ceftriaxone. Chronic problems: #Hx CVA w/ residual deficits: On atorvastatin. - #Hx afib/flutter: On Eliquis. 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 DVT: On apixaban Advance care planning: Discussed with patient and family advanced directives as well as CODE STATUS. Explained various CODE STATUS: FULL CODE, DNR CCA, DNR CCA with no intubation, and DNR CC- and what each meant. Patient elected to be a full code with CPR and intubation if warranted. Order was placed. Her surrogate decision maker is his daughter Delphine who was at bedside. Time spent on discussion 16 minutes. Time spent in the patient's overall evaluation,decision-making process, review of diagnostic data, adjustment of management, discussion with other providers, nursing and ancillary staff involved in patient's care documentation, 70 minutes. Microbiology Past 72 Hours 06/22/24 12:00 Urine, Clean Catch Urine Culture - Final Presumptive E. coli Laboratory Results 06/23/24 17:03: WBC 7.5, RBC 4.11 L, Hgb 9.9 L, Hct 33.4 L, MCV 81.3, MCH 24.1 L , MCHC 29.6 L, RDW Std Deviation 55.4 H, RDW Coeff of Pelon 18.7 H, Plt Count 280, MPV 10.7, Immature Gran % (Auto) 0.300, Neut % (Auto) 79.5 H, Lymph % (Auto) 9.9 L, [place] % (Auto) 5.6, Eos % (Auto) 4.0, Baso % (Auto) 0.7, Absolute Neuts (auto) 5.9, Absolute Lymphs (auto) 0.74 L, Nucleated RBC % 0, Sodium 142, Potassium 4.3, Chloride 113 H, Carbon Dioxide 24.0, Anion Gap 5, BUN 4 L, Creatinine 0.38 L, Estim Creat Clear Calc 41.63, Est GFR (MDRD) Af Amer 208, Est GFR (MDRD) Non- Af 172, BUN/Creatinine Ratio 10.4, Glucose 122 H, Calcium 8.3 L Charges/Coding Visit Charges Inpatient E&M: 06747 Subs Hosp L2
--- NOTE | 2024-06-24 16:03 | CHAPLAIN ---
Type of Pastoral Visit _x__ Initial Visit ___ Follow-up Visit ___ On-call Visit ___ General Patient Visit ___ Spiritual Assessment ___ Family Conference ___ Bereavement ___ Rapid Response ___ Code Blue ___ Other (describe below) Pastoral Care Referral From _x__ Patient _x__ Family ___ Nurse ___ Physician ___ Branch Service Associate ___ [facility] Attendant ___ Other (describe below) Sacrament/Intervention _x__ Active listening ___ Anointing ___ Roman Catholic ___ Bereavement ___ Communion ___ Christina exploration ___ ___ Life review _x__ Prayer ___ Reconciliation ___ Sacrament of Sick _x__ Supportive presence ___ Wedding ___ Other (describe below) Pastoral Comments patient is awake at this visit; daughter is at the bedside; pt greets this station inspector with a smile and continues to smile throughout the visit; daughter gives updates on condition of pt; pt declares that she is doing okay and has no worries; pt does welcome a prayer and gives another smile in thanks
[2024-06-24 17:00] VITALS: BP 120/60; PULSE 73; RESP 16; TEMP 36.3; O2SAT 96
[2024-06-24 20:37] VITALS: BP 103/66; PULSE 68; RESP 16; TEMP 36.5; O2SAT 100
[2024-06-24] MEDS: Atorvastatin Calcium 20 MG Tablet PO (21:26)
[2024-06-25 02:26] VITALS: BP 119/79; PULSE 75; RESP 18; TEMP 37.1; O2SAT 96
[2024-06-25] MEDS: KCL 40mEq in 0.9% NS 40 MEQ/1,000 ML IV.SOLN 75 MEQ IV (03:28)
[2024-06-25] MEDS: metroNIDAZOLE 500 MG/100 ML BAG 100 MG IV ×2 (05:26→14:06)
[2024-06-25 08:18] LABS: Absolute Lymphocyte Count 1.34 X10^3/uL (0.83-4.51); Absolute Neutrophil Count 6.7 X10^3/uL (2.0-7.7); Basophil# 0.05 X10^3/uL; Basophil% 0.6 % (0-1); Eosinophil# 0.31 X10^3/uL; Eosinophils% 3.5 % (0-5); Hematocrit 32.8 % (37-47); Hemoglobin 9.8 g/dL (12.0-15.0); Lymphocyte # 1.34 X10^3/ul (0.83-4.51); Mean Corp Hgb Conc 29.9 g/dL (32-36); Mean Corpuscular Volume 80.4 fL (81-99); Mean Platelet Vol. 11.3 fl (6.2-12.0); Monocyte# 0.52 X10^3/uL; Monocyte% 5.8 % (0-10); NRBC Flagged by Analyzer 0 % (0-5); Neutrophil # 6.69 X10^3/uL (2.7-7.7); Neutrophil % 74.8 % (47-70); Platelet Count 282 K/mm3 (150-450); RBC Distribution Width CV 18.8 % (11.6-14.6); RBC Distribution Width SD 54.7 fl (35.1-43.9); Red Blood Count 4.08 M/mm3 (4.2-5.4); White Blood Count 8.9 K/mm3 (4.4-11.0)
[2024-06-25 08:27] VITALS: BP 148/75; PULSE 72; RESP 16; TEMP 36.4; O2SAT 96
[2024-06-25] MEDS: Ensure Plus High Protein 120 ML LIQUID PO (08:32)
[2024-06-25] MEDS: Pantoprazole Sodium 40 MG Tablet PO (08:32)
[2024-06-25] MEDS: Sertraline 50 MG Tablet PO (08:32)
[2024-06-25] MEDS: APIXABAN 5 MG TABLET PO (08:32)
[2024-06-25] MEDS: Menthol/Lanolin/Calamine/Znox 113 GM Tube 1 APPLIC TOPICAL (08:39)
[2024-06-25 08:44] LABS: Anion Gap 3 (5-15); BUN 2 mg/dL (7-18); BUN/Creat Ratio 4.8 RATIO (10-20); Calcium,Total 8.5 mg/dL (8.5-10.1); Chloride 114 mmol/L (98-107); Creatinine, Serum 0.42 mg/dL (0.55-1.02); EST Glomerular Filtration Rate 157 mL/min (>60); Est Glom Filt Rate - Afr Amer 190 mL/min (>60); Estimated Creatinine Clearance 41.63 ml/min; Glucose 128 mg/dL (74-106); Potassium 4.6 mmol/L (3.5-5.1); Sodium Level 140 mmol/L (136-145)
--- NOTE | 2024-06-25 09:00 | CASEMGMT ---
Addendum entered by Gemma Mas 06/25/24 09:55: Referral cancelled. Gemma Mas DC Planning Asst. Original Note: Discharge Planning Referral sent to [facility] via [facility]. Gemma Mas DC Planning Asst.
[2024-06-25] MEDS: Ceftriaxone 1 GM/50 ML BAG IV (09:10)
--- NOTE | 2024-06-25 09:41 | NURSING ---
offered to place purewick d/t incontinence, pt adamantly refuses to have purewick placed. will continue with attends.
--- NOTE | 2024-06-25 09:53 | CASEMGMT ---
Discharge Planning It was decided that patient will return to [facility]. Updates sent with note that pt will return today. Gemma Mas DC Planning Asst.
--- NOTE | 2024-06-25 10:13 | CASEMGMT ---
Addendum entered by Jeri Ribeiro 06/25/24 11:07: Social Work- SW met with pt and dtr to discuss return to [facility]. Pt reports that [facility] is her preference. SW advised DCA. LUIS Bianchi Original Note: Social Work- SW received a message from pt dtr that she would like pt to return to [facility]. GILBERTO called Josiane to discuss return. Josiane advised that pt may return when ready, which may be as early as today. DCA notified. LUIS Bianchi
--- NOTE | 2024-06-25 11:26 | PCM.TXEXTCAR ---
Diet Diet Order/Speech Therapy: 06/22/24 16:13 Diet: Cardiac - Heart Healthy Food consistency:: Mechanical (Minced/Moist) Liquid Consistency:: Regular/Thin Diet Comments: minced meats,soft foods.pt likes mashed potatoes/gravy,pudding,sherbet,etc Routine Orders/Code Status Suppository Type: Dulcolax 10mg Suppository Frequency: Daily PRN Wound(s) R shoulder: Wound Type: Abrasion buttocks: Wound Type: Pressure Injury Therapies Extremity Affected:: Bilateral Lower Physical Therapy: Eval and Treat Occupational Therapy: Eval and Treat Speech Therapy: Eval and Treat Problem/Diagnosis (1) Closed wedge compression fracture of T12 vertebra: Status: Acute Code(s): S22.080A - Wedge compression fracture of T11-T12 vertebra, initial encounter for closed fracture (2) Acute UTI: Status: Acute Code(s): N39.0 - Urinary tract infection, site not specified (3) Colitis: Status: Acute Code(s): K52.9 - Noninfective gastroenteritis and colitis, unspecified (4) Rheumatoid arthritis: Status: Chronic Code(s): M06.9 - Rheumatoid arthritis, unspecified (5) HTN (hypertension): Status: Chronic Code(s): I10 - Essential (primary) hypertension Plan The patient was brought to ED for complaint of on and off abdominal pain. 1. Mild abdominal pain, exact etiology unclear but possible acute colitis: Patient had CT abdomen/pelvis with IV contrast. It shows mild T12 compression fracture new from the recent prior. Mild proximal colonic wall thickening concerning for acute cholecystitis. Colonic diverticulosis without acute diverticulitis. Numerous calcified cholelithiasis. Chronic small pancreatic cyst. Patient started on IV ceftriaxone and Flagyl. Abdominal pains/tenderness is better. On previous visit also she had concern of acute colitis but gastric emptying test was done which shows normal gastric emptying test. As per recent CT abdomen on 05/13, no bile duct dilatation. No pericholecystic fluid or GB distention. 06/24: Abdominal exam benign with no tenderness, rebound tenderness or guarding or rigidity. Continue IV antibiotics ceftriaxone and Flagyl. patient's back pain is also resolved. Electrolytes are in normal range. # E. coli lower UTI/cystitis: UA shows nitrite positive, LE 100, WBC 5-10 cells, squamous epithelial cells 25-50 cells which is not a good sample.. urine culture shows E. coli more than 100,000 colonies. Culture and sensitivity panel shows sensitive to IV ceftriaxone. Chronic problems: #Hx CVA w/ residual deficits: On atorvastatin. - #Hx afib/flutter: On Eliquis. 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 DVT: On apixaban Advance care planning: Discussed with patient and family advanced directives as well as CODE STATUS. Explained various CODE STATUS: FULL CODE, DNR CCA, DNR CCA with no intubation, and DNR CC- and what each meant. Patient elected to be a full code with CPR and intubation if warranted. Order was placed. Her surrogate decision maker is his daughter Delphine who was at bedside. Time spent on discussion 16 minutes. Time spent in the patient's overall evaluation,decision-making process, review of diagnostic data, adjustment of management, discussion with other providers, nursing and ancillary staff involved in patient's care documentation, 70 minutes. Microbiology Past 72 Hours 06/22/24 12:00 Urine, Clean Catch Urine Culture - Final Presumptive E. coli Laboratory Results 06/23/24 17:03: WBC 7.5, RBC 4.11 L, Hgb 9.9 L, Hct 33.4 L, MCV 81.3, MCH 24.1 L, MCHC 29.6 L, RDW Std Deviation 55.4 H, RDW Coeff of Pelon 18.7 H, Plt Count 280, MPV 10.7, Immature Gran % (Auto) 0.300, Neut % (Auto) 79.5 H, Lymph % (Auto) 9.9 L, Shannon % (Auto) 5.6, Eos % (Auto) 4.0, Baso % (Auto) 0.7, Absolute Neuts (auto) 5.9, Absolute Lymphs (auto) 0.74 L, Nucleated RBC % 0, Sodium 142, Potassium 4.3, Chloride 113 H, Carbon Dioxide 24.0, Anion Gap 5, BUN 4 L, Creatinine 0.38 L, Estim Creat Clear Calc 41.63, Est GFR (MDRD) Af Amer 208, Est GFR (MDRD) Non-Af 172, BUN/Creatinine Ratio 10.4, Glucose 122 H, Calcium 8.3 L Allergies/Procedures Done in Hospital Allergies Food Allergies: Uncoded Adverse Reaction (Intermediate, Verified 06/22/24 11:16) Vomiting experiences vomiting with coca cola orange juice Adverse Reaction (Intermediate, Verified 06/22/24 11:16) Vomiting Type of Care/Length of Stay Estimated LOS: Convalescent Care Less Than 30 days Type of Care Needed: Skilled Rehab Potential: Good Prognosis: Good Additional Orders/Day of Discharge Day of Discharge: 06/25/24 Dietary and Speech Recommendations Dietitian Recommendations/Changes: Continue cardiac diet with 120ml ensure plus high protein TID with medpass and 1 packet of maxim BID with lunch and dinner. If PO intake declines, recommend regular diet. Will monitor weight, as available. Reviewed and approved by Irwin Bear MS, RDN, LD. Discharge Plan Admission Admit Date/Time: 06/22/24 15:48 Primary Reason for Your Visit: UTI and left-sided colitis Attending Provider: Gregory Vasquez Primary Care Provider: Josh Oro Consulting Providers: Clinton Cox Discharge Orders/Prescriptions Prescriptions: New sennosides-docusate sodium [Stimulant Laxative Plus] 8.6-50 mg Tablet 2 tab PO BID Qty: 0 0RF metronidazole 500 mg tablet 500 mg PO Q8H 5 Days Qty: 15 0RF ciprofloxacin HCl 500 mg tablet 500 mg PO BID 6 Days Qty: 12 0RF Continued sertraline [Zoloft] 25 MG tablet 50 mg PO DAILY Calmoseptine 0.44-20.6 % ointment in packet 1 applic topical DAILY Eliquis 5 mg tablet 5 mg PO BID atorvastatin 20 mg tablet 20 mg PO DAILY pantoprazole 40 mg Tablet,Delayed Release (Dr/Ec) 40 mg PO BID Qty: 60 2RF Referrals / Follow Up: Josh Oro MD [Primary Care Provider] - Rosie Leon MD [Med Staff - Active Staff] - Within 1 Month (Follow-up for possible ascending colon colitis and cholelithiasis) Disposition Disposition (needs filled in before D/C Order can be placed): [facility] (1) Closed wedge compression fracture of T12 vertebra Qualifiers: Encounter type: initial encounter Qualified Code(s): S22.080A - Wedge compression fracture of T11-T12 vertebra, initial encounter for closed fracture (4) Rheumatoid arthritis Qualifiers: Rheumatoid arthritis location: multiple sites Rheumatoid factor presence: unspecified presence Qualified Code(s): M06.9 - Rheumatoid arthritis, unspecified (5) HTN (hypertension) Qualifiers: Hypertension type: essential hypertension Qualified Code(s): I10 - Essential (primary) hypertension
--- NOTE | 2024-06-25 13:53 | DS.PCM_ITS ---
Providers Date of Admission: 06/22/24 Date of Discharge: 06/25/24 Primary Care Physician: Dr. Josh Oro MD Reason For Visit: INTRACTABLE BACK PAIN Diagnosis Discharge Diagnosis (1) Closed wedge compression fracture of T12 vertebra: Status: Acute Code(s): S22.080A - Wedge compression fracture of T11-T12 vertebra, initial encounter for closed fracture Qualifiers: Encounter type: initial encounter Qualified Code(s): S22.080A - Wedge compression fracture of T11-T12 vertebra, initial encounter for closed fracture (2) Acute UTI: Status: Acute Code(s): N39.0 - Urinary tract infection, site not specified (3) Colitis: Status: Acute Code(s): K52.9 - Noninfective gastroenteritis and colitis, unspecified (4) Rheumatoid arthritis: Status: Chronic Code(s): M06.9 - Rheumatoid arthritis, unspecified Qualifiers: Rheumatoid arthritis location: multiple sites Rheumatoid factor presence: unspecified presence Qualified Code(s): M06.9 - Rheumatoid arthritis, unspecified (5) HTN (hypertension): Status: Chronic Code(s): I10 - Essential (primary) hypertension Qualifiers: Hypertension type: essential hypertension Qualified Code(s): I10 - Essential (primary) hypertension Plan The patient was brought to ED for complaint of on and off abdominal pain. 1. Mild abdominal pain, exact etiology unclear but possible acute colitis: Patient had CT abdomen/pelvis with IV contrast. It shows mild T12 compression fracture new from the recent prior. Mild proximal colonic wall thickening concerning for acute cholecystitis. Colonic diverticulosis without acute diverticulitis. Numerous calcified cholelithiasis. Chronic small pancreatic cyst. Patient started on IV ceftriaxone and Flagyl. Abdominal pains/tenderness is better. On previous visit also she had concern of acute colitis but gastric emptying test was done which shows normal gastric emptying test. As per recent CT abdomen on 05/13, no bile duct dilatation. No pericholecystic fluid or GB distention. 06/24: Abdominal exam benign with no tenderness, rebound tenderness or guarding or rigidity. Continue IV antibiotics ceftriaxone and Flagyl. patient's back pain is also resolved. Electrolytes are in normal range. 06/25: Abdomen exam again revealed no tenderness guarding or rigidity. Patient had 3 days of IV antibiotics. Discharged on Cipro and Flagyl for 6 more days. During previous visit patient had cholelithiasis but asymptomatic and with concern of colitis follow-up with general surgeon Dr. Leon in office # E. coli lower UTI/cystitis: UA shows nitrite positive, LE 100, WBC 5-10 cells, squamous epithelial cells 25-50 cells which is not a good sample.. urine culture shows E. coli more than 100,000 colonies. Culture and sensitivity panel shows sensitive to IV ceftriaxone. 06/25: Urine culture positive of E. coli sensitive to ciprofloxacin. Chronic problems: #Hx CVA w/ residual deficits: On atorvastatin. - #Hx afib/flutter: On Eliquis. 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 DVT: On apixaban Advance care planning: Discussed with patient and family advanced directives as well as CODE STATUS. Explained various CODE STATUS: FULL CODE, DNR CCA, DNR CCA with no intubation, and DNR CC- and what each meant. Patient elected to be a full code with CPR and intubation if warranted. Order was placed. Her surrogate decision maker is his daughter Delphine who was at bedside. Time spent on discussion 16 minutes. Time spent in the patient's overall evaluation,decision-making process, review of diagnostic data, adjustment of management, discussion with other providers, nursing and ancillary staff involved in patient's care documentation, 70 minutes. Microbiology Past 72 Hours 06/22/24 12:00 Urine, Clean Catch Urine Culture - Final Presumptive E. coli Laboratory Results 06/25/24 07:42: WBC 8.9, RBC 4.08 L, Hgb 9.8 L, Hct 32.8 L, MCV 80.4 L, MCH 24.0 L, MCHC 29.9 L, RDW Std Deviation 54.7 H, RDW Coeff of Pelon 18.8 H, Plt Count 282, MPV 11.3, Immature Gran % (Auto) 0.300, Neut % (Auto) 74.8 H, Lymph % (Auto) 15.0 L, [place] % (Auto) 5.8, Eos % (Auto) 3.5, Baso % (Auto) 0.6, Absolute Neuts (auto) 6.7, Absolute Lymphs (auto) 1.34, Nucleated RBC % 0, Sodium 140, Potassium 4.6, Chloride 114 H, Carbon Dioxide 23.0, Anion Gap 3 L, BUN 2 L, C reatinine 0.42 L, Estim Creat Clear Calc 41.63, Est GFR (MDRD) Af Amer 190, Est GFR (MDRD) Non-Af 157, BUN/Creatinine Ratio 4.8 L, Glucose 128 H, Calcium 8.5 Medications at Discharge Home Medications sertraline 25 mg tablet (Zoloft) 50 mg PO DAILY mental health 03/07/18 atorvastatin 20 mg tablet 20 mg PO DAILY 05/08/24 pantoprazole 40 mg tablet,delayed release 40 mg PO BID #60 tabs 05/27/24 apixaban 5 mg tablet (Eliquis) 5 mg PO BID 06/22/24 menthol 0.44 %-zinc oxide 20.6 % topical ointment in packet (Calmoseptine) 1 applic topical DAILY 06/22/24 ciprofloxacin HCl 500 mg tablet 500 mg PO BID 6 days #12 tabs 06/25/24 metronidazole 500 mg tablet 500 mg PO Q8H 5 days #15 tabs 06/25/24 sennosides 8.6 mg-docusate sodium 50 mg tablet (Stimulant Laxative Plus) 2 tab PO BID #0 tabs 06/25/24 Physical Exam Narrative Seen and examined. I discussed with the patient's daughter present during the bedside. Patient was sleeping but wakes up. Denies abdominal pain or back pain. Her daughter said that her hand and leg deformities since age of 22. Physical exam General: Awake, oriented x 3. Cooperative, fatigue BMI 22.8 kg/m?. Very low functional status. HEENT: Atraumatic, PERRLA, EOMI, Normocephalic Oral: No Gingival or Mucosal Lesions/ Ulcerations Neck: Supple, No JVD, Negative Carotid Bruits Chest wall/Lungs: Air entry diminished in bilateral lung bases. No crepitation/rhonchi Cardiovascular: Irregular rate and rhythm, Normal S1, Normal S2, soft systolic murmur Abdomen: Bowel Sounds sluggish, Soft, Non Tender, Non-Distended. No palpable mass. : No dysuria. No renal angle tenderness. No suprapubic tenderness. Extremities: No edema, Capillary Refill Less than 3 Seconds Skin: No rashes, No breakdown Musculoskeletal: At baseline, she is a Mala lift. Chronic deformity of the small finger joints, hands and feet joints. Muscle strength 3/5 at knees and hip joints and small joints with contracture on the right side. No acute tenderness of extremities or spine Neurological: Cranial nerves II-XII grossly intact, DTR 2/4. No acute focal neurological deficit. Psych/Mental Status: Flat affect. Weight / BMI Weight Weight: 116 lb 15.989 oz Body Mass Index (BMI) 22.8 ABG / Lab / Microbiology Data 06/25/24 07:42 06/25/24 07:42 Laboratory: Laboratory Results - last 24 hr 06/25/24 07:42: WBC 8.9, RBC 4.08 L, Hgb 9.8 L, Hct 32.8 L, MCV 80.4 L, MCH 24.0 L, MCHC 29.9 L, RDW Std Deviation 54.7 H, RDW Coeff of Pelon 18.8 H, Plt Count 282, MPV 11.3, Immature Gran % (Auto) 0.300, Neut % (Auto) 74.8 H, Lymph % (Auto) 15.0 L, [place] % (Auto) 5.8, Eos % (Auto) 3.5, Baso % (Auto) 0.6, Absolute Neuts (auto) 6.7, Absolute Lymphs (auto) 1.34, Nucleated RBC % 0, Sodium 140, Potassium 4.6, Chloride 114 H, Carbon Dioxide 23.0, Anion Gap 3 L, BUN 2 L, C reatinine 0.42 L, Estim Creat Clear Calc 41.63, Est GFR (MDRD) Af Amer 190, Est GFR (MDRD) Non-Af 157, BUN/Creatinine Ratio 4.8 L, Glucose 128 H, Calcium 8.5 Microbiology: Microbiology 06/22/24 12:00 Urine, Clean Catch Urine Culture - Final Presumptive E. coli Meaningful Use Info Meaningful Use Meaningful Use Diagnoses (Choose all that apply): None applicable Ischemic Stroke Statin Dosing Therapy Reference: STATIN DOSE THERAPY REFERENCE: * Patients > 75 years receive moderate or high dose statin therapy. * Patients 75 years or YOUNGER should receive HIGH intensity statin dose unless contraindicated. You will be required to document reason for non-treatment if statin daily dose does not meet guidelines. HIGH DOSE STATIN THERAPY DAILY Atorvastatin > than or = to 40 mg Rosuvastatin > than or = to 20 mg Amlodipine + Atorvastatin > than or = to 2.5/40 mg Ezetimibe + Simvastatin 10/80 mg Simvastatin 80mg Discharge Plan Admission Admit Date/Time: 06/22/24 15:48 Primary Reason for Your Visit: UTI and left-sided colitis Attending Provider: Gregory Vasquez Primary Care Provider: Josh Oro Consulting Providers: Clinton Cox Discharge Orders/Prescriptions Prescriptions: New sennosides-docusate sodium [Stimulant Laxative Plus] 8.6-50 mg Tablet 2 tab PO BID Qty: 0 0RF metronidazole 500 mg tablet 500 mg PO Q8H 5 Days Qty: 15 0RF ciprofloxacin HCl 500 mg tablet 500 mg PO BID 6 Days Qty: 12 0RF Continued sertraline [Zoloft] 25 MG tablet 50 mg PO DAILY Calmoseptine 0.44-20.6 % ointment in packet 1 applic topical DAILY Eliquis 5 mg tablet 5 mg PO BID atorvastatin 20 mg tablet 20 mg PO DAILY pantoprazole 40 mg Tablet,Delayed Release (Dr/Ec) 40 mg PO BID Qty: 60 2RF Referrals / Follow Up: Josh Oro MD [Primary Care Provider] - Rosie Leon MD [Med Staff - Active Staff] - Within 1 Month (Follow-up for possible ascending colon colitis and cholelithiasis) Disposition Disposition (needs filled in before D/C Order can be placed): [facility] Facility Charges/Coding Visit Charges Inpatient E&M: 53536 Disch Hosp >30min
[2024-06-25 14:05] VITALS: BP 138/76; PULSE 74; RESP 18; TEMP 36.2; O2SAT 94
[2024-06-25] MEDS: 0.9% Saline Lock 10 ML Syringe IV (14:06)
--- NOTE | 2024-06-25 16:14 | CASEMGMT ---
Social Work Per physician pt is ready for return to [facility] today. Discharge orders faxed to [facility]. [facility] arranged [facility] for 7:30 cot transport. Pt, pt's cherellet MARLEN Akers and [facility] updated on discharge time. Disposition: Return to [facility] LUIS Campbell
--- NOTE | 2024-06-25 16:50 | NURSING ---
took a phone call from [facility] nurse Josiane stating they are unable to take the patient tonight if the patient arrives after 6pm d/t staffing. talked with [facility]. aware they can change transportation time for another patient and will pick this patient up closer to 5:30p if not before. Call placed to Josiane [facility] and updated on pickup time. Josiane agreeable.
[2024-06-25] MEDS: Acetaminophen 325 MG Tablet 650 MG PO (17:24)
[2024-06-25] MEDS: oxyCODONE 5 MG Tablet PO (17:25)
== END 2024-06-25 17:50 | disposition skilled nursing facility (03) | DRG 552 ==
LOC: ED 15:41 → MS3 15:59
PROVIDERS: Admitting Provider Hospitalist; Emergency Provider Emergency Medicine; PCP Family Medicine; Visit Provider Internal Medicine
DX: S22.080A Wedge compression fracture of T11-T12 vertebra, initial encounter for closed fracture (principal); K86.2 Cyst of pancreas; I69.354 Hemiplegia and hemiparesis following cerebral infarction affecting left non-dominant side; I48.92 Unspecified atrial flutter; M06.9 Rheumatoid arthritis, unspecified; I10 Essential (primary) hypertension; F32.A Depression, unspecified; K52.9 Noninfective gastroenteritis and colitis, unspecified; I48.91 Unspecified atrial fibrillation; K57.30 Diverticulosis of large intestine without perforation or abscess without bleeding; E78.5 Hyperlipidemia, unspecified; M19.90 Unspecified osteoarthritis, unspecified site; K80.20 Calculus of gallbladder without cholecystitis without obstruction; F41.9 Anxiety disorder, unspecified; N30.90 Cystitis, unspecified without hematuria; B96.89 Other specified bacterial agents as the cause of diseases classified elsewhere; Z66 Do not resuscitate; Z79.01 Long term (current) use of anticoagulants; B96.20 Unspecified Escherichia coli [E. coli] as the cause of diseases classified elsewhere
CPT/HCPCS: 36415; 74177; 80048; 80053; 81001; 83690; 83735; 85025; 87086; 87088; 87186; 93005; 97162; 97166; 97802; 99284; J7030; Q9967; A4216; J2405

== ENCOUNTER → 2024-08-06 | Outpatient (REF) | payer MEDICARE, MEDICAID, SELFPAY ==
[2024-08-06 08:19] LABS: Hematocrit 36.2 % (37-47); Hemoglobin 11.3 g/dL (12.0-15.0); Mean Corp Hgb Conc 31.2 g/dL (32-36); Mean Corpuscular Hgb 25.5 pg (27.0-32.0); Mean Corpuscular Volume 81.7 fL (81-99); Mean Platelet Vol. 10.7 fl (6.2-12.0); POSITIVE MORPHOLOGY YES; Platelet Count 295 K/mm3 (150-450); RBC Distribution Width CV 22.5 % (11.6-14.6); RBC Distribution Width SD 65.1 fl (35.1-43.9); Red Blood Count 4.43 M/mm3 (4.2-5.4); White Blood Count 8.9 K/mm3 (4.4-11.0)
[2024-08-06 08:24] LABS: Scan Indicated on CBC? Y/N YES- FLAGS NOTED
== END ==
LOC: OLS.WCC 05:00
PROVIDERS: PCP Family Medicine; Visit Provider Family Medicine
DX: I48.91 Unspecified atrial fibrillation (principal); E11.9 Type 2 diabetes mellitus without complications; I10 Essential (primary) hypertension
CPT/HCPCS: 36415; 85027

== ENCOUNTER 2024-08-12 08:46 | Inpatient (IN) | payer MEDICARE, MEDICAID, SELFPAY ==
[2024-08-12] VITALS (7 sets, daily range): BP systolic 122–144; BP diastolic 70–95; PULSE 64–95; RESP 16–18; TEMP 36.2–37; O2SAT 96–99; BMI 23.2; BMI 20.9
--- NOTE | 2024-08-12 09:29 | EKG12_ITS ---
Test Reason : Blood Pressure : / mmHG Vent. Rate : 089 BPM Atrial Rate : 000 BPM P-R Int : 000 ms QRS Dur : 096 ms QT Int : 464 ms P-R-T Axes : 000 027 148 degrees QTc Int : 564 ms Critical Test Result: Long QTc Atrial fibrillation ST & T wave abnormality, consider inferior ischemia Abnormal ECG Confirmed by JOMAR ABREU, VALDO ([id number]), video editor CARA MOREL ([id number]) on 08/13/2024 9:24:01 AM Referred By: Confirmed By:VALDO HADLEY MD
--- NOTE | 2024-08-12 09:30 | CT_ITS ---
EXAM: CT ABDOMEN AND PELVIS WITH INTRAVENOUS CONTRAST CLINICAL INDICATION: Chronic nausea and vomiting TECHNIQUE: Helically acquired images were obtained of the abdomen and pelvis with intravenous contrast. This CT exam was performed using one or more of the following dose reduction techniques: automated exposure control, adjustment of the mA and/or kV according to patient size, and/or use of iterative reconstruction technique. CONTRAST: IV 75mL [id number] COMPARISON: CT Abdomen Pelvis dated 06/22/2024 FINDINGS: LOWER THORAX: Borderline cardiomegaly. Mild peribronchial thickening within the left lower lobe. ABDOMEN: LIVER: Normal. Homogeneous. No focal mass. GALLBLADDER AND BILE DUCTS: Multiple small calcified stones fill the gallbladder. No gallbladder distention or wall edema. No intra- or extrahepatic biliary ductal dilation. PANCREAS: Stable small cystic changes of the body and tail of the pancreas. SPLEEN: Normal. Normal size without focal cystic or solid mass. ADRENALS: Normal. No nodules. KIDNEYS AND URETERS: Stable right renal cyst. No specific follow-up indicated. Normal renal size and position. No hydronephrosis. STOMACH AND BOWEL: Stent again noted within the proximal duodenum. Diverticulosis of the colon noted without evidence of acute diverticulitis. No evidence of bowel obstruction. PELVIS: APPENDIX: Appendix is visualized and normal in appearance. BLADDER: Normal. REPRODUCTIVE: Stable partially calcified 7 cm uterine fibroid. ABDOMEN and PELVIS: INTRAPERITONEAL SPACE: Normal. No ascites or other fluid collection. No free air. BONES/JOINTS: Increasing compression deformity of the T12 vertebral body. Degenerative narrowing of both hip joints again seen. SOFT TISSUES: Normal. No discrete abdominal or pelvic wall hernia. VASCULATURE: Normal. Abdominal aorta is non-dilated. LYMPH NODES: Normal. No enlarged lymph nodes. CT/Abdomen/Pelvis W IV Cont ONLY IMPRESSION: 1. Stable appearing duodenal stent. 2. No evidence of bowel obstruction. 3. Diverticulosis coli. 4. Cholelithiasis. 5. Increasing compression deformity of the T12 vertebral body. Electronically Signed: Javed Gray MD at 12:52 EDT ,
--- NOTE | 2024-08-12 09:35 | EDS_ITS ---
HPI History of Present Illness Chief Complaint: Weakness Narrative Narrative: Chief complaint and HPI: Failure to thrive and concern for dehydration. 78-year-old female with history of atrial fibrillation, rheumatoid arthritis, HTN, chronic nausea and vomiting presents for evaluation of failure to thrive and concern for dehydration. Patient resides at a care facility. She is a very poor historian and therefore history is obtained by daughter in the room. Per daughter's report patient has had chronic vomiting since April. She has been evaluated by multiple physicians including GI. Patient has lost 20 pounds in the past few months due to decreased appetite. When I asked the patient why she is not eating she just keeps repeating my mouth is dry. Daughter states she usually does not answer questions. Daughter denies any fever, chills, shortness of breath, cough, chest pain, abdominal pain, diarrhea, dysuria that she knows of. Patient is wheelchair bound. She has right-sided deficits from previous CVA Review of systems: See HPI Medications: As listed on the chart Allergies: As listed on the chart PFSH: Per chart Vital signs: As listed on the chart. Reviewed. Physical exam: Gen: Alert, NAD, does not answer any of my questions just repeats my mouth is dry Head: Normocephalic, atraumatic Eyes: No sclera icterus, conjunctiva clear, PERRL, EOMI ENT: Dry mucous membranes, edentulous Neck: Trachea midline, No JVD CV: Irregular rhythm, regular rate, no murmurs, no peripheral edema Resp: Lungs CTA BL, no w/r/c GI: Abd soft, non-distended, non-tender, no r/r/g : Normal external genitalia, no rash Musc: History of CVA with right-sided deficits Skin: Warm, dry Neuro: Alert, grossly intact, sensation intact [facility] Medical History (Updated 08/12/24 @ 14:02 by Anna Kaminski) Depression Anxiety Chronic pain GI bleed Non-smoker TIA (transient ischemic attack) Gall bladder pain Gallbladder attack Closed wedge compression fracture of T12 vertebra Acute UTI Abdominal pain Cholelithiasis Acute upper GI bleed Fall Major depressive disorder, recurrent, mild Anxiety disorder, unspecified Sarcopenia Hemiplegia CVA (cerebral vascular accident) HTN (hypertension) HLD (hyperlipidemia) A-fib Acute ischemic right MCA stroke Afib Home Medications ?Medication ?Instructions ?Recorded ?Last Taken ?Type atorvastatin 20 mg tablet 20 mg PO QHS HLD 05/08/24 05/08/24 History pantoprazole 40 mg tablet,delayed 40 mg PO BID gastritis #60 tabs 05/27/24 Unknown Rx release apixaban 5 mg tablet (Eliquis) 5 mg PO BID blood thinner / afib 06/22/24 Unknown History menthol 0.44 %-zinc oxide 20.6 % 1 applic topical DAILY skin 06/22/24 Unknown History topical ointment in packet (Calmoseptine) ciprofloxacin HCl 500 mg tablet 500 mg PO BID 6 days #12 tabs 06/25/24 Unknown Rx metronidazole 500 mg tablet 500 mg PO Q8H 5 days #15 tabs 06/25/24 Unknown Rx sennosides 8.6 mg-docusate sodium 2 tab PO BID constipation #0 tabs 06/25/24 Unknown Rx 50 mg tablet (Stimulant Laxative Plus) acetaminophen 325 mg tablet 650 mg PO QHS PRN back pain 08/12/24 Unknown History acetaminophen 325 mg tablet 650 mg PO TID back pain 08/12/24 Unknown History bisacodyl 10 mg rectal suppository 10 mg [place] DAILY PRN constipation 08/12/24 Unknown History (Dulcolax (bisacodyl)) capsaicin 0.025 % topical cream 1 applic topical DAILY lower back 08/12/24 Unknown History (Arthritis-Muscle (capsaicin)) & rt knee pain mirtazapine 15 mg disintegrating 15 mg PO QHS depression / anorexia 08/12/24 Unknown History tablet oxycodone 5 mg tablet 5 mg PO BID pain 08/12/24 Unknown History sertraline 50 mg tablet 50 mg PO DAILY anxiety & depression 08/12/24 Unknown History Allergy/AdvReac Type Severity Reaction Status Date / Time Food Allergies: Uncoded AdvReac Intermediate Vomiting Verified 07/29/24 14:48 orange juice AdvReac Intermediate Vomiting Verified 07/29/24 14:48 tomato AdvReac Vomiting Verified 08/12/24 13:57 Family History Other CVA (cerebral vascular accident) Cancer Heart disease Surgical History Percutaneous endoscopic gastrostomy status Social History Smoking Status: Never smoker EXAM Physical Exam Const Vital Signs: 08/12/24 08:48 08/12/24 10:47 08/12/24 12:00 Temperature 97.5 F L Temperature Source Axillary Pulse Rate 94 80 86 Respiratory Rate 18 16 16 Blood Pressure 128/70 H 132/86 H 130/87 H Blood Pressure Mean 89 101 101 Pulse Ox 98 98 97 Oxygen Delivery Method Room Air MDM MDM MDM Narrative Medical decision making narrative: 79-year-old female presents for evaluation of failure to thrive and concern for dehydration. Patient physician Dr. Oro called prior to patient's arrival. Recommended blood work and fluids. I did not personally talk to Dr. Oro. Per conversation with other ED provider Dr. Oro has brought up hospice but patient's daughter is not interested. Differential diagnosis includes but is not limited to failure to thrive, electrolyte abnormality, NAYELY, UTI, intra- abdominal pathology. NS bolus and Zofran ordered. Laboratory workup ordered including CT abdomen and pelvis for patient's chronic nausea and vomiting. CBC with mild leukocytosis 11.5. Patient has baseline anemia 10.4. CMP with severe hypokalemia of 2.9 and severe hypomagnesia him of 1.4. 40 mEq of IV potassium and 2 g of magnesium ordered IV. No transaminitis. Patient is malnourished with albumin of 1.4. Lipase unremarkable. UA positive for UTI. Rocephin ordered. Urine culture sent. UA is consistent with mild dehydration. CT abdomen pelvis shows stable duodenal stent. No obstruction. Diverticulosis and cholelithiasis both without infection. She has an increasing compression def ormity of the T12 vertebral body. Patient will warrant admission for failure to thrive and severe electrolyte abnormalities. Patient and daughter were updated of all the results and confirmed understanding. Dr. Cuenca excepted admission. EKG: Interpreted by me/EM physician: EKG shows atrial fibrillation with nonspecific ST changes. Heart rate 89. No ST elevation. Patient does have a prolonged QTc of 564 Diagnostic: Interpreted by me/EM physician: Chest x-ray without pneumonia, effusion, cardiomegaly, pneumothorax Impression: 1. Severe hypokalemia 2. Severe hypomagnesemia 3. UTI 4. Dehydration 5. Malnutrition with failure to thrive Lab Data Labs: Laboratory Results - last 24 hr 08/12/24 08/12/24 11:39 11:56 WBC 11.5 H RBC 4.06 L Hgb 10.4 L Hct 33.0 L MCV 81.3 MCH 25.6 L MCHC 31.5 L RDW Std Deviation 67.0 H RDW Coeff of [place] 22.8 H Plt Count 274 MPV 10.3 Immature Gran % (Auto) 0.600 Neut % (Auto) 81.4 H Lymph % (Auto) 9.2 L [place] % (Auto) 7.6 Eos % (Auto) 0.9 Baso % (Auto) 0.3 Absolute Neuts (auto) 9.3 H Absolute Lymphs (auto) 1.05 Nucleated RBC % 0 Differential Comment SCANNED Anisocytosis 2+ Microcytosis 1+ Macrocytosis 1+ Sodium 141 Potassium 2.9 L Chloride 110 H Carbon Dioxide 24.0 Anion Gap 6 BUN 8 Creatinine 0.17 L Est GFR (MDRD) Af Amer 521 Est GFR (MDRD) Non-Af 431 BUN/Creatinine Ratio 46.2 H Glucose 91 Calcium 7.2 L Magnesium 1.4 L Total Bilirubin 0.60 AST 9 L ALT 7 L Alkaline Phosphatase 123 H Troponin I High Sens 11 Total Protein 4.5 L Albumin 1.4 L Globulin 3.1 Albumin/Globulin Ratio 0.5 L Lipase < 10 L Urine Color Yellow Urine Clarity Sl. Cloudy Urine pH 5.0 Ur Specific [place] 1.015 Urine Protein 30 H Urine Glucose (UA) Normal Urine Ketones 5 H Urine Occult Blood 10 H Urine Nitrite Negative Urine Bilirubin 3 H Urine Urobilinogen 4 H Ur Leukocyte Esterase 500 H Urine RBC 0 SEEN Urine WBC 0-5 SEEN Ur Squamous Epith Cells 0-5 SEEN Urine Bacteria 1+ Urine Mucus 0 SEEN Urine Yeast 3+ Radiography Diagnostic Testing: Clinical Impression(s) from Imaging Studies Abdomen/Pelvis CT 08/12/24 09:30 IMPRESSION: 1. Stable appearing duodenal stent. 2. No evidence of bowel obstruction. 3. Diverticulosis coli. 4. Cholelithiasis. 5. Increasing compression deformity of the T12 vertebral body. Electronically Signed: Javed Gray MD at 12:52 EDT , Chest X-Ray 10/23/24 10:20 IMPRESSION: Stable pleural parenchymal changes at the left lung base. Electronically Signed: Giuseppe Young MD at 11:00 EDT , Discharge Plan Disposition Disposition: Acute Care Hospital [facility] Discharge Date/Time: 08/12/24 14:25
[2024-08-12] MEDS: 0.9% Normal Saline (1000mL) 1,000 ML 1000 ML IV (09:55)
[2024-08-12] MEDS: Ondansetron 4 MG/2 ML Vial IV ×2 (09:55→20:48)
--- NOTE | 2024-08-12 10:20 | RAD_ITS ---
STUDY: X-RAY CHEST REASON FOR EXAM: Female, 78 years old. Failure to thrive TECHNIQUE: Single AP portable view of the chest. COMPARISON: Comparison is made with prior study dated April 01, 2020. FINDINGS: EKG electrodes are seen. Blunting of the left costophrenic angle with mild increased markings at the left lung base. This is unchanged. Borderline cardiomegaly. Normal mediastinum and marisol. Normal visualized pulmonary arteries. There is atherosclerotic calcification of the aortic arch with tortuosity. There are diffuse degenerative changes of the visualized thoracic spine. There is degenerative osteoarthritis of the bilateral shoulders. Findings suggestive of a TIPS device in the right upper quadrant. RAD/Chest 1 View (Portable) IMPRESSION: Stable pleural parenchymal changes at the left lung base. Electronically Signed: Giuseppe Young MD at 11:00 EDT ,
[2024-08-12 11:47] LABS: Absolute Lymphocyte Count 1.05 X10^3/uL (0.83-4.51); Absolute Neutrophil Count 9.3 X10^3/uL (2.0-7.7); Basophil# 0.04 X10^3/uL; Basophil% 0.3 % (0-1); Eosinophils% 0.9 % (0-5); Hemoglobin 10.4 g/dL (12.0-15.0); Lymphocyte # 1.05 X10^3/ul (0.83-4.51); Lymphocyte % 9.2 % (19-41); Mean Corp Hgb Conc 31.5 g/dL (32-36); Mean Corpuscular Hgb 25.6 pg (27.0-32.0); Mean Corpuscular Volume 81.3 fL (81-99); Mean Platelet Vol. 10.3 fl (6.2-12.0); Monocyte# 0.87 X10^3/uL; Monocyte% 7.6 % (0-10); NRBC Flagged by Analyzer 0 % (0-5); Neutrophil # 9.34 X10^3/uL (2.7-7.7); Neutrophil % 81.4 % (47-70); POSITIVE MORPHOLOGY YES; Platelet Count 274 K/mm3 (150-450); RBC Distribution Width CV 22.8 % (11.6-14.6); Red Blood Count 4.06 M/mm3 (4.2-5.4); White Blood Count 11.5 K/mm3 (4.4-11.0)
[2024-08-12 11:51] LABS: Differential Indicated SCAN CRITERIA MET
[2024-08-12 12:02] LABS: Mucous, Urine 0 SEEN /hpf (<or=2+); Red Blood Cells-Urine 0 SEEN /hpf (0-5)
[2024-08-12 12:17] LABS: ALB/GLOB Ratio 0.5 RATIO (0.9-2.4); AST(SGOT) 9 U/L (15-37); Alanine Aminotransfer ALT/SGPT 7 U/L (13-56); Albumin, Serum 1.4 g/dL (3.2-5.0); Alkaline Phosphatase 123 U/L (45-117); Anion Gap 6 (5-15); BUN 8 mg/dL (7-18); BUN/Creat Ratio 46.2 RATIO (10-20); Calcium,Total 7.2 mg/dL (8.5-10.1); Chloride 110 mmol/L (98-107); Creatinine, Serum 0.17 mg/dL (0.55-1.02); EST Glomerular Filtration Rate 431 mL/min (>60); Est Glom Filt Rate - Afr Amer 521 mL/min (>60); Globulin 3.1 g/dL (2.2-4.2); Glucose 91 mg/dL (74-106); Lipase < 10 U/L (13-75); Magnesium 1.4 mg/dL (1.6-2.6); Potassium 2.9 mmol/L (3.5-5.1); Protein, Total 4.5 g/dL (6.4-8.2); Sodium Level 141 mmol/L (136-145); Troponin-I HS 11 pg/mL (3.0-54.0)
[2024-08-12 12:21] LABS: Differential Comment SCANNED
[2024-08-12 12:22] LABS: Anisocytosis 2+; Macrocytosis 1+; Microcytosis 1+
[2024-08-12 12:26] LABS: Color, Urine Yellow (Yellow); Glucose, Dipstick Normal (Normal); Ketone-Dipstick 5 mg/dl (Negative); Leukocyte Esterase-Dipstick 500 /ul (Negative); Nitrite-Dipstick Negative (Negative); Occult Blood-Urine 10 /ul (Negative); Protein-Dipstick 30 mg/dl (Negative); Specific Gravity, Urine 1.015 (1.002-1.030); Urine Clarity Sl. Cloudy (Clear); Urine Urobilinogen 4 mg/dl (Normal)
[2024-08-12 12:27] LABS: Urine Bilirubin Dipstick 3 mg/dL (Negative)
[2024-08-12 12:32] LABS: Squamous Epithelial Cells - UA 0-5 SEEN /hpf (5-10)
[2024-08-12 12:33] LABS: Bacteria 1+ /hpf (None Seen); White Blood Cells 0-5 SEEN /hpf (0-5); Yeast-Urine 3+ /hpf (None Seen)
[2024-08-12] MEDS: Magnesium Sulfate 2 GM in Dextrose 5%-Water (100mL Bag) 100 ML IV (12:51)
[2024-08-12] MEDS: Potassium Chloride 10mEq/100mL 10 MEQ/100 ML IV.SOLN. 100 MEQ IV BOLUS ×4 (12:58→16:39)
--- NOTE | 2024-08-12 13:41 | PCM.HP.STD ---
HPI - General General Date of Admission: 08/12/24 Date of Service: 08/12/24 Chief Complaint: N/V, weight loss HPI Narrative OSEAS PATHAK, is a 78 F with history of A-fib, RA, CVA with residual deficits, duodenal stent, gastroparesis, GI bleed who presented to [facility] ED 08/12/2024 from care facility due to concern for dehydration with decreased appetite as well as nausea and vomiting. Patient's PCP called prior to patient coming to the ED and inquired about IV fluids and lab work. In the ED patient found to be hypokalemic and hypomagnesemic, CT scan not overly remarkable, UA with bacteria and leuk esterase but nitrite negative and only 0-5 white blood cells, 1+ bacteria. Patient with magnesium and potassium replacement, Zofran, IV fluids in the ED and hospitalist contacted for admission due to her electrolyte abnormalities and nausea/vomiting. Patient evaluated daughter at bedside. Patient has been struggling with nausea and vomiting since April and has not been eating well and has had a 20 pound weight loss over the past couple of months. There is also question if some food sticks that she is swallowing. Patient reports some vague abdominal pain more so in lower quadrants, has some leg aching, she is unsure about bowel movements. She has dry mouth but did not endorse any other specific complaints. [facility] Medical History (Updated 08/12/24 @ 14:01 by Anna Kaminski) A-fib Abdominal pain Acute ischemic right MCA stroke Acute upper GI bleed Acute UTI Afib Anxiety disorder, unspecified Cholelithiasis Closed wedge compression fracture of T12 vertebra CVA (cerebral vascular accident) Fall Gall bladder pain Gallbladder attack GI bleed Hemiplegia HLD (hyperlipidemia) HTN (hypertension) Major depressive disorder, recurrent, mild Non-smoker Sarcopenia TIA (transient ischemic attack) Home Medications ?Medication ?Instructions ?Recorded ?Last Taken ?Type atorvastatin 20 mg tablet 20 mg PO DAILY 05/08/24 05/08/24 History pantoprazole 40 mg tablet,delayed 40 mg PO BID #60 tabs 05/27/24 Unknown Rx release apixaban 5 mg tablet (Eliquis) 5 mg PO BID 06/22/24 Unknown History menthol 0.44 %-zinc oxide 20.6 % 1 applic topical DAILY 06/22/24 Unknown History topical ointment in packet (Calmoseptine) ciprofloxacin HCl 500 mg tablet 500 mg PO BID 6 days #12 tabs 06/25/24 Unknown Rx metronidazole 500 mg tablet 500 mg PO Q8H 5 days #15 tabs 06/25/24 Unknown Rx sennosides 8.6 mg-docusate sodium 2 tab PO BID #0 tabs 06/25/24 Unknown Rx 50 mg tablet (Stimulant Laxative Plus) Allergy/AdvReac Type Severity Reaction Status Date / Time Food Allergies: Uncoded AdvReac Intermediate Vomiting Verified 07/29/24 14:48 orange juice AdvReac Intermediate Vomiting Verified 07/29/24 14:48 tomato AdvReac Vomiting Verified 08/12/24 13:57 Family History Other CVA (cerebral vascular accident) Cancer Heart disease Surgical History Percutaneous endoscopic gastrostomy status Social History Smoking Status: Never smoker ROS ROS Narrative ROS reviewed, pertinent positives and negatives in HPI Vital Signs Vital Signs Vital Signs: 08/12/24 08:48 08/12/24 10:47 08/12/24 12:00 Temperature 97.5 F L Temperature Source Axillary Pulse Rate 94 80 86 Respiratory Rate 18 16 16 Blood Pressure 128/70 H 132/86 H 130/87 H Blood Pressure Mean 89 101 101 Pulse Ox 98 98 97 Oxygen Delivery Method Room Air Weight Weight: 53.932 kg Body Mass Index (BMI) 23.2 Physical Exam Narrative General: Alert, no apparent distress HEENT: Atraumatic, has dry mouth/mucosa Eyes: Anicteric Neck: Supple Respiratory: Clear to auscultation bilaterally, normal respiratory effort Cardiovascular: Irregularly irregular GI: Soft overall, nondistended, mild tenderness in lower quadrants without rebound, guarding, rigidity Extremities: No edema Musculoskeletal: Patient with baseline deficits and deformities in hand Neuro: Patient with baseline deficits after previous CVA Skin: Has what appear to be some excoriations on upper right chest wall Psych: Cooperative Results Lab / Micro Data 08/12/24 11:39 08/12/24 11:39 Labs: Laboratory Results - last 24 hr 08/12/24 11:39: WBC 11.5 H, RBC 4.06 L, Hgb 10.4 L, Hct 33.0 L, MCV 81.3, MCH 25.6 L, MCHC 31.5 L, RDW Std Deviation 67.0 H, RDW Coeff of [place] 22.8 H, Plt Count 274, MPV 10.3, Immature Gran % (Auto) 0.600, Neut % (Auto) 81.4 H, Lymph % (Auto) 9.2 L, [place] % (Auto) 7.6, Eos % (Auto) 0.9, Baso % (Auto) 0.3, Absolute Neuts (auto) 9.3 H, Absolute Lymphs (auto) 1.05, Nucleated RBC % 0, Differential Comment SCANNED, Anisocytosis 2+, Microcytosis 1+, Macrocytosis 1+, Sodium 141, Potassium 2.9 L, Chloride 110 H, Carbon Dioxide 24.0, Anion Gap 6, BUN 8, Creatinine 0.17 L, Est GFR (MDRD) Af Amer 521, Est GFR (MDRD) Non-Af 431, BUN/Creatinine Ratio 46.2 H, Glucose 91, Calcium 7.2 L, Magnesium 1.4 L, Total Bilirubin 0.60, AST 9 L, ALT 7 L, Alkaline Phosphatase 123 H, Troponin I High Sens 11, Total Protein 4.5 L, Albumin 1.4 L, Globulin 3.1, Albumin/Globulin Ratio 0.5 L, Lipase < 10 L 08/12/24 11:56: Urine Color Yellow, Urine Clarity Sl. Cloudy, Urine pH 5.0, Ur Specific [place] 1.015, Urine Protein 30 H, Urine Glucose (UA) Normal, Urine Ketones 5 H, Urine Occult Blood 10 H, Urine Nitrite Negative, Urine Bilirubin 3 H, Urine Urobilinogen 4 H, Ur Leukocyte Esterase 500 H, Urine RBC 0 SEEN, Urine WBC 0-5 SEEN, Ur Squamous Epith Cells 0-5 SEEN, Urine Bacteria 1+, Urine Mucus 0 SEEN, Urine Yeast 3+ Imaging Radiology Impression Abdomen/Pelvis CT 08/12/24 09:30 IMPRESSION: 1. Stable appearing duodenal stent. 2. No evidence of bowel obstruction. 3. Diverticulosis coli. 4. Cholelithiasis. 5. Increasing compression deformity of the T12 vertebral body. Electronically Signed: Javed Gray MD at 12:52 EDT , Chest X-Ray 08/12/24 10:20 IMPRESSION: Stable pleural parenchymal changes at the left lung base. Electronically Signed: Giuseppe Young MD at 11:00 EDT , Assessment & Plan Assessment/Plan (1) Nausea and vomiting: QUALIFIERS: Vomiting type: unspecified Vomiting Intractability: unspecified Qualified Code(s): R11.2 - Nausea with vomiting, unspecified PLAN: Plan # Nausea/vomiting/weight loss/history of gastroparesis -Patient with a couple months of nausea, vomiting, decreased appetite, weight loss -Was previously seen by GI and diagnosed with gastroparesis and started on Reglan but she is not presently taking that based on current meds in system though still awaiting final med reconciliation -Will resume on Reglan, EKG reviewed and QTc not reliable as any T wave on her EKGs obscured by flutter waves -Patient will be monitored on telemetry due to her electrolyte abnormalities -Suspect gastroparesis is part of this but patient also appears to have large stool burden in rectum on review of CT scan, given her difficulty tolerating p.o. discussed enema and patient agreeable -Will give IV fluids, replace electrolytes -Will consult speech as well though patient able to swallow tea/liquids in room without difficulty patient's daughter concerned that sometimes food seems to stick -Ideally patient will be stabilized and able to follow-up with GI on outpatient basis however if patient worsens or does not improve can consider inpatient GI consult # Hypomagnesemia and hypokalemia -Replaced in ED, will recheck and replace further if still low # Severe duodenal stenosis status post stent/history of GI bleeds -Patient with stent in April was supposed to follow-up in GI office for further evaluation and possible removal on outpatient basis, stent still in place on CT scan -Patient can likely follow-up on outpatient basis for this and does not need to be done emergently during this hospitalization based on current exam today, again this can be reevaluated pending patient progress but suspect the nausea, vomiting, weight loss is due to the above -PPI, avoid nsaids # A-fib -Patient presently in A-fib with controlled rate -Awaiting final med reconciliation but will plan to continue Eliquis # History of CVA with residual deficits -Supportive care -Will likely need to go back to care facility on discharge -Case management/social work/PT/OT # Mildly abnormal UA -Patient with 1 best bacteria and leuk esterase however only 0-5 white blood cells and nitrate, afebrile, white blood cell count only 11.5 and this may be in part due to volume depletion/reactive -Will follow urine culture and hold off on treating empirically at this time # History of RA -Does not seem to presently be on any medication for this # History of T12 compression deformity -Redemonstrated on CT scan, supportive care #DVT ppx: Anne Cuenca MD Charges/Coding Visit Charges Inpatient E&M: 79023 Init Hosp L2
[2024-08-12] MEDS: 0.9% Normal Saline (1000mL) 1,000 ML 50 ML IV (15:18)
[2024-08-12] MEDS: 0.9% Saline Lock 10 ML Syringe IV (17:10)
[2024-08-12] MEDS: Metoclopramide 10 MG/2 ML Vial 5 MG IV ×2 (17:10→23:59)
[2024-08-12] MEDS: Pantoprazole Sodium 40 MG Tablet PO (20:47)
[2024-08-12] MEDS: Mirtazapine 15 MG Tablet PO (20:48)
[2024-08-12] MEDS: APIXABAN 5 MG TABLET PO (20:48)
[2024-08-12 21:16] LABS: Anion Gap 4 (5-15); BUN 7 mg/dL (7-18); BUN/Creat Ratio 30.3 RATIO (10-20); Calcium,Total 7.5 mg/dL (8.5-10.1); Chloride 107 mmol/L (98-107); Creatinine, Serum 0.23 mg/dL (0.55-1.02); EST Glomerular Filtration Rate 309 mL/min (>60); Est Glom Filt Rate - Afr Amer 373 mL/min (>60); Estimated Creatinine Clearance 41.63 ml/min; Glucose 96 mg/dL (74-106); Potassium 4.1 mmol/L (3.5-5.1); Sodium Level 136 mmol/L (136-145)
[2024-08-12 21:19] LABS: Magnesium 2.4 mg/dL (1.6-2.6)
[2024-08-13] VITALS (9 sets, daily range): BP systolic 98–139; BP diastolic 62–83; PULSE 85–97; RESP 17–20; TEMP 36.4–37.2; O2SAT 94–99
[2024-08-13 04:32] LABS: Absolute Lymphocyte Count 1.19 X10^3/uL (0.83-4.51); Absolute Neutrophil Count 8.4 X10^3/uL (2.0-7.7); Basophil# 0.05 X10^3/uL; Basophil% 0.5 % (0-1); Eosinophil# 0.21 X10^3/uL; Hematocrit 36.8 % (37-47); Hemoglobin 11.4 g/dL (12.0-15.0); Lymphocyte # 1.19 X10^3/ul (0.83-4.51); Lymphocyte % 11.1 % (19-41); Mean Corpuscular Volume 83.8 fL (81-99); Mean Platelet Vol. 10.9 fl (6.2-12.0); Monocyte# 0.84 X10^3/uL; Monocyte% 7.8 % (0-10); NRBC Flagged by Analyzer 0 % (0-5); Neutrophil # 8.37 X10^3/uL (2.7-7.7); Neutrophil % 77.9 % (47-70); POSITIVE MORPHOLOGY YES; Platelet Count 251 K/mm3 (150-450); RBC Distribution Width CV 23.3 % (11.6-14.6); RBC Distribution Width SD 70.6 fl (35.1-43.9); Red Blood Count 4.39 M/mm3 (4.2-5.4); White Blood Count 10.7 K/mm3 (4.4-11.0)
[2024-08-13 04:47] LABS: Differential Indicated SCAN CRITERIA MET
[2024-08-13 05:23] LABS: ALB/GLOB Ratio 0.4 RATIO (0.9-2.4); AST(SGOT) 14 U/L (15-37); Alanine Aminotransfer ALT/SGPT 7 U/L (13-56); Albumin, Serum 1.6 g/dL (3.2-5.0); Alkaline Phosphatase 133 U/L (45-117); Anion Gap 3 (5-15); BUN 7 mg/dL (7-18); BUN/Creat Ratio 27.9 RATIO (10-20); Calcium,Total 7.6 mg/dL (8.5-10.1); Chloride 109 mmol/L (98-107); Creatinine, Serum 0.25 mg/dL (0.55-1.02); EST Glomerular Filtration Rate 280 mL/min (>60); Est Glom Filt Rate - Afr Amer 339 mL/min (>60); Estimated Creatinine Clearance 41.63 ml/min; Globulin 3.6 g/dL (2.2-4.2); Glucose 104 mg/dL (74-106); Magnesium 2.4 mg/dL (1.6-2.6); Phosphorus 2.5 mg/dL (2.5-4.9); Potassium 3.9 mmol/L (3.5-5.1); Protein, Total 5.2 g/dL (6.4-8.2); Sodium Level 138 mmol/L (136-145)
[2024-08-13] MEDS: Metoclopramide 10 MG/2 ML Vial 5 MG IV ×3 (05:25→17:25)
[2024-08-13] MEDS: 0.9% Saline Lock 10 ML Syringe IV ×2 (05:25→20:03)
[2024-08-13] MEDS: Menthol/Lanolin/Calamine/Znox 113 GM Tube 1 APPLIC TOPICAL ×3 (05:25→20:37)
[2024-08-13 05:31] LABS: Differential Comment SCANNED
[2024-08-13 05:32] LABS: Anisocytosis 1+; Ovalocyte 2+
[2024-08-13] MEDS: Pantoprazole Sodium 40 MG Tablet PO ×2 (09:55→20:38)
[2024-08-13] MEDS: Sertraline 50 MG Tablet PO (09:55)
[2024-08-13] MEDS: APIXABAN 5 MG TABLET PO ×2 (09:55→20:38)
[2024-08-13] MEDS: Atorvastatin Calcium 20 MG Tablet PO (09:55)
--- NOTE | 2024-08-13 10:35 | PN.HOSP_ITS ---
Subjective Subjective Resting comfortably, no issues overnight Objective Data Objective Data Vital Signs: Vital Signs Temp Pulse Resp BP Pulse Ox O2 Del Method 97.8 F 92 18 129/71 H 97 Room Air 08/13/24 05:20 08/13/24 07:00 08/13/24 05:20 08/13/24 05:20 08/13/24 08:41 08/13/24 08:41 Oxygen Delivery Method Room Air Weight: 107 lb 9.369 oz Body Mass Index (BMI) 20.9 Intake & Output: Intake and Output for Last 24 Hours 08/12/24 08/13/24 08/14/24 03:59 03:59 03:59 Intake Total 1744 / 1744 718.33 / 718.33 Output Total 75 / 75 350 / 350 Balance 1669 / 1669 368.33 / 368.33 Lab / Micro Data 08/13/24 04:00 08/13/24 04:00 Labs: Laboratory Results - last 24 hr 08/12/24 11:39: WBC 11.5 H, RBC 4.06 L, Hgb 10.4 L, Hct 33.0 L, MCV 81.3, MCH 25.6 L, MCHC 31.5 L, RDW Std Deviation 67.0 H, RDW Coeff of [place] 22.8 H, Plt Count 274, MPV 10.3, Immature Gran % (Auto) 0.600, Neut % (Auto) 81.4 H, Lymph % (Auto) 9.2 L, [place] % (Auto) 7.6, Eos % (Auto) 0.9, Baso % (Auto) 0.3, Absolute Neuts (auto) 9.3 H, Absolute Lymphs (auto) 1.05, Nucleated RBC % 0, Differential Comment SCANNED, Anisocytosis 2+, Microcytosis 1+, Macrocytosis 1+, Sodium 141, Potassium 2.9 L, Chloride 110 H, Carbon Dioxide 24.0, Anion Gap 6, BUN 8, C reatinine 0.17 L, Est GFR (MDRD) Af Amer 521, Est GFR (MDRD) Non-Af 431, B UN/Creatinine Ratio 46.2 H, Glucose 91, Calcium 7.2 L, Magnesium 1.4 L, Total Bilirubin 0.60, AST 9 L, ALT 7 L, Alkaline Phosphatase 123 H, Troponin I High Sens 11, Total Protein 4.5 L, Albumin 1.4 L, Globulin 3.1, Albumin/Globulin Ratio 0.5 L, Lipase < 10 L 08/12/24 11:56: Urine Color Yellow, Urine Clarity Sl. Cloudy, Urine pH 5.0, Ur Specific [place] 1.015, Urine Protein 30 H, Urine Glucose (UA) Normal, Urine Ketones 5 H, Urine Occult Blood 10 H, Urine Nitrite Negative, Urine Bilirubin 3 H, Urine Urobilinogen 4 H, Ur Leukocyte Esterase 500 H, Urine RBC 0 SEEN, Urine WBC 0-5 SEEN, Ur Squamous Epith Cells 0-5 SEEN, Urine Bacteria 1+, Urine Mucus 0 SEEN, Urine Yeast 3+ 08/12/24 20:42: Sodium 136, Potassium 4.1, Chloride 107, Carbon Dioxide 25.0, A nion Gap 4 L, BUN 7, Creatinine 0.23 L, Estim Creat Clear Calc 41.63, Est GFR (MDRD) Af Amer 373, Est GFR (MDRD) Non-Af 309, BUN/Creatinine Ratio 30.3 H, Glucose 96, Calcium 7.5 L, Magnesium 2.4 08/13/24 04:00: WBC 10.7, RBC 4.39, Hgb 11.4 L, Hct 36.8 L, MCV 83.8, MCH 26.0 L , MCHC 31.0 L, RDW Std Deviation 70.6 H, RDW Coeff of [place] 23.3 H, Plt Count 251, MPV 10.9, Immature Gran % (Auto) 0.700, Neut % (Auto) 77.9 H, Lymph % (Auto) 11.1 L, [place] % (Auto) 7.8, Eos % (Auto) 2.0, Baso % (Auto) 0.5, Absolute Neuts (auto) 8.4 H, Absolute Lymphs (auto) 1.19, Nucleated RBC % 0, Differential Comment SCANNED, Anisocytosis 1+, Ovalocytes 2+, Sodium 138, Potassium 3.9, C hloride 109 H, Carbon Dioxide 25.0, Anion Gap 3 L, BUN 7, Creatinine 0.25 L, Estim Creat Clear Calc 41.63, Est GFR (MDRD) Af Amer 339, Est GFR (MDRD) Non-Af 280, BUN/Creatinine Ratio 27.9 H, Glucose 104, Calcium 7.6 L, Phosphorus 2.5, Magnesium 2.4, Total Bilirubin 0.80, AST 14 L, ALT 7 L, Alkaline Phosphatase 133 H, Total Protein 5.2 L, Albumin 1.6 L, Globulin 3.6, Albumin/Globulin Ratio 0.4 L Micro: Microbiology 08/12/24 11:56 Urine Catheter - Catheter Urine Culture - Preliminary Mixed Gram Pos & Gram Neg Org Radiography Diagnostic Testing: Radiology Impression Abdomen/Pelvis CT 08/12/24 09:30 IMPRESSION: 1. Stable appearing duodenal stent. 2. No evidence of bowel obstruction. 3. Diverticulosis coli. 4. Cholelithiasis. 5. Increasing compression deformity of the T12 vertebral body. Electronically Signed: Javed Gray MD at 12:52 EDT , Chest X-Ray 08/12/24 10:20 IMPRESSION: Stable pleural parenchymal changes at the left lung base. Electronically Signed: Giuseppe Young MD at 11:00 EDT , Physical Exam Narrative General: Alert, Oriented x3, Cooperative, No apparent distress HEENT: Atraumatic, PERRLA, EOMI, Normocephalic Oral: Moist Mucosa Neck: Supple, No JVD Lungs: Clear to auscultation, Normal air movement, No rhonchi, No wheeze, No rales Cardiovascular: Regular rate, Regular Rhythm, Normal S1, Normal S2, No murmurs Abdomen: Soft, Non Tender, Non-Distended, No Hepato-splenomegaly Extremities: No edema, Capillary Refill Less than 3 Seconds Skin: Skin breakdown in the right upper chest Musculoskeletal: No Tenderness to Palpation of Joints or Extremities Neurological: Continued chronic deficits from previous CVA Psych/Mental Status: Flat Assessment & Plan Assessment/Plan (1) Nausea and vomiting: QUALIFIERS: Vomiting type: unspecified Vomiting Intractability: u nspecified Qualified Code(s): R11.2 - Nausea with vomiting, unspecified PLAN: Plan 1. Nausea vomiting with history of gastroparesis/duodenal stenosis status post stent with history of GI bleeds ? Will resume her Reglan, unclear as to why it was discontinued ? Continue with IV fluids and monitor electrolytes ? Speech consult ? Continue with PPIs 2. Possible UTI ? She has a leukocytosis on admission and UA is somewhat positive ? Will check urine culture and hold off on any of antibiotics at this time 3. A-fib/history of CVA ? Continue with Eliquis ? Not on rate or rhythm control medications ? PT/OT for discharge back to SNF ? Continue statin 4. Anxiety/depression ? Stable ? Continue with home medications DVT: Eliquis Charges/Coding Visit Charges Inpatient E&M: 25213 Subs Hosp L2
--- NOTE | 2024-08-13 11:31 | CASEMGMT ---
Patient is from [facility] ([facility]). SW met with patient's daughter Delphine. Introduced self and role at [facility]. The plan is for patient to return to [facility] at discharge. Delphine expressed frustration that no one can figure out why patient is throwing up all of the time. Delphine feels everyone is dismissing patient due to her age and being bed bound. Patient does have an appt to get a second opinion. SW listened and provided emotional support. GILBERTO let Delphine know that SW will notify the physician that she would like to talk with him. Delphine was thankful. Kaykay RICHEY
--- NOTE | 2024-08-13 15:07 | CASEMGMT ---
SW went to patient's room to talk with patient's daughter Delphine per her request. Delphine asked SW if it is too early for Hospice. SW told Delphine that SW can talk with the physician. SW then explained how the process works. Delphine was in agreement. SW spoke with physician and he recommended waiting to see if the Reglan helps. SW spoke with Delphine and let her know this information. Delphine was in agreement. Kaykay RICHEY
[2024-08-13] MEDS: Albuterol 2.5 MG/3 ML VIAL.NEB. INHALATION (15:09)
--- NOTE | 2024-08-13 15:24 | CASEMGMT ---
Discharge Planning Updates sent via [facility] to [facility]. Requested confirmation that pt will not need precert to return. Gemma Mas DC Planning Asst.
--- NOTE | 2024-08-13 16:03 | CHAPLAIN ---
Type of Pastoral Visit ___ Initial Visit ___ Follow-up Visit ___ On-call Visit ___ General Patient Visit ___ Spiritual Assessment ___ Family Conference ___ Bereavement ___ Rapid Response ___ Code Blue ___ Other (describe below) Pastoral Care Referral From ___ Patient ___ Family ___ Nurse ___ Physician ___ Network Programmer ___ Associate Professor Of Geography ___ Other (describe below) Sacrament/Intervention ___ Active listening ___ Anointing ___ Sikhism ___ Bereavement ___ Communion ___ Christina exploration ___ ___ Life review ___ Prayer ___ Reconciliation ___ Sacrament of Sick ___ Supportive presence ___ Wedding ___ Other (describe below) Pastoral Comments attempted visit but patient was being attended by staff
[2024-08-13] MEDS: Mirtazapine 15 MG Tablet PO (20:38)
[2024-08-14] MEDS: Metoclopramide 10 MG/2 ML Vial 5 MG IV ×5 (00:06→23:20)
[2024-08-14] MEDS: 0.9% Saline Lock 10 ML Syringe IV ×2 (00:06→05:27)
[2024-08-14 01:45] VITALS: BP 155/95; PULSE 85; RESP 18; TEMP 36.9; O2SAT 96
[2024-08-14] MEDS: Menthol/Lanolin/Calamine/Znox 113 GM Tube 1 APPLIC TOPICAL ×3 (05:27→23:10)
[2024-08-14 05:30] VITALS: BP 147/90; PULSE 98; RESP 18; TEMP 36.5; O2SAT 97
[2024-08-14 06:09] LABS: Absolute Lymphocyte Count 0.98 X10^3/uL (0.83-4.51); Basophil# 0.03 X10^3/uL; Basophil% 0.3 % (0-1); Eosinophil# 0.15 X10^3/uL; Eosinophils% 1.5 % (0-5); Hematocrit 33.2 % (37-47); Hemoglobin 10.2 g/dL (12.0-15.0); Lymphocyte # 0.98 X10^3/ul (0.83-4.51); Lymphocyte % 9.8 % (19-41); Mean Corp Hgb Conc 30.7 g/dL (32-36); Mean Corpuscular Hgb 25.2 pg (27.0-32.0); Mean Corpuscular Volume 82.2 fL (81-99); Mean Platelet Vol. 10.1 fl (6.2-12.0); Monocyte# 0.77 X10^3/uL; Monocyte% 7.7 % (0-10); NRBC Flagged by Analyzer 0 % (0-5); Neutrophil # 7.99 X10^3/uL (2.7-7.7); Neutrophil % 79.8 % (47-70); POSITIVE MORPHOLOGY YES; Platelet Count 303 K/mm3 (150-450); RBC Distribution Width CV 23.4 % (11.6-14.6); Red Blood Count 4.04 M/mm3 (4.2-5.4)
[2024-08-14 06:34] LABS: Differential Indicated SCAN CRITERIA MET
[2024-08-14 06:47] LABS: Anion Gap 5 (5-15); BUN 8 mg/dL (7-18); BUN/Creat Ratio 27.8 RATIO (10-20); Calcium,Total 7.7 mg/dL (8.5-10.1); Chloride 110 mmol/L (98-107); Creatinine, Serum 0.29 mg/dL (0.55-1.02); EST Glomerular Filtration Rate 239 mL/min (>60); Est Glom Filt Rate - Afr Amer 289 mL/min (>60); Estimated Creatinine Clearance 41.63 ml/min; Glucose 122 mg/dL (74-106); Potassium 4.1 mmol/L (3.5-5.1); Sodium Level 139 mmol/L (136-145)
[2024-08-14 07:06] LABS: Anisocytosis 1+; Differential Comment SCANNED; Ovalocyte 1+; Stomatocyte 1+
--- NOTE | 2024-08-14 07:36 | US_ITS ---
INDICATION: Poor PO intake with N/V EXAMINATION: Ultrasound US Abdomen RUQ (limited) TECHNIQUE: Razo-scale and color Doppler imaging was performed of the abdomen. COMPARISON: FINDINGS: LIVER: There is coarse echotexture measuring 14.5 cm. No focal hepatic lesion. No intrahepatic biliary ductal dilatation. There is no free fluid. GALLBLADDER AND BILIARY TREE: Cholelithiasis. No pericholecystic fluid. Mild gallbladder wall thickening measuring 3.8 mm. The proximal common bile duct measures 2.6 mm, which is within normal limits for the patient''s age. SONOGRAPHIC VILLARREAL''S SIGN: Negative. PANCREAS: Limited visualization of the pancreas. Cystic nodules are noted with the 2 largest measuring 1.1 to 1.2 cm. No pancreatic ductal dilatation. RIGHT KIDNEY: 9.2 x 5.0 x 4.7 cm. The cortex is 9 mm. There is no hydronephrosis. No shadowing calculus, focal lesion, or perinephric collection is demonstrated. VESSELS: Submitted longitudinal images of the intra-abdominal aorta demonstrate no gross abnormalities and are unremarkable. The IVC is patent. US/Abdomen Limited IMPRESSION: Coarse hepatic echotexture. Cholelithiasis with gallbladder wall thickening. No biliary dilatation. Multiple cystic nodules in the pancreas. Electronically Signed: Tam Ohara DO at 16:15 EDT Reading Location ID and State: [facility] / [place] Tel [phone], Service support ,
[2024-08-14] MEDS: Pantoprazole Sodium 40 MG Tablet PO ×2 (10:01→23:09)
[2024-08-14] MEDS: Sertraline 50 MG Tablet PO (10:01)
[2024-08-14] MEDS: Atorvastatin Calcium 20 MG Tablet PO (10:01)
--- NOTE | 2024-08-14 14:14 | CHAPLAIN ---
Type of Pastoral Visit _x_ Initial Visit ___ Follow-up Visit ___ On-call Visit ___ General Patient Visit ___ Spiritual Assessment ___ Family Conference ___ Bereavement ___ Rapid Response ___ Code Blue ___ Other (describe below) Pastoral Care Referral From ___ Patient _x__ Family ___ Nurse ___ Physician ___ Poker Manager ___ Crisis Intervention Specialist ___ Other (describe below) Sacrament/Intervention _x__ Active listening ___ Anointing ___ Orthodox ___ Bereavement ___ Communion ___ Christina exploration ___ ___ Life review _x__ Prayer ___ Reconciliation ___ Sacrament of Sick _x__ Supportive presence ___ Wedding ___ Other (describe below) Pastoral Comments patient and daughter are in the room; pt is quietly resting in bed but awake; pt looks very frail and thin; pt however gives several big smiles when this diabetes education coordinator is interacting with her and answers with clear one or two word answers to each question; pt is not in distress but does not move her body or limbs; pt looks up often with her eyes to see her daughter, RN, or this diabetes education coordinator; daughter states concern about her decline and how she is going to get any better; both welcome a prayer and presence; offer of support to the daughter who states I don't know what I need but is tearful
[2024-08-14 15:53] VITALS: BP 116/77; PULSE 89; RESP 16; TEMP 36.8; O2SAT 96
--- NOTE | 2024-08-14 17:20 | PCM.PN.HOSP ---
Subjective Subjective Had some emesis overnight that tested positive for blood, vital signs have remained stable. Will recheck hemoglobin in the morning Objective Data Objective Data Vital Signs: Vital Signs Temp Pulse Resp BP Pulse Ox O2 Del Method 98.3 F 89 16 116/77 96 Room Air 08/14/24 15:53 08/14/24 15:53 08/14/24 15:53 08/14/24 15:53 08/14/24 15:53 08/14/24 15:53 Oxygen Delivery Method Room Air Weight: 118 lb 14.395 oz Body Mass Index (BMI) 20.9 Intake & Output: Intake and Output for Last 24 Hours 08/13/24 08/14/24 08/15/24 03:59 03:59 03:59 Intake Total 1744 / 1744 1030.00 / 1030.00 40 / 40 Output Total 75 / 75 350 / 350 200 / 200 Balance 1669 / 1669 680.00 / 680.00 -160 / -160 Medical Nutrition Assessment Dietitian: Malnutrition Criteria Met Start: 08/13/24 11:09 Freq: Status: Active Protocol: Document 08/13/24 13:58 SB (Rec: 08/13/24 13:59 SB [id number]) Nutrition Malnutrition Evidence of Malnutrition Exists Yes Malnutrition (severe): Chronic Evidenced By Suboptimal Energy Intake ( Severe),Weight Loss (Severe) Clinical Problem Chronic Disease or Condition Related Malnutrition Etiology severe related to inadequate oral intake Signs/Symptoms as evidenced by PO meeting <75 % of estimated energy needs x 1-2 months and 18% unintentional weight loss x 9 months. Status Active Problem Recommendation Dietitian Recommendations/Changes Adjust to liberal regular diet d/t signs and symptoms of malnutrition. Will order vanilla fortified pudding TID with meals. Will order magic cup with lunch and dinner. Will adjust ONS, as needed. Will monitor weight, as available. Reviewed and approved by Briseida Clark RD, LD. Lab / Micro Data 08/14/24 05:45 08/14/24 05:45 Labs: Laboratory Results - last 24 hr 08/14/24 05:45: WBC 10.0, RBC 4.04 L, Hgb 10.2 L, Hct 33.2 L, MCV 82.2, MCH 25.2 L, MCHC 30.7 L, RDW Std Deviation 69.0 H, RDW Coeff of Pelon 23.4 H, Plt Count 303, MPV 10.1, Immature Gran % (Auto) 0.900, Neut % (Auto) 79.8 H, Lymph % (Auto) 9.8 L, [place] % (Auto) 7.7, Eos % (Auto) 1.5, Baso % (Auto) 0.3, Absolute Neuts (auto) 8.0 H, Absolute Lymphs (auto) 0.98, Nucleated RBC % 0, Differential Comment SCANNED, Anisocytosis 1+, Ovalocytes 1+, Stomatocytes 1+, Sodium 139, Potassium 4.1, Chloride 110 H, Carbon Dioxide 24.0, Anion Gap 5, BUN 8, Creatinine 0.29 L, Estim Creat Clear Calc 41.63, Est GFR (MDRD) Af Amer 289, Est GFR (MDRD) Non-Af 239, BUN/Creatinine Ratio 27.8 H, Glucose 122 H, Calcium 7.7 L Micro: Microbiology 08/12/24 11:56 Urine Catheter - Catheter Urine Culture - Preliminary GNR lactose money room supervisor Staphylococcus aureus GPC Poss Enterococcus sp 08/14/24 06:20 Vomitus Gastric Occult Blood - Final Occult Blood Positive Radiography Diagnostic Testing: Radiology Impression Abdomen Ultrasound 08/14/24 07:36 IMPRESSION: Coarse hepatic echotexture. Cholelithiasis with gallbladder wall thickening. No biliary dilatation. Multiple cystic nodules in the pancreas. Electronically Signed: Tam Ohara DO at 16:15 EDT Reading Location ID and State: [address] [place] [address] Tel [phone], Service support , Physical Exam Narrative General: Alert, Oriented x2, Cooperative, No apparent distress HEENT: Atraumatic, PERRLA, EOMI, Normocephalic Oral: Moist Mucosa Neck: Supple, No JVD Lungs: Diminished, Normal air movement, No rhonchi, No wheeze, No rales Cardiovascular: Regular rate, Regular Rhythm, Normal S1, Normal S2, No murmurs Abdomen: Soft, Non Tender, Non-Distended, No Hepato-splenomegaly Extremities: No edema, Capillary Refill Less than 3 Seconds Skin: Skin breakdown in the right upper chest Musculoskeletal: No Tenderness to Palpation of Joints or Extremities Neurological: Continued chronic deficits from previous CVA Psych/Mental Status: Flat Assessment & Plan Assessment/Plan (1) Nausea and vomiting: QUALIFIERS: Vomiting type: unspecified Vomiting Intractability: unspecified Qualified Code(s): R11.2 - Nausea with vomiting, unspecified PLAN: Plan 1. Nausea vomiting with history of gastroparesis/duodenal stenosis status post stent with history of GI bleeds ? Will resume her Reglan, unclear as to why it was discontinued ? Continue with IV fluids and monitor electrolytes ? Speech consult, recommending pur?ed diet ? Continue with PPIs ? CT scan does not show any abnormalities of her liver however ultrasound of her abdomen demonstrated a coarse echogenicity which is possibly consistent with cirrhosis. I had a long discussion with the family about the possibility of a liver biopsy versus a cholecystostomy tube secondary to the fact that she did have some gallbladder wall thickening which could be related to either gallbladder disease or liver disease. 2. Possible UTI ? She has a leukocytosis on admission and UA is somewhat positive ?Urine culture with 50-80,000 CFU's of GNR, 11-25,000 CFU of Staph aureus and 25-50,000 of possible Enterococcus ? Will await final cultures prior to initiating antibiotic therapy 3. A-fib/history of CVA ?Will hold Eliquis given her positive gastric occult ? Not on rate or rhythm control medications ? PT/OT for discharge back to SNF ? Continue statin 4. Anxiety/depression ? Stable ? Continue with home medications DVT: SCDs Charges/Coding Visit Charges Inpatient E&M: 90197 Subs Hosp L2
--- NOTE | 2024-08-14 18:03 | NURSING ---
Pt c/o her stomach hurting and intermittent emesis after meals, however, the pt's daughter continues to force feed the pt despite educating her that she probably shouldn't be eating if these adverse effects keep happening. Offered zofran at this time and the pt declined. Pt's daughter continues to spoon jello into pt's mouth.
[2024-08-14 23:00] VITALS: BP 124/77; PULSE 94; RESP 18; TEMP 36.1; O2SAT 94
[2024-08-14] MEDS: Mirtazapine 15 MG Tablet PO (23:09)
[2024-08-15 05:00] VITALS: BP 144/87; PULSE 96; RESP 18; TEMP 36.1; O2SAT 98
[2024-08-15 05:35] LABS: Absolute Lymphocyte Count 1.29 X10^3/uL (0.83-4.51); Absolute Neutrophil Count 11.4 X10^3/uL (2.0-7.7); Basophil# 0.07 X10^3/uL; Basophil% 0.5 % (0-1); Eosinophil# 0.16 X10^3/uL; Eosinophils% 1.1 % (0-5); Hematocrit 31.9 % (37-47); Hemoglobin 10.2 g/dL (12.0-15.0); Lymphocyte # 1.29 X10^3/ul (0.83-4.51); Lymphocyte % 9.1 % (19-41); Mean Corpuscular Hgb 26.4 pg (27.0-32.0); Mean Corpuscular Volume 82.6 fL (81-99); Mean Platelet Vol. 10.2 fl (6.2-12.0); Monocyte# 1.09 X10^3/uL; Monocyte% 7.7 % (0-10); NRBC Flagged by Analyzer 0 % (0-5); Neutrophil # 11.43 X10^3/uL (2.7-7.7); Neutrophil % 80.9 % (47-70); POSITIVE MORPHOLOGY YES; Platelet Count 312 K/mm3 (150-450); RBC Distribution Width CV 23.4 % (11.6-14.6); Red Blood Count 3.86 M/mm3 (4.2-5.4); White Blood Count 14.1 K/mm3 (4.4-11.0)
[2024-08-15 05:42] LABS: Differential Indicated SCAN CRITERIA MET
[2024-08-15 06:06] LABS: Anion Gap 4 (5-15); BUN 7 mg/dL (7-18); BUN/Creat Ratio 29.8 RATIO (10-20); Calcium,Total 8.1 mg/dL (8.5-10.1); Chloride 108 mmol/L (98-107); Creatinine, Serum 0.24 mg/dL (0.55-1.02); EST Glomerular Filtration Rate 303 mL/min (>60); Est Glom Filt Rate - Afr Amer 366 mL/min (>60); Estimated Creatinine Clearance 41.63 ml/min; Glucose 123 mg/dL (74-106); Potassium 3.9 mmol/L (3.5-5.1); Sodium Level 138 mmol/L (136-145)
[2024-08-15] MEDS: Metoclopramide 10 MG/2 ML Vial 5 MG IV ×3 (06:11→17:36)
[2024-08-15] MEDS: Menthol/Lanolin/Calamine/Znox 113 GM Tube 1 APPLIC TOPICAL ×3 (06:12→21:28)
[2024-08-15 06:49] LABS: Anisocytosis 2+
--- NOTE | 2024-08-15 07:27 | PCM.PN.HOSP ---
Reason for Visit Reason for Visit: Diagnoses Nausea with vomiting, unspecified (08/12/24) Subjective Subjective Patient is a 78-year-old lady with chronic debility resident at an extended care facility who was brought to the emergency department with progressive generalized weakness. Objective Data Objective Data Vital Signs: Vital Signs Temp Pulse Resp BP Pulse Ox O2 Del Method 97.0 F L 96 18 144/87 H 98 Room Air 08/15/24 05:00 08/15/24 05:00 08/15/24 05:00 08/15/24 05:00 08/15/24 05:00 08/15/24 06:49 Oxygen Delivery Method Room Air Weight: 53.932 kg Body Mass Index (BMI) 20.9 Intake & Output: Intake and Output for Last 24 Hours 08/13/24 08/14/24 08/15/24 23:59 23:59 23:59 Intake Total 1030.00 / 1030.00 40 / 240 320 / 320 Output Total 350 / 350 200 / 200 Balance 680.00 / 680.00 -160 / 40 320 / 320 Medical Nutrition Assessment Dietitian: Malnutrition Criteria Met Start: 08/13/24 11:09 Freq: Status: Active Protocol: Document 08/13/24 13:58 SB (Rec: 08/13/24 13:59 SB [id number]) Nutrition Malnutrition Evidence of Malnutrition Exists Yes Malnutrition (severe): Chronic Evidenced By Suboptimal Energy Intake ( Severe),Weight Loss (Severe) Clinical Problem Chronic Disease or Condition Related Malnutrition Etiology severe related to inadequate oral intake Signs/Symptoms as evidenced by PO meeting <75 % of estimated energy needs x 1-2 months and 18% unintentional weight loss x 9 months. Status Active Problem Recommendation Dietitian Recommendations/Changes Adjust to liberal regular diet d/t signs and symptoms of malnutrition. Will order vanilla fortified pudding TID with meals. Will order magic cup with lunch and dinner. Will adjust ONS, as needed. Will monitor weight, as available. Reviewed and approved by Briseida Clark RD, LD. Lab / Micro Data 08/15/24 04:34 08/15/24 04:34 Labs: Laboratory Results - last 24 hr 08/15/24 04:34: WBC 14.1 H, RBC 3.86 L, Hgb 10.2 L, Hct 31.9 L, MCV 82.6, MCH 26.4 L, MCHC 32.0, RDW Std Deviation 70.0 H, RDW Coeff of Pelon 23.4 H, Plt Count 312, MPV 10.2, Immature Gran % (Auto) 0.700, Neut % (Auto) 80.9 H, Lymph % (Auto) 9.1 L, [place] % (Auto) 7.7, Eos % (Auto) 1.1, Baso % (Auto) 0.5, Absolute Neuts (auto) 11.4 H, Absolute Lymphs (auto) 1.29, Nucleated RBC % 0, Anisocytosis 2+, Sodium 138, Potassium 3.9, Chloride 108 H, Carbon Dioxide 26.0, Anion Gap 4 L, BUN 7, Creatinine 0.24 L, Estim Creat Clear Calc 41.63, Est GFR (MDRD) Af Amer 366, Est GFR (MDRD) Non-Af 303, BUN/Creatinine Ratio 29.8 H, Glucose 123 H, Calcium 8.1 L Micro: Microbiology 08/12/24 11:56 Urine Catheter - Catheter Urine Culture - Final Escherichia coli Staphylococcus aureus Enterococcus faecalis 08/14/24 06:20 Vomitus Gastric Occult Blood - Final Occult Blood Positive Radiography Diagnostic Testing: Radiology Impression Abdomen Ultrasound 08/14/24 07:36 IMPRESSION: Coarse hepatic echotexture. Cholelithiasis with gallbladder wall thickening. No biliary dilatation. Multiple cystic nodules in the pancreas. Electronically Signed: Tam Ohara DO at 16:15 EDT Reading Location ID and State: [address] [place] [address] Tel [phone], Service support , Physical Exam Narrative GENERAL: cooperative HEENT: Atraumatic; normocephalic EYES; Anicteric, Normal Conjunctiva NECK; supple, normal thyroid, RESPIRATORY: Diminished to auscultation CARDIOVASCULAR: Regular S1 S2, GI: soft, normoactive bowel sounds, : No Renal angle tenderness; EXTREMITIES: No edema, no clubbing, MUSCULOSKELETAL: Contractures of extremities NEURO: Awake; right-sided hemiparesis SKIN: No Rash PSYCH; Flat affect t Assessment & Plan Assessment/Plan (1) Nausea and vomiting: QUALIFIERS: Vomiting Intractability: unspecified Vomiting type: unspecified Qualified Code(s): R11.2 - Nausea with vomiting, unspecified PLAN: Plan Patient is a 78-year-old lady with chronic debility resident at an extended care facility who was brought to the emergency department with progressive generalized weakness. 1. Dehydration ? Secondary to intractable nausea vomiting patient managed with IV fluids 2. Intractable nausea vomiting ? Secondary to suspected gastroparesis patient started on Reglan 3. History of pyloric and duodenal stenosis ? Status post duodenal stent placement. Patient is followed by Dr. Barlow as outpatient 4. Suspected cystitis ? Urine cultures grew E. coli and Staph aureus as well as Enterococcus. Patient started on ciprofloxacin based on sensitivities 5.Paroxysmal A-fib ? Patient was on Eliquis held on admission given the fact that patient has history of multiple bleeding ulcers as well as being guaiac positive on admission 6. Suspected cirrhosis of the liver -Gallbladder ultrasound obtained demonstrated coarse echotexture questionable for possible cirrhosis of the liver. Patient was also found to have cholelithiasis with gallbladder wall thickening with no biliary dilatation. Ordered HIDA scan and if positive will obtain surgery consultation 7. Thromboembolic CVA ? Fluids residual right-sided weakness with subsequent contractures 8. Rheumatoid arthritis ? Complicating care patient has significant debility with contractures patient is on meloxicam held given patient GI bleed 9. Dyslipidemia -Patient is on statin therapy, continued at home dose 10. Increasing compression deformity of the T12 vertebral body. 11. Depression with anxiety ? Patient is on Zoloft 12. Physical deconditioning with functional quadriplegia - Requested for PT OT eval and transition social worker to assist with discharge planning. Plan for patient to be discharged to halfway facility pending insurance approval 10. DVT prophylaxis ? Bilateral SCD Time spent in the patient's overall evaluation,decision-making process, review of diagnostic data, adjustment of management, discussion with other providers, nursing nursing and ancillary staff involved in patient's care documentation, 38minutes Charges/Coding Visit Charges Inpatient E&M: 31968 Subs Hosp L2
[2024-08-15 08:43] VITALS: BP 145/89; PULSE 96; RESP 18; TEMP 36.8; O2SAT 96
[2024-08-15] MEDS: Sertraline 50 MG Tablet PO (09:00)
[2024-08-15] MEDS: Pantoprazole Sodium 40 MG Tablet PO ×2 (09:00→21:27)
[2024-08-15] MEDS: Atorvastatin Calcium 20 MG Tablet PO (09:00)
[2024-08-15] MEDS: 0.9% Saline Lock 10 ML Syringe IV (11:43)
[2024-08-15 14:26] VITALS: BP 136/79; PULSE 93; RESP 20; TEMP 36.4; O2SAT 93
[2024-08-15 15:00] VITALS: PULSE 88
[2024-08-15] MEDS: Ciprofloxacin 500 MG Tablet PO (21:27)
[2024-08-15] MEDS: Mirtazapine 15 MG Tablet PO (21:28)
[2024-08-15 21:29] VITALS: BP 129/87; PULSE 86; RESP 20; TEMP 36.8; O2SAT 93
[2024-08-15 22:25] VITALS: BP 129/87; PULSE 86; RESP 20; TEMP 36.8; O2SAT 93
[2024-08-16] MEDS: Metoclopramide 10 MG/2 ML Vial 5 MG IV ×5 (00:05→23:12)
[2024-08-16 04:02] VITALS: BP 106/74; PULSE 87; RESP 20; TEMP 36.6; O2SAT 95
[2024-08-16] MEDS: Menthol/Lanolin/Calamine/Znox 113 GM Tube 1 APPLIC TOPICAL ×3 (05:42→20:28)
[2024-08-16 06:45] LABS: Absolute Lymphocyte Count 1.17 X10^3/uL (0.83-4.51); Absolute Neutrophil Count 9.2 X10^3/uL (2.0-7.7); Basophil# 0.05 X10^3/uL; Basophil% 0.4 % (0-1); Eosinophil# 0.26 X10^3/uL; Eosinophils% 2.2 % (0-5); Hematocrit 31.1 % (37-47); Hemoglobin 9.9 g/dL (12.0-15.0); Lymphocyte # 1.17 X10^3/ul (0.83-4.51); Mean Corp Hgb Conc 31.8 g/dL (32-36); Mean Corpuscular Hgb 26.3 pg (27.0-32.0); Mean Corpuscular Volume 82.5 fL (81-99); Mean Platelet Vol. 10.5 fl (6.2-12.0); Monocyte# 0.98 X10^3/uL; Monocyte% 8.4 % (0-10); NRBC Flagged by Analyzer 0.2 % (0-5); Neutrophil % 78.5 % (47-70); POSITIVE MORPHOLOGY YES; Platelet Count 266 K/mm3 (150-450); RBC Distribution Width CV 23.5 % (11.6-14.6); RBC Distribution Width SD 69.2 fl (35.1-43.9); Red Blood Count 3.77 M/mm3 (4.2-5.4); White Blood Count 11.7 K/mm3 (4.4-11.0)
[2024-08-16 06:57] LABS: Differential Indicated SCAN CRITERIA MET
[2024-08-16 07:11] LABS: Anion Gap 5 (5-15); BUN 7 mg/dL (7-18); BUN/Creat Ratio 33.7 RATIO (10-20); Calcium,Total 7.9 mg/dL (8.5-10.1); Chloride 108 mmol/L (98-107); Creatinine, Serum 0.21 mg/dL (0.55-1.02); EST Glomerular Filtration Rate 348 mL/min (>60); Est Glom Filt Rate - Afr Amer 421 mL/min (>60); Estimated Creatinine Clearance 41.63 ml/min; Glucose 88 mg/dL (74-106); Magnesium 1.8 mg/dL (1.6-2.6); Phosphorus 2.7 mg/dL (2.5-4.9); Potassium 3.8 mmol/L (3.5-5.1); Sodium Level 138 mmol/L (136-145)
--- NOTE | 2024-08-16 07:43 | PN.HOSP_ITS ---
Reason for Visit Reason for Visit: Diagnoses Nausea with vomiting, unspecified (08/12/24) Subjective Subjective Patient seen no vomiting episode this a.m. Scheduled to undergo HIDA scan eval on 08/17/2024 had an extensive discussion with the patient's family regarding plan of care moving forward Objective Data Objective Data Vital Signs: Vital Signs Temp Pulse Resp BP Pulse Ox O2 Del Method 98 F 87 20 H 106/74 95 Room Air 08/16/24 04:02 08/16/24 04:02 08/16/24 04:02 08/16/24 04:02 08/16/24 04:02 08/16/24 05:00 Oxygen Delivery Method Room Air Weight: 53.932 kg Body Mass Index (BMI) 20.9 Intake & Output: Intake and Output for Last 24 Hours 08/14/24 08/15/24 08/16/24 23:59 23:59 23:59 Intake Total 40 / 240 560 / 560 Output Total 200 / 200 Balance -160 / 40 560 / 560 Medical Nutrition Assessment Dietitian: Malnutrition Criteria Met Start: 08/13/24 11:09 Freq: Status: Active Protocol: Document 08/13/24 13:58 SB (Rec: 08/13/24 13:59 SB [id number]) Nutrition Malnutrition Evidence of Malnutrition Exists Yes Malnutrition (severe): Chronic Evidenced By Suboptimal Energy Intake ( Severe),Weight Loss (Severe) Clinical Problem Chronic Disease or Condition Related Malnutrition Etiology severe related to inadequate oral intake Signs/Symptoms as evidenced by PO meeting <75 % of estimated energy needs x 1-2 months and 18% unintentional weight loss x 9 months. Status Active Problem Recommendation Dietitian Recommendations/Changes Adjust to liberal regular diet d/t signs and symptoms of malnutrition. Will order vanilla fortified pudding TID with meals. Will order magic cup with lunch and dinner. Will adjust ONS, as needed. Will monitor weight, as available. Reviewed and approved by Briseida Clark RD, LD. Lab / Micro Data 08/16/24 05:13 08/16/24 05:13 Labs: Laboratory Results - last 24 hr 08/16/24 05:13: WBC 11.7 H, RBC 3.77 L, Hgb 9.9 L, Hct 31.1 L, MCV 82.5, MCH 26.3 L, MCHC 31.8 L, RDW Std Deviation 69.2 H, RDW Coeff of Pelon 23.5 H, Plt Count 266, MPV 10.5, Immature Gran % (Auto) 0.500, Neut % (Auto) 78.5 H, Lymph % (Auto) 10.0 L, [place] % (Auto) 8.4, Eos % (Auto) 2.2, Baso % (Auto) 0.4, Absolute Neuts (auto) 9.2 H, Absolute Lymphs (auto) 1.17, Nucleated RBC % 0.2, Sodium 138, Potassium 3.8, Chloride 108 H, Carbon Dioxide 25.0, Anion Gap 5, BUN 7, C reatinine 0.21 L, Estim Creat Clear Calc 41.63, Est GFR (MDRD) Af Amer 421, Est GFR (MDRD) Non-Af 348, BUN/Creatinine Ratio 33.7 H, Glucose 88, Calcium 7.9 L, Phosphorus 2.7, Magnesium 1.8 Micro: Microbiology 08/12/24 11:56 Urine Catheter - Catheter Urine Culture - Final Escherichia coli Staphylococcus aureus Enterococcus faecalis 08/14/24 06:20 Vomitus Gastric Occult Blood - Final Occult Blood Positive Physical Exam Narrative GENERAL: cooperative HEENT: Atraumatic; normocephalic EYES; Anicteric, Normal Conjunctiva NECK; supple, normal thyroid, RESPIRATORY: Diminished to auscultation CARDIOVASCULAR: Regular S1 S2, GI: soft, normoactive bowel sounds, : No Renal angle tenderness; EXTREMITIES: No edema, no clubbing, MUSCULOSKELETAL: Contractures of extremities NEURO: Awake; right-sided hemiparesis SKIN: No Rash PSYCH; Flat affect t Assessment & Plan Assessment/Plan (1) Nausea and vomiting: QUALIFIERS: Vomiting Intractability: unspecified Vomiting type: u nspecified Qualified Code(s): R11.2 - Nausea with vomiting, unspecified PLAN: Plan Patient is a 78-year-old lady with chronic debility resident at an extended care facility who was brought to the emergency department with progressive generalized weakness. 1. Dehydration ? Secondary to intractable nausea vomiting patient managed with IV fluids ? 08/16/2024 dehydration resolved 2. Intractable nausea vomiting ? Secondary to suspected gastroparesis patient started on Reglan 3. History of pyloric and duodenal stenosis ? Status post duodenal stent placement. Patient is followed by Dr. Friend as outpatient 4. Suspected cystitis ? Urine cultures grew E. coli and Staph aureus as well as Enterococcus. Patient started on ciprofloxacin based on sensitivities 5.Paroxysmal A-fib ? Patient was on Eliquis held on admission given the fact that patient has history of multiple bleeding ulcers as well as being guaiac positive on admission 6. Suspected cirrhosis of the liver -Gallbladder ultrasound obtained demonstrated coarse echotexture questionable for possible cirrhosis of the liver. Patient was also found to have cholelithiasis with gallbladder wall thickening with no biliary dilatation. Ordered HIDA scan and if positive will obtain surgery consultation ? 08/16/2024 scheduled to undergo HIDA scan eval on 08/17/2020 7. Thromboembolic CVA ? Fluids residual right-sided weakness with subsequent contractures 8. Rheumatoid arthritis ? Complicating care patient has significant debility with contractures patient is on meloxicam held given patient GI bleed 9. Dyslipidemia -Patient is on statin therapy, continued at home dose 10. Increasing compression deformity of the T12 vertebral body. 11. Depression with anxiety ? Patient is on Zoloft 12. Physical deconditioning with functional quadriplegia - Requested for PT OT eval and case management social worker to assist with discharge planning. Plan for patient to be discharged to [facility] facility pending insurance approval 10. DVT prophylaxis ? Bilateral SCD Time spent in the patient's overall evaluation,decision-making process, review of diagnostic data, adjustment of management, discussion with other providers, nursing nursing and ancillary staff involved in patient's care documentation, 36 minutes Charges/Coding Visit Charges Inpatient E&M: 67931 Subs Hosp L2
[2024-08-16 09:19] LABS: Differential Comment SCANNED
[2024-08-16 09:20] LABS: Anisocytosis 2+; Microcytosis 1+; Ovalocyte 3+; Platelet Estimate ADEQUATE (ADEQ)
[2024-08-16 10:38] VITALS: BP 118/73; PULSE 97; RESP 16; TEMP 36.8; O2SAT 95
[2024-08-16 10:41] VITALS: BP 118/73; PULSE 87; RESP 16; TEMP 36.8; O2SAT 97
[2024-08-16] MEDS: Pantoprazole Sodium 40 MG Tablet PO (10:50)
[2024-08-16] MEDS: Ciprofloxacin 500 MG Tablet PO (10:50)
[2024-08-16] MEDS: Sertraline 50 MG Tablet PO (10:50)
[2024-08-16] MEDS: Atorvastatin Calcium 20 MG Tablet PO (10:51)
[2024-08-16] MEDS: 0.9% Saline Lock 10 ML Syringe IV ×2 (12:31→17:47)
[2024-08-16 15:30] VITALS: BP 108/58; PULSE 77; RESP 16; TEMP 36.6; O2SAT 96
[2024-08-16 17:43] VITALS: BP 123/76; PULSE 82; RESP 16; TEMP 36.8; O2SAT 97
[2024-08-16 21:30] VITALS: BP 125/76; PULSE 81; RESP 17; TEMP 36.3; O2SAT 95
[2024-08-17 03:30] VITALS: BP 142/93; PULSE 82; RESP 16; TEMP 36.2; O2SAT 98
[2024-08-17 04:42] VITALS: BP 142/93; PULSE 82; RESP 16; TEMP 36.2; O2SAT 98
[2024-08-17] MEDS: Menthol/Lanolin/Calamine/Znox 113 GM Tube 1 APPLIC TOPICAL ×3 (05:23→21:22)
[2024-08-17] MEDS: Metoclopramide 10 MG/2 ML Vial 5 MG IV ×4 (05:23→23:05)
[2024-08-17 07:07] LABS: Anion Gap 7 (5-15); BUN 6 mg/dL (7-18); BUN/Creat Ratio 23.4 RATIO (10-20); Calcium,Total 7.5 mg/dL (8.5-10.1); Chloride 108 mmol/L (98-107); Creatinine, Serum 0.26 mg/dL (0.55-1.02); EST Glomerular Filtration Rate 274 mL/min (>60); Est Glom Filt Rate - Afr Amer 332 mL/min (>60); Estimated Creatinine Clearance 41.63 ml/min; Glucose 112 mg/dL (74-106); Potassium 4.1 mmol/L (3.5-5.1); Sodium Level 138 mmol/L (136-145)
[2024-08-17 07:09] LABS: Absolute Lymphocyte Count 1.31 X10^3/uL (0.83-4.51); Absolute Neutrophil Count 10.7 X10^3/uL (2.0-7.7); Basophil# 0.07 X10^3/uL; Basophil% 0.5 % (0-1); Eosinophil# 0.25 X10^3/uL; Eosinophils% 1.9 % (0-5); Hematocrit 29.6 % (37-47); Hemoglobin 9.5 g/dL (12.0-15.0); Lymphocyte # 1.31 X10^3/ul (0.83-4.51); Lymphocyte % 9.8 % (19-41); Mean Corp Hgb Conc 32.1 g/dL (32-36); Mean Corpuscular Hgb 26.1 pg (27.0-32.0); Mean Corpuscular Volume 81.3 fL (81-99); Mean Platelet Vol. 9.3 fl (6.2-12.0); Monocyte# 0.95 X10^3/uL; Monocyte% 7.1 % (0-10); NRBC Flagged by Analyzer 0 % (0-5); Neutrophil # 10.67 X10^3/uL (2.7-7.7); POSITIVE MORPHOLOGY YES; Platelet Count 264 K/mm3 (150-450); RBC Distribution Width CV 23.2 % (11.6-14.6); RBC Distribution Width SD 67.8 fl (35.1-43.9); Red Blood Count 3.64 M/mm3 (4.2-5.4); White Blood Count 13.3 K/mm3 (4.4-11.0)
[2024-08-17 07:15] LABS: Differential Indicated SCAN CRITERIA MET
--- NOTE | 2024-08-17 07:26 | PCM.PN.HOSP ---
Reason for Visit Reason for Visit: Diagnoses Nausea with vomiting, unspecified (08/12/24) Subjective Subjective Patient seen, no nausea this a.m. HIDA scan obtained came back consistent with acute cholecystitis Objective Data Objective Data Vital Signs: Vital Signs Temp Pulse Resp BP Pulse Ox O2 Del Method 97.2 F L 82 16 142/93 H 98 Room Air 08/17/24 04:42 08/17/24 04:42 08/17/24 04:42 08/17/24 04:42 08/17/24 04:42 08/17/24 04:42 Oxygen Delivery Method Room Air Weight: 53.932 kg Body Mass Index (BMI) 20.9 Intake & Output: Intake and Output for Last 24 Hours 08/15/24 08/16/24 08/17/24 23:59 23:59 23:59 Intake Total 560 / 560 320 / 320 50 / 50 Balance 560 / 560 320 / 320 50 / 50 Medical Nutrition Assessment Dietitian: Malnutrition Criteria Met Start: 08/13/24 11:09 Freq: Status: Active Protocol: Document 08/13/24 13:58 SB (Rec: 08/13/24 13:59 SB [id number]) Nutrition Malnutrition Evidence of Malnutrition Exists Yes Malnutrition (severe): Chronic Evidenced By Suboptimal Energy Intake ( Severe),Weight Loss (Severe) Clinical Problem Chronic Disease or Condition Related Malnutrition Etiology severe related to inadequate oral intake Signs/Symptoms as evidenced by PO meeting <75 % of estimated energy needs x 1-2 months and 18% unintentional weight loss x 9 months. Status Active Problem Recommendation Dietitian Recommendations/Changes Adjust to liberal regular diet d/t signs and symptoms of malnutrition. Will order vanilla fortified pudding TID with meals. Will order magic cup with lunch and dinner. Will adjust ONS, as needed. Will monitor weight, as available. Reviewed and approved by Briseida Clark, RD, LD. Lab / Micro Data 08/17/24 07:03 08/17/24 05:29 Labs: Laboratory Results - last 24 hr 08/16/24 05:13: Differential Comment SCANNED, Platelet Estimate ADEQUATE, Anisocytosis 2+, Microcytosis 1+, Ovalocytes 3+ 08/17/24 05:29: WBC Cancelled, Corrected WBC Cancelled, RBC Cancelled, Hgb Cancelled, Hct Cancelled, MCV Cancelled, MCH Cancelled, MCHC Cancelled, RDW Std Deviation Cancelled, RDW Coeff of Pelon Cancelled, Plt Count Cancelled, MPV Cancelled, Immature Gran % (Auto) Cancelled, Neut % (Auto) Cancelled, Lymph % (Auto) Cancelled, Haines % (Auto) Cancelled, Eos % (Auto) Cancelled, Baso % (Auto) Cancelled, Absolute Neuts (auto) Cancelled, Absolute Lymphs (auto) Cancelled, Total Counted Cancelled, Neutrophils % (Manual) Cancelled, Band Neutrophils % Cancelled, Lymphocytes % (Manual) Cancelled, Monocytes % (Manual) Cancelled, Eosinophils % (Manual) Cancelled, Basophils % (Manual) Cancelled, Metamyelocytes % Cancelled, Myelocytes % Cancelled, Promyelocytes % Cancelled, Blast Cells % Cancelled, Plasma Cell % (Manual) Cancelled, Other Cells % Cancelled, Nucleated RBC % Cancelled, Nucleated RBCs/100 WBC Cancelled, Differential Comment Cancelled, Diff Path Review Cancelled, Hypersegmented Neuts Cancelled, Atypical Lymphocytes Cancelled, Reactive Lymphocytes Cancelled, Smudge Cells Cancelled, Toxic Granulation Cancelled, Toxic Vacuolation Cancelled, Dohle Bodies Cancelled, Palma Rods Cancelled, Platelet Estimate Cancelled, Plt Morphology Comment Cancelled, RBC Morphology Cancelled 08/17/24 05:29: RBC Morphology Cancelled, Polychromasia Cancelled, Hypochromasia Cancelled, Basophilic Stippling Cancelled, Anisocytosis Cancelled, Microcytosis Cancelled, Macrocytosis Cancelled, Spherocytes Cancelled, Sickle Cells Cancelled, Target Cells Cancelled, Tear Drop Cells Cancelled, Ovalocytes Cancelled, Stomatocytes Cancelled, Pack-[place] Bodies Cancelled, [place] Cells Cancelled, Bite Cells Cancelled, Crenated Cell Cancelled, Acanthocytes (Spur) Cancelled, Rouleaux Cancelled, Schistocytes Cancelled, Sodium 138, Potassium 4.1, Chloride 108 H, Carbon Dioxide 23.0, Anion Gap 7, BUN 6 L, Creatinine 0.26 L, Estim Creat Clear Calc 41.63, Est GFR (MDRD) Af Amer 332, Est GFR (MDRD) Non-Af 274, BUN/Creatinine Ratio 23.4 H, Glucose 112 H, Calcium 7.5 L 08/17/24 07:03: WBC 13.3 H, RBC 3.64 L, Hgb 9.5 L, Hct 29.6 L, MCV 81.3, MCH 26.1 L, MCHC 32.1, RDW Std Deviation 67.8 H, RDW Coeff of Pelon 23.2 H, Plt Count 264, MPV 9.3, Immature Gran % (Auto) 0.700, Neut % (Auto) 80.0 H, Lymph % (Auto) 9.8 L, Haines % (Auto) 7.1, Eos % (Auto) 1.9, Baso % (Auto) 0.5, Absolute Neuts (auto) 10.7 H, Absolute Lymphs (auto) 1.31, Nucleated RBC % 0 Micro: Microbiology 08/12/24 11:56 Urine Catheter - Catheter Urine Culture - Final Escherichia coli Staphylococcus aureus Enterococcus faecalis 08/14/24 06:20 Vomitus Gastric Occult Blood - Final Occult Blood Positive Physical Exam Narrative GENERAL: cooperative HEENT: Atraumatic; normocephalic EYES; Anicteric, Normal Conjunctiva NECK; supple, normal thyroid, RESPIRATORY: Diminished to auscultation CARDIOVASCULAR: Regular S1 S2, GI: soft, normoactive bowel sounds, : No Renal angle tenderness; EXTREMITIES: No edema, no clubbing, MUSCULOSKELETAL: Contractures of extremities NEURO: Awake; right-sided hemiparesis SKIN: No Rash PSYCH; Flat affect t Assessment & Plan Assessment/Plan (1) Nausea and vomiting: QUALIFIERS: Vomiting Intractability: unspecified Vomiting type: unspecified Qualified Code(s): R11.2 - Nausea with vomiting, unspecified PLAN: Plan Patient is a 78-year-old lady with chronic debility resident at an extended care facility who was brought to the emergency department with progressive generalized weakness. 1. Dehydration ? Secondary to intractable nausea vomiting patient managed with IV fluids ? 08/16/2024 dehydration resolved 2. Intractable nausea vomiting ? Secondary to suspected gastroparesis patient started on Reglan 3. History of pyloric and duodenal stenosis ? Status post duodenal stent placement. Patient is followed by Dr. Barlow as outpatient 4. Suspected cystitis ? Urine cultures grew E. coli and Staph aureus as well as Enterococcus. Patient started on ciprofloxacin based on sensitivities 5.Paroxysmal A-fib ? Patient was on Eliquis held on admission given the fact that patient has history of multiple bleeding ulcers as well as being guaiac positive on admission 6. Suspected cirrhosis of the liver -Gallbladder ultrasound obtained demonstrated coarse echotexture questionable for possible cirrhosis of the liver. 7. Suspected acute cholecystitis Patient was also found to have cholelithiasis with gallbladder wall thickening with no biliary dilatation. Ordered HIDA scan and if positive will obtain surgery consultation ? 08/16/2024 scheduled to undergo HIDA scan eval on 08/17/2024 -08/17/2024; HIDA scan came back consistent with acute cholecystitis. Consult was placed to general surgery Dr. Lovett apparently familiar with the patient. She had previously discussed with the patient's daughter to follow-up with the surgeon at [facility] and patient has an appointment on 08/20/2024. This was discussed with patient's daughter who who did confirm of the upcoming appointment. 8. Rheumatoid arthritis ? Complicating care patient has significant debility with contractures patient is on meloxicam held given patient GI bleed 9. Dyslipidemia -Patient is on statin therapy, continued at home dose 10. 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 Depression with anxiety ? Patient is on Zoloft 12. Physical deconditioning with functional quadriplegia - Requested for PT OT eval and social services assistant to assist with discharge planning. Plan for patient to be discharged to custodial facility pending insurance approval 10. DVT prophylaxis ? Bilateral SCD 11. Severe malnutrition -. Related to: inadequate oral intake As evidenced by: PO meeting <75% of estimated energy needs x 1-2 months and 18% unintentional weight loss x 9 months. With treatment/resources used including: Adjust to liberal regular diet d/t signs and symptoms of malnutrition. Will order vanilla fortified pudding TID with meals. Will order magic cup with lunch and dinner. Will adjust ONS, as needed. Will monitor weight, as available. Time spent in the patient's overall evaluation,decision-making process, review of diagnostic data, adjustment of management, discussion with other providers, nursing nursing and ancillary staff involved in patient's care documentation, 36 minutes Charges/Coding Visit Charges Inpatient E&M: 17312 Subs Hosp L2
[2024-08-17 08:04] VITALS: BP 136/81; PULSE 87; RESP 18; TEMP 36.7; O2SAT 95
--- NOTE | 2024-08-17 09:00 | NM_ITS ---
INDICATION: abnormal USG gallbladder EXAMINATION: NUCLEAR MEDICINE HEPATOBILIARY SCAN - NM Hepatobiliary Imaging W GB TECHNIQUE: 5.6 mCi technetium 99m choletec was intravenously administered and static images were obtained. COMPARISON: Prior study dated: August 14, 2024. FINDINGS: There is homogeneous uptake and excretion of the radiopharmaceutical by the liver. There is no abnormal hyperemia along the gallbladder fossa. Biliary activity is noted at 30 minutes. Bowel activity is noted at 45 minutes. Gallbladder activity is not seen. NM/Hepatobilliary Img w/Pharm Int IMPRESSION: Nonopacification of the gallbladder up to 2 hours following the injection of the radiopharmaceutical. Findings are in keeping with acute cholecystitis. Electronically Signed: Giuseppe Young MD at 11:34 EDT ,
--- NOTE | 2024-08-17 09:16 | CASEMGMT ---
Discharge Planning Updates sent via [facility] to [facility]. Gemma Mas DC Planning Asst.
[2024-08-17 09:37] LABS: Differential Comment SCANNED
[2024-08-17 09:38] LABS: Anisocytosis 2+; Crenated RBC RARE; Macrocytosis 1+; Microcytosis 1+; Ovalocyte 2+; Platelet Estimate ADEQUATE (ADEQ); Tear Drop Cell RARE
[2024-08-17 11:00] VITALS: PULSE 92
[2024-08-17] MEDS: 0.9% Saline Lock 10 ML Syringe IV ×2 (11:43→23:05)
--- NOTE | 2024-08-17 13:55 | CON.PCM.SX_ITS ---
Assessment & Plan Assessment/Plan (1) Acute cholecystitis: PLAN: I have been consulted in conjunction with Dr. Leon. She will independently evaluate this patient. Patient was admitted on 08/12 with nausea, vomiting, and weight loss. An abdominal u/s and HIDA scan were completed demonstrating acute cholecystis with cholelithiasis. Patient had a recent office evaluation with Dr. Leon 2 weeks ago for gallbladder issues. At that time, it was recommended the patient be referred to a tertiary facility. Patient was referred to [facility]. Patient's daughter stated they have an appointment on , 08/20. Dr. Leon spoke with Dr. Hood in regards to transferring patient to a tertiary facility on account of her current diagnosis of acute cholecystitis and high-risk status for surgery at out facility. This was explained to the patient's daughter, patient's daughter is agreeable to have the patient transferred. Patient may also benefit from having a lenka tube placed which would be better placed by interventional radiology. Patient has also bee having difficulty with eating as she vomits most things up. HIDA may be a false positive as well due to the patient not being able to eat. Patient's daughter has had the opportunity to ask and have questions answered. Patient verbally understands and agrees with the plan. Thank you for allowing us to participate in this patient's care. HPI Consult Data Date of Consult: 08/17/24 HPI Narrative Reason for Consultation: Acute cholecystitis HPI Narrative: OSEAS PATHAK, is a 78 F who presents with nausea, vomiting, weight loss and failure to thrive. Patient is a poor historian. Patient had a stroke approximately 10 years ago with a side effect of right sided paralysis. Patient is a thor lift. She is able to communicate and answer some questions. Majority of her history was provided by her daughter. Patient has had a 35 pound weight loss over the last 3 months. Her daughter notes she has recently moved her into a detention, as the patient was declining more and needed higher level of care than what her daughter was able to provide. Patient is on Eliquis BID for A Fib. Patient has previously had a tubal ligation and more recently a stent placed in her pylorus to allow the passing of solid foods and medications. Patient had developed bleeding ulcers due to the medication eroding in the small intestines. Patient has been following with Dr. Friend, gastroenterology, for the stent placement. Abdominal u/s demonstrates IMPRESSION: Coarse hepatic echotexture. Cholelithiasis with gallbladder wall thickening. No biliary dilatation. Multiple cystic nodules in the pancreas. HIDA scan demonstrates IMPRESSION: Nonopacification of the gallbladder up to 2 hours following the injection of the radiopharmaceutical. Findings are in keeping with acute cholecystitis. [facility] Medical History (Updated 08/17/24 @ 14:04 by Smitha AGUERO, PANorahC) Depression Anxiety Chronic pain GI bleed Non-smoker TIA (transient ischemic attack) Gall bladder pain Gallbladder attack Closed wedge compression fracture of T12 vertebra Acute UTI Abdominal pain Cholelithiasis Acute upper GI bleed Fall Major depressive disorder, recurrent, mild Anxiety disorder, unspecified Sarcopenia Hemiplegia CVA (cerebral vascular accident) HTN (hypertension) HLD (hyperlipidemia) A-fib Acute ischemic right MCA stroke Afib Home Medications ?Medication ?Instructions ?Recorded ?Last Taken ?Type atorvastatin 20 mg tablet 20 mg PO QHS HLD 05/08/24 05/08/24 History pantoprazole 40 mg tablet,delayed 40 mg PO BID gastritis #60 tabs 05/27/24 Unknown Rx release apixaban 5 mg tablet (Eliquis) 5 mg PO BID blood thinner / afib 06/22/24 Unknown History menthol 0.44 %-zinc oxide 20.6 % 1 applic topical DAILY skin 06/22/24 Unknown History topical ointment in packet (Calmoseptine) ciprofloxacin HCl 500 mg tablet 500 mg PO BID 6 days #12 tabs 06/25/24 Unknown Rx metronidazole 500 mg tablet 500 mg PO Q8H 5 days #15 tabs 06/25/24 Unknown Rx sennosides 8.6 mg-docusate sodium 2 tab PO BID constipation #0 tabs 06/25/24 Unknown Rx 50 mg tablet (Stimulant Laxative Plus) acetaminophen 325 mg tablet 650 mg PO QHS PRN back pain 08/12/24 Unknown History acetaminophen 325 mg tablet 650 mg PO TID back pain 08/12/24 Unknown History bisacodyl 10 mg rectal suppository 10 mg IA DAILY PRN constipation 08/12/24 Unknown History (Dulcolax (bisacodyl)) capsaicin 0.025 % topical cream 1 applic topical DAILY lower back 08/12/24 Unknown History (Arthritis-Muscle (capsaicin)) & rt knee pain mirtazapine 15 mg disintegrating 15 mg PO QHS depression / anorexia 08/12/24 Unknown History tablet oxycodone 5 mg tablet 5 mg PO BID pain 08/12/24 Unknown History sertraline 50 mg tablet 50 mg PO DAILY anxiety & depression 08/12/24 Unknown History Allergy/AdvReac Type Severity Reaction Status Date / Time Food Allergies: Uncoded AdvReac Intermediate Vomiting Verified 07/29/24 14:48 orange juice AdvReac Intermediate Vomiting Verified 07/29/24 14:48 tomato AdvReac Vomiting Verified 08/12/24 13:57 Family History Other CVA (cerebral vascular accident) Cancer Heart disease Surgical History Percutaneous endoscopic gastrostomy status Social History Smoking Status: Never smoker ROS Constitutional Constitutional: Reports change in weight and fatigue; Denies systems reviewed and no addt'l complaints, except as documented, as per HPI, anorexia, body ache(s), chills, daytime sleepiness, difficulty sleeping, excessive sweating, fever(s), frequent falls, headache(s), increased appetite, lethargy, malaise, night sweats, poor appetite, snoring, stops breathing during sleep, weakness, weight gain, weight loss or other Eyes Eyes: Denies systems reviewed and no addt'l complaints, except as documented, as per HPI, none, acute decrease in peripheral vision, blindness, blind spots, bloody eye, blurry vision, burning, change in eye color, change in vision, decreased night vision, diplopia, discharge from eye(s), discongugate gaze, double vision, dry eyes, erythema, excessive blinking, exophthalmos, eye pain, floaters, foreign body, halo effect, irritation, itchy eyes, loss of central vision, loss of peripheral vision, loss of vision, miosis, mydriasis, numbness, nystagmus, other visual disturbances, periorbital itching, photophobia, ptosis, puffy eyes, requires corrective lenses, seeing flashes, spots in vision, sunken eyes, tearing, tunnel vision or other ENT HEENT: Denies systems reviewed and no addt'l complaints, except as documented, as per HPI, none, abnormal hearing, bleeding gums, change in voice, dental pain, disequillibrium, dizziness, dry mouth, dysphagia, ear discharge, ear pain, epistaxis, facial pain, foreign body in nose, halitosis, headache(s), hearing loss, hoarseness, lip swelling, loss taste/smell, mouth lesions, mouth pain, mucositis, nasal congestion, nasal discharge, nasal obstruction, nasal trauma, neck mass, neck pain, nose pain, odynophagia, otalgia, post nasal drip, rhinorrhea, sinus pain, sinus pressure, sore throat, throat swelling, tinnitus, tongue swelling, vertigo or other Cardiovascular Cardiovascular: Denies systems reviewed and no addt'l complaints, except as documented, as per HPI, none, abdominal bloating, abdominal edema, abdominal pain, arrhythmia on telemetry, bluish discoloration of hand/feet, chest pain, chest pain at rest, chest pain with activity, claudication, clubbing, cold extremities, cyanosis, diaphoresis, dizziness, dyspnea, dyspnea at rest, dyspnea on exertion, easily tiring during activity, edema, erythema on extremities, fatigue, flutter in chest, hypertension, irregular heart rhythm, leg edema, leg ulcers, lightheadedness, nausea, numbness in extremities, orthopnea, orthostatic symptoms, pale mcpherson skin, palpitations, paroxysmal nocturnal dyspnea, pedal edema, periorbital swelling, pounding heartbeat, racing heartbeat, radiating jaw, neck or arm pain, rapid heart rate, slow heart rate, syncope, tachypnea, vomiting, weakness in extremities, weight gain or other Respiratory/Chest Respiratory/Chest: Reports systems reviewed and no addt'l complaints, except as documented Gastrointestinal Gastrointestinal: Reports constipation, loose stools, nausea and vomiting; Denies systems reviewed and no addt'l complaints, except as documented, as per HPI, none, abdominal pain, anorexia, belching, bloating, change in bowel habits, change in stool character, chewing difficulty, coffee ground emesis, cramping, diarrhea, dry heaves, dyspepsia, dysphagia, early satiety, excessive flatus, fecal incontinence, heartburn, hematemesis, hematochezia, hemorrhoids, melena, odynophagia, rectal bleeding, taste impaired, tenesmus, weight changes or other Genitourinary Genitourinary: Reports systems reviewed and no addt'l complaints, except as documented Musculoskeletal Musculoskeletal: Reports arthralgias and back pain; Denies systems reviewed and no addt'l complaints, except as documented, as per HPI, none, abnormal gait, atrophy, deformity, difficulty walking, extremity pain, joint pain, joint stiffness, joint swelling, limited range of motion, loss of height, muscle cramps, muscle spasms, muscle weakness, myalgias, neck pain, numbness, radiating pain into limb, stiffness, tingling, tremors or other Integumentary Integumentary: Reports systems reviewed and no addt'l complaints, except as documented Neurologic Neurologic: Reports systems reviewed and no addt'l complaints, except as documented and other Details: TIA in 2014 Psychiatric Psychiatric: Reports systems reviewed and no addt'l complaints, except as documented Endocrine Endocrinology: Reports systems reviewed and no addt'l complaints, except as documented Hematologic/Lymphatic Hematologic/Lymphatic: Reports systems reviewed and no addt'l complaints, except as documented Allergic/Immunologic Allergic/Immunologic: Reports systems reviewed and no addt'l complaints, except as documented Physical Exam Const alert and no apparent distress HEENT head/scalp atraumatic Eyes PERRL Neck full ROM Resp normal respiratory effort Auscultation: wheezes throughout Cardio regular rate and regular rhythm GI normal to inspection, nondistended, normoactive bowel sounds no CVA tenderness Back/Spine no CVA tenderness Extremity Extremity Narrative: Bilateral upper extremities- atrophic and contracted Skin no rashes or lesions noted Neuro Sensorium / Orientation: awake and alert Psych cooperative Attitude: withdrawn Activity / Motor Behavior: appropriate eye contact Medical Records Data Medical Nutrition Assessment Dietitian: Malnutrition Criteria Met Start: 08/13/24 11:09 Freq: Status: Active Protocol: Document 08/13/24 13:58 SB (Rec: 08/13/24 13:59 SB [id number]) Nutrition Malnutrition Evidence of Malnutrition Exists Yes Malnutrition (severe): Chronic Evidenced By Suboptimal Energy Intake ( Severe),Weight Loss (Severe) Clinical Problem Chronic Disease or Condition Related Malnutrition Etiology severe related to inadequate oral intake Signs/Symptoms as evidenced by PO meeting <75 % of estimated energy needs x 1-2 months and 18% unintentional weight loss x 9 months. Status Active Problem Recommendation Dietitian Recommendations/Changes Adjust to liberal regular diet d/t signs and symptoms of malnutrition. Will order vanilla fortified pudding TID with meals. Will order magic cup with lunch and dinner. Will adjust ONS, as needed. Will monitor weight, as available. Reviewed and approved by Briseida Clark, RD, LD. Lab / Micro Data 08/17/24 07:03 08/17/24 05:29 Labs: Laboratory Results - last 24 hr 08/17/24 05:29: WBC Cancelled, Corrected WBC Cancelled, RBC Cancelled, Hgb Cancelled, Hct Cancelled, MCV Cancelled, MCH Cancelled, MCHC Cancelled, RDW Std Deviation Cancelled, RDW Coeff of Pelon Cancelled, Plt Count Cancelled, MPV Cancelled, Immature Gran % (Auto) Cancelled, Neut % (Auto) Cancelled, Lymph % (Auto) Cancelled, Spink % (Auto) Cancelled, Eos % (Auto) Cancelled, Baso % (Auto) Cancelled, Absolute Neuts (auto) Cancelled, Absolute Lymphs (auto) Cancelled, Total Counted Cancelled, Neutrophils % (Manual) Cancelled, Band Neutrophils % Cancelled, Lymphocytes % (Manual) Cancelled, Monocytes % (Manual) Cancelled, Eosinophils % (Manual) Cancelled, Basophils % (Manual) Cancelled, Metamyelocytes % Cancelled, Myelocytes % Cancelled, Promyelocytes % Cancelled, Blast Cells % Cancelled, Plasma Cell % (Manual) Cancelled, Other Cells % Cancelled, Nucleated RBC % Cancelled, Nucleated RBCs/100 WBC Cancelled, Differential Comment Cancelled, Diff Path Review Cancelled, Hypersegmented Neuts Cancelled, Atypical Lymphocytes Cancelled, Reactive Lymphocytes Cancelled, Smudge Cells Cancelled, Toxic Granulation Cancelled, Toxic Vacuolation Cancelled, Dohle Bodies Cancelled, Palma Rods Cancelled, Platelet Estimate Cancelled, Plt Morphology Comment Cancelled, RBC Morphology Cancelled 08/17/24 05:29: RBC Morphology Cancelled, Polychromasia Cancelled, Hypochromasia Cancelled, Basophilic Stippling Cancelled, Anisocytosis Cancelled, Microcytosis Cancelled, Macrocytosis Cancelled, Spherocytes Cancelled, Sickle Cells Cancelled, Target Cells Cancelled, Tear Drop Cells Cancelled, Ovalocytes Cancelled, Stomatocytes Cancelled, Pack-[place] Bodies Cancelled, Radha Cells Cancelled, Bite Cells Cancelled, Crenated Cell Cancelled, Acanthocytes (Spur) Cancelled, Rouleaux Cancelled, Schistocytes Cancelled, Sodium 138, Potassium 4.1, Chloride 108 H, Carbon Dioxide 23.0, Anion Gap 7, BUN 6 L, Creatinine 0.26 L, Estim Creat Clear Calc 41.63, Est GFR (MDRD) Af Amer 332, Est GFR (MDRD) Non- Af 274, BUN/Creatinine Ratio 23.4 H, Glucose 112 H, Calcium 7.5 L 08/17/24 07:03: WBC 13.3 H, RBC 3.64 L, Hgb 9.5 L, Hct 29.6 L, MCV 81.3, MCH 26.1 L, MCHC 32.1, RDW Std Deviation 67.8 H, RDW Coeff of Pelon 23.2 H, Plt Count 264, MPV 9.3, Immature Gran % (Auto) 0.700, Neut % (Auto) 80.0 H, Lymph % (Auto) 9.8 L, [place] % (Auto) 7.1, Eos % (Auto) 1.9, Baso % (Auto) 0.5, Absolute Neuts (auto) 10.7 H, Absolute Lymphs (auto) 1.31, Nucleated RBC % 0, Differential Comment SCANNED, Platelet Estimate ADEQUATE, Anisocytosis 2+, Microcytosis 1+, Macrocytosis 1+, Tear Drop Cells RARE, Ovalocytes 2+, Crenated Cell RARE Imaging Radiology Impression Hepatobiliary Scan Nuclear Medicine 08/17/24 09:00 IMPRESSION: Nonopacification of the gallbladder up to 2 hours following the injection of the radiopharmaceutical. Findings are in keeping with acute cholecystitis. Electronically Signed: Giuseppe Young MD at 11:34 EDT , Charges/Coding Visit Charges Inpatient E&M: 21734 Init Hosp L2
[2024-08-17 14:18] VITALS: BP 130/93; PULSE 98; RESP 18; TEMP 36.5; O2SAT 97
--- NOTE | 2024-08-17 15:06 | SP.MBSS_ITS ---
Modified Barium Swallow Patient Information Study Date: 08/17/24 Study Time: 13:30 Direct Billable Minutes: 150 Total Minutes procedure & reportin Diagnosis: J69.0 - aspiration pneumonitis Referring Physician: Apollo Hood Reason for Referral: Objectively assess swallow function, assess risk for aspiration, and determine recommendations for least restrictive diet textures and compensatory strategies to improve safety of swallow.? Medical History: Patient is a 78-year-old female with a history of atrial fibrillation, rheumatoid arthritis, CVA with residual deficits, a duodenal stent, gastroparesis, and gastrointestinal bleeding. She presented to [facility] ED on 08/12/2024 from [facility] due to dehydration, decreased appetite, nausea, and vomiting. Patient has experienced nausea and vomiting since April, resulting in a 20-pound weight loss and concerns about swallowing, as she reports food may be sticking. Speech therapy evaluated her at the bedside. Her baseline diet consists of soft bite-sized foods and thin liquids, as recommended in a prior hospitalization. Despite attempts to assist her swallowing, including verbal cues and liquid washes, her daughter noted prolonged mastication of 5 to 10 minutes. During the speech therapy assessment, patient trialed pureed foods, which showed timely oral transit with minimal residue after swallowing. However, when given a bite of shredded hash browns (soft bite-size consistency), she experienced prolonged mastication and no AP transit, necessitating manual removal of the bolus. Recommendations include a pureed diet and thin liquids, with feeding only when the patient is alert. Compensatory swallowing strategies include single sips through a straw and alternating bites and sips, with 1:1 supervision required during meals. Currently, the patient is experiencing worsening respiratory status, with crackling lung sounds in the lower lobes, and has been made NPO pending further evaluation. An MBSS is recommended to assess the safest oral diet. Current Diet Ordered: NPO Dentition: Edentulous Mental Status: Impaired Respiratory Status: Oxygenating on Room Air Penetration-Aspiration Scale Penetration-Aspiration Scale: OBJECTIVE ASSESSMENT OF SWALLOW FUNCTION (QUANTITATIVE ? PER TRIAL): PENETRATION / ASPIRATION SCALE (HAWKINS): 1 = does not enter airway 2 = enters airway/above vocal folds/ejected 3 = enters airway/above vocal folds/not ejected 4 = enters airway/contacts vocal folds/ejected 5 = enters airway/contacts vocal folds/not ejected 6 = enters airway/below vocal folds/ejected 7 = enters airway/below vocal folds/not ejected despite effort 8 = enters airway/below vocal folds/no effort VIDEOFLOROSCOPIC SCALE SCORE (HAWKINS): Grade I = aspiration of material that has penetrated into the laryngeal vestibule, intact cough reflex Grade II = aspiration < 10 % of the bolus, intact cough reflex Grade III = aspiration of < 10 % of the bolus, reduced cough reflex or aspiration of > 10 % of the bolus, intact cough reflex Grade IV = aspiration of > 10 % of the bolus, reduced cough reflex Penetration-Aspiration Scale Score Thin Liquid via teaspoon: Result: 8= enters airway/below vocal folds/no effort Thin Liquid via teaspoon Trial 2: Result: 7= enters airways/below vocal folds/not ejected despite effort Thin Liquid via small single sip: cup: Result: 5= enters airways/contacts vocal folds/not ejected Thin Liquid via single sip: straw: Result: 5= enters airways/contacts vocal folds/not ejected Moraine Thick Liquid via small single sip: cup: Result: 5= enters airways/contacts vocal folds/not ejected Moraine Thick Liquid via teaspoon: Result: 1= does not enter airway Moraine Thick Liquid via teaspoon Trial 2: Result: 1= does not enter airway Pudding via teaspoon: Result: 1= does not enter airway Pears: Result: 1= does not enter airway Moraine Thick Liquid via teaspoon Trial 3: Result: 8= enters airway/below vocal folds/no effort Honey Thick Liquid via teaspoon: Result: 2= enter airway/above vocal folds/ejected Honey Thick Liquid via teaspoon Trial 2: Result: 1= does not enter airway Honey Thick Liquid via teaspoon Trial 3: Result: 1= does not enter airway Oral Phase Labial Seal: Escape beyond mid-chin Tongue Control During Bolus Hold: Posterior escape of greater than half of bolus Bolus Preparation/Mastication: Minimal chewing/mashing with majority of bolus unchewed Bolus Transport/Lingual Motion: Repetitive/disorganized tongue motion Oral Residue: Minimal to no clearance Pharyngeal Phase Initiation of Pharyngeal Swallow: Bolus head in pyriforms Soft Palate Elevation: No bolus between soft palate and pharyngeal wall Laryngeal Elevation: Partial superior movement thyroid cart/partial apprx aryt- epig petiole Anterior Hyoid Excursion: Partial anterior movement Epiglottic Movement: Partial inversion Laryngeal Vestibule Closure at Height of Swallow: Incomplete; narrow column of air/contrast in laryngeal vestibule Pharyngeal Stripping Wave: Present - diminished Pharyngoesophageal Segment Opening: Parital distension and partial duration; parital obstruction of flow Tongue Base Retraction: Narrow column of contrast between tongue base & post. pharyngeal wall Pharyngeal Residue: Collection of residue within or on pharyngeal structures Esophageal Phase Esophageal Clearance: Esophageal retention w/ retrograde flow below pharyngoesophageal seg. Diagnosis/Impression Diagnosis: severe oropharyngeal dysphagia R13.12 Impression: Oral phase primarily marked by... -Impaired labial seal was noted, resulting in anterior spillage across several consistencies. -Poor bolus control, with over half of the bolus spilling into the vallecula and pyriform sinuses before swallowing began. -Lingual pumping was observed during the pudding trial, accompanied by delayed A-P transit of bolus. -During trial with pears coated in barium pudding, the patient managed to swallow the pudding, but the pears remained in the oral cavity. After several minutes of mastication without any A-P transit of the pear, CHILD ABUSE WORKER manually removed it from the oral cavity. -Oral residue was present following the swallow. Pharyngeal phase primarily marked by... -When consuming thin liquids via teaspoon, thin liquids via cup, and nectar- thick liquids via teaspoon, the bolus entered the airway prior to swallow initiation. This delayed pharyngeal onset timing led to improper bolus po sitioning at the start of swallowing, causing pre-prandial penetration to the vocal cords and aspiration during or after the swallow. -Patient noted to overtly aspirate during trials of thin liquids and nectar- thick liquids suggesting clinical assessment at bedside relying on identification of classic overt signs and symptoms of aspiration may be sufficient to determine appropriateness for PO texture upgrade. -Decreased airway closure is attributed to reduced laryngeal elevation and closure, diminished anterior hyoid excursion, and decreased epiglottic inversion, all contributing to laryngeal penetration and aspiration. -Pharyngeal residues are observed spilling into the airway during swallowing, with an increase in residues noted with thicker viscosities. Poor pharyngeal motility attributed to mildly decreased tongue base retraction, reduced pharyngeal stripping wave and poor UES opening. Esophageal phase primarily marked by... -Esophageal retention observed, accompanied by retrograde flow during the pudding and pear trial. Patient may be appropriate for alternative means for primary nutrition and hydration to support oral intake due to severe dysphagia. Recommendations Diet: Puree Textures and Honey-thick Liquids Compensatory Strategies: Liquid by Teaspoon Only, Slow Rate, Feed only when alert, Multiple Swallows, Alternate bites/solids and sips/liquids, Sitting upright, Remain sitting upright for 30 minutes after PO intake and Assist with verbal cues to use recommended strategies Supervision: Total Feed Recommend Repeat Modified Barium Swallow: Yes Need for Skilled Speech Therapy Services: Yes Recommended Referrals: Dietitian Consult Education Completed: 1. Described result of evaluation., 2. Pt understands evaluation & agrees with goals and treatment plan. and 4. Family/caregivers understand evaluation & agree w/ goals & tx plan. Status Active ST Patient: Active Contact Information [facility] Speech Therapy:: Shima De Jesus M.A. [facility]-CHILD ABUSE WORKER Speech-Language Pathologist [facility] [address] [place] [address] [email or web address] [phone]
[2024-08-17 21:12] VITALS: BP 102/65; PULSE 87; RESP 16; TEMP 36.6; O2SAT 100
[2024-08-17] MEDS: Nystatin Powder 15gm Bottle 1 APPLIC TOPICAL (23:05)
[2024-08-18 03:25] VITALS: BP 114/68; PULSE 85; RESP 18; TEMP 36.6; O2SAT 98
[2024-08-18] MEDS: Metoclopramide 10 MG/2 ML Vial 5 MG IV ×2 (06:35→11:32)
[2024-08-18] MEDS: 0.9% Saline Lock 10 ML Syringe IV ×2 (06:35→11:33)
[2024-08-18] MEDS: Menthol/Lanolin/Calamine/Znox 113 GM Tube 1 APPLIC TOPICAL (06:35)
[2024-08-18 06:59] LABS: Absolute Lymphocyte Count 1.24 X10^3/uL (0.83-4.51); Absolute Neutrophil Count 10.8 X10^3/uL (2.0-7.7); Basophil# 0.06 X10^3/uL; Basophil% 0.5 % (0-1); Eosinophil# 0.23 X10^3/uL; Eosinophils% 1.7 % (0-5); Hematocrit 30.8 % (37-47); Hemoglobin 9.6 g/dL (12.0-15.0); Lymphocyte # 1.24 X10^3/ul (0.83-4.51); Lymphocyte % 9.3 % (19-41); Mean Corp Hgb Conc 31.2 g/dL (32-36); Mean Corpuscular Hgb 25.7 pg (27.0-32.0); Mean Corpuscular Volume 82.6 fL (81-99); Mean Platelet Vol. 9.8 fl (6.2-12.0); Monocyte# 0.94 X10^3/uL; Monocyte% 7.1 % (0-10); NRBC Flagged by Analyzer 0 % (0-5); Neutrophil # 10.78 X10^3/uL (2.7-7.7); Neutrophil % 80.8 % (47-70); POSITIVE MORPHOLOGY YES; Platelet Count 295 K/mm3 (150-450); RBC Distribution Width CV 23.5 % (11.6-14.6); RBC Distribution Width SD 70.1 fl (35.1-43.9); Red Blood Count 3.73 M/mm3 (4.2-5.4); White Blood Count 13.3 K/mm3 (4.4-11.0)
[2024-08-18 07:08] LABS: Differential Indicated SCAN CRITERIA MET
[2024-08-18 07:13] LABS: Anion Gap 5 (5-15); BUN 6 mg/dL (7-18); BUN/Creat Ratio 30.8 RATIO (10-20); Calcium,Total 7.9 mg/dL (8.5-10.1); Chloride 108 mmol/L (98-107); EST Glomerular Filtration Rate 375 mL/min (>60); Est Glom Filt Rate - Afr Amer 454 mL/min (>60); Estimated Creatinine Clearance 41.63 ml/min; Glucose 102 mg/dL (74-106); Potassium 3.7 mmol/L (3.5-5.1); Sodium Level 138 mmol/L (136-145)
[2024-08-18 07:33] LABS: Anisocytosis 2+
--- NOTE | 2024-08-18 08:17 | PCM.TXEXTCAR ---
Diet Diet Order/Speech Therapy: 08/17/24 16:16 Diet: Regular - General Food consistency:: Pureed Liquid Consistency:: Honey/Moderately Thick Diet Comments: HTL via tsp.1:1 sup, NO SODA/POP, 1 scoop BP tid, fortified vanilla pudding Routine Orders/Code Status Code Status: Full Code Wound(s) right upper chest: Wound Type: Multiple scabbed over scratches left hip: Wound Type: Multiple scabbed over scratches Therapies Physical Therapy: Eval and Treat Occupational Therapy: Eval and Treat Problem/Diagnosis (1) Acute cholecystitis: Status: Acute Code(s): K81.0 - Acute cholecystitis Plan Patient is a 78-year-old lady with chronic debility resident at an extended care facility who was brought to the emergency department with progressive generalized weakness. 1. Dehydration ? Secondary to intractable nausea vomiting patient managed with IV fluids ? 08/16/2024 dehydration resolved 2. Intractable nausea vomiting ? Secondary to suspected gastroparesis patient started on Reglan 3. History of pyloric and duodenal stenosis ? Status post duodenal stent placement. Patient is followed by Dr. Barlow as outpatient 4. Suspected cystitis ? Urine cultures grew E. coli and Staph aureus as well as Enterococcus. Patient started on ciprofloxacin based on sensitivities 5.Paroxysmal A-fib ? Patient was on Eliquis held on admission given the fact that patient has history of multiple bleeding ulcers as well as being guaiac positive on admission 6. Suspected cirrhosis of the liver -Gallbladder ultrasound obtained demonstrated coarse echotexture questionable for possible cirrhosis of the liver. 7. Suspected acute cholecystitis Patient was also found to have cholelithiasis with gallbladder wall thickening with no biliary dilatation. Ordered HIDA scan and if positive will obtain surgery consultation ? 08/16/2024 scheduled to undergo HIDA scan eval on 08/17/2024 -08/17/2024; HIDA scan came back consistent with acute cholecystitis. Consult was placed to general surgery Dr. Lovett apparently familiar with the patient. She had previously discussed with the patient's daughter to follow-up with the surgeon at [facility] and patient has an appointment on 08/20/2024. This was discussed with patient's daughter who who did confirm of the upcoming appointment. 8. Rheumatoid arthritis ? Complicating care patient has significant debility with contractures patient is on meloxicam held given patient GI bleed 9. Dyslipidemia -Patient is on statin therapy, continued at home dose 10. 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 Depression with anxiety ? Patient is on Zoloft 12. Physical deconditioning with functional quadriplegia - Requested for PT OT eval and social scientist to assist with discharge planning. Plan for [facility] be [facility] to [facility] pending insurance approval 10. DVT prophylaxis ? Bilateral SCD 11. Severe malnutrition -. Related to: inadequate oral intake As evidenced by: PO meeting <75% of estimated energy needs x 1-2 months and 18% unintentional weight loss x 9 months. With treatment/resources used including: Adjust to liberal regular diet d/t signs and symptoms of malnutrition. Will order vanilla fortified pudding TID with meals. Will order magic cup with lunch and dinner. Will adjust ONS, as needed. Will monitor weight, as available. Time spent in the patient's overall evaluation,decision-making process, review of diagnostic data, adjustment of management, discussion with other providers, nursing nursing and ancillary staff involved in patient's care documentation, 36 minutes Allergies/Procedures Done in Hospital Allergies Food Allergies: Uncoded Adverse Reaction (Intermediate, Verified 07/29/24 14:48) Vomiting experiences vomiting with coca cola orange juice Adverse Reaction (Intermediate, Verified 07/29/24 14:48) Vomiting tomato Adverse Reaction (Verified 08/12/24 13:57) Vomiting tomato soup causes her to throw up Type of Care/Length of Stay Estimated LOS: More Than 30 Days Type of Care Needed: Intermediate Rehab Potential: Fair Prognosis: Fair Additional Orders/Day of Discharge Day of Discharge: 08/18/24 Dietary and Speech Recommendations Dietitian Recommendations/Changes: Continue liberal regular diet d/t signs and symptoms of malnutrition. Continue vanilla fortified pudding TID with meals. Will d/c magic cup with lunch and dinner d/t pt's daughter request. Will order 1 scoop of beneprotein TID with meals. Will add that pt should not get pop/soda per daughter request. Will adjust ONS, as needed. Will monitor weight, as available. Reviewed and approved by Paula Conrad RD, LD. Follow Up Care Please follow up with your Primary Care Physician in: Follow-up with the surgeon at [facility] as scheduled on , 08/20/2024 Discharge Plan Admission Admit Date/Time: 08/12/24 13:41 Attending Provider: Apollo Hood Primary Care Provider: Josh Oro Consulting Providers: Carly Cuenca; Sukumar Walters; Rosie Leon Discharge Orders/Prescriptions Prescriptions: New albuterol sulfate 2.5 mg /3 mL (0.083 %) Solution For Nebulization 2.5 mg inhalation Q2H PRN PRN (Reason: SOB &/OR WHEEZING) Qty: 0 0RF metoclopramide HCl [Reglan] 10 mg tablet 10 mg PO Q6H PRN (Reason: nausea and vomiting) Qty: 20 0RF Continued Calmoseptine 0.44-20.6 % ointment in packet 1 applic topical DAILY sennosides-docusate sodium [Stimulant Laxative Plus] 8.6-50 mg Tablet 2 tab PO BID Qty: 0 0RF metronidazole 500 mg tablet 500 mg PO Q8H 5 Days Qty: 15 0RF ciprofloxacin HCl 500 mg tablet 500 mg PO BID 6 Days Qty: 12 0RF acetaminophen 325 mg tablet 650 mg PO QHS PRN (Reason: back pain) acetaminophen 325 mg tablet 650 mg PO TID capsaicin [Arthritis-Muscle (capsaicin)] 0.025 % cream 1 applic topical DAILY Rx Instructions: do not wash area for at least 30 min after application bisacodyl [Dulcolax (bisacodyl)] 10 mg suppository 10 mg MO DAILY PRN (Reason: constipation) mirtazapine 15 mg tablet,disintegrating 15 mg PO QHS sertraline 50 mg tablet 50 mg PO DAILY oxycodone 5 mg tablet 5 mg PO BID 2 Days Qty: 4 0RF atorvastatin 20 mg tablet 20 mg PO QHS pantoprazole 40 mg Tablet,Delayed Release (Dr/Ec) 40 mg PO BID Qty: 60 2RF Discontinued Eliquis 5 mg tablet 5 mg PO BID Referrals / Follow Up: Josh Oro MD [Primary Care Provider] - Within 1 Week
--- NOTE | 2024-08-18 08:34 | PCM.PN.SRG ---
Subjective Subjective Patient evaluated resting comfortably in bed. She denies any abdominal pain, nausea, vomiting. She tolerated a regular diet with assistance. Objective Data Objective Data Vital Signs: Vital Signs Temp Pulse Resp BP Pulse Ox O2 Del Method 97.8 F 85 18 114/68 98 Room Air 08/18/24 03:25 08/18/24 03:25 08/18/24 03:25 08/18/24 03:25 08/18/24 03:25 08/18/24 03:25 Oxygen Delivery Method Room Air Weight: 118 lb 14.395 oz Body Mass Index (BMI) 20.9 Intake & Output: Intake and Output for Last 24 Hours 08/16/24 08/17/24 08/18/24 23:59 23:59 23:59 Intake Total 320 / 320 50 / 50 Balance 320 / 320 50 / 50 Medical Nutrition Assessment Dietitian: Malnutrition Criteria Met Start: 08/13/24 11:09 Freq: Status: Active Protocol: Document 08/13/24 13:58 SB (Rec: 08/13/24 13:59 SB [id number]) Nutrition Malnutrition Evidence of Malnutrition Exists Yes Malnutrition (severe): Chronic Evidenced By Suboptimal Energy Intake ( Severe),Weight Loss (Severe) Clinical Problem Chronic Disease or Condition Related Malnutrition Etiology severe related to inadequate oral intake Signs/Symptoms as evidenced by PO meeting <75 % of estimated energy needs x 1-2 months and 18% unintentional weight loss x 9 months. Status Active Problem Recommendation Dietitian Recommendations/Changes Adjust to liberal regular diet d/t signs and symptoms of malnutrition. Will order vanilla fortified pudding TID with meals. Will order magic cup with lunch and dinner. Will adjust ONS, as needed. Will monitor weight, as available. Reviewed and approved by Briseida Clark, RD, LD. Lab / Micro Data 08/18/24 06:13 08/18/24 06:13 Labs: Laboratory Results - last 24 hr 08/17/24 07:03: Differential Comment SCANNED, Platelet Estimate ADEQUATE, Anisocytosis 2+, Microcytosis 1+, Macrocytosis 1+, Tear Drop Cells RARE, Ovalocytes 2+, Crenated Cell RARE 08/18/24 06:13: WBC 13.3 H, RBC 3.73 L, Hgb 9.6 L, Hct 30.8 L, MCV 82.6, MCH 25.7 L, MCHC 31.2 L, RDW Std Deviation 70.1 H, RDW Coeff of Pelon 23.5 H, Plt Count 295, MPV 9.8, Immature Gran % (Auto) 0.600, Neut % (Auto) 80.8 H, Lymph % (Auto) 9.3 L, [place] % (Auto) 7.1, Eos % (Auto) 1.7, Baso % (Auto) 0.5, Absolute Neuts (auto) 10.8 H, Absolute Lymphs (auto) 1.24, Nucleated RBC % 0, Anisocytosis 2+, Sodium 138, Potassium 3.7, Chloride 108 H, Carbon Dioxide 26.0, Anion Gap 5, BUN 6 L, Creatinine 0.20 L, Estim Creat Clear Calc 41.63, Est GFR (MDRD) Af Amer 454, Est GFR (MDRD) Non-Af 375, BUN/Creatinine Ratio 30.8 H, Glucose 102, Calcium 7.9 L Micro: Microbiology 08/12/24 11:56 Urine Catheter - Catheter Urine Culture - Final Escherichia coli Staphylococcus aureus Enterococcus faecalis 08/14/24 06:20 Vomitus Gastric Occult Blood - Final Occult Blood Positive Radiography Diagnostic Testing: Radiology Impression Hepatobiliary Scan Nuclear Medicine 08/17/24 09:00 IMPRESSION: Nonopacification of the gallbladder up to 2 hours following the injection of the radiopharmaceutical. Findings are in keeping with acute cholecystitis. Electronically Signed: Giuseppe Young MD at 11:34 EDT , Physical Exam GI GI Narrative: Abdomen- soft, nontender to palpation. No grimacing of patient's face upon palpation. Positive bowel sounds Assessment & Plan Assessment/Plan (1) Acute cholecystitis: PLAN: I am following this patient in conjunction with Dr. Leon. I have discussed this patient with her. Labs reviewed Recommend keeping tertiary appointment to further discuss gallbladder removal at [facility] Patient's comorbidities make her high-risk for a laparoscopic cholecystectomy to be completed at out facility She is tolerating a regular diet with assistance She is not noting any abdominal pain, nausea or vomiting Okay for patient to be [facility] otherwise patient will need to be transferred to a tertiary facility Charges/Coding Visit Charges Inpatient E&M: 39325 Subs Hosp L1
[2024-08-18 08:58] VITALS: BP 124/76; PULSE 100; RESP 18; TEMP 36.6; O2SAT 100
[2024-08-18 09:05] VITALS: PULSE 99
[2024-08-18] MEDS: Nystatin Powder 15gm Bottle 1 APPLIC TOPICAL (09:05)
--- NOTE | 2024-08-18 09:48 | PN.HOSP_ITS ---
Reason for Visit Reason for Visit: Diagnoses Calculus of gallbladder without cholecystitis without obstruction (08/12/24) Acute cholecystitis (08/12/24) Nausea with vomiting, unspecified (08/12/24) Subjective Subjective Per nursing staff patient had a relatively uneventful night. Plan is to have a discussion with patient's daughter regarding disposition?ECF with subsequent general surgery follow-up at [facility] versus hospital to hospital transfer Objective Data Objective Data Vital Signs: Vital Signs Temp Pulse Resp BP Pulse Ox O2 Del Method 97.9 F 100 18 124/76 H 100 Room Air 08/18/24 08:58 08/18/24 08:58 08/18/24 08:58 08/18/24 08:58 08/18/24 08:58 08/18/24 08:58 Oxygen Delivery Method Room Air Weight: 53.932 kg Body Mass Index (BMI) 20.9 Intake & Output: Intake and Output for Last 24 Hours 08/16/24 08/17/24 08/18/24 23:59 23:59 23:59 Intake Total 320 / 320 50 / 50 Balance 320 / 320 50 / 50 Medical Nutrition Assessment Dietitian: Malnutrition Criteria Met Start: 08/13/24 11:09 Freq: Status: Active Protocol: Document 08/13/24 13:58 SB (Rec: 08/13/24 13:59 SB [id number]) Nutrition Malnutrition Evidence of Malnutrition Exists Yes Malnutrition (severe): Chronic Evidenced By Suboptimal Energy Intake ( Severe),Weight Loss (Severe) Clinical Problem Chronic Disease or Condition Related Malnutrition Etiology severe related to inadequate oral intake Signs/Symptoms as evidenced by PO meeting <75 % of estimated energy needs x 1-2 months and 18% unintentional weight loss x 9 months. Status Active Problem Recommendation Dietitian Recommendations/Changes Adjust to liberal regular diet d/t signs and symptoms of malnutrition. Will order vanilla fortified pudding TID with meals. Will order magic cup with lunch and dinner. Will adjust ONS, as needed. Will monitor weight, as available. Reviewed and approved by Briseida Clark, BINA, LD. Lab / Micro Data 08/18/24 06:13 08/18/24 06:13 Labs: Laboratory Results - last 24 hr 08/18/24 06:13: WBC 13.3 H, RBC 3.73 L, Hgb 9.6 L, Hct 30.8 L, MCV 82.6, MCH 25.7 L, MCHC 31.2 L, RDW Std Deviation 70.1 H, RDW Coeff of Pelon 23.5 H, Plt Count 295, MPV 9.8, Immature Gran % (Auto) 0.600, Neut % (Auto) 80.8 H, Lymph % (Auto) 9.3 L, [place] % (Auto) 7.1, Eos % (Auto) 1.7, Baso % (Auto) 0.5, Absolute Neuts (auto) 10.8 H, Absolute Lymphs (auto) 1.24, Nucleated RBC % 0, Anisocytosis 2+, Sodium 138, Potassium 3.7, Chloride 108 H, Carbon Dioxide 26.0, Anion Gap 5, BUN 6 L, Creatinine 0.20 L, Estim Creat Clear Calc 41.63, Est GFR (MDRD) Af Amer 454, Est GFR (MDRD) Non-Af 375, BUN/Creatinine Ratio 30.8 H, Glucose 102, Calcium 7.9 L Micro: Microbiology 08/12/24 11:56 Urine Catheter - Catheter Urine Culture - Final Escherichia coli Staphylococcus aureus Enterococcus faecalis 08/14/24 06:20 Vomitus Gastric Occult Blood - Final Occult Blood Positive Radiography Diagnostic Testing: Radiology Impression Hepatobiliary Scan Nuclear Medicine 08/17/24 09:00 IMPRESSION: Nonopacification of the gallbladder up to 2 hours following the injection of the radiopharmaceutical. Findings are in keeping with acute cholecystitis. Electronically Signed: Giuseppe Young MD at 11:34 EDT , Physical Exam Narrative GENERAL: cooperative HEENT: Atraumatic; normocephalic EYES; Anicteric, Normal Conjunctiva NECK; supple, normal thyroid, RESPIRATORY: Diminished to auscultation CARDIOVASCULAR: Regular S1 S2, GI: soft, normoactive bowel sounds, : No Renal angle tenderness; EXTREMITIES: No edema, no clubbing, MUSCULOSKELETAL: Contractures of extremities NEURO: Awake; right-sided hemiparesis SKIN: No Rash PSYCH; Flat affect t Assessment & Plan Assessment/Plan (1) Acute cholecystitis: PLAN: Plan Patient is a 78-year-old lady with chronic debility resident at an extended care facility who was brought to the emergency department with progressive generalized weakness. 1. Dehydration ? Secondary to intractable nausea vomiting patient managed with IV fluids ? 08/16/2024 dehydration resolved 2. Intractable nausea vomiting ? Secondary to suspected gastroparesis patient started on Reglan 3. History of pyloric and duodenal stenosis ? Status post duodenal stent placement. Patient is followed by Dr. Barlow as outpatient 4. Suspected cystitis ? Urine cultures grew E. coli and Staph aureus as well as Enterococcus. Patient started on ciprofloxacin based on sensitivities 5.Paroxysmal A-fib ? Patient was on Eliquis held on admission given the fact that patient has history of multiple bleeding ulcers as well as being guaiac positive on admission 6. Suspected cirrhosis of the liver -Gallbladder ultrasound obtained demonstrated coarse echotexture questionable for possible cirrhosis of the liver. 7. Suspected acute cholecystitis Patient was also found to have cholelithiasis with gallbladder wall thickening with no biliary dilatation. Ordered HIDA scan and if positive will obtain surgery consultation ? 08/16/2024 scheduled to undergo HIDA scan eval on 08/17/2024 -08/17/2024; HIDA scan came back consistent with acute cholecystitis. Consult was placed to general surgery Dr. Lovett apparently familiar with the patient. She had previously discussed with the patient's daughter to follow-up with the surgeon at [facility] and patient has an appointment on 08/20/2024. This was discussed with patient's daughter who who did confirm of the upcoming appointment. 08/18/2020 2470 Per nursing staff patient had a relatively uneventful night. Plan is to have a discussion with patient's daughter regarding disposition?ECF with subsequent general surgery follow-up at [facility] versus hospital to hospital transfer 8. Rheumatoid arthritis ? Complicating care patient has significant debility with contractures patient is on meloxicam held given patient GI bleed 9. Dyslipidemia -Patient is on statin therapy, continued at home dose 10. 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 Depression with anxiety ? Patient is on Zoloft 12. Physical deconditioning with functional quadriplegia - Requested for PT OT eval and social work therapist to assist with discharge planning. Plan for patient to be discharged to half-way facility pending insurance approval 10. DVT prophylaxis ? Bilateral SCD 11. Severe malnutrition -. Related to: inadequate oral intake As evidenced by: PO meeting <75% of estimated energy needs x 1-2 months and 18% unintentional weight loss x 9 months. With treatment/resources used including: Adjust to liberal regular diet d/t signs and symptoms of malnutrition. Will order vanilla fortified pudding TID with meals. Will order magic cup with lunch and dinner. Will adjust ONS, as needed. Will monitor weight, as available. Time spent in the patient's overall evaluation,decision-making process, review of diagnostic data, adjustment of management, discussion with other providers, nursing nursing and ancillary staff involved in patient's care documentation, 36 minutes Charges/Coding Visit Charges Inpatient E&M: 70615 Subs Hosp L2
--- NOTE | 2024-08-18 11:39 | CASEMGMT ---
Patient will be discharged back to [facility] today. SW notified Gemma. Await d/c orders. Kaykay RICHEY
--- NOTE | 2024-08-18 11:39 | CASEMGMT ---
Discharge Planning [facility] updated that pt will return today. Gemma Mas DC Planning Asst.
--- NOTE | 2024-08-18 12:08 | DS.PCM_ITS ---
Providers Date of Admission: 08/12/24 Date of Discharge: 08/18/24 Primary Care Physician: Dr. Josh Oro MD Consultations 08/17/24 13:06 Consult: General Surgery Routine Consulting Provider: Rosie Leon Reason for Consult: Suspected cholecystitis EMERGENT Consult: No MD Notified: Yes Date Notified: 08/17/24 Time Notified: 13:06 Method of Notification: Text Reason For Visit: WEAKNESS, N/V Diagnosis Discharge Diagnosis (1) Acute cholecystitis: Status: Acute Code(s): K81.0 - Acute cholecystitis Plan Patient is a 78-year-old lady with chronic debility resident at an extended care facility who was brought to the emergency department with progressive generalized weakness. 1. Dehydration ? Secondary to intractable nausea vomiting patient managed with IV fluids ? 08/16/2024 dehydration resolved 2. Intractable nausea vomiting ? Secondary to suspected gastroparesis patient started on Reglan 3. History of pyloric and duodenal stenosis ? Status post duodenal stent placement. Patient is followed by Dr. Barlow as outpatient 4. Suspected cystitis ? Urine cultures grew E. coli and Staph aureus as well as Enterococcus. Patient started on ciprofloxacin based on sensitivities 5.Paroxysmal A-fib ? Patient was on Eliquis held on admission given the fact that patient has history of multiple bleeding ulcers as well as being guaiac positive on admission 6. Suspected cirrhosis of the liver -Gallbladder ultrasound obtained demonstrated coarse echotexture questionable for possible cirrhosis of the liver. 7. Suspected acute cholecystitis Patient was also found to have cholelithiasis with gallbladder wall thickening with no biliary dilatation. Ordered HIDA scan and if positive will obtain surgery consultation ? 08/16/2024 scheduled to undergo HIDA scan eval on 08/17/2024 -08/17/2024; HIDA scan came back consistent with acute cholecystitis. Consult was placed to general surgery Dr. Lovett apparently familiar with the patient. She had previously discussed with the patient's daughter to follow-up with the surgeon at [facility] and patient has an appointment on 08/20/2024. This was discussed with patient's daughter who who did confirm of the upcoming appointment. 8. Rheumatoid arthritis ? Complicating care patient has significant debility with contractures patient is on meloxicam held given patient GI bleed 9. Dyslipidemia -Patient is on statin therapy, continued at home dose 10. 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 Depression with anxiety ? Patient is on Zoloft 12. Physical deconditioning with functional quadriplegia - Requested for PT OT eval and social media job titles to assist with discharge planning. Plan for patient to be discharged to nursing home facility pending insurance approval 10. DVT prophylaxis ? Bilateral SCD 11. Severe malnutrition -. Related to: inadequate oral intake As evidenced by: PO meeting <75% of estimated energy needs x 1-2 months and 18% unintentional weight loss x 9 months. With treatment/resources used including: Adjust to liberal regular diet d/t signs and symptoms of malnutrition. Will order vanilla fortified pudding TID with meals. Will order magic cup with lunch and dinner. Will adjust ONS, as needed. Will monitor weight, as available. Time spent in the patient's overall evaluation,decision-making process, review of diagnostic data, adjustment of management, discussion with other providers, nursing nursing and ancillary staff involved in patient's care documentation, 36 minutes Medications at Discharge Home Medications atorvastatin 20 mg tablet 20 mg PO QHS HLD 05/08/24 pantoprazole 40 mg tablet,delayed release 40 mg PO BID gastritis #60 tabs 05/27/24 menthol 0.44 %-zinc oxide 20.6 % topical ointment in packet (Calmoseptine) 1 applic topical DAILY skin 06/22/24 ciprofloxacin HCl 500 mg tablet 500 mg PO BID 6 days #12 tabs 06/25/24 metronidazole 500 mg tablet 500 mg PO Q8H 5 days #15 tabs 06/25/24 sennosides 8.6 mg-docusate sodium 50 mg tablet (Stimulant Laxative Plus) 2 tab PO BID constipation #0 tabs 06/25/24 acetaminophen 325 mg tablet 650 mg PO QHS PRN back pain 08/12/24 acetaminophen 325 mg tablet 650 mg PO TID back pain 08/12/24 bisacodyl 10 mg rectal suppository (Dulcolax (bisacodyl)) 10 mg [place] DAILY PRN constipation 08/12/24 capsaicin 0.025 % topical cream (Arthritis-Muscle (capsaicin)) 1 applic topical DAILY lower back & rt knee pain 08/12/24 mirtazapine 15 mg disintegrating tablet 15 mg PO QHS depression / anorexia 08/12/24 sertraline 50 mg tablet 50 mg PO DAILY anxiety & depression 08/12/24 albuterol sulfate 2.5 mg/3 mL (0.083 %) solution for nebulization 2.5 mg (3 mL) inhalation Q2H PRN PRN SOB &/OR WHEEZING #0 mL 08/18/24 metoclopramide HCl 10 mg tablet (Reglan) 10 mg PO Q6H PRN nausea and vomiting #20 tabs 08/18/24 oxycodone 5 mg tablet 5 mg PO BID pain 2 days #4 tabs 08/18/24 Physical Exam Narrative GENERAL: cooperative HEENT: Atraumatic; normocephalic EYES; Anicteric, Normal Conjunctiva NECK; supple, normal thyroid, RESPIRATORY: Diminished to auscultation CARDIOVASCULAR: Regular S1 S2, GI: soft, normoactive bowel sounds, : No Renal angle tenderness; EXTREMITIES: No edema, no clubbing, MUSCULOSKELETAL: Contractures of extremities NEURO: Awake; right-sided hemiparesis SKIN: No Rash PSYCH; Flat affect t Medical Records Data Medical Nutrition Assessment Dietitian: Malnutrition Criteria Met Start: 08/13/24 11:09 Freq: Status: Active Protocol: Document 08/13/24 13:58 SB (Rec: 08/13/24 13:59 SB [id number]) Nutrition Malnutrition Evidence of Malnutrition Exists Yes Malnutrition (severe): Chronic Evidenced By Suboptimal Energy Intake ( Severe),Weight Loss (Severe) Clinical Problem Chronic Disease or Condition Related Malnutrition Etiology severe related to inadequate oral intake Signs/Symptoms as evidenced by PO meeting <75 % of estimated energy needs x 1-2 months and 18% unintentional weight loss x 9 months. Status Active Problem Recommendation Dietitian Recommendations/Changes Adjust to liberal regular diet d/t signs and symptoms of malnutrition. Will order vanilla fortified pudding TID with meals. Will order magic cup with lunch and dinner. Will adjust ONS, as needed. Will monitor weight, as available. Reviewed and approved by Briseida Clark RD, LD. Weight / BMI Weight Weight: 53.932 kg Body Mass Index (BMI) 20.9 ABG / Lab / Microbiology Data 08/18/24 06:13 08/18/24 06:13 Laboratory: Laboratory Results - last 24 hr 08/18/24 06:13: WBC 13.3 H, RBC 3.73 L, Hgb 9.6 L, Hct 30.8 L, MCV 82.6, MCH 25.7 L, MCHC 31.2 L, RDW Std Deviation 70.1 H, RDW Coeff of [place]on 23.5 H, Plt Count 295, MPV 9.8, Immature Gran % (Auto) 0.600, Neut % (Auto) 80.8 H, Lymph % (Auto) 9.3 L, [place] % (Auto) 7.1, Eos % (Auto) 1.7, Baso % (Auto) 0.5, Absolute Neuts (auto) 10.8 H, Absolute Lymphs (auto) 1.24, Nucleated RBC % 0, Anisocytosis 2+, Sodium 138, Potassium 3.7, Chloride 108 H, Carbon Dioxide 26.0, Anion Gap 5, BUN 6 L, Creatinine 0.20 L, Estim Creat Clear Calc 41.63, Est GFR (MDRD) Af Amer 454, Est GFR (MDRD) Non-Af 375, BUN/Creatinine Ratio 30.8 H, Glucose 102, Calcium 7.9 L Microbiology: Microbiology 08/12/24 11:56 Urine Catheter - Catheter Urine Culture - Final Escherichia coli Staphylococcus aureus Enterococcus faecalis 08/14/24 06:20 Vomitus Gastric Occult Blood - Final Occult Blood Positive D/C Instructions Discharge Diet: Soft diet and Swallowing Precautions Discharge Activity: Return to Normal Activity Call your doctor if you observe: Fever of 101 or Higher, Shortness of breath, Fainting spells and Chest pain Meaningful Use Info Meaningful Use Meaningful Use Diagnoses (Choose all that apply): None applicable Ischemic Stroke Statin Dosing Therapy Reference: STATIN DOSE THERAPY REFERENCE: * Patients > 75 years receive moderate or high dose statin therapy. * Patients 75 years or YOUNGER should receive HIGH intensity statin dose unless contraindicated. You will be required to document reason for non-treatment if statin daily dose does not meet guidelines. HIGH DOSE STATIN THERAPY DAILY Atorvastatin > than or = to 40 mg Rosuvastatin > than or = to 20 mg Amlodipine + Atorvastatin > than or = to 2.5/40 mg Ezetimibe + Simvastatin 10/80 mg Simvastatin 80mg Discharge Plan Admission Admit Date/Time: 08/12/24 13:41 Attending Provider: Apollo Hood Primary Care Provider: Josh Oro Consulting Providers: Carly Cuenca; Sukumar Walters; Rosie Leon Discharge Orders/Prescriptions Prescriptions: New albuterol sulfate 2.5 mg /3 mL (0.083 %) Solution For Nebulization 2.5 mg inhalation Q2H PRN PRN (Reason: SOB &/OR WHEEZING) Qty: 0 0RF metoclopramide HCl [Reglan] 10 mg tablet 10 mg PO Q6H PRN (Reason: nausea and vomiting) Qty: 20 0RF Continued Calmoseptine 0.44-20.6 % ointment in packet 1 applic topical DAILY sennosides-docusate sodium [Stimulant Laxative Plus] 8.6-50 mg Tablet 2 tab PO BID Qty: 0 0RF metronidazole 500 mg tablet 500 mg PO Q8H 5 Days Qty: 15 0RF ciprofloxacin HCl 500 mg tablet 500 mg PO BID 6 Days Qty: 12 0RF acetaminophen 325 mg tablet 650 mg PO QHS PRN (Reason: back pain) acetaminophen 325 mg tablet 650 mg PO TID capsaicin [Arthritis-Muscle (capsaicin)] 0.025 % cream 1 applic topical DAILY Rx Instructions: do not wash area for at least 30 min after application bisacodyl [Dulcolax (bisacodyl)] 10 mg suppository 10 mg [place] DAILY PRN (Reason: constipation) mirtazapine 15 mg tablet,disintegrating 15 mg PO QHS sertraline 50 mg tablet 50 mg PO DAILY oxycodone 5 mg tablet 5 mg PO BID 2 Days Qty: 4 0RF atorvastatin 20 mg tablet 20 mg PO QHS pantoprazole 40 mg Tablet,Delayed Release (Dr/Ec) 40 mg PO BID Qty: 60 2RF Discontinued Eliquis 5 mg tablet 5 mg PO BID Referrals / Follow Up: Josh Oro MD [Primary Care Provider] - Within 1 Week Disposition Disposition (needs filled in before D/C Order can be placed): Long Term Facility Charges/Coding Visit Charges Inpatient E&M: 94451 Disch Hosp >30min
--- NOTE | 2024-08-18 12:12 | CASEMGMT ---
Discharge back to [facility] under intermediate level of care. [facility] will transport patient via cot. Kaykay RICHEY
--- NOTE | 2024-08-18 12:28 | CASEMGMT ---
Discharge Planning Discharge orders, signed med list, and transport time sent to [facility]. [facility] patient by [facility] at 2:30p. Nursing, SW, patient, and daughter updated. Gemma Mas DC Planning Asst.
[2024-08-18 13:30] VITALS: BP 136/95; PULSE 74; RESP 18; TEMP 35.8; O2SAT 96
== END 2024-08-18 14:45 | disposition skilled nursing facility (03) | DRG 391 ==
LOC: ED 13:24 → PCU 14:04
PROVIDERS: Family Medicine; Admitting Provider Internal Medicine; Emergency Provider Surgery; PCP Family Medicine; Visit Provider Internal Medicine
DX: K31.84 Gastroparesis (principal); E43 Unspecified severe protein-calorie malnutrition; R53.2 Functional quadriplegia; K31.5 Obstruction of duodenum; K80.00 Calculus of gallbladder with acute cholecystitis without obstruction; I69.351 Hemiplegia and hemiparesis following cerebral infarction affecting right dominant side; K74.60 Unspecified cirrhosis of liver; M06.9 Rheumatoid arthritis, unspecified; I10 Essential (primary) hypertension; I48.0 Paroxysmal atrial fibrillation; E86.0 Dehydration; R11.2 Nausea with vomiting, unspecified; E78.5 Hyperlipidemia, unspecified; E87.6 Hypokalemia; F41.8 Other specified anxiety disorders; E83.42 Hypomagnesemia; B95.2 Enterococcus as the cause of diseases classified elsewhere; N30.90 Cystitis, unspecified without hematuria; Z79.01 Long term (current) use of anticoagulants; B95.8 Unspecified staphylococcus as the cause of diseases classified elsewhere; R53.81 Other malaise; Z79.899 Other long term (current) drug therapy; Z68.20 Body mass index [BMI] 20.0-20.9, adult
CPT/HCPCS: 36415; 71045; 74177; 74230; 76705; 78227; 80048; 80053; 81001; 82271; 83690; 83735; 84100; 84484; 85025; 87077; 87086; 87088; 87186; 92526; 92610; 92611; 93005; 94640; 97110; 97162; 97167; 97530; 97535; 97802; 97803; 99285; A9537; J7030; P9612; Q9967; A4216; J2405

== ENCOUNTER 2024-08-21 13:02 | Emergency (ER) | payer MEDICARE, MEDICAID, SELFPAY ==
[2024-08-21] VITALS (21 sets, daily range): BP systolic 59–100; BP diastolic 44–70; PULSE 87–108; RESP 16–35; TEMP 36.1–36.6; O2SAT 68–100; BMI 23.5
--- NOTE | 2024-08-21 13:13 | EKG12_ITS ---
Test Reason : Blood Pressure : */* mmHG Vent. Rate : 97 BPM Atrial Rate : * BPM P-R Int : * ms QRS Dur : 84 ms QT Int : 426 ms P-R-T Axes : * 22 188 degrees QTcB Int : 541 ms Atrial fibrillation T wave abnormality, consider lateral ischemia Prolonged QT Abnormal ECG Confirmed by JOMAR ABREU, VALDO ([id number]), acquisition editor GLENROY JERNIGAN ([id number]) on 08/24/2024 9:35:50 AM Referred By: ROLLY Confirmed By: VALDO HADLEY MD
--- NOTE | 2024-08-21 13:13 | RAD_ITS ---
STUDY: X-RAY CHEST REASON FOR EXAM: Female, 78 years old. Tachypnea TECHNIQUE: Single AP portable view of the chest. COMPARISON: Comparison is made with prior study August 12, 2024. FINDINGS: EKG electrodes are seen. Progressive left basilar infiltrate and blunting of the left costo phrenic angle. Normal size heart. Normal mediastinum and marisol. Normal visualized pulmonary arteries. There is atherosclerotic calcification of the aortic arch with tortuosity. There is demineralization of the osseous structures. There is degenerative osteoarthritis of the bilateral shoulders. There is no demonstrated abnormality of the visualized soft tissue structures of the upper abdomen. RAD/Chest 1 View (Portable) IMPRESSION: Progressive left lower lobe infiltrate and blunting of the left costophrenic angle. Electronically Signed: Giuseppe Young MD at 14:12 EDT ,
[2024-08-21 13:17] LABS: Blood Gas Specimen Type VEN; O2 Delivery Device Not entered; SITE Not entered; VBG BASE EXCESS -6 mmol/L (-1.0-3.5); VBG Bicarbonate 20 mmol/L (22-26); VBG PO2 46 mmHg (25-40); VBG SO2 81 % (50-70); VBG TCO2 21 mmol/L (23-33); VBG pCO2 33.7 mmHg (41-51); VBG pH 7.37 (7.32-7.42)
[2024-08-21] MEDS: 0.9% Normal Saline (500mL Bag) 500 ML 1000 ML IV (13:25)
[2024-08-21 13:42] LABS: Absolute Lymphocyte Count 0.88 X10^3/uL (0.83-4.51); Absolute Neutrophil Count 18.7 X10^3/uL (2.0-7.7); Basophil# 0.09 X10^3/uL; Basophil% 0.4 % (0-1); Hematocrit 32.9 % (37-47); Hemoglobin 10.3 g/dL (12.0-15.0); Lymphocyte # 0.88 X10^3/ul (0.83-4.51); Lymphocyte % 4.2 % (19-41); Mean Corp Hgb Conc 31.3 g/dL (32-36); Mean Corpuscular Hgb 25.9 pg (27.0-32.0); Mean Corpuscular Volume 82.7 fL (81-99); Mean Platelet Vol. 11.1 fl (6.2-12.0); Monocyte# 0.85 X10^3/uL; Monocyte% 4.1 % (0-10); NRBC Flagged by Analyzer 0.2 % (0-5); Neutrophil # 18.67 X10^3/uL (2.7-7.7); Neutrophil % 89.2 % (47-70); POSITIVE MORPHOLOGY YES; Platelet Count 266 K/mm3 (150-450); RBC Distribution Width CV 24.1 % (11.6-14.6); RBC Distribution Width SD 70.7 fl (35.1-43.9); Red Blood Count 3.98 M/mm3 (4.2-5.4); White Blood Count 20.9 K/mm3 (4.4-11.0)
--- NOTE | 2024-08-21 13:57 | EDS_ITS ---
HPI History of Present Illness Chief Complaint: General Illness [facility] Medical History (Updated 08/21/24 @ 15:[address] Bladimir Demarco MD) Depression Anxiety Chronic pain GI bleed Non-smoker TIA (transient ischemic attack) Gall bladder pain Gallbladder attack Closed wedge compression fracture of T12 vertebra Acute UTI Abdominal pain Cholelithiasis Acute upper GI bleed Fall Major depressive disorder, recurrent, mild Anxiety disorder, unspecified Sarcopenia Hemiplegia CVA (cerebral vascular accident) HTN (hypertension) HLD (hyperlipidemia) A-fib Acute ischemic right MCA stroke Afib Home Medications ?Medication ?Instructions ?Recorded ?Last Taken ?Type atorvastatin 20 mg tablet 20 mg PO QHS HLD 05/08/24 05/08/24 History pantoprazole 40 mg tablet,delayed 40 mg PO BID gastritis #60 tabs 05/27/24 Unknown Rx release menthol 0.44 %-zinc oxide 20.6 % 1 applic topical DAILY skin 06/22/24 Unknown History topical ointment in packet (Calmoseptine) ciprofloxacin HCl 500 mg tablet 500 mg PO BID 6 days #12 tabs 06/25/24 Unknown Rx metronidazole 500 mg tablet 500 mg PO Q8H 5 days #15 tabs 06/25/24 Unknown Rx sennosides 8.6 mg-docusate sodium 2 tab PO BID constipation #0 tabs 06/25/24 Unknown Rx 50 mg tablet (Stimulant Laxative Plus) acetaminophen 325 mg tablet 650 mg PO QHS PRN back pain 08/12/24 Unknown History acetaminophen 325 mg tablet 650 mg PO TID back pain 08/12/24 Unknown History bisacodyl 10 mg rectal suppository 10 mg MO DAILY PRN constipation 08/12/24 Unknown History (Dulcolax (bisacodyl)) capsaicin 0.025 % topical cream 1 applic topical DAILY lower back 08/12/24 Unknown History (Arthritis-Muscle (capsaicin)) & rt knee pain mirtazapine 15 mg disintegrating 15 mg PO QHS depression / anorexia 08/12/24 Unknown History tablet sertraline 50 mg tablet 50 mg PO DAILY anxiety & depression 08/12/24 Unknown History albuterol sulfate 2.5 mg/3 mL 2.5 mg (3 mL) inhalation Q2H PRN 08/18/24 Unknown Rx (0.083 %) solution for nebulization PRN SOB &/OR WHEEZING #0 mL metoclopramide HCl 10 mg tablet 10 mg PO Q6H PRN nausea and 08/18/24 Unknown Rx (Reglan) vomiting #20 tabs oxycodone 5 mg tablet 5 mg PO BID pain 2 days #4 tabs 08/18/24 Unknown Rx Allergy/AdvReac Type Severity Reaction Status Date / Time Food Allergies: Uncoded AdvReac Intermediate Vomiting Verified 07/29/24 14:48 orange juice AdvReac Intermediate Vomiting Verified 07/29/24 14:48 tomato AdvReac Vomiting Verified 08/12/24 13:57 Family History Other CVA (cerebral vascular accident) Cancer Heart disease Surgical History Percutaneous endoscopic gastrostomy status Social History Smoking Status: Never smoker EXAM Physical Exam Const Vital Signs: 08/21/24 13:05 08/21/24 13:14 08/21/24 13:19 Temperature 97 F L 97 F L Temperature Source Axillary Axillary Pulse Rate 108 H 91 Respiratory Rate 24 H 24 H Respiratory Effort Blood Pressure 100/53 L 100/53 L Blood Pressure Mean 68 68 Pulse Ox 98 96 Oxygen Delivery Method Room Air Nasal Cannula Nasal Cannula Oxygen Flow Rate (L/min) 6 6 08/21/24 13:22 08/21/24 13:33 08/21/24 14:03 Temperature Temperature Source Pulse Rate 97 96 Respiratory Rate 16 16 Respiratory Effort Short of Breath Labored Blood Pressure 82/54 L 87/67 L Blood Pressure Mean 63 73 Pulse Ox 98 100 Oxygen Delivery Method Nasal Cannula Nasal Cannula Oxygen Flow Rate (L/min) 6 6 08/21/24 14:14 08/21/24 14:46 08/21/24 15:00 Temperature 97 F L Temperature Source Temporal Pulse Rate 96 93 97 Respiratory Rate 16 30 H 28 H Respiratory Effort Blood Pressure 87/67 L 59/44 L 71/45 L Blood Pressure Mean 73 49 53 Pulse Ox 100 68 73 Oxygen Delivery Method Nasal Cannula Non-Rebreather Non-Rebreather Oxygen Flow Rate (L/min) 6 15 15 08/21/24 15:15 08/21/24 15:35 08/21/24 15:45 Temperature Temperature Source Pulse Rate 90 99 105 H Respiratory Rate 31 H 35 H 23 H Respiratory Effort Blood Pressure 73/61 L 83/67 L 76/48 L Blood Pressure Mean 65 72 57 Pulse Ox 76 80 74 Oxygen Delivery Method Non-Rebreather Non-Rebreather Non-Rebreather Oxygen Flow Rate (L/min) 15 15 15 08/21/24 16:00 08/21/24 16:16 Temperature Temperature Source Pulse Rate 93 97 Respiratory Rate 29 H 30 H Respiratory Effort Blood Pressure 74/61 L 80/70 L Blood Pressure Mean 65 73 Pulse Ox 74 75 Oxygen Delivery Method Non-Rebreather Non-Rebreather Oxygen Flow Rate (L/min) 15 15 [facility] MDM Lab Data Attestation: I reviewed the patient's lab results. Lab results narrative: White count is elevated with shift. There is no bandemia H&H is 10.3 and 32.9. Sodium is normal. Potassium is elevated 5.9. CO2 is 19 with anion gap 11. BUN and creatinine are elevated at 19 and 1.71. Prior creatinine was 0.21. Urine is consistent with infection. Labs: Laboratory Results - last 24 hr 08/21/24 08/21/24 13:20 14:15 WBC 20.9 H RBC 3.98 L Hgb 10.3 L Hct 32.9 L MCV 82.7 MCH 25.9 L MCHC 31.3 L RDW Std Deviation 70.7 H RDW Coeff of [place] 24.1 H Plt Count 266 MPV 11.1 Immature Gran % (Auto) 2.100 H Neut % (Auto) 89.2 H Lymph % (Auto) 4.2 L [place] % (Auto) 4.1 Eos % (Auto) 0.0 Baso % (Auto) 0.4 Absolute Neuts (auto) 18.7 H Absolute Lymphs (auto) 0.88 Nucleated RBC % 0.2 Differential Comment SCANNED Toxic Granulation 1+ Polychromasia RARE Anisocytosis 2+ Ovalocytes 1+ Radha Cells 2+ Sodium 138 Potassium 5.9 H Chloride 108 H Carbon Dioxide 19.0 L Anion Gap 11 BUN 19 H Creatinine 1.73 H Estim Creat Clear Calc 20.81 Est GFR (MDRD) Af Amer 37 L Est GFR (MDRD) Non-Af 30 L BUN/Creatinine Ratio 11.0 Glucose 100 Calcium 8.2 L Total Bilirubin 0.90 AST 57 H ALT 22 Alkaline Phosphatase 174 H Total Protein 4.9 L Albumin 1.4 L Globulin 3.5 Albumin/Globulin Ratio 0.4 L Urine Color [place] Urine Clarity Cloudy Urine pH 5.0 Ur Specific [place] 1.020 Urine Protein 15 H Urine Glucose (UA) Normal Urine Ketones Negative Urine Occult Blood 10 H Urine Nitrite Positive H Urine Bilirubin 3 H Urine Urobilinogen 1 H Ur Leukocyte Esterase 500 H Urine RBC 0 SEEN Urine WBC 0-5 SEEN Ur Squamous Epith Cells 5-10 SEEN Urine Bacteria 2+ Urine Mucus 0 SEEN Urine Yeast 2+ ABG Data ABG results: ABG 08/21/24 13:14 Specimen Type [facility] Sample Site Not entered VBG pH 7.37 VBG pO2 46 H VBG HCO3 20 L VBG Total CO2 21 L VBG O2 Sat (Calc) 81 H VBG Base Excess -6 L POC Mix VBG pCO2 Pt Tmp 33.7 L O2 Delivery Device Not entered Radiography Chest X-Ray - ED: 1 View, Read by ED Physician (Rotated suboptimal film. There may be an infiltrate. Difficult to assess because of suboptimal quality. Cardiac size is normal. Osseous structures unremarkable. There is no obvious effusion, infiltrate and there is no evidence of pneumothorax.. Interpreted by me at 1353) and Read by Radiologist (Radiologist report was read. Radiologist believes there is a left lower lobe infiltrate. Patient did receive Rocephin. Will also administer dose of azithromycin.) Diagnostic Testing: Clinical Impression(s) from Imaging Studies Chest X-Ray 08/21/24 13:13 IMPRESSION: Progressive left lower lobe infiltrate and blunting of the left costophrenic angle. Electronically Signed: Giuseppe Young MD at 14:12 EDT , EKG Initial EKG: Attestation: I personally reviewed and interpreted this EKG as follows: Interpretation: Atrial Fibrillation (Rate is 91. QRS duration 84. QT duration 4 and 26 ms. [place] is normal. QTc is prolonged at 541 ms.) Treatment and Re-Evaluation :: Because patient was hypotensive she received a 30 cc/kg bolus of normal saline. Discussed with relative his POA in the room regarding central line pressors initially she said yes after speaking with her mother that she does not wish for her to have a central line. DNR Comfort Care arrest document was completed by me. Patient has no intubation, no CPR, no central line and no pressors. Was informed by nurse that she requested to keep her alive until her granddaugh ravindra gets here. There has been discussion regarding hospice. This was brought up last admission. Apparently the correction did not follow through. Hospice nurse will be into see patient and family. Critical Care Time Critical Care Time: Yes Critical care time (excluding procedures): 30-74 minutes (36), Including time spent: (History, physical, documentation, independent rotation of laboratory results, treatment for septic shock), Discussing w/Patient &/or Family/Charge Hand (Regarding condition, CODE STATUS and treatment options), Performing Direct Patient Care at Bedside and - (Patient's condition has deteriorated with no CPR, intubation, pressors, central line at discussion again with family members regarding CODE STATUS. Patient is now DNR comfort care only. Agreed to contacting hospice.) Discharge Plan Triage Chief Complaint: General Illness ED Provider: Bladimir Demarco Dx/Rx/DC Orders Clinical Impression: Septic shock, Chronic atrial fibrillation, Cholelithiasis, Complicated UTI (urinary tract infection), Left lower lobe pulmonary infiltrate, Encephalopathy due to infection, Acute hypoxic respiratory failure, Acute kidney injury, DNR no code (do not resuscitate), DNR (do not resuscitate) discussion Prescriptions: No Action Calmoseptine 0.44-20.6 % ointment in packet 1 applic topical DAILY sennosides-docusate sodium [Stimulant Laxative Plus] 8.6-50 mg Tablet 2 tab PO BID Qty: 0 0RF metronidazole 500 mg tablet 500 mg PO Q8H 5 Days Qty: 15 0RF ciprofloxacin HCl 500 mg tablet 500 mg PO BID 6 Days Qty: 12 0RF acetaminophen 325 mg tablet 650 mg PO QHS PRN (Reason: back pain) acetaminophen 325 mg tablet 650 mg PO TID capsaicin [Arthritis-Muscle (capsaicin)] 0.025 % cream 1 applic topical DAILY Rx Instructions: do not wash area for at least 30 min after application bisacodyl [Dulcolax (bisacodyl)] 10 mg suppository 10 mg MO DAILY PRN (Reason: constipation) mirtazapine 15 mg tablet,disintegrating 15 mg PO QHS sertraline 50 mg tablet 50 mg PO DAILY albuterol sulfate 2.5 mg /3 mL (0.083 %) Solution For Nebulization 2.5 mg inhalation Q2H PRN PRN (Reason: SOB &/OR WHEEZING) Qty: 0 0RF metoclopramide HCl [Reglan] 10 mg tablet 10 mg PO Q6H PRN (Reason: nausea and vomiting) Qty: 20 0RF oxycodone 5 mg tablet 5 mg PO BID 2 Days Qty: 4 0RF atorvastatin 20 mg tablet 20 mg PO QHS pantoprazole 40 mg Tablet,Delayed Release (Dr/Ec) 40 mg PO BID Qty: 60 2RF Primary Care Provider: Josh Oro Referrals: Josh Oro MD [Primary Care Provider] - Print Language: Latvian Disposition Disposition: Hospice in Medical Facility
[2024-08-21 14:06] LABS: ALB/GLOB Ratio 0.4 RATIO (0.9-2.4); AST(SGOT) 57 U/L (15-37); Alanine Aminotransfer ALT/SGPT 22 U/L (13-56); Albumin, Serum 1.4 g/dL (3.2-5.0); Alkaline Phosphatase 174 U/L (45-117); Anion Gap 11 (5-15); BUN 19 mg/dL (7-18); Calcium,Total 8.2 mg/dL (8.5-10.1); Chloride 108 mmol/L (98-107); Creatinine, Serum 1.73 mg/dL (0.55-1.02); EST Glomerular Filtration Rate 30 mL/min (>60); Est Glom Filt Rate - Afr Amer 37 mL/min (>60); Estimated Creatinine Clearance 20.81 ml/min; Globulin 3.5 g/dL (2.2-4.2); Glucose 100 mg/dL (74-106); Potassium 5.9 mmol/L (3.5-5.1); Protein, Total 4.9 g/dL (6.4-8.2); Sodium Level 138 mmol/L (136-145)
[2024-08-21 14:19] LABS: Differential Indicated SCAN CRITERIA MET
[2024-08-21 14:20] LABS: Anisocytosis 2+; Burr Cells 2+; Differential Comment SCANNED; Ovalocyte 1+; Polychromasia RARE
[2024-08-21 14:20] LABS: Mucous, Urine 0 SEEN /hpf (<or=2+); Red Blood Cells-Urine 0 SEEN /hpf (0-5)
[2024-08-21 14:21] LABS: Toxic Granulation 1+
[2024-08-21 14:24] LABS: Color, Urine Amber (Yellow); Glucose, Dipstick Normal (Normal); Ketone-Dipstick Negative (Negative); Leukocyte Esterase-Dipstick 500 /ul (Negative); Nitrite-Dipstick Positive (Negative); Occult Blood-Urine 10 /ul (Negative); Protein-Dipstick 15 mg/dl (Negative); Urine Clarity Cloudy (Clear); Urine Urobilinogen 1 mg/dl (Normal)
--- NOTE | 2024-08-21 14:27 | ED.RN ---
Fluid resuscitation flagged. Dr. Demarco notified.
[2024-08-21 14:33] LABS: Squamous Epithelial Cells - UA 5-10 SEEN /hpf (5-10); Urine Bilirubin Dipstick 3 mg/dL (Negative)
[2024-08-21 14:34] LABS: Bacteria 2+ /hpf (None Seen); White Blood Cells 0-5 SEEN /hpf (0-5); Yeast-Urine 2+ /hpf (None Seen)
[2024-08-21] MEDS: Ceftriaxone 1 GM/50 ML BAG IV (14:52)
[2024-08-21] MEDS: 0.9% Normal Saline (1000mL) 1,000 ML 999 ML IV (14:52)
[2024-08-21] MEDS: Ondansetron 4 MG/2 ML Vial IV (14:52)
--- NOTE | 2024-08-21 15:10 | ED.RN ---
Nurse unable to draw blood cultures and lactic off IV line. Dr. Demarco attempted femoral stick. He was unable to palpate pulse. No further orders at this time.
--- NOTE | 2024-08-21 15:12 | ED.RN ---
Dght stated that no central line was to be put in if patient did not respond to IV fluids. Dr. Demarco notified.
--- NOTE | 2024-08-21 18:26 | ED.RN ---
Vasopressor not to be ordered. Patient is DNRCC.
[2024-08-21] MEDS: Morphine 2 MG/ML Syringe IV (20:27)
[2024-08-21] MEDS: LORazepam 2 MG/ML Syringe 0.5 MG IV (20:27)
== END 2024-08-21 21:38 | disposition hospice, inpatient (51) ==
PROVIDERS: Emergency Medicine; Emergency Provider Emergency Medicine; PCP Family Medicine; Visit Provider Emergency Medicine
DX: J96.01 Acute respiratory failure with hypoxia (principal); Z93.1 Gastrostomy status; R65.21 Severe sepsis with septic shock; I48.20 Chronic atrial fibrillation, unspecified; N17.9 Acute kidney failure, unspecified; I10 Essential (primary) hypertension; G93.40 Encephalopathy, unspecified; E78.5 Hyperlipidemia, unspecified; N39.0 Urinary tract infection, site not specified; K80.20 Calculus of gallbladder without cholecystitis without obstruction; R91.8 Other nonspecific abnormal finding of lung field; Z86.73 Personal history of transient ischemic attack (TIA), and cerebral infarction without residual deficits; Z79.899 Other long term (current) drug therapy; F32.A Depression, unspecified; F41.9 Anxiety disorder, unspecified
CPT/HCPCS: 71045; 80053; 81001; 82803; 85025; 87077; 87086; 87088; 87186; 93005; 96361; 96365; 96375; 99285; J7030; A4216; J2405